=== PATIENT | male | born 1940 | race Caucasian/White ===

== ENCOUNTER 2018-06-15 09:12 | Inpatient (IN) ==
[2018-06-15] MEDS ORDERED: Nitroglycerin 0.4 MG TAB.SUBL SL STA (09:28)
[2018-06-15] MEDS ORDERED: Furosemide 40 MG/4 ML VIAL IVP ONE (09:29)
[2018-06-15] MEDS ORDERED: *HR* LORazepam 2 MG/ML VIAL IVP ONE (09:31)
--- NOTE | 2018-06-15 09:38 | Emergency Department Note ---
Disposition Clinical Impression: Acute respiratory distress Pulmonary edema Qualifiers: Chronicity: acute Qualified Code(s): J81.0 - Acute pulmonary edema Disposition: Admitted As Inpatient Condition: Good General Adult HPI - General Chief complaint: ED Chest Pain Stated complaint: chest pain Time Seen by Provider: 06/15/18 09:14 Source: EMS Limitations: no limitations - History of Present Illness Pain Scale: 4 Past Medical History - Past Medical History Medical history: Reports: hypertension, myocardial infarction, renal disease Psychiatric history: Reports: no psych history - Social History Smoking Status: Former smoker Smokeless Tobacco Status: No Alcohol use: Reports: none Drug use: Reports: none Physical Exam - General Limitations: no limitations General appearance: alert, in distress Course Vital Signs Temperature 98.5 F 06/15/18 09:16 Pulse Rate 118 06/15/18 09:16 Respiratory Rate 35 06/15/18 09:16 Blood Pressure 171/97 06/15/18 09:16 O2 Sat by Pulse Oximetry 95 06/15/18 09:16 Temperature 98.5 F 06/15/18 09:27 Pulse Rate 125 06/15/18 09:27 Respiratory Rate 30 06/15/18 09:27 Blood Pressure 171/97 06/15/18 09:27 O2 Sat by Pulse Oximetry 95 06/15/18 09:27 Oxygen Delivery Oxygen Delivery Nasal Cannula Attestation Statement - Attestation Attestation: I examined this patient and my medical decision-making was reviewed with the Resident Physician. I agree with the documented findings, disposition and treatment plan as described except to the extent set forth below. 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 Varun states that he used to follow with [facility] but not longer does. Varun states that we went to dialysis today and they started to deveop chest pain and was hypoxic to 88% on RA. He is coughing up foamy pinkish productive sputum and there is audible rales on exam concerning for pulmonary edema. Richard has a cardiac history of Mi in the past and currenlty on EKG shows avl ST elevation and global depressions and T wave depressions which I am considering is likley secondary to ischemic demand from the acute pulmonary edema. Varun otherwise appears to be in respiratory distress and we have placed him on bipap, lasix, and nitro. 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 We anatoliy also consult with nephrology for the dialysis therapy in addition to cleanrance for CTA to rule out PE.
--- NOTE | 2018-06-15 09:39 | Emergency Department Note ---
Disposition Clinical Impression: Acute respiratory distress Pulmonary edema Qualifiers: Chronicity: acute Qualified Code(s): J81.0 - Acute pulmonary edema Disposition: Admitted As Inpatient Condition: Fair Referrals: NONE,PCP [Primary Care Provider] - Forms: ED Satisfaction Letter Time of Disposition: 13:24 General Adult HPI - General Chief complaint: ED Chest Pain Stated complaint: chest pain Time Seen by Provider: 06/15/18 09:14 Source: EMS Limitations: no limitations Nursing Notes Reviewed: Yes Vital Signs Reviewed: Yes - History of Present Illness HPI Narrative: Patient is a 77-year-old male with history significant for prior NV and 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 History is somewhat limited secondary to respiratory distress and initial presentation. Presenting from dialysis center for evaluation of sudden onset chest pain that started while patient was getting ready for dialysis states this is central in his chest and is similar to pain he had one year ago felt during his NV, is severe in quality and nonradiating. Patient does endorse cough associated with significant foamy productive sputum and shortness of breath. Patient did not complete his dialysis today. He does have a left upper extremity fistula. 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 Constitutional: Denies: fever Eyes: Denies: vision change ENT ED: Denies: dysphagia Cardiovascular: Reports: chest pain Respiratory: Reports: cough, dyspnea Gastrointestinal: Denies: abdominal pain, nausea, vomiting Musculoskeletal: Denies: back pain, neck pain Integumentary: Denies: rash Neurological: Denies: headache Psychiatric: Reports: anxiety Past Medical History - Past Medical History Source: patient, nursing notes reviewed Medical history: Reports: hypertension, myocardial infarction, renal disease Psychiatric history: Reports: no psych history - Social History Smoking Status: Former smoker Smokeless Tobacco Status: No Alcohol use: Reports: none Drug use: Reports: none Physical Exam - General Limitations: no limitations General appearance: alert, in distress - Head Head exam: atraumatic, normocephalic - Eye Eye exam: Present: EOMI. Absent: scleral icterus, conjunctival injection - ENT ENT exam: mucous membranes moist - Neck Neck exam: Present: trachea midline - Chest Chest inspection: Present: symmetric chest wall rise - Respiratory Respiratory exam: Present: respiratory distress, accessory muscle use - Expanded Respiratory Exam Location: rales: Left, Right - Cardiovascular Cardiovascular exam: Present: tachycardia. Absent: systolic murmur, diastolic murmur - Abdominal Exam Abdominal exam: Present: soft, Non-Tender. Absent: distention, guarding, rebou nd - Extremities Exam Extremities exam: Present: pedal edema (1+ bilateral), other (Left upper extremity fistula with palpable thrill). Absent: calf tenderness - Neurological Exam Neurological exam: Present: alert, oriented X3, CN II-XII intact - Psychiatric Psychiatric exam: Present: anxious - Skin Skin exam: Present: warm, dry. Absent: rash, erythema Course Course Narrative: Patient with prior NV on dialysis presenting for chest pain and shortness of breath. Clinically with respiratory distress. Differential includes evaluation for flash pulmonary edema, PE, and NV. Initial evaluation will include ekg, chest xray, troponin, cbc, bmp, lactate, bnp, UA, blood cultures. Will initiate treatment with Bipap, lasix and sublingual nitro. Will move patient to trauma room. - Reevaluation(s) Reevaluation #1: Patient is seen and re-evaluated. He did require benzo for tolerance of bipap. EKG is suggestive of left bundle branch block. chest xray with findings of right lower opacification. Troponin is 0.68. CTA chest pending. Clinically, respiratory distress if improved with bipap and medications, patient now better able to speak. Have started nitro drip and given aspirin. Spoke with cardiology Dr. Sanchez, notes that is difficult to interpret lbbb without a prior ekg however does recommend repeat ekg for evaluation of potential evolving acs as well as stat echocardiogram. Have spoken with Dr. Mix of nephrology, he will prepare for possible dialysis today. Starting antibiotics with rochephin and azithromycin. INR 1.0, will start acs heparin. Time: 10:31 Reevaluation #2: Patient is seen and re-evaluated at the bedside. Reports that pain in his chest is significantly better and he is feeling much improvement in shortness of breath on Bipap. [employer] is at the bedside who confirms that patient orders have been placed and will have bed to receive dialysis today. Time: 11:02 Reevaluation #3: As seen and reevaluated at the bedside. He reports no acute changes. He continues to feel significant improvement in chest pain shortness of breath since initiation of treatment. Cardiology has come to emergency department to evaluate patient at the bedside who states to continue nitro drip and ACS heparin, obtain stat echocardiogram and they will evaluate for possible left heart catheter pending result of echo. CTA is pending, contact hospitalist when resulted. Time: 12:10 Additional Reevaluation(s): Patient is seen and reevaluated at the bedside. Echotexture is finishing echocardiogram. She reports no evidence of pericardial tamponade, has not yet calculated EF however reports that this appears within normal limits. Final echo report is pending cardiology read. CTA is without identification of pulmonary embolism, does reveal moderate pleural effusions and perihilar edema. Abscess case with admitting hospitalist Dr. Damico who accepts patient for admission. Clinically patient is significantly improved he is tolerating BiPAP well ports near resolution of his symptoms. Vital Signs Temperature 98.5 F 06/15/18 09:16 Pulse Rate 118 06/15/18 09:16 Respiratory Rate 35 06/15/18 09:16 Blood Pressure 171/97 06/15/18 09:16 O2 Sat by Pulse Oximetry 95 06/15/18 09:16 Temperature 98.5 F 06/15/18 09:27 Pulse Rate 82 06/15/18 12:15 Respiratory Rate 30 06/15/18 10:11 Blood Pressure 142/60 06/15/18 12:15 O2 Sat by Pulse Oximetry 98 06/15/18 11:54 Oxygen Delivery Oxygen Delivery Bipap Medical Decision Making - Medical Records Medical records reviewed: Yes I reviewed the patient's medical records. - Lab Data Lab results reviewed: Yes I reviewed the patient's lab results. Result diagrams: 06/15/18 09:37 06/15/18 09:37 Lab Results 06/15/18 06/15/18 06/15/18 Range/Units 09:37 09:37 09:37 WBC 18.3 H (4.3-11.1) K/mcL RBC 3.53 L (4.19-5.50) M/mcL Hgb 11.7 L (12.9-16.9) g/dL Hct 35.5 L (37.5-50.1) % MCV 100.6 H (83.0-100.0) fL MCH 33.1 (28.0-33.3) pg MCHC 33.0 (31.6-35.5) g/dL RDW 14.4 (11.5-14.5) % Plt Count 392 (140-400) K/mcL MPV 10.1 (9.4-12.4) fL Immature Gran % 0.5 (0-4) % Seg Neutrophils % 67.9 % Lymphocytes % 23.6 % Monocytes % 6.5 % Eosinophils % 1.1 % Basophils % 0.4 % Neutrophils # 12.4 H (1.6-8.9) K/mcL Lymphocytes # 4.3 (0.6-4.6) K/mcL Monocytes # 1.2 (0.0-1.3) K/mcL Eosinophils # 0.2 (0.0-0.6) K/mcL Basophils # 0.1 (0.0-0.2) K/mcL PT 10.8 (9.4-12.1) Seconds INR 1.0 APTT 32.3 (26.0-36.0) Seconds Heparin Anti-Xa, Unfract (0.30-0.70) IU/mL Sample Site ABG pH (7.32-7.45) pH Units ABG pCO2 (35-45) mmHg ABG pO2 (85-104) mmHg ABG HCO3 (21-27) mEq/L ABG Total CO2 (20-26) mEq/L ABG O2 Saturation (95-98) % ABG Base Excess (-2 to 3) mEq/L Suresh Test O2 Delivery Device Blood Gas Modality Inspired O2 (1-15=lpm [id number]=%) Sodium 142 (136-145) mEq/L Potassium 3.5 (3.5-5.1) mEq/L Chloride 99 (98-107) mEq/L Carbon Dioxide 26 (23-29) mEq/L BUN 55 H (8-23) mg/dL Creatinine 6.95 H (0.70-1.30) mg/dL Est GFR ( Amer) 9 L (> 60) Est GFR (Non-Af Amer) 8 L (> 60) BUN/Creatinine Ratio 8 (6-26) Glucose 128 H (70-105) mg/dL Calculated Osmolality 311 H (280-300) Lactic Acid (0.5-2.2) mmol/L Calcium 10.5 H (8.6-10.3) mg/dL Phosphorus (2.7-4.5) mg/dL Magnesium (1.6-2.6) mg/dL Total Bilirubin (0.3-1.0) mg/dL Direct Bilirubin (0.0-0.2) mg/dL Indirect Bilirubin (0.0-1.2) mg/dL AST (13-39) Units/L ALT (7-52) Units/L Alkaline Phosphatase (34-104) Units/L Troponin I 0.68 H* (< 0.04) ng/mL B-Natriuretic Peptide (Less than 100) pg/mL Serum Total Protein (6.4-8.9) g/dL Albumin (3.5-5.7) g/dL Globulin (2.4-3.5) g/dL Albumin/Globulin Ratio (1.1-2.2) Lipase (11-82) Units/L Urine Color (Yellow) Urine Clarity (Clear) Urine pH (5.0-8.0) pH Units Ur Specific [place] (1.010-1.025) Urine Protein (Neg-Trace) mg/dL Urine Glucose (UA) (Normal) mg/dL Urine Ketones (Negative) mg/dL Urine Blood (Negative) Urine Nitrite (Negative) Urine Bilirubin (Negative) Urine Urobilinogen (Normal) mg/dL Ur Leukocyte Esterase (Negative) Urine Microscopic RBC (0-3) per hpf Urine Microscopic WBC (0-3) per hpf Ur Squamous Epith Cells (None-Few) per lpf Urine Bacteria (None-Few) per hpf Hyaline Casts (None-Few) per lpf Ur Culture Indicated? (NO) Hep Bs Antigen (Nonreactive) Hep Bs Antibody (10.00 - ) mIU/mL 06/15/18 06/15/18 06/15/18 Range/Units 09:37 09:37 09:37 WBC (4.3-11.1) K/mcL RBC (4.19-5.50) M/mcL Hgb (12.9-16.9) g/dL Hct (37.5-50.1) % MCV (83.0-100.0) fL MCH (28.0-33.3) pg MCHC (31.6-35.5) g/dL RDW (11.5-14.5) % Plt Count (140-400) K/mcL MPV (9.4-12.4) fL Immature Gran % (0-4) % Seg Neutrophils % % Lymphocytes % % Monocytes % % Eosinophils % % Basophils % % Neutrophils # (1.6-8.9) K/mcL Lymphocytes # (0.6-4.6) K/mcL Monocytes # (0.0-1.3) K/mcL Eosinophils # (0.0-0.6) K/mcL Basophils # (0.0-0.2) K/mcL PT (9.4-12.1) Seconds INR APTT (26.0-36.0) Seconds Heparin Anti-Xa, Unfract (0.30-0.70) IU/mL Sample Site ABG pH (7.32-7.45) pH Units ABG pCO2 (35-45) mmHg ABG pO2 (85-104) mmHg ABG HCO3 (21-27) mEq/L ABG Total CO2 (20-26) mEq/L ABG O2 Saturation (95-98) % ABG Base Excess (-2 to 3) mEq/L Suresh Test O2 Delivery Device Blood Gas Modality Inspired O2 (1-15=lpm [id number]=%) Sodium (136-145) mEq/L Potassium (3.5-5.1) mEq/L Chloride (98-107) mEq/L Carbon Dioxide (23-29) mEq/L BUN (8-23) mg/dL Creatinine (0.70-1.30) mg/dL Est GFR ( Amer) (> 60) Est GFR (Non-Af Amer) (> 60) BUN/Creatinine Ratio (6-26) Glucose (70-105) mg/dL Calculated Osmolality (280-300) Lactic Acid 1.9 (0.5-2.2) mmol/L Calcium (8.6-10.3) mg/dL Phosphorus 3.9 (2.7-4.5) mg/dL Magnesium 2.4 (1.6-2.6) mg/dL Total Bilirubin 0.5 (0.3-1.0) mg/dL Direct Bilirubin 0.2 (0.0-0.2) mg/dL Indirect Bilirubin 0.3 (0.0-1.2) mg/dL AST 28 (13-39) Units/L ALT 28 (7-52) Units/L Alkaline Phosphatase 103 (34-104) Units/L Troponin I (< 0.04) ng/mL B-Natriuretic Peptide 517 H (Less than 100) pg/mL Serum Total Protein 9.0 H (6.4-8.9) g/dL Albumin 4.9 (3.5-5.7) g/dL Globulin 4.1 H (2.4-3.5) g/dL Albumin/Globulin Ratio 1.2 (1.1-2.2) Lipase 41 (11-82) Units/L Urine Color (Yellow) Urine Clarity (Clear) Urine pH (5.0-8.0) pH Units Ur Specific [place] (1.010-1.025) Urine Protein (Neg-Trace) mg/dL Urine Glucose (UA) (Normal) mg/dL Urine Ketones (Negative) mg/dL Urine Blood (Negative) Urine Nitrite (Negative) Urine Bilirubin (Negative) Urine Urobilinogen (Normal) mg/dL Ur Leukocyte Esterase (Negative) Urine Microscopic RBC (0-3) per hpf Urine Microscopic WBC (0-3) per hpf Ur Squamous Epith Cells (None-Few) per lpf Urine Bacteria (None-Few) per hpf Hyaline Casts (None-Few) per lpf Ur Culture Indicated? (NO) Hep Bs Antigen (Nonreactive) Hep Bs Antibody (10.00 - ) mIU/mL 06/15/18 06/15/18 06/15/18 Range/Units 09:53 11:30 11:53 WBC (4.3-11.1) K/mcL RBC (4.19-5.50) M/mcL Hgb (12.9-16.9) g/dL Hct (37.5-50.1) % MCV (83.0-100.0) fL MCH (28.0-33.3) pg MCHC (31.6-35.5) g/dL RDW (11.5-14.5) % Plt Count (140-400) K/mcL MPV (9.4-12.4) fL Immature Gran % (0-4) % Seg Neutrophils % % Lymphocytes % % Monocytes % % Eosinophils % % Basophils % % Neutrophils # (1.6-8.9) K/mcL Lymphocytes # (0.6-4.6) K/mcL Monocytes # (0.0-1.3) K/mcL Eosinophils # (0.0-0.6) K/mcL Basophils # (0.0-0.2) K/mcL PT (9.4-12.1) Seconds INR APTT (26.0-36.0) Seconds Heparin Anti-Xa, Unfract 0.00 L (0.30-0.70) IU/mL Sample Site R Radial ABG pH 7.34 (7.32-7.45) pH Units ABG pCO2 50 H (35-45) mmHg ABG pO2 85 (85-104) mmHg ABG HCO3 27 (21-27) mEq/L ABG Total CO2 29 H (20-26) mEq/L ABG O2 Saturation 96 (95-98) % ABG Base Excess 1 (-2 to 3) mEq/L Suresh Test Positive O2 Delivery Device BiPAP Blood Gas Modality BIVENT Inspired O2 50.0 (1-15=lpm [id number]=%) Sodium (136-145) mEq/L Potassium (3.5-5.1) mEq/L Chloride (98-107) mEq/L Carbon Dioxide (23-29) mEq/L BUN (8-23) mg/dL Creatinine (0.70-1.30) mg/dL Est GFR ( Amer) (> 60) Est GFR (Non-Af Amer) (> 60) BUN/Creatinine Ratio (6-26) Glucose (70-105) mg/dL Calculated Osmolality (280-300) Lactic Acid (0.5-2.2) mmol/L Calcium (8.6-10.3) mg/dL Phosphorus (2.7-4.5) mg/dL Magnesium (1.6-2.6) mg/dL Total Bilirubin (0.3-1.0) mg/dL Direct Bilirubin (0.0-0.2) mg/dL Indirect Bilirubin (0.0-1.2) mg/dL AST (13-39) Units/L ALT (7-52) Units/L Alkaline Phosphatase (34-104) Units/L Troponin I (< 0.04) ng/mL B-Natriuretic Peptide (Less than 100) pg/mL Serum Total Protein (6.4-8.9) g/dL Albumin (3.5-5.7) g/dL Globulin (2.4-3.5) g/dL Albumin/Globulin Ratio (1.1-2.2) Lipase (11-82) Units/L Urine Color Yellow (Yellow) Urine Clarity Clear (Clear) Urine pH 7.5 (5.0-8.0) pH Units Ur Specific [place] 1.019 (1.010-1.025) Urine Protein >=300 H (Neg-Trace) mg/dL Urine Glucose (UA) 100 H (Normal) mg/dL Urine Ketones Negative (Negative) mg/dL Urine Blood Negative (Negative) Urine Nitrite Negative (Negative) Urine Bilirubin Negative (Negative) Urine Urobilinogen Normal (Normal) mg/dL Ur Leukocyte Esterase Negative (Negative) Urine Microscopic RBC 0-3 (0-3) per hpf Urine Microscopic WBC 0-3 (0-3) per hpf Ur Squamous Epith Cells None Seen (None-Few) per lpf Urine Bacteria None Seen (None-Few) per hpf Hyaline Casts None Seen (None-Few) per lpf Ur Culture Indicated? NO (NO) Hep Bs Antigen (Nonreactive) Hep Bs Antibody (10.00 - ) mIU/mL 06/15/18 Range/Units 11:53 WBC (4.3-11.1) K/mcL RBC (4.19-5.50) M/mcL Hgb (12.9-16.9) g/dL Hct (37.5-50.1) % MCV (83.0-100.0) fL MCH (28.0-33.3) pg MCHC (31.6-35.5) g/dL RDW (11.5-14.5) % Plt Count (140-400) K/mcL MPV (9.4-12.4) fL Immature Gran % (0-4) % Seg Neutrophils % % Lymphocytes % % Monocytes % % Eosinophils % % Basophils % % Neutrophils # (1.6-8.9) K/mcL Lymphocytes # (0.6-4.6) K/mcL Monocytes # (0.0-1.3) K/mcL Eosinophils # (0.0-0.6) K/mcL Basophils # (0.0-0.2) K/mcL PT (9.4-12.1) Seconds INR APTT (26.0-36.0) Seconds Heparin Anti-Xa, Unfract (0.30-0.70) IU/mL Sample Site ABG pH (7.32-7.45) pH Units ABG pCO2 (35-45) mmHg ABG pO2 (85-104) mmHg ABG HCO3 (21-27) mEq/L ABG Total CO2 (20-26) mEq/L ABG O2 Saturation (95-98) % ABG Base Excess (-2 to 3) mEq/L Suresh Test O2 Delivery Device Blood Gas Modality Inspired O2 (1-15=lpm [id number]=%) Sodium (136-145) mEq/L Potassium (3.5-5.1) mEq/L Chloride (98-107) mEq/L Carbon Dioxide (23-29) mEq/L BUN (8-23) mg/dL Creatinine (0.70-1.30) mg/dL Est GFR ( Amer) (> 60) Est GFR (Non-Af Amer) (> 60) BUN/Creatinine Ratio (6-26) Glucose (70-105) mg/dL Calculated Osmolality (280-300) Lactic Acid (0.5-2.2) mmol/L Calcium (8.6-10.3) mg/dL Phosphorus (2.7-4.5) mg/dL Magnesium (1.6-2.6) mg/dL Total Bilirubin (0.3-1.0) mg/dL Direct Bilirubin (0.0-0.2) mg/dL Indirect Bilirubin (0.0-1.2) mg/dL AST (13-39) Units/L ALT (7-52) Units/L Alkaline Phosphatase (34-104) Units/L Troponin I (< 0.04) ng/mL B-Natriuretic Peptide (Less than 100) pg/mL Serum Total Protein (6.4-8.9) g/dL Albumin (3.5-5.7) g/dL Globulin (2.4-3.5) g/dL Albumin/Globulin Ratio (1.1-2.2) Lipase (11-82) Units/L Urine Color (Yellow) Urine Clarity (Clear) Urine pH (5.0-8.0) pH Units Ur Specific [place] (1.010-1.025) Urine Protein (Neg-Trace) mg/dL Urine Glucose (UA) (Normal) mg/dL Urine Ketones (Negative) mg/dL Urine Blood (Negative) Urine Nitrite (Negative) Urine Bilirubin (Negative) Urine Urobilinogen (Normal) mg/dL Ur Leukocyte Esterase (Negative) Urine Microscopic RBC (0-3) per hpf Urine Microscopic WBC (0-3) per hpf Ur Squamous Epith Cells (None-Few) per lpf Urine Bacteria (None-Few) per hpf Hyaline Casts (None-Few) per lpf Ur Culture Indicated? (NO) Hep Bs Antigen Nonreactive (Nonreactive) Hep Bs Antibody > 850.00 (10.00 - ) mIU/mL - EKG Data EKG #1 EKG results narrative: HR 118, VA 122, [id number], QTc 574. Wide complex tachycardia. Diffuse depressions notes as well as LBBB. No prior EKG to compare for new vs old LBBB.
[2018-06-15] MEDS ORDERED: Isovue-370 500 ML BOTTLE IVP ONE (09:53)
[2018-06-15 09:55] LABS: Basophils # 0.1 K/mcL (0.0-0.2); Basophils % 0.4 %; Eosinophils # 0.2 K/mcL (0.0-0.6); Eosinophils % 1.1 %; Hematocrit 35.5 % (37.5-50.1); Hemoglobin 11.7 g/dL (12.9-16.9); Immature Granulocytes % 0.5 % (0-4); Lymphocytes # 4.3 K/mcL (0.6-4.6); Lymphocytes % 23.6 %; Mean Corpuscular Hemoglobin 33.1 pg (28.0-33.3); Mean Corpuscular Volume 100.6 fL (83.0-100.0); Mean Platelet Volume 10.1 fL (9.4-12.4); Monocytes # 1.2 K/mcL (0.0-1.3); Monocytes % 6.5 %; Neutrophils # 12.4 K/mcL (1.6-8.9); Platelet Count 392 K/mcL (140-400); Red Blood Count 3.53 M/mcL (4.19-5.50); Red Cell Distribution Width 14.4 % (11.5-14.5); Segmented Neutrophils % 67.9 %
[2018-06-15 09:57] LABS: ABG Base Excess 1 mEq/L (-2 to 3); ABG HCO3 27 mEq/L (21-27); ABG Oxygen Saturation 96 % (95-98); ABG PCO2 50 mmHg (35-45); ABG PH 7.34 pH Units (7.32-7.45); ABG PO2 85 mmHg (85-104); ABG TCO2 29 mEq/L (20-26); Blood Gas Modality BIVENT
[2018-06-15] MEDS ORDERED: cefTRIAXone 1,000 MG in Water for inj. (sterile) 20 ML 10 ML IVP ONE (10:10)
[2018-06-15] MEDS ORDERED: Azithromycin 500 MG in D5% in Water 250 ML IVPB ONE (10:10)
[2018-06-15 10:12] LABS: Albumin 4.9 g/dL (3.5-5.7); Albumin/Globulin Ratio 1.2 (1.1-2.2); Bilirubin,Direct 0.2 mg/dL (0.0-0.2); Bilirubin,Indirect 0.3 mg/dL (0.0-1.2); Bilirubin,Total 0.5 mg/dL (0.3-1.0); Globulin 4.1 g/dL (2.4-3.5); Magnesium 2.4 mg/dL (1.6-2.6); Phosphorous 3.9 mg/dL (2.7-4.5); Prothrombin Time 10.8 Seconds (9.4-12.1)
[2018-06-15 10:15] LABS: Activated Partial Thrombo Time 32.3 Seconds (26.0-36.0)
[2018-06-15] MEDS ORDERED: Aspirin 325 MG TABLET PO ONE (10:26)
[2018-06-15 10:27] LABS: Calcium 10.5 mg/dL (8.6-10.3); Potassium 3.5 mEq/L (3.5-5.1); Troponin I 0.68 ng/mL (< 0.04)
[2018-06-15] MEDS: Nitroglycerin 25 MG/250 ML INFUS..BTL IVC SCH (10:35)
[2018-06-15] MEDS ORDERED: *HR* Heparin 5,000 UNIT/ML VIAL IVP PRN (10:38)
[2018-06-15] MEDS ORDERED: *HR* Heparin 5,000 UNIT/ML VIAL IVP ONE (10:38)
[2018-06-15] MEDS: Heparin 25,000 UNIT/250 ML D5W 25,000 UNIT/250 ML IV.SOLN IVC SCH (11:44)
[2018-06-15 12:22] LABS: Bilirubin,Urine Negative (Negative); Blood,Urine Negative (Negative); Clarity,Urine Clear (Clear); Color,Urine Yellow (Yellow); Glucose,Urine (UA) 100 mg/dL (Normal); Ketones,Urine Negative (Negative); Leukocyte Esterase,Urine Negative (Negative); Nitrite,Urine Negative (Negative); PH,Urine 7.5 pH Units (5.0-8.0); Protein,Urine >=300 mg/dL (Neg-Trace); Specific Gravity,Urine 1.019 (1.010-1.025); Urobilinogen,Urine Normal (Normal)
[2018-06-15 12:26] LABS: Bacteria,Urine None Seen per hpf (None-Few); Hyaline Casts,Urine None Seen per lpf (None-Few); RBC,Urine 0-3 per hpf (0-3); Squamous Epithelial Cell,Urine None Seen per lpf (None-Few); WBC,Urine 0-3 per hpf (0-3)
[2018-06-15 12:48] LABS: Hepatitis B Surface Antibody > 850.00 mIU/mL
[2018-06-15 12:59] LABS: Hepatitis B Surface Antigen Nonreactive (Nonreactive)
[2018-06-15] MEDS ORDERED: Perflutren Lipid Microsphere 1.3 ML in 0.9 % Sodium Chloride 8.7 ML IVP ONE (13:34)
[2018-06-15] MEDS ORDERED: Perflutren Lipid Microsphere 2 ML VIAL ONE (13:43)
--- NOTE | 2018-06-15 14:14 | Internal Med History&Physical ---
Date of Encounter: 06/15/18 Time of Encounter: 14:44 Internal Medicine - H&P: HPI Chief complaint: SOB History of present illness: Patient is a 77-year-old male with history significant for prior IL and ESRD on MWF dialysis who presented with respiratory distress associated with sudden onset of mid - sternal chest pain / with no radiation that is similar to pain he had one year ago during his IL. The patient is also C/O productive cough associated with orthopnea, bilateral leg swelling. CXR and CT shows evidence of fluid overload. EKG shows LBBB. Echo shows LVEF 50-55%. Indeterminate diastolic function.Normal right ventricular size and function.No significant valvular dysfunction. No pulmonary hypertension. His laboratory data revealed mildly elevated trop. The patient was admitted for further evaluation. Past Med Surg Social Fam HX - Past Medical History Medical history: hypertension, myocardial infarction, renal disease Psychiatric history: no psych history - Social History Smoking Status: Former smoker Smokeless Tobacco Status: No Alcohol use: none Drug use: none Internal Medicine - H&P: Meds Allopurinol [Zyloprim 100 MG] 100 mg PO DAILY 06/15/18 [History] Amlodipine Besylate 10 mg PO DAILY 06/15/18 [History] Aspirin [Lo-Dose Aspirin EC] 81 mg PO DAILY 06/15/18 [History] Atorvastatin [Lipitor] 40 mg PO HS 06/15/18 [History] B-Complex with Vitamin C [Vitamin B-Complex with Vit C] 1 cap PO DAILY 06/15/18 [History] Docusate [Colace] 100 mg PO BID PRN 06/15/18 [History] Hydralazine HCl 50 mg PO TID 06/15/18 [History] Loratadine [Claritin] 10 mg PO DAILY 06/15/18 [History] Losartan Potassium 50 mg PO DAILY 06/15/18 [History] Metoprolol Succinate [Toprol Xl] 100 mg PO DAILY 06/15/18 [History] Nitroglycerin [Nitrostat] 0.4 mg SL Q5MIN PRN 06/15/18 [History] Sevelamer [Renvela] 2,400 mg PO TIDWM 06/15/18 [History] Sodium Bicarbonate 650 mg PO TID 06/15/18 [History] cloNIDine HCl [Clonidine HCl] 0.2 mg PO TID 06/15/18 [History] Allergy/AdvReac Type Severity Reaction Status Date / Time No Known Allergies Allergy Verified 06/15/18 10:12 All Systems PM: A 10-system review of systems was performed and is negative for pertinent findings except as documented above in the HPI. - Constitutional Constitutional: fatigue, no chills, no fever(s), no night sweats - EENT Eyes: no change in vision, no discharge, no pain, no photophobia Ears: no ear discharge, no ear pain, no tinnitus Nose, mouth and throat: no dysphagia, no nasal discharge, no neck pain, no sore throat - Cardiovascular Cardiovascular ROS IM: chest pain, dyspnea, dyspnea on exertion, paroxysmal nocturnal dyspnea, no diaphoresis, no lightheadedness, no palpitations, no syncope - Respiratory Respiratory: cough, dyspnea, no wheezing, no excessive phlegm production - Gastrointestinal Gastrointestinal: no abdominal pain, no diarrhea, no hematemesis, no hematochezia, no melena, no nausea, no vomiting - Musculoskeletal Musculoskeletal ROS IM: no numbness, no tingling - Integumentary Integumentary IM: no rash, no unusual bruising - Neurological Neurological ROS: no confusion, no convulsions, no focal weakness, no numbness, no tingling, no tremor(s) - Hematologic/Lymphatic Hematologic/Lymphatic: no easy bruising - Constitutional Vitals: Temp Pulse Resp BP Pulse Ox 98.5 F 83 30 142/59 98 06/15/18 09:27 06/15/18 14:03 06/15/18 10:11 06/15/18 14:03 06/15/18 11:54 Exam: General: In no acute distress. Respiratory exam: CTAB Cardiovascular exam: tachycardia, irregular, +S1, +S2. Possible S3, systolic murmur. GI/Abdominal exam: obese, Non-tender, soft, no peritoneal signs. Extremities exam: trace pedal edema, no calf tenderness Neurological exam: CN II-XII intact, AO X3, no focal deficits. Skin exam: No skin rash - Head Head exam: Present: atraumatic, normocephalic - Eye Eye exam: Present: PERRL, conjuntiva pink, sclera anicteric Pupils: Present: PERRL - Neck Neck exam general surgery: Present: supple, trachea midline. Absent: lymphadenopathy - Respiratory Respiratory exam: Present: CTAB. Absent: accessory muscle use, rales, rhonchi, wheezes - Cardiovascular Cardiovascular exam: Present: RRR, +S1, +S2. Absent: diastolic murmur, gallop, rubs, systolic murmur - GI/Abdominal GI/Abdominal exam: Present: normal bowel sounds, soft, no peritoneal signs. Absent: distended, tenderness - Extremities Exam Extremities exam: Present: warm, radial pulses palpable and symmetrical. Absent: calf tenderness, cyanotic, pedal edema - Neurological Exam Neurological exam: Present: CN II-XII intact, oriented X3, no focal deficits. Absent: pronater drift, facial droop, speech deficit - Skin Skin exam: Present: dry, intact Internal Med - H&P Results - Labs CBC & Chem 7: 06/19/18 01:29 06/19/18 01:29 Labs: Short CBC 06/15/18 Range/Units 09:37 WBC 18.3 H (4.3-11.1) K/mcL Hgb 11.7 L (12.9-16.9) g/dL Hct 35.5 L (37.5-50.1) % Plt Count 392 (140-400) K/mcL Neutrophils # 12.4 H (1.6-8.9) K/mcL BMP 06/15/18 09:37 Sodium 142 Potassium 3.5 Chloride 99 Carbon Dioxide 26 BUN 55 H Creatinine 6.95 H Glucose 128 H Calcium 10.5 H Cardiac Enzymes 06/15/18 Range/Units 09:37 Troponin I 0.68 H* (< 0.04) ng/mL Liver Function 06/15/18 Range/Units 09:37 Total Bilirubin 0.5 (0.3-1.0) mg/dL Direct Bilirubin 0.2 (0.0-0.2) mg/dL AST 28 (13-39) Units/L ALT 28 (7-52) Units/L Alkaline Phosphatase 103 (34-104) Units/L Albumin 4.9 (3.5-5.7) g/dL Urine 06/15/18 Range/Units 11:30 Urine Color Yellow (Yellow) Urine Clarity Clear (Clear) Urine pH 7.5 (5.0-8.0) pH Units Ur Specific [place] 1.019 (1.010-1.025) Urine Protein >=300 H (Neg-Trace) mg/dL Urine Glucose (UA) 100 H (Normal) mg/dL - ABG Interpretation ABG results: 06/15/18 09:53 ABG pH 7.34 ABG pCO2 50 H ABG pO2 85 ABG HCO3 27 ABG Total CO2 29 H ABG O2 Saturation 96 ABG Base Excess 1 - Impressions ITS Impressions Chest X-Ray 06/15/18 09:20 IMPRESSION: 1. Focal opacity in the right base is concerning for infection in the appropriate clinical setting. 2. Mild reticular opacities throughout the lungs may represent chronic lung changes versus mild edema. No prior studies are available for comparison to assess chronicity. D/ / 06/15/2018 09:35:22 Vivian Sunshine MD / celina Interpreting Provider: Vivian Sunshine MD Chest CTA 06/15/18 09:53 IMPRESSION: 1. No evidence of pulmonary embolism 2. CHF with perihilar edema and moderate pleural effusions 3. Calcific pericardial thickening presumably secondary to previous pericarditis or hemopericardium D/ / Hipolito Chahal MD / Hipolito Chahal MD Interpreting Provider: Hipolito Chahal MD - Assessment and Plan (1) Pulmonary edema Current Visit: Yes Status: Ruled-out Assessment and plan: Nephrology was consulted to optimize fluid removal with FLOORHAND. Qualifiers: Chronicity: acute Qualified Code(s): J81.0 - Acute pulmonary edema (2) ESRD (end stage renal disease) on dialysis Current Visit: Yes Status: Acute Assessment and plan: Nephrology was consulted to provide FLOORHAND (3) Acute respiratory failure Current Visit: Yes Status: Acute Assessment and plan: Most likely 2/2 fluid overload, however trop is mildly elevated and cardic component can not be excluded. Both nephrology and cardiology were consulted. Qualifiers: Respiratory failure complication: hypoxia Qualified Code(s): J96.01 - Acute respiratory failure with hypoxia (4) Bundle branch block, left Current Visit: Yes Status: Chronic Assessment and plan: Cardiology was consulted. (5) CAD (coronary artery disease) Current Visit: No Status: Chronic Assessment and plan: We will cont home meds Qualifiers: Coronary Disease-Associated Artery/Lesion type: [place] artery [place] vs. transplanted heart: [place] heart Associated angina: without angina Qualified Code(s): I25.10 - Atherosclerotic heart disease of [place] coronary artery without angina pectoris (6) Elevated troponin Current Visit: Yes Status: Acute Assessment and plan: We will trend cardiac enzymes, patient is chest pain fee now, LBBB. Echo shows LVEF 50-55%. Indeterminate diastolic function. Cardiology was consulted (7) DVT prophylaxis Current Visit: Yes Status: Acute - Time Spent With Patient Total time spent is greater than 50% in coordination of care (as documented) at patient's floor/unit and/or counseling patient:
--- NOTE | 2018-06-15 14:24 | Nephrology Consult Note ---
Date of Encounter: 06/15/18 Time of Encounter: 13:50 Assessment and Plan (1) ESRD (end stage renal disease) on dialysis Current Visit: Yes Status: Acute ESRD with MWF dialysis at [facility] No missed sessions prior to today Volume overload clinically and pulm edema on CT Will plan for HD today Renal diet, daily weights, I/O's, and avoid nephrotoxic agents if able (2) Chest pain Current Visit: Yes Status: Acute per primary and cardiology Echo pending Qualifiers: Chest pain type: unspecified Qualified Code(s): R07.9 - Chest pain, unspecified (3) Acute respiratory distress Current Visit: Yes Status: Acute currently on BiPAP - management per primary (4) Pulmonary edema Current Visit: Yes Status: Acute Qualifiers: Chronicity: acute Qualified Code(s): J81.0 - Acute pulmonary edema History of Present Illness - Reason for Consult Consult date: 06/15/18 end stage renal disease Requesting physician: Lucita Garcia - Chief Complaint Chest Pain - History of Present Illness Mr. Gao is a 77 yo WM with PMH of ESRD on dialysis MWF at [facility], HTN, and CAD s/p stent, admitted to the hospital with chest pain and pulmonary edema. He reports that just prior to his dialysis session this morning he developed severe central non-radiating chest pain. This is similar to the pain he had with his prior NC. He had not started dialysis at the time. He has not missed any dialysis sessions prior. He does report some increased dyspnea for the past few days. He feels his legs are more swollen than normal as well. He denies fevers, nausea, vomiting, or dysuria. CTA without PE, but does show moderate pleural effusions and perihilar edema. Echo results are pending. Past Med Surg Social Fam HX - Past Medical History Medical history: hypertension, myocardial infarction, renal disease Psychiatric history: no psych history - Social History Smoking Status: Former smoker Smokeless Tobacco Status: No Alcohol use: none Drug use: none Medications and Allergies Allopurinol [Zyloprim 100 MG] 100 mg PO DAILY 06/15/18 [History] Amlodipine Besylate 10 mg PO DAILY 06/15/18 [History] Aspirin [Lo-Dose Aspirin EC] 81 mg PO DAILY 06/15/18 [History] Atorvastatin [Lipitor] 40 mg PO HS 06/15/18 [History] B-Complex with Vitamin C [Vitamin B-Complex with Vit C] 1 cap PO DAILY 06/15/18 [History] Docusate [Colace] 100 mg PO BID PRN 06/15/18 [History] Hydralazine HCl 50 mg PO TID 06/15/18 [History] Loratadine [Claritin] 10 mg PO DAILY 06/15/18 [History] Losartan Potassium 50 mg PO DAILY 06/15/18 [History] Metoprolol Succinate [Toprol Xl] 100 mg PO DAILY 06/15/18 [History] Nitroglycerin [Nitrostat] 0.4 mg SL Q5MIN PRN 06/15/18 [History] Sevelamer [Renvela] 2,400 mg PO TIDWM 06/15/18 [History] Sodium Bicarbonate 650 mg PO TID 06/15/18 [History] cloNIDine HCl [Clonidine HCl] 0.2 mg PO TID 06/15/18 [History] Allergy/AdvReac Type Severity Reaction Status Date / Time No Known Allergies Allergy Verified 06/15/18 10:12 Review of Systems All Systems: reviewed and no additional remarkable complaints except as stated Exam - Vital Signs Vital signs: Initial Vital Signs Temp Pulse Resp BP Pulse Ox 98.5 F 118 35 171/97 95 06/15/18 09:16 06/15/18 09:16 06/15/18 09:16 06/15/18 09:16 06/15/18 09:16 Vital Signs - Last 8 Hours Temp Pulse Resp BP Pulse Ox 06/15/18 14:03 83 142/59 06/15/18 13:45 80 139/70 06/15/18 13:30 76 118/65 06/15/18 13:15 76 127/65 06/15/18 13:00 79 132/64 06/15/18 12:45 79 145/62 06/15/18 12:30 87 160/66 06/15/18 12:15 82 142/60 06/15/18 12:00 84 150/61 06/15/18 11:54 98 06/15/18 11:45 87 150/71 06/15/18 11:30 96 156/83 06/15/18 11:15 97 178/86 98 06/15/18 11:00 98 180/92 98 06/15/18 10:11 105 30 180/91 99 06/15/18 10:01 36 95 06/15/18 09:51 113 30 173/89 95 06/15/18 09:27 98.5 F 125 30 171/97 95 06/15/18 09:16 98.5 F 118 35 171/97 95 Intake and Output 06/14/18 06/15/18 06/15/18 23:59 07:59 15:59 Intake Total 25.5 / 25.5 Balance 25.5 / 25.5 Intake: IV Fluids 25.5 / 25.5 Nitroglycerin Premix 25 MG/250 15.5 / 15.5 ML 25 mg In 250 ml @ 5 MCG/MIN 3 mls/hr IVC .[facility] Rx#: [id number] Rocephin 1,000 MG In Water for inj. (sterile) 10 ML @ 600 mls/ hr IVP ONCE ONE Rx#:[id number] Other: Weight 107.501 kg Patient Weight 06/15/18 23:59 Weight 107.501 kg - General Appearance General appearance: well-developed, well-nourished, moderate distress EENT: ATNC, mucous membranes dry Neck: supple Respiratory: rales, course breath sounds Cardiology: edema (pitting edema in bilateral LE), regular rate, regular rhythm - Dialysis Access Dialysis Vascular Access: Arteriovenous Fistula (left upper extremity) thrill: Yes bruit: Yes Gastrointestinal: normoactive bowel sounds, no tenderness Integumentary: cool/clammy Neurologic: no focal deficit, alert and oriented x3 Musculoskeletal: no cyanosis, no clubbing Psychiatric: mood/affect appropriate, cooperative Results - Lab Results 06/15/18 09:37 06/15/18 09:37 Most recent lab results ABG pH 7.34 pH Units (7.32-7.45) 06/15/18 09:53 ABG pCO2 50 mmHg (35-45) H 06/15/18 09:53 ABG pO2 85 mmHg (85-104) 06/15/18 09:53 ABG HCO3 27 mEq/L (21-27) 06/15/18 09:53 ABG O2 Saturation 96 % (95-98) 06/15/18 09:53 Calcium 10.5 mg/dL (8.6-10.3) H 06/15/18 09:37 Phosphorus 3.9 mg/dL (2.7-4.5) 06/15/18 09:37 Magnesium 2.4 mg/dL (1.6-2.6) 06/15/18 09:37 Consult Discharge Plan - Plan Referrals: Alex Gusman MD [Non-Partnered Physician] - (This office is closes at 1200 on Fridays new number is [phone])
[2018-06-15] MEDS ORDERED: 0.9 % Sodium Chloride 250 ML IVC PRN (14:26)
[2018-06-15] MEDS ORDERED: 0.9 % Sodium Chloride 1,000 ML PRIME SCH (14:30)
--- NOTE | 2018-06-15 16:13 | Cardiology Consult Note ---
Date of Encounter: 06/15/18 Time of Encounter: 16:11 Assessment and Plan (1) Acute respiratory failure Current Visit: Yes Status: Acute Secondary to acute pulmonary edema in the setting of ESRD. He is being dialyzed today. Echo shows preserved EF Qualifiers: Respiratory failure complication: hypoxia Qualified Code(s): J96.01 - Acute respiratory failure with hypoxia (2) CAD (coronary artery disease) Current Visit: No Status: Chronic Remote [place] in the past. 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 No wall motion abnormalities on echo. Currently chest pain-free. Troponin 0.68. Please trend to peak. I agree with IV heparin. Continue aspirin, beta gretchen, statin Qualifiers: Coronary Disease-Associated Artery/Lesion type: [place] artery [place] vs. transplanted heart: [place] heart Associated angina: without angina Qualified Code(s): I25.10 - Atherosclerotic heart disease of [place] coronary artery without angina pectoris (3) Bundle branch block, left Current Visit: Yes Status: Chronic Unclear if LBBB is new. We will attempt to obtain records from PCPs office. (4) ESRD (end stage renal disease) on dialysis Current Visit: Yes Status: Acute Getting dialysis. Nephrology following Discussion w patient/family: The assessment and plan as outlined above was discussed with the patient and/or family members who expressed understanding and agreement. All questions were answered. Thank you for involving us in the care of your patient. Please call with any questions. History of Present Illness Consult date: 06/15/18 History of present illness: Mr. Gao is a 77 year old pleasant gentleman with history of ESRD on dialysis, CAD s/p remote PCI, HTN, admitted to the hospital with progressive shortness of breath over the past 1 week and chest discomfort which happened today. He has noticed orthopnea, bilateral leg swelling. CXR and CT shows evidence of fluid overload. EKG shows LBBB, no old EKG for comparison. Echo shows LVEF 50-55%. Indeterminate diastolic function.Normal right ventricular size and function.No significant valvular dysfunction. No pulmonary hypertension Past Med Surg Social Fam HX - Past Medical History Medical history: hypertension, myocardial infarction, renal disease Psychiatric history: no psych history - Social History Smoking Status: Former smoker Smokeless Tobacco Status: No Alcohol use: none Drug use: none Medications and Allergies Allopurinol [Zyloprim 100 MG] 100 mg PO DAILY 06/15/18 [History] Amlodipine Besylate 10 mg PO DAILY 06/15/18 [History] Aspirin [Lo-Dose Aspirin EC] 81 mg PO DAILY 06/15/18 [History] Atorvastatin [Lipitor] 40 mg PO HS 06/15/18 [History] B-Complex with Vitamin C [Vitamin B-Complex with Vit C] 1 cap PO DAILY 06/15/18 [History] Docusate [Colace] 100 mg PO BID PRN 06/15/18 [History] Hydralazine HCl 50 mg PO TID 06/15/18 [History] Loratadine [Claritin] 10 mg PO DAILY 06/15/18 [History] Losartan Potassium 50 mg PO DAILY 06/15/18 [History] Metoprolol Succinate [Toprol Xl] 100 mg PO DAILY 06/15/18 [History] Nitroglycerin [Nitrostat] 0.4 mg SL Q5MIN PRN 06/15/18 [History] Sevelamer [Renvela] 2,400 mg PO TIDWM 06/15/18 [History] Sodium Bicarbonate 650 mg PO TID 06/15/18 [History] cloNIDine HCl [Clonidine HCl] 0.2 mg PO TID 06/15/18 [History] Allergy/AdvReac Type Severity Reaction Status Date / Time No Known Allergies Allergy Verified 06/15/18 10:12 All Systems Review: The remainder of the systems were reviewed and are negative - Constitutional Constitutional: no fever(s) - EENT Eyes: no blurred vision Nose, mouth and throat: no bleeding gums - Cardiovascular Cardiovascular: dyspnea at rest, orthopnea, no chest pain at rest, no claudication, no irregular heart rhythm, no syncope - Respiratory Respiratory: cough, dyspnea, wheezing - Gastrointestinal Gastrointestinal: no abdominal pain - Genitourinary Genitourinary: no hematuria - Integumentary Integumentary: no unusual bruising - Neurological Neurological: no abnormal speech - Psychiatric Psychiatric: no panic attacks - Hematological/Lymphatic Hematologic/Lymphatic: no easy bleeding Physical Examination Vital Signs, Last 4 Hours Pulse Resp BP Pulse Ox 06/15/18 14:26 30 98 06/15/18 14:03 83 142/59 06/15/18 13:45 80 139/70 06/15/18 13:30 76 118/65 06/15/18 13:15 76 127/65 06/15/18 13:00 79 132/64 06/15/18 12:45 79 145/62 06/15/18 12:30 87 160/66 06/15/18 12:15 82 142/60 General: Conversant, Other (On BiPAP) Neck: Other (JVD+) Cardiac: Reg Rate and Rhythm, Normal S1 and S2, No Murmur Lungs: Other (Diminished breath sounds bilaterally with scattered inspiratory wheezes) Neuro: Alert and responsive Abdomen: Soft Musculoskeletal: No Chest Wall Tenderness Extremities: Other (3+ bilateral pedal edema is) Results 06/15/18 09:37 06/15/18 09:37 Lab Results 06/15/18 06/15/18 06/15/18 09:37 09:37 09:37 WBC 18.3 H Hgb 11.7 L Hct 35.5 L Plt Count 392 INR 1.0 APTT 32.3 Sodium 142 Potassium 3.5 Chloride 99 Carbon Dioxide 26 BUN 55 H Creatinine 6.95 H Glucose 128 H Calcium 10.5 H Magnesium Total Bilirubin AST ALT Alkaline Phosphatase Troponin I 0.68 H* B-Natriuretic Peptide Lipase 06/15/18 06/15/18 09:37 09:37 WBC Hgb Hct Plt Count INR APTT Sodium Potassium Chloride Carbon Dioxide BUN Creatinine Glucose Calcium Magnesium 2.4 Total Bilirubin 0.5 AST 28 ALT 28 Alkaline Phosphatase 103 Troponin I B-Natriuretic Peptide 517 H Lipase 41 Consult Discharge Plan - Plan Referrals: Alex Gusman MD [Non-Partnered Physician] - (This office is closes at 1200 on Fridays new number is [phone])
[2018-06-15] MEDS ORDERED: Acetaminophen 325 MG TABLET PO PRN ×2 (17:45)
[2018-06-15] MEDS ORDERED: Naloxone 0.4 MG/ML INJ IVP PRN ×2 (17:45)
[2018-06-15] MEDS ORDERED: Mag Hydrox/Al Hydrox/Simeth 30 ML UDC PO PRN (17:45)
[2018-06-15 19:03] LABS: Chol/HDL Ratio 2.1 (0-4.9)
[2018-06-15] MEDS ORDERED: Albuterol 2.5 MG/3 ML NEBULIZER IH PRN (20:21)
[2018-06-15] MEDS: *HR* Morphine 2 MG/ML SYRINGE IVP PRN (20:28)
--- NOTE | 2018-06-15 20:32 | Event Note ---
Date of Encounter: 06/15/18 Time of Encounter: 20:05 Called to see patient for rising troponin and chest pain. Troponin climbed from 0.68 to 4.65. Repeat EKG shows LBBB (same as before). We have no old EKG's. I called [facility] requesting EKG's and old Cardiac records. I am awaiting receipt. On exam, patient has 2/10 chest pain -- much better than earlier. Lung exam suggests reveals rhonchi, rales, and diffuse wheezing. I ordered STAT CXR which suggests RML infiltrate in my opinion. I am awaiting radiology review. I will continue antibiotics for pneumonia. BP is > 200 systolic. I restarted NTG drip and ordered Nicardipine drip if BP does not improve. ECHO reveals normal/preserved LVEF. I called and discussed with Dr. Finch. Preserved LVEF is reassuring, and he recommends controlling BP and chest pain. If troponins rise significantly and/or chest pain worsens, patient may need urgent intervention. Otherwise, cardiology to follow up tomorrow.
[2018-06-15] MEDS ORDERED: Vancomycin 1 EACH in 0.9 % Sodium Chloride 250 ML IVPB SCH (21:00)
--- NOTE | 2018-06-15 22:09 | Event Note ---
Date of Encounter: 06/15/18 Time of Encounter: 22:07 Patient currently chest pain free after NTG drip, IV Morphine PRN. Will add Nicardipine gtt if BP remains difficult to control. Currently titrating NTG gtt. Awaiting records from [place].
[2018-06-16] MEDS: Ipratropium/Albuterol Neb 3 ML IH SCH ×6 (00:51→20:27)
[2018-06-16] MEDS: Ondansetron 4 MG/2 ML VIAL IVP PRN ×3 (01:14→18:42)
[2018-06-16 01:42] LABS: Hematocrit 29.6 % (37.5-50.1); Hemoglobin 10.4 g/dL (12.9-16.9); Mean Corpuscular HGB Conc 35.1 g/dL (31.6-35.5); Mean Corpuscular Hemoglobin 33.7 pg (28.0-33.3); Mean Corpuscular Volume 95.8 fL (83.0-100.0); Mean Platelet Volume 9.9 fL (9.4-12.4); Platelet Count 297 K/mcL (140-400); Red Blood Count 3.09 M/mcL (4.19-5.50); Red Cell Distribution Width 14.3 % (11.5-14.5)
[2018-06-16 01:58] LABS: Albumin 3.8 g/dL (3.5-5.7); Albumin/Globulin Ratio 1.1 (1.1-2.2); Bilirubin,Total 0.5 mg/dL (0.3-1.0); Calcium 9.3 mg/dL (8.6-10.3); Globulin 3.4 g/dL (2.4-3.5); Magnesium 1.9 mg/dL (1.6-2.6); Phosphorous 3.3 mg/dL (2.7-4.5); Potassium 3.4 mEq/L (3.5-5.1); Total Protein 7.2 g/dL (6.4-8.9)
[2018-06-16 02:00] LABS: INR 1.1; Prothrombin Time 12.6 Seconds (9.4-12.1)
[2018-06-16 02:03] LABS: Activated Partial Thrombo Time 64.3 Seconds (26.0-36.0)
[2018-06-16] MEDS: niCARdipine 40 MG/200 ML MLS IVC SCH ×3 (06:24→23:04)
[2018-06-16] MEDS: *HR* Morphine 2 MG/ML SYRINGE IVP PRN ×4 (07:36→18:30)
--- NOTE | 2018-06-16 07:54 | Cardiology Progress Note ---
Date of Encounter: 06/16/18 Time of Encounter: 07:00 Assessment and Plan (1) Elevated troponin Current Visit: Yes Status: Acute NSTEMI. Troponin peaked at 6.68 and trending down. C/o chest pain like previous MD. Currently pain free. No wall motion abnormalities on echo and EF preserved. Currently chest pain- free on NTG gtt. [facility] recommended once b/p improved. Will reevaluate this afternoon. Continue aspirin, beta gretchen, statin (2) Bundle branch block, left Current Visit: Yes Status: Chronic Unclear if LBBB is new. Awaiting record from outside facility. (3) CAD (coronary artery disease) Current Visit: No Status: Chronic Remote MD in the past with PCI. 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 Qualifiers: Coronary Disease-Associated Artery/Lesion type: [place] artery [place] vs. transplanted heart: [place] heart Associated angina: without angina Qualified Code(s): I25.10 - Atherosclerotic heart disease of [place] coronary artery without angina pectoris (4) Hypertension Current Visit: Yes Status: Acute On cardene gtt wean to keep systolic less than 160. Add carvedilol. Consider CCB. Qualifiers: Hypertension type: essential hypertension Qualified Code(s): I10 - Essential (primary) hypertension Discussion w patient/family: The assessment and plan as outlined above was discussed with the patient and/or family members who expressed understanding and agreement. All questions were answered. Thank you for involving us in the care of your patient. Please call with any questions. Subjective Principal diagnosis: NSTEMI Interval history: Mr. Gao reported chest pain yesterday evening. B/p up to 200 systolic. He is now on NTG and cardene gtt. He is chest pain free. He did develope nausea and vomiting intermittently overnight. B/p improved. Objective Vital Signs, Last 4 Hours Temp Pulse Resp BP Pulse Ox 06/16/18 07:00 110 18 155/75 92 06/16/18 06:55 98.3 F 107 17 164/78 91 06/16/18 06:45 99 18 173/86 93 06/16/18 06:20 96 93 216/81 06/16/18 04:23 16 90 General: Conversant, No Apparent Distress, Other (skin cool and moist) HEENT: Atraumatic, Normocephaly, Mucus Membranes Moist Neck: No JVD, Normal carotid pulses Cardiac: Reg Rate and Rhythm, Normal S1 and S2, No Murmur, Other (sinus tachycardia) Lungs: Normal Breath Sounds, No Wheeze, Rales, Rhonchi Neuro: Alert and responsive, No focal deficits noted Abdomen: Soft, Non-Tender Skin: No rashes noted on visualized skin Musculoskeletal: No Chest Wall Tenderness Extremities: No Clubbing, No Cyanosis, No Edema, Normal Pulses Results 06/16/18 01:25 06/16/18 01:25 Lab Results 06/15/18 06/15/18 06/15/18 09:37 09:37 09:37 WBC 18.3 H Hgb 11.7 L Hct 35.5 L Plt Count 392 INR 1.0 APTT 32.3 Sodium 142 Potassium 3.5 Chloride 99 Carbon Dioxide 26 BUN 55 H Creatinine 6.95 H Glucose 128 H Calcium 10.5 H Magnesium Total Bilirubin AST ALT Alkaline Phosphatase Troponin I 0.68 H* B-Natriuretic Peptide Lipase 06/15/18 06/15/18 06/15/18 09:37 09:37 18:31 WBC Hgb Hct Plt Count INR APTT Sodium Potassium Chloride Carbon Dioxide BUN Creatinine Glucose Calcium Magnesium 2.4 Total Bilirubin 0.5 AST 28 ALT 28 Alkaline Phosphatase 103 Troponin I 4.56 H* B-Natriuretic Peptide 517 H Lipase 41 06/16/18 06/16/18 06/16/18 01:25 01:25 01:25 WBC 13.8 H Hgb 10.4 L Hct 29.6 L Plt Count 297 INR 1.1 APTT 64.3 H D Sodium Potassium Chloride Carbon Dioxide BUN Creatinine Glucose Calcium Magnesium Total Bilirubin AST ALT Alkaline Phosphatase Troponin I 6.68 H* B-Natriuretic Peptide Lipase 06/16/18 06/16/18 01:25 05:24 WBC Hgb Hct Plt Count INR APTT Sodium 139 Potassium 3.4 L Chloride 97 L Carbon Dioxide 30 H BUN 30 H Creatinine 4.79 H Glucose 145 H Calcium 9.3 Magnesium 1.9 Total Bilirubin 0.5 AST 36 ALT 20 Alkaline Phosphatase 75 Troponin I 5.49 H* B-Natriuretic Peptide Lipase - Imaging and Cardiology Echo: report reviewed - EKG Interpretation EKG results cardiology: personally reviewed Consult Discharge Plan - Plan Referrals: Alex Gusman MD [Non-Partnered Physician] - (This office is closes at 1200 on Fridays new number is [phone])
[2018-06-16] MEDS: Nitroglycerin 25 MG/250 ML INFUS..BTL IVC SCH (08:07)
[2018-06-16] MEDS ORDERED: Aminoglycoside Consult 1 EACH MC ONE (08:43)
[2018-06-16] MEDS: Aspirin 81 MG TAB.CHEW PO SCH (09:06)
[2018-06-16] MEDS: cefTRIAXone 2,000 MG in Water for inj. (sterile) 20 ML 20 ML IVP SCH (09:09)
[2018-06-16] MEDS ORDERED: 0.9 % Sodium Chloride 250 ML IVC PRN (09:15)
[2018-06-16] MEDS: Azithromycin 500 MG in D5% in Water 250 ML IVPB SCH (09:17)
[2018-06-16] MEDS: Heparin 25,000 UNIT/250 ML D5W 25,000 UNIT/250 ML IV.SOLN IVC SCH (10:23)
--- NOTE | 2018-06-16 10:24 | Internal Med Progress Note ---
Hospitalist Progress Note - Encounter Date of Encounter: 06/16/18 Time of Encounter: 09:57 - Subjective Interval History: Patient seen and examined at bedside. No acute overnight events. Denies any chest pain or difficulty breathing. Denies any abdominal pain bowel or bladder complaints. - Exam Vitals: Temp Pulse Resp BP Pulse Ox 98.3 F 110 18 161/73 92 06/16/18 06:55 06/16/18 07:00 06/16/18 07:00 06/16/18 08:30 06/16/18 07:00 Exam: General: In no acute distress. Respiratory exam: CTAB. no accessory muscle use, rhonchi, wheezes. mild crackles at base. Cardiovascular exam: tachycardia, +S1, +S2. no murmur, gallop, rubs. GI/Abdominal exam: obese, Non-tender, Non-distended, normal bowel sounds, soft, no peritoneal signs. Extremities exam: trace pedal edema, pulses palpable in b/l lower extremities. no calf tenderness Neurological exam: CN II-XII intact, AO X3, no focal deficits. Skin exam: No skin rash - Assessment and Plan (1) Pulmonary edema Current Visit: Yes Status: Acute (2) ESRD (end stage renal disease) on dialysis Current Visit: Yes Status: Acute (3) Acute respiratory failure Current Visit: Yes Status: Acute (4) Bundle branch block, left Current Visit: Yes Status: Chronic (5) CAD (coronary artery disease) Current Visit: No Status: Chronic (6) DVT prophylaxis Current Visit: Yes Status: Acute (7) Elevated troponin Current Visit: Yes Status: Acute - Summary of Assessment and Plan Summary of Assessment and Plan: NSTEMI, CAD - currently chest pain free. - EKG, LBBB. unclear if new. - Echo shows LVEF 50-55%. Indeterminate diastolic function. NWMA - c/w aspirin, coreg, atorvastatin - Cardiology following. [facility] recommended once BP better. Uncontrolled HTN - started on NTG and nicardipine drip. Now off nicardipine. BP better controlled - started on coreg by cardio. To get dialysis as well. 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 ESRD - Nephrology following for volume management. - c/w home sevelamer and sodium bicarb Acute respiratory failure - from fluid overload with possible pneumonia - nephrology and cardiology were consulted. Pneumonia - On vancomyin, ceftriaxone and azithromycin - stop vancomycin. c/w ceftriaxone azithromycin. Obtain urine antigens, sputum culture and RIP. blood culture NGTD DVT prophylaxis - on hepairn drip - Time Spent with Patient Total time spent is greater than 50% in coordination of care (as documented) at patient's floor/unit and/or counseling patient: Internal Medicine: Result - Labs CBC & Chem 7: 06/16/18 01:25 06/16/18 01:25 Labs: Short CBC 06/15/18 06/16/18 Range/Units 09:37 01:25 WBC 18.3 H 13.8 H (4.3-11.1) K/mcL Hgb 11.7 L 10.4 L (12.9-16.9) g/dL Hct 35.5 L 29.6 L (37.5-50.1) % Plt Count 392 297 (140-400) K/mcL Neutrophils # 12.4 H (1.6-8.9) K/mcL BMP 06/15/18 06/16/18 09:37 01:25 Sodium 142 139 Potassium 3.5 3.4 L Chloride 99 97 L Carbon Dioxide 26 30 H BUN 55 H 30 H Creatinine 6.95 H 4.79 H Glucose 128 H 145 H Calcium 10.5 H 9.3 Cardiac Enzymes 06/15/18 06/15/18 06/16/18 Range/Units 09:37 18:31 01:25 Troponin I 0.68 H* 4.56 H* 6.68 H* (< 0.04) ng/mL 06/16/18 Range/Units 05:24 Troponin I 5.49 H* (< 0.04) ng/mL Liver Function 06/15/18 06/16/18 Range/Units 09:37 01:25 Total Bilirubin 0.5 0.5 (0.3-1.0) mg/dL Direct Bilirubin 0.2 (0.0-0.2) mg/dL AST 28 36 (13-39) Units/L ALT 28 20 (7-52) Units/L Alkaline Phosphatase 103 75 (34-104) Units/L Albumin 4.9 3.8 (3.5-5.7) g/dL Urine 06/15/18 Range/Units 11:30 Urine Color Yellow (Yellow) Urine Clarity Clear (Clear) Urine pH 7.5 (5.0-8.0) pH Units Ur Specific [place] 1.019 (1.010-1.025) Urine Protein >=300 H (Neg-Trace) mg/dL Urine Glucose (UA) 100 H (Normal) mg/dL - ABG Interpretation ABG results: ABG ABG pH 7.34 pH Units (7.32-7.45) 06/15/18 09:53 ABG pCO2 50 mmHg (35-45) H 06/15/18 09:53 ABG pO2 85 mmHg (85-104) 06/15/18 09:53 ABG O2 Saturation 96 % (95-98) 06/15/18 09:53 PT/INR, D-dimer PT 12.6 Seconds (9.4-12.1) H 06/16/18 01:25 - Impressions Impressions Chest X-Ray 06/15/18 09:20 IMPRESSION: 1. Focal opacity in the right base is concerning for infection in the appropriate clinical setting. 2. Mild reticular opacities throughout the lungs may represent chronic lung changes versus mild edema. No prior studies are available for comparison to assess chronicity. D/ / 06/15/2018 09:35:22 Vivian Sunshine MD / celina Interpreting Provider: Vivian Sunshine MD Chest CTA 06/15/18 09:53 IMPRESSION: 1. No evidence of pulmonary embolism 2. CHF with perihilar edema and moderate pleural effusions 3. Calcific pericardial thickening presumably secondary to previous pericarditis or hemopericardium D/ / Hipolito Chahal MD / Hipolito Chahal MD Interpreting Provider: Hipolito Chahal MD Echocardiogram 06/15/18 10:08 Impressions: LVEF 50-55%. Indeterminate diastolic function. Normal right ventricular size and function. Mild aortic stenosis. Mild mitral stenosis. Mild tricuspid regurgitation. No pulmonary hypertension. Left Ventricular Wall Motion: Rest Echo Findings All wall segments showed normal motion. Findings: Study Quality * Technically adequate exam. ECG Findings * Sinus rhythm with BBB. Left Ventricle * LVEF 50-55%. * Normal LV chamber sizes and systolic function. * Concentric left ventricular remodeling. * Indeterminate diastolic function. * Atypical septal motion consistent with bundle branch block. Right Ventricle * Normal right ventricular structure and function. Left Atrium * Normal left atrial size. Right Atrium * Normal right atrial size. Interatrial Septum * Interatrial septum not well evaluated. * No evidence of PFO by color Doppler. Aortic Valve * Trileaflet aortic valve. * Moderately calcified aortic valve leaflets. * Mild aortic stenosis. * Peak and mean gradients are 26 16 mmHg, respectively. * No aortic regurgitation. Mitral Valve * Moderate mitral annular calcification * Trace mitral regurgitation. * Mild mitral stenosis, mean gradient 4-5 mmHg at HR 94 bpm. Tricuspid Valve * Normal tricuspid valve structure. * No tricuspid stenosis. * Mild tricuspid regurgitation. * Estimated RVSP is 30 mmHg. * Estimated RA pressure is 8 mmHg. * No pulmonary hypertension. Pulmonic Valve * Pulmonic valve is not well visualized. * No pulmonic stenosis. * No pulmonic regurgitation. Aorta * Normally sized aortic root. Pericardium * The pericardium appears normal. IVC * The IVC is dilated. * > 50% respiratory change Chest X-Ray 06/15/18 20:00 IMPRESSION: Right greater than left basilar consolidation, compatible with that airspace disease seen on recent CT. Radiographic follow-up to resolution is recommended given the masslike appearance of the right lower lobe consolidation. Small pleural effusions. D/ / Jad Kruger MD / Jad Kruger MD Interpreting Provider: Jad Kruger MD Consult Discharge Plan - Plan Referrals: Alex Gusman MD [Non-Partnered Physician] - (This office is closes at 1200 on Fridays new number is [phone]) (1) Pulmonary edema Qualifiers: Chronicity: acute Qualified Code(s): J81.0 - Acute pulmonary edema (3) Acute respiratory failure Qualifiers: Respiratory failure complication: hypoxia Qualified Code(s): J96.01 - Acute respiratory failure with hypoxia (5) CAD (coronary artery disease) Qualifiers: Coronary Disease-Associated Artery/Lesion type: [place] artery [place] vs. transplanted heart: [place] heart Associated angina: without angina Qualified Code(s): I25.10 - Atherosclerotic heart disease of [place] coronary artery without angina pectoris
--- NOTE | 2018-06-16 12:33 | Nephrology Progress Note ---
Date of Encounter: 06/16/18 Time of Encounter: 12:33 - Assessment and Plan (1) ESRD (end stage renal disease) on dialysis Current Visit: Yes Status: Acute HD MWF and as needed. He was seen on dialysis today. Renal dose medications. Renal diet. (2) Acute respiratory failure Current Visit: Yes Status: Acute Improving Qualifiers: Respiratory failure complication: hypoxia Qualified Code(s): J96.01 - Acute respiratory failure with hypoxia (3) Chest pain Current Visit: Yes Status: Acute Per cardiology. possible NSTEMI. Qualifiers: Chest pain type: unspecified Qualified Code(s): R07.9 - Chest pain, unspecified (4) Hypertension Current Visit: Yes Status: Acute Titrate antihypertensive medications as needed. May be related to angina given that he states his blood pressure is normally better controlled. Qualifiers: Hypertension type: essential hypertension Qualified Code(s): I10 - Essential (primary) hypertension Subjective Principal diagnosis: NSTEMI Interval history: Patient seen. No new complaint. His breathing is better. Objective - Vital Signs Vital signs: Vital Signs Temp Pulse Resp BP Pulse Ox 06/16/18 08:30 161/73 06/16/18 08:00 164/75 06/16/18 07:00 110 18 155/75 92 06/16/18 06:55 98.3 F 107 17 164/78 91 06/16/18 06:45 99 18 173/86 93 06/16/18 06:20 96 93 216/81 06/16/18 04:23 16 90 06/16/18 03:46 98.8 F 99 20 173/83 95 06/16/18 02:00 96 18 141/77 06/16/18 00:20 99.2 F 98 18 145/71 92 06/15/18 20:01 99.0 F 105 19 200/82 92 06/15/18 18:28 97.5 F L 117 20 182/95 88 06/15/18 18:02 97.9 F 20 172/84 06/15/18 17:45 179/88 06/15/18 17:30 177/90 06/15/18 17:15 172/82 06/15/18 17:00 173/85 06/15/18 16:45 172/84 06/15/18 16:30 175/85 06/15/18 16:15 167/82 0405/19 16:00 181/82 06/15/18 15:45 150/62 06/15/18 15:30 149/61 06/15/18 15:15 144/60 06/15/18 15:00 143/73 06/15/18 14:45 98.2 F 20 147/68 06/15/18 14:26 30 98 06/15/18 14:03 83 142/59 06/15/18 13:45 80 139/70 06/15/18 13:30 76 118/65 06/15/18 13:15 76 127/65 06/15/18 13:00 79 132/64 06/15/18 12:45 79 145/62 Intake and Output 06/15/18 06/16/18 06/16/18 23:59 07:59 15:59 Intake Total 666 / 666 1155 / 1155 760 / 760 Output Total 2885 / 2885 240 / 240 Balance -2219 / -2219 915 / 915 760 / 760 Intake: IV Fluids 666 / 666 100 / 100 760 / 760 Heparin 25,000 UNIT/250 ML D5W 106 / 106 250 / 250 25,000 unit In 250 ml @ 9.3 UNIT/KG/HR 9.998 mls/hr IVC . Q24H LEANDRA Rx#:[id number] Nitroglycerin Premix 25 MG/250 60 / 60 100 / 100 340 / 340 ML 25 mg In 250 ml @ 5 MCG/MIN 3 mls/hr IVC .Q24H LEANDRA Rx#: [id number] Cardene Premix 40mg/200ml 40 mg 150 / 150 In 200 ml @ 5 MG/HR 25 mls/hr IVC .Q8H LEANDRA Rx#:[id number] Rocephin 2,000 MG In Water for 20 / 20 inj. (sterile) 20 ML @ 600 mls/ hr IVP Q24H LEANDRA Rx#:[id number] Vancocin 1,750 MG In 0.9 % 500 / 500 Sodium Chloride 500 ML @ 333.3 mls/hr IVPB ONCE ONE Rx#: [id number] Other 1055 / 1055 Output: Urine 285 / 285 240 / 240 Total Dialysis (HD) Output 2600 / 2600 Other: Weight 104.6 kg Hemodialysis Net Fluid Removed 2000 (mL) Patient Weight 04/06/19 23:59 Weight 104.6 kg - General Appearance General appearance: Present: well-developed, well-nourished EENT: Present: ATNC Neck: Present: supple Cardiology: Present: regular rate Integumentary: Present: warm and dry Neurologic: Present: alert and oriented x3 Psychiatric: Present: mood/affect appropriate - Lab 06/16/18 01:25 06/16/18 21:45 Most recent lab results ABG pH 7.34 pH Units (7.32-7.45) 06/15/18 09:53 ABG pCO2 50 mmHg (35-45) H 06/15/18 09:53 ABG pO2 85 mmHg (85-104) 06/15/18 09:53 ABG HCO3 27 mEq/L (21-27) 06/15/18 09:53 ABG O2 Saturation 96 % (95-98) 06/15/18 09:53 Calcium 9.3 mg/dL (8.6-10.3) 06/16/18 01:25 Phosphorus 3.3 mg/dL (2.7-4.5) 06/16/18 01:25 Magnesium 1.9 mg/dL (1.6-2.6) 06/16/18 01:25 Consult Discharge Plan - Plan Referrals: Alex Gusman MD [Non-Partnered Physician] - (This office is closes at 1200 on Fridays new number is [phone])
[2018-06-16] MEDS: hydrALAZINE 25 MG TABLET PO SCH ×2 (13:23→20:14)
[2018-06-16] MEDS: amLODIPine 5 MG TABLET PO SCH (13:24)
[2018-06-16] MEDS ORDERED: 0.9 % Sodium Chloride 1,000 ML ONE (15:27)
--- NOTE | 2018-06-16 21:54 | Event Note ---
Date of Encounter: 06/16/18 Time of Encounter: 21:43 I was called to the patient's room by nurse as the patient has been nauseated, vomiting with increased oxygen requirements. He is short of breath and complaining of chest pain. Upon arrival the patient is seated upright, alert and oriented, diaphoretic, tachycardic to 160s and slightly tachypnic. BP 120s/80s. He is saturating at 86% now up to 5L from 3-4L. Lungs are clear to auscultation. He states he has had intermittent chest pain over the last hour but it is now resolved. He continues to intermittently spit up sputum and dry heave. He states he thinks he "over did it" when getting up to chair and back but that was several hours ago. Patient has been admitted for NSTEMI, pneumonia and has been awaiting stabilization of his blood pressure before proceeding with left heart catheterization per cardiology recommendations this morning. He is currently on nicardipine and nitroglycerin drip as well as twice a day carvedilol and daily amlodipine. Obtained a stat EKG which showed A. fib with RVR with a rate in the 160s otherwise similar to previous EKGs with LBBB. Given the patient's symptoms and increasing need for oxygen requirements did contact on-call diesel engine inspector, Dr. Finch who requests decreasing his nicardipine drip in half and increasing nitroglycerin as the patient tolerates. He also requested stat ABG, chest x-ray, BMP, BNP, troponin, and d-dimer. He states he will be in to see the patient in approximately one hour. Labs sent and pending.
[2018-06-16 22:26] LABS: Potassium 3.4 mEq/L (3.5-5.1)
[2018-06-16 23:41] LABS: ABG Base Excess 9 mEq/L (-2 to 3); ABG HCO3 33 mEq/L (21-27); ABG Oxygen Saturation 94 % (95-98); ABG PCO2 45 mmHg (35-45); ABG PH 7.48 pH Units (7.32-7.45); ABG PO2 66 mmHg (85-104); ABG TCO2 35 mEq/L (20-26)
[2018-06-17] MEDS: Ipratropium/Albuterol Neb 3 ML IH SCH ×6 (00:22→20:36)
[2018-06-17] MEDS: *HR* Metoprolol 5 MG/5 ML VIAL IVP PRN ×3 (04:05→07:42)
[2018-06-17 04:33] LABS: Hematocrit 30.2 % (37.5-50.1); Hemoglobin 10.5 g/dL (12.9-16.9); Mean Corpuscular HGB Conc 34.8 g/dL (31.6-35.5); Mean Corpuscular Hemoglobin 34.1 pg (28.0-33.3); Mean Corpuscular Volume 98.1 fL (83.0-100.0); Mean Platelet Volume 10.3 fL (9.4-12.4); Platelet Count 313 K/mcL (140-400); Red Blood Count 3.08 M/mcL (4.19-5.50); Red Cell Distribution Width 14.4 % (11.5-14.5)
[2018-06-17 04:49] LABS: Calcium 9.8 mg/dL (8.6-10.3); Potassium 3.5 mEq/L (3.5-5.1)
[2018-06-17] MEDS: Nitroglycerin 25 MG/250 ML INFUS..BTL IVC SCH (05:43)
[2018-06-17] MEDS: Heparin 25,000 UNIT/250 ML D5W 25,000 UNIT/250 ML IV.SOLN IVC SCH (05:43)
[2018-06-17] MEDS ORDERED: Amiodarone Premix 360 MG/200 ML BAG IVC ONE (09:35)
--- NOTE | 2018-06-17 09:42 | Cardiology Progress Note ---
Date of Encounter: 06/17/18 Time of Encounter: 09:37 Assessment and Plan (1) Elevated troponin Current Visit: Yes Status: Acute NSTEMI. Troponin peaked at 6.68 and trending down. EKG with LBBB, atrial fibrillation with RVR. No clear that LBBB new. No records to compare. Did not meet STEMI criteria per cooker syrup. C/o chest pain like previous [facility]. Re current chest pain symptoms overnight. Currently pain free on nitroglycerin drip. No wall motion abnormalities on echo and EF preserved. [facility] recommended once b/p, HR, and pulmonary edema improved. On heparin gtt. NTG gtt for chest pain. Continue aspirin, beta gretchen, statin. Plan for [facility] monday. Discussed and reviewed with Dr. Finch. (2) Bundle branch block, left Current Visit: Yes Status: Chronic Unclear if LBBB is new. Awaiting record from outside facility. (3) CAD (coronary artery disease) Current Visit: No Status: Chronic Remote [facility] in the past with PCI. 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 Qualifiers: Coronary Disease-Associated Artery/Lesion type: [place] artery [place] vs. transplanted heart: [place] heart Associated angina: without angina Qualified Code(s): I25.10 - Atherosclerotic heart disease of [place] coronary artery without angina pectoris (4) Hypertension Current Visit: Yes Status: Acute On cardene gtt wean to keep systolic less than 160. Increase carvedilol. Qualifiers: Hypertension type: essential hypertension Qualified Code(s): I10 - Essential (primary) hypertension (5) Atrial fibrillation with RVR Current Visit: Yes Status: Acute New onset atrial fibrillation. Discussed and reviewed with Dr. Finch. We will start amiodarone IV drip. Increase carvedilol. Continue heparin gtt. EKG shows atrial fibrillation with RVR. HR 147. QT/QTC 321/405. (6) Pulmonary edema Current Visit: Yes Status: Acute CXR shows pulmonary edema and PNA. Possible pulmonary edema from [facility] or acute dCHF. EF preserved on echocardiogram. He is ESRD on dialysis. Discussed with Dr. Finch he may require extra fluid removal with his dialysis. Nephrology was asked to evaluate. Qualifiers: Chronicity: acute Qualified Code(s): J81.0 - Acute pulmonary edema Discussion w patient/family: The assessment and plan as outlined above was discussed with the patient and/or family members who expressed understanding and agreement. All questions were a nswered. Thank you for involving us in the care of your patient. Please call with any questions. Subjective Principal diagnosis: NSTEMI Interval history: Mr. Gao currently denies chest pain. States that he did have some chest pain overnight. His nitroglycerin drip was titrated up and he is now chest pain- free. Noted to have atrial fibrillation with RVR this morning. Patient denies history. Objective Vital Signs, Last 4 Hours Pulse Resp BP Pulse Ox 06/17/18 08:25 18 93 06/17/18 07:27 92 06/17/18 06:00 120 18 130/88 93 General: Conversant, No Apparent Distress HEENT: Atraumatic, Normocephaly, Mucus Membranes Moist Neck: No JVD, Normal carotid pulses Cardiac: Other (Irregularly irregular, 2/6 systolic) Lungs: Normal Breath Sounds, No Wheeze, Rales, Rhonchi Neuro: Alert and responsive, No focal deficits noted Abdomen: Soft, Non-Tender Skin: No rashes noted on visualized skin Musculoskeletal: No Chest Wall Tenderness Extremities: No Clubbing, No Cyanosis, No Edema, Normal Pulses Results 06/17/18 03:30 06/17/18 03:30 Lab Results 06/16/18 06/16/18 06/16/18 11:50 21:26 21:45 WBC Hgb Hct Plt Count D-Dimer Sodium 138 Potassium 3.4 L Chloride 94 L Carbon Dioxide 28 BUN 44 H Creatinine 6.57 H Glucose 183 H Calcium 10.0 Troponin I 5.14 H* 3.97 H* B-Natriuretic Peptide 06/16/18 06/16/18 06/17/18 21:45 21:45 03:30 WBC 15.0 H Hgb 10.5 L Hct 30.2 L Plt Count 313 D-Dimer 707 H Sodium Potassium Chloride Carbon Dioxide BUN Creatinine Glucose Calcium Troponin I B-Natriuretic Peptide 494 H 06/17/18 03:30 WBC Hgb Hct Plt Count D-Dimer Sodium 138 Potassium 3.5 Chloride 97 L Carbon Dioxide 29 BUN 47 H Creatinine 7.03 H Glucose 149 H Calcium 9.8 Troponin I B-Natriuretic Peptide - Imaging and Cardiology Echo: report reviewed - EKG Interpretation EKG results cardiology: personally reviewed Consult Discharge Plan - Plan Referrals: Alex Gusman MD [Non-Partnered Physician] - (This office is closes at 1200 on Fridays new number is [phone])
[2018-06-17] MEDS: hydrALAZINE 25 MG TABLET PO SCH ×3 (09:50→21:06)
[2018-06-17] MEDS: amLODIPine 5 MG TABLET PO SCH (09:50)
[2018-06-17] MEDS: *HR* Morphine 2 MG/ML SYRINGE IVP PRN (09:51)
[2018-06-17] MEDS: Aspirin 81 MG TAB.CHEW PO SCH (09:51)
[2018-06-17] MEDS: cefTRIAXone 2,000 MG in Water for inj. (sterile) 20 ML 20 ML IVP SCH (09:52)
[2018-06-17] MEDS: Azithromycin 500 MG in D5% in Water 250 ML IVPB SCH (09:53)
--- NOTE | 2018-06-17 10:37 | Internal Med Progress Note ---
Hospitalist Progress Note - Encounter Date of Encounter: 06/17/18 Time of Encounter: 10:37 - Subjective Interval History: Patient seen and examined this morning. Overnight events noted. Denies any difficulty breathing or chest pain currently. His IV is out and probably not getting Cardene however his blood pressure is stable. - Exam Vitals: Temp Pulse Resp BP Pulse Ox 98.4 F 120 18 130/88 93 06/17/18 04:02 06/17/18 06:00 06/17/18 08:25 06/17/18 06:00 06/17/18 08:25 Exam: General: In no acute distress. Respiratory exam: no accessory muscle use. mild crackles at base. Has b/l rhonchi scattered Cardiovascular exam: tachycardia, irregular, +S1, +S2. Possible S3, systolic murmur. GI/Abdominal exam: obese, Non-tender, Non-distended, normal bowel sounds, soft, no peritoneal signs. Extremities exam: trace pedal edema, pulses palpable in b/l lower extremities. no calf tenderness Neurological exam: CN II-XII intact, AO X3, no focal deficits. Skin exam: No skin rash - Assessment and Plan (1) Pulmonary edema Current Visit: Yes Status: Acute (2) ESRD (end stage renal disease) on dialysis Current Visit: Yes Status: Acute (3) Acute respiratory failure Current Visit: Yes Status: Acute (4) Bundle branch block, left Current Visit: Yes Status: Chronic (5) CAD (coronary artery disease) Current Visit: No Status: Chronic (6) DVT prophylaxis Current Visit: Yes Status: Acute (7) Elevated troponin Current Visit: Yes Status: Acute - Summary of Assessment and Plan Summary of Assessment and Plan: NSTEMI, CAD, Afib, diastolic CHF exacerbation - currently chest pain free. - EKG, LBBB. unclear if new. Developed new afib with RVR. Started on amdiodarone drip today and coreg increased. c/w heparin drip - Echo shows LVEF 50-55%. Indeterminate diastolic function. NWMA - c/w aspirin, atorvastatin - Cardiology following. [facility] plan on monday. Uncontrolled HTN - BP now stable. can stop nicardipine drip. Nitro drip only for chest pain. currently as to titrate off as BP controlled - c/w home amlodipine, hydralazine and coreg. Pulmonary edema - Nephrology was consulted to optimize fluid removal with [employer] WORK[employer]. Had 3600 cc removed yesterday ESRD - Nephrology following for volume management. - c/w home sevelamer Acute respiratory failure - from fluid overload with possible pneumonia - nephrology and cardiology were consulted. Pneumonia - On vancomyin, ceftriaxone and azithromycin - stop vancomycin. c/w ceftriaxone. Stop azithromycin as urine ag negative, f/u sputum culture and RIP. blood culture NGTD DVT prophylaxis - on hepairn drip - Time Spent with Patient Total time spent is greater than 50% in coordination of care (as documented) at patient's floor/unit and/or counseling patient: Internal Medicine: Result - Labs CBC & Chem 7: 06/17/18 03:30 06/17/18 03:30 Labs: Short CBC 06/17/18 Range/Units 03:30 WBC 15.0 H (4.3-11.1) K/mcL Hgb 10.5 L (12.9-16.9) g/dL Hct 30.2 L (37.5-50.1) % Plt Count 313 (140-400) K/mcL BMP 06/16/18 06/17/18 21:45 03:30 Sodium 138 138 Potassium 3.4 L 3.5 Chloride 94 L 97 L Carbon Dioxide 28 29 BUN 44 H 47 H Creatinine 6.57 H 7.03 H Glucose 183 H 149 H Calcium 10.0 9.8 Cardiac Enzymes 06/16/18 06/16/18 Range/Units 11:50 21:26 Troponin I 5.14 H* 3.97 H* (< 0.04) ng/mL - ABG Interpretation ABG results: ABG ABG pH 7.48 pH Units (7.32-7.45) H 06/16/18 23:36 ABG pCO2 45 mmHg (35-45) 06/16/18 23:36 ABG pO2 66 mmHg (85-104) L 06/16/18 23:36 ABG O2 Saturation 94 % (95-98) L 06/16/18 23:36 PT/INR, D-dimer PT 12.6 Seconds (9.4-12.1) H 06/16/18 01:25 D-Dimer 707 ng/mLFEU (0-500) H 06/16/18 21:45 - Impressions Impressions Chest X-Ray 06/16/18 21:29 IMPRESSION: 1. Worsening pneumonia in the right base. 2. Progressive pulmonary edema. D/ / Peterson Landis MD / Peterson Landis MD Interpreting Provider: Peterson Landis MD Consult Discharge Plan - Plan Referrals: Alex Gusman MD [Non-Partnered Physician] - (This office is closes at 1200 on Fridays new number is [phone]) (1) Pulmonary edema Qualifiers: Chronicity: acute Qualified Code(s): J81.0 - Acute pulmonary edema (3) Acute respiratory failure Qualifiers: Respiratory failure complication: hypoxia Qualified Code(s): J96.01 - Acute respiratory failure with hypoxia (5) CAD (coronary artery disease) Qualifiers: Coronary Disease-Associated Artery/Lesion type: [place] artery [place] vs. transplanted heart: [place] heart Associated angina: without angina Qualified Code(s): I25.10 - Atherosclerotic heart disease of [place] coronary artery with out angina pectoris
--- NOTE | 2018-06-17 10:56 | Nephrology Progress Note ---
Date of Encounter: 06/17/18 Time of Encounter: 10:56 - Assessment and Plan (1) ESRD (end stage renal disease) on dialysis Current Visit: Yes Status: Acute HD MWF and as needed. Renal dose medications. Renal diet. (2) Acute respiratory failure Current Visit: Yes Status: Acute Improved with HD followed by UF. May be anginal equivalent. Cardiac management per cardiology - possible cardiac cath. Qualifiers: Respiratory failure complication: hypoxia Qualified Code(s): J96.01 - Acute respiratory failure with hypoxia (3) Chest pain Current Visit: Yes Status: Acute Qualifiers: Chest pain type: unspecified Qualified Code(s): R07.9 - Chest pain, unspecified (4) Hypertension Current Visit: Yes Status: Acute Qualifiers: Hypertension type: essential hypertension Qualified Code(s): I10 - Essential (primary) hypertension Subjective Principal diagnosis: NSTEMI Interval history: Patient seen. No new complaint. His breathing is better. Objective - Vital Signs Vital signs: Vital Signs Temp Pulse Resp BP Pulse Ox 06/17/18 08:25 18 93 06/17/18 07:27 92 06/17/18 06:00 120 18 130/88 93 06/17/18 05:30 135/78 06/17/18 05:00 115/83 06/17/18 04:30 120/80 06/17/18 04:19 129 20 132/78 93 06/17/18 04:02 98.4 F 06/17/18 03:30 143/99 06/17/18 03:00 148/87 06/17/18 02:30 129/75 06/17/18 02:22 112 20 158/82 94 06/17/18 02:00 110 158/82 06/17/18 01:30 134/78 06/17/18 01:00 116 18 138/75 93 06/17/18 00:30 170/97 06/17/18 00:00 146/81 06/16/18 23:30 156/90 06/16/18 23:24 98.8 F 120 18 167/89 93 06/16/18 23:00 167/89 06/16/18 22:30 156/86 06/16/18 22:00 129 18 161/70 91 06/16/18 21:30 143/89 06/16/18 21:00 125/82 06/16/18 20:45 87 06/16/18 20:30 161/74 06/16/18 20:27 16 94 06/16/18 20:21 116 12 167/88 94 06/16/18 20:07 98.8 F 114 18 167/88 93 06/16/18 18:00 184/86 06/16/18 17:08 203/99 06/16/18 16:35 98.2 F 118 18 181/82 92 06/16/18 15:40 16 92 06/16/18 13:00 97.8 F 18 199/93 06/16/18 12:40 166/88 06/16/18 12:25 165/87 06/16/18 12:10 157/80 06/16/18 11:55 161/88 06/16/18 11:40 168/80 06/16/18 11:25 159/73 06/16/18 11:10 172/73 Intake and Output 06/16/18 06/17/18 06/17/18 23:59 07:59 15:59 Intake Total 395 / 395 305 / 305 Output Total 300 / 300 175 / 175 Balance 95 / 95 130 / 130 Intake: IV Fluids 155 / 155 305 / 305 Heparin 25,000 UNIT/250 ML D5W 50 / 50 200 / 200 25,000 unit In 250 ml @ 9.3 UNIT/KG/HR 9.998 mls/hr IVC . Q24H LEANDRA Rx#:[id number] Nitroglycerin Premix 25 MG/250 55 / 55 105 / 105 ML 25 mg In 250 ml @ 5 MCG/MIN 3 mls/hr IVC .Q24H LEANDRA Rx#: [id number] Cardene Premix 40mg/200ml 40 mg 50 / 50 In 200 ml @ 5 MG/HR 25 mls/hr IVC .Q8H LEANDRA Rx#:[id number] Oral 240 / 240 0 / 0 Output: Urine 300 / 300 175 / 175 Other: Meal Dinner Percent of Meal Consumed 100% - General Appearance General appearance: Present: well-developed, well-nourished EENT: Present: ATNC Cardiology: Present: regular rate - Lab 06/17/18 03:30 06/17/18 03:30 Most recent lab results ABG pH 7.48 pH Units (7.32-7.45) H 06/16/18 23:36 ABG pCO2 45 mmHg (35-45) 06/16/18 23:36 ABG pO2 66 mmHg (85-104) L 06/16/18 23:36 ABG HCO3 33 mEq/L (21-27) H 06/16/18 23:36 ABG O2 Saturation 94 % (95-98) L 06/16/18 23:36 Calcium 9.8 mg/dL (8.6-10.3) 06/17/18 03:30 Phosphorus 3.3 mg/dL (2.7-4.5) 06/16/18 01:25 Magnesium 1.9 mg/dL (1.6-2.6) 06/16/18 01:25 Consult Discharge Plan - Plan Referrals: Alex Gusman MD [Non-Partnered Physician] - (This office is closes at 1200 on Fridays new number is [phone])
[2018-06-17] MEDS: Amiodarone Premix 360 MG/200 ML BAG IVC SCH (18:00)
--- NOTE | 2018-06-17 18:31 | Electrocardiograph Report ---
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
[2018-06-18] MEDS: Ipratropium/Albuterol Neb 3 ML IH SCH ×7 (00:08→23:29)
[2018-06-18 00:59] LABS: Hematocrit 29.3 % (37.5-50.1); Hemoglobin 9.5 g/dL (12.9-16.9); Mean Corpuscular HGB Conc 32.4 g/dL (31.6-35.5); Mean Corpuscular Hemoglobin 32.5 pg (28.0-33.3); Mean Corpuscular Volume 100.3 fL (83.0-100.0); Mean Platelet Volume 10.4 fL (9.4-12.4); Platelet Count 303 K/mcL (140-400); Red Blood Count 2.92 M/mcL (4.19-5.50); Red Cell Distribution Width 14.2 % (11.5-14.5)
[2018-06-18 01:08] LABS: Calcium 9.9 mg/dL (8.6-10.3); Potassium 3.5 mEq/L (3.5-5.1)
[2018-06-18] MEDS: *HR* Heparin 5,000 UNIT/ML VIAL IVP PRN ×2 (01:18→19:50)
[2018-06-18] MEDS: Heparin 25,000 UNIT/250 ML D5W 25,000 UNIT/250 ML IV.SOLN IVC SCH (03:22)
[2018-06-18] MEDS: Amiodarone Premix 360 MG/200 ML BAG IVC SCH ×2 (05:38→18:14)
[2018-06-18] MEDS: Ondansetron 4 MG/2 ML VIAL IVP PRN (05:38)
[2018-06-18] MEDS ORDERED: 0.9 % Sodium Chloride 250 ML IVC PRN (07:18)
[2018-06-18] MEDS ORDERED: 0.9 % Sodium Chloride 1,000 ML PRIME SCH (07:30)
[2018-06-18] MEDS: hydrALAZINE 25 MG TABLET PO SCH (08:46)
[2018-06-18] MEDS: Aspirin 81 MG TAB.CHEW PO SCH (08:47)
[2018-06-18] MEDS: amLODIPine 5 MG TABLET PO SCH (08:47)
[2018-06-18] MEDS: Nitroglycerin 25 MG/250 ML INFUS..BTL IVC SCH (08:49)
--- NOTE | 2018-06-18 09:11 | Internal Med Progress Note ---
Hospitalist Progress Note - Encounter Date of Encounter: 06/18/18 Time of Encounter: 09:11 - Subjective Interval History: Patient seen and examined this afternoon after dialysis. Still tachycardic. His blood pressure is slightly lower end. Denies any complaint. - Exam Vitals: Temp Pulse Resp BP Pulse Ox 98.4 F 130 17 157/92 96 06/18/18 07:44 06/18/18 07:44 06/18/18 07:44 06/18/18 07:44 06/18/18 07:44 Exam: General: In no acute distress. Respiratory exam: no accessory muscle use. mild crackles at base. Has b/l rhonchi scattered Cardiovascular exam: tachycardia, irregular, +S1, +S2. Possible S3, systolic murmur. GI/Abdominal exam: obese, Non-tender, Non-distended, normal bowel sounds, soft, no peritoneal signs. Extremities exam: trace pedal edema, no calf tenderness Neurological exam: CN II-XII intact, AO X3, no focal deficits. Skin exam: No skin rash - Assessment and Plan (1) Pulmonary edema Current Visit: Yes Status: Ruled-out (2) ESRD (end stage renal disease) on dialysis Current Visit: Yes Status: Acute (3) Acute respiratory failure Current Visit: Yes Status: Acute (4) Bundle branch block, left Current Visit: Yes Status: Chronic (5) CAD (coronary artery disease) Current Visit: No Status: Chronic (6) DVT prophylaxis Current Visit: Yes Status: Acute (7) Elevated troponin Current Visit: Yes Status: Acute - Summary of Assessment and Plan Summary of Assessment and Plan: NSTEMI, CAD, Afib, diastolic CHF exacerbation - EKG, LBBB. unclear if new. Developed new afib with RVR. Echo shows LVEF 50-55% . Indeterminate diastolic function. NWMA - Started on amdiodarone drip and coreg increased. still tachycardic today - c/w heparin drip, aspirin, atorvastatin - Cardiology following. LHC planned but cancelled as still tachycardic. Plan for cardioversion if still tachycardic on amdiodarone and coreg tomorrow and LHC after. Uncontrolled HTN - BP on low end. nicardipine drip was stopped. Nitro drip was ongoing which was titrated off by cardiology and given a dose of amiodarone. - c/w amiodarone driip and coreg. 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 Had another session of dialysis today ESRD - Nephrology following for volume management. - c/w home sevelamer Acute respiratory failure - from fluid overload with possible pneumonia - nephrology and cardiology were consulted. Pneumonia - On vancomyin, ceftriaxone and azithromycin - vancomycin and azithromycin stopped. c/w ceftriaxone. Stop azithromycin as urine ag negative, f/u RIP, blood culture NGTD DVT prophylaxis - on hepairn drip - Time Spent with Patient Total time spent is greater than 50% in coordination of care (as documented) at patient's floor/unit and/or counseling patient: Internal Medicine: Result - Labs CBC & Chem 7: 06/18/18 00:39 06/18/18 00:39 Labs: Short CBC 06/18/18 Range/Units 00:39 WBC 14.7 H (4.3-11.1) K/mcL Hgb 9.5 L (12.9-16.9) g/dL Hct 29.3 L (37.5-50.1) % Plt Count 303 (140-400) K/mcL BMP 06/18/18 00:39 Sodium 139 Potassium 3.5 Chloride 95 L Carbon Dioxide 29 BUN 62 H Creatinine 8.98 H Glucose 157 H Calcium 9.9 - ABG Interpretation ABG results: ABG ABG pH 7.48 pH Units (7.32-7.45) H 06/16/18 23:36 ABG pCO2 45 mmHg (35-45) 06/16/18 23:36 ABG pO2 66 mmHg (85-104) L 06/16/18 23:36 ABG O2 Saturation 94 % (95-98) L 06/16/18 23:36 PT/INR, D-dimer PT 12.6 Seconds (9.4-12.1) H 06/16/18 01:25 D-Dimer 707 ng/mLFEU (0-500) H 06/16/18 21:45 - Impressions Impressions Chest X-Ray 06/17/18 12:55 IMPRESSION: 1. Improving pulmonary edema. 2. Improving consolidation in the right lower lobe. This could represent edema or pneumonia. Continued follow-up recommended to ensure complete resolution. D/ / 06/17/2018 14:09:38 Aayush Parekh MD / juan Interpreting Provider: Aayush Parekh MD Consult Discharge Plan - Plan Referrals: Karlos Hoyt CNP [Advanced Practice Nurse] - (Per the office they will call the patient at home with follow up appointment) (1) Pulmonary edema Qualifiers: Chronicity: acute Qualified Code(s): J81.0 - Acute pulmonary edema (3) Acute respiratory failure Qualifiers: Respiratory failure complication: hypoxia Qualified Code(s): J96.01 - Acute respiratory failure with hypoxia (5) CAD (coronary artery disease) Qualifiers: Coronary Disease-Associated Artery/Lesion type: [place] artery [place] vs. transplanted heart: [place] heart Associated angina: without angina Qualified Code(s): I25.10 - Atherosclerotic heart disease of [place] coronary artery wit hout angina pectoris
--- NOTE | 2018-06-18 09:26 | Event Note ---
Date of Encounter: 06/18/18 Time of Encounter: 09:24 - Cardiology Event Note Planning for possible LHC later today. He remains tachycardic, atria fibrillation with RVR on amiodarone gtt and carvedilol. We will titrate medications for HR. He denies chest pain.
--- NOTE | 2018-06-18 09:32 | Electrocardiograph Report ---
[address] [place], [place] [address] Test Date: 2018-06-15 Pat Name: Balaji Gao Department: TRAUMA2 Room: 05 Gender: M Director Trial: : 1940 Requested By: Jimmie Lyle Order Number: [id number] Reading MD: August Balbuena Measurements Intervals [place] Rate: 123 P: 238 [place]: 101 QRS: 18 QRSD: 179 T: 113 QT: 399 QTc: 571 Interpretive Statements Sinus or ectopic atrial tachycardia Left bundle branch block Electronically Signed On 06-18-2018 9:30:52 EDT by August Balbuena
--- NOTE | 2018-06-18 10:04 | Cardiology Progress Note ---
Date of Encounter: 06/18/18 Time of Encounter: 10:01 Assessment and Plan (1) Elevated troponin Current Visit: Yes Status: Acute NSTEMI. Troponin peaked at 6.68 and trending down. EKG with LBBB, atrial fibrillation with RVR. No clear that LBBB new. No records to compare. Did not meet STEMI criteria per aeronautics commission director. C/o chest pain like previous MD. Re current chest pain symptoms overnight. Currently pain free on nitroglycerin drip. No wall motion abnormalities on echo and EF preserved. LHC recommended once b/p, HR, and pulmonary edema improved. On heparin gtt. NTG gtt for hypertension/CP. Continue without titration. Continue aspirin, beta gretchen, statin. HR remains elevated today. Planning for ubaldo with nephrology. Will re-evaluate tomorrow for possible LHC. (2) Bundle branch block, left Current Visit: Yes Status: Chronic Unclear if LBBB is new. Awaiting record from outside facility. (3) CAD (coronary artery disease) Current Visit: No Status: Chronic Remote MD in the past with PCI. We will need records from PCP, or former aeronautics commission director. Qualifiers: Coronary Disease-Associated Artery/Lesion type: [place] artery [place] vs. transplanted heart: [place] heart Associated angina: without angina Qualified Code(s): I25.10 - Atherosclerotic heart disease of [place] coronary artery wi thout angina pectoris (4) Hypertension Current Visit: Yes Status: Acute Off cardene gtt. Continues to be on NTG gtt. B/p 160/111. Carvedilol increased. Qualifiers: Hypertension type: essential hypertension Qualified Code(s): I10 - Essential (primary) hypertension (5) Atrial fibrillation with RVR Current Visit: Yes Status: Acute New onset atrial fibrillation. Discussed and reviewed with Dr. Finch. Continue amiodarone IV drip. Increase carvedilol. Continue heparin gtt. EKG shows atrial fibrillation with RVR. HR 147. QT/QTC 321/405. (6) Pulmonary edema Current Visit: Yes Status: Ruled-out CXR shows pulmonary edema and PNA. Re-peat CXR shows improvment. Possible pulmonary edema from MD or acute dCHF. EF preserved on echocardiogram. He is ESRD on dialysis. Fluid removal per dialysis/ ubaldo. Qualifiers: Chronicity: acute Qualified Code(s): J81.0 - Acute pulmonary edema Discussion w patient/family: The assessment and plan as outlined above was discussed with the patient and/or family members who expressed understanding and agreement. All questions were answered. Thank you for involving us in the care of your patient. Please call with any questions. Subjective Principal diagnosis: NSTEMI Interval history: Mr. Gao currently denies chest pain. No chest pain overnight. Remains atrial fbrillation with RVR. Objective Vital Signs, Last 4 Hours Temp Pulse Resp BP Pulse Ox 06/18/18 07:44 98.4 F 130 17 157/92 96 General: Conversant, No Apparent Distress HEENT: Atraumatic, Normocephaly, Mucus Membranes Moist Neck: No JVD, Normal carotid pulses Cardiac: Other (Irregular) Lungs: Normal Breath Sounds, No Wheeze, Rales, Rhonchi Neuro: Alert and responsive, No focal deficits noted Abdomen: Soft, Non-Tender Skin: No rashes noted on visualized skin Musculoskeletal: No Chest Wall Tenderness Extremities: No Clubbing, No Cyanosis, No Edema, Normal Pulses Results 06/18/18 00:39 06/18/18 00:39 Lab Results 06/18/18 06/18/18 00:39 00:39 WBC 14.7 H Hgb 9.5 L Hct 29.3 L Plt Count 303 Sodium 139 Potassium 3.5 Chloride 95 L Carbon Dioxide 29 BUN 62 H Creatinine 8.98 H Glucose 157 H Calcium 9.9 - Imaging and Cardiology Echo: report reviewed - EKG Interpretation EKG results cardiology: personally reviewed Consult Discharge Plan - Plan Referrals: Alex Gusman MD [Non-Partnered Physician] - (This office is closes at 1200 on Fridays new number is [phone])
--- NOTE | 2018-06-18 10:10 | Electrocardiograph Report ---
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
--- NOTE | 2018-06-18 11:47 | Nephrology Progress Note ---
Date of Encounter: 06/18/18 Time of Encounter: 11:47 - Assessment and Plan (1) ESRD (end stage renal disease) on dialysis Current Visit: Yes Status: Acute HD MWF and as needed. Renal dose medications. Renal diet. Patient seen on dialysis today. (2) Acute respiratory failure Current Visit: Yes Status: Acute Improved with HD followed by UF. May be anginal equivalent. Cardiac management per cardiology -cardiac cath planned for today. Qualifiers: Respiratory failure complication: hypoxia Qualified Code(s): J96.01 - Acute respiratory failure with hypoxia (3) Chest pain Current Visit: Yes Status: Acute Qualifiers: Chest pain type: unspecified Qualified Code(s): R07.9 - Chest pain, unspecified (4) Hypertension Current Visit: Yes Status: Acute Titrate antihypertensive medications as needed. May be related to angina given that he states his blood pressure is normally better controlled. Qualifiers: Hypertension type: essential hypertension Qualified Code(s): I10 - Essential (primary) hypertension Subjective Principal diagnosis: NSTEMI Interval history: Patient seen. No new complaint. His breathing is better. He was seen on dialysis. Objective - Vital Signs Vital signs: Vital Signs Temp Pulse Resp BP Pulse Ox 06/18/18 07:44 98.4 F 130 17 157/92 96 06/18/18 06:00 131 136/97 06/18/18 05:00 132 124/41 06/18/18 04:00 127 132/49 06/18/18 03:28 98.6 F 125 22 125/62 92 06/18/18 02:00 128 113/61 06/18/18 01:00 127 142/64 06/18/18 00:00 128 116/55 06/17/18 23:44 98.3 F 127 18 115/39 91 06/17/18 22:00 129 119/59 06/17/18 21:00 128 125/63 06/17/18 20:36 20 92 06/17/18 20:00 128 120/65 06/17/18 18:54 98.6 F 128 18 130/68 90 06/17/18 16:08 16 91 06/17/18 16:05 98.5 F 123 18 134/62 93 06/17/18 15:00 125/65 06/17/18 14:00 130/59 06/17/18 13:00 105/49 04/07/19 12:00 120/59 Intake and Output 06/17/18 06/18/18 06/18/18 23:59 07:59 15:59 Intake Total 170 / 170 600 / 600 50 / 50 Output Total 135 / 135 50 / 50 Balance 35 / 35 550 / 550 50 / 50 Intake: IV Fluids 50 / 50 600 / 600 50 / 50 Amiodarone Drip Premix 360mg/ 200 / 200 200mL 360 mg In 200 ml @ 0.5 MG /MIN 16.667 mls/hr IVC CONT LEANDRA Rx#:[id number] Heparin 25,000 UNIT/250 ML D5W 250 / 250 50 / 50 25,000 unit In 250 ml @ 9.3 UNIT/KG/HR 9.998 mls/hr IVC . Q24H LEANDRA Rx#:[id number] Nitroglycerin Premix 25 MG/250 50 / 50 150 / 150 ML 25 mg In 250 ml @ 5 MCG/MIN 3 mls/hr IVC .Q24H LEANDRA Rx#: [id number] Oral 120 / 120 Output: Urine 135 / 135 50 / 50 Other: Meal Dinner Percent of Meal Consumed 60% - General Appearance General appearance: Present: well-developed, well-nourished EENT: Present: ATNC Neck: Present: supple Additional Comments: tachycardia Integumentary: Present: warm and dry Neurologic: Present: alert and oriented x3 Musculoskeletal: Present: no cyanosis Psychiatric: Present: mood/affect appropriate - Lab 06/18/18 00:39 06/18/18 00:39 Most recent lab results ABG pH 7.48 pH Units (7.32-7.45) H 06/16/18 23:36 ABG pCO2 45 mmHg (35-45) 06/16/18 23:36 ABG pO2 66 mmHg (85-104) L 06/16/18 23:36 ABG HCO3 33 mEq/L (21-27) H 06/16/18 23:36 ABG O2 Saturation 94 % (95-98) L 06/16/18 23:36 Calcium 9.9 mg/dL (8.6-10.3) 06/18/18 00:39 Phosphorus 3.3 mg/dL (2.7-4.5) 06/16/18 01:25 Magnesium 1.9 mg/dL (1.6-2.6) 06/16/18 01:25 Consult Discharge Plan - Plan Referrals: Karlos Hoyt, ANDROID FRAMEWORK DEVELOPER [Advanced Practice Nurse] - (Per the office they will call the patient at home with follow up appointment)
[2018-06-18] MEDS ORDERED: Amiodarone Premix 150 MG/100 ML BAG IVPB ONE ×2 (13:55→14:01)
[2018-06-18] MEDS: cefTRIAXone 2,000 MG in Water for inj. (sterile) 20 ML 20 ML IVP SCH (14:15)
[2018-06-18] MEDS ORDERED: 0.9 % Sodium Chloride 1,000 ML ONE (15:04)
--- NOTE | 2018-06-18 16:16 | Electrocardiograph Report ---
[address] [address] Test Date: 2018-06-16 Pat Name: Balaji Gao Department: 110 Room: [facility] Gender: M Global Professional: : 1940 Requested By: Vaishnavi Bar Order Number: [id number] Reading MD: August Balbuena Measurements Intervals [place] Rate: 160 P: [place]: 0 QRS: -16 QRSD: 171 T: 120 QT: 313 QTc: 402 Interpretive Statements wide complex tachycardia Electronically Signed On 06-18-2018 16:15:13 EDT by August Balbuena
--- NOTE | 2018-06-18 16:17 | Electrocardiograph Report ---
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
[2018-06-18] MEDS: Artificial Tears SOLN 15 ML BOTTLE BOTH EYES SCH (21:41)
[2018-06-19 01:42] LABS: Hematocrit 30.3 % (37.5-50.1); Hemoglobin 10.1 g/dL (12.9-16.9); Mean Corpuscular HGB Conc 33.3 g/dL (31.6-35.5); Mean Corpuscular Hemoglobin 33.2 pg (28.0-33.3); Mean Corpuscular Volume 99.7 fL (83.0-100.0); Mean Platelet Volume 10.3 fL (9.4-12.4); Platelet Count 331 K/mcL (140-400); Red Blood Count 3.04 M/mcL (4.19-5.50); Red Cell Distribution Width 14.2 % (11.5-14.5)
[2018-06-19 02:00] LABS: Calcium 9.9 mg/dL (8.6-10.3); Potassium 3.7 mEq/L (3.5-5.1)
[2018-06-19] MEDS: Heparin 25,000 UNIT/250 ML D5W 25,000 UNIT/250 ML IV.SOLN IVC SCH ×2 (02:12→19:47)
[2018-06-19] MEDS: *HR* Heparin 5,000 UNIT/ML VIAL IVP PRN ×2 (02:14→16:37)
[2018-06-19] MEDS: Ipratropium/Albuterol Neb 3 ML IH SCH ×6 (04:52→23:18)
[2018-06-19] MEDS: Amiodarone Premix 360 MG/200 ML BAG IVC SCH ×2 (06:43→19:49)
[2018-06-19] MEDS: Aspirin 81 MG TAB.CHEW PO SCH (07:58)
[2018-06-19] MEDS: Artificial Tears SOLN 15 ML BOTTLE BOTH EYES SCH ×4 (08:05→19:49)
--- NOTE | 2018-06-19 09:44 | Internal Med Progress Note ---
Hospitalist Progress Note - Encounter Date of Encounter: 06/19/18 Time of Encounter: 09:44 - Subjective Interval History: Patient seen and examined this morning at bedside. No acute overnight events. Denies any chest pain or difficulty breathing. Still tachycardic overnight. Denies new complaints. He is NPO - Exam Vitals: Temp Pulse Resp BP Pulse Ox 98.7 F 124 20 124/81 93 06/19/18 07:50 06/19/18 07:50 06/19/18 07:50 06/19/18 07:50 06/19/18 07:50 Exam: General: In no acute distress. Respiratory exam: CTAB Cardiovascular exam: tachycardia, irregular, +S1, +S2. Possible S3, systolic murmur. GI/Abdominal exam: obese, Non-tender, soft, no peritoneal signs. Extremities exam: trace pedal edema, no calf tenderness Neurological exam: CN II-XII intact, AO X3, no focal deficits. Skin exam: No skin rash - Assessment and Plan (1) Pulmonary edema Current Visit: Yes Status: Ruled-out (2) ESRD (end stage renal disease) on dialysis Current Visit: Yes Status: Acute (3) Acute respiratory failure Current Visit: Yes Status: Acute (4) Bundle branch block, left Current Visit: Yes Status: Chronic (5) CAD (coronary artery disease) Current Visit: No Status: Chronic (6) DVT prophylaxis Current Visit: Yes Status: Acute (7) Elevated troponin Current Visit: Yes Status: Acute - Summary of Assessment and Plan Summary of Assessment and Plan: NSTEMI, CAD, Afib, diastolic CHF exacerbation - EKG, LBBB. unclear if new. Developed new afib with RVR. Echo shows LVEF 50- 55%. Indeterminate diastolic function. NWMA - Started on amdiodarone drip and coreg. still tachycardic today - c/w heparin drip , aspirin, atorvastatin - Cardiology following. Plan for cardioversion today and C tomorrow. Uncontrolled HTN - initially high and dropped after afib and antihypertensive - BP now stable with occasioinal low reading. On coreg and amiodarone - stop amlodipine, hydralazine Pulmonary edema - Nephrology was consulted to optimize fluid removal s/p dialysis with -4 L balance till now. ESRD - Nephrology following for volume management. - c/w home sevelamer Acute respiratory failure - from fluid overload with possible pneumonia - nephrolodgy an cardiology were consulted. Pneumonia - finished antibiotic course. f/u RIP, blood culture NGTD DVT prophylaxis - on hepairn drip - Time Spent with Patient Total time spent is greater than 50% in coordination of care (as documented) at patient's floor/unit and/or counseling patient: Internal Medicine: Result - Labs CBC & Chem 7: 06/19/18 01:29 06/19/18 01:29 Labs: Short CBC 06/19/18 Range/Units 01:29 WBC 15.6 H (4.3-11.1) K/mcL Hgb 10.1 L (12.9-16.9) g/dL Hct 30.3 L (37.5-50.1) % Plt Count 331 (140-400) K/mcL BMP 06/19/18 01:29 Sodium 136 Potassium 3.7 Chloride 92 L Carbon Dioxide 32 H BUN 45 H Creatinine 6.53 H Glucose 152 H Calcium 9.9 - ABG Interpretation ABG results: ABG ABG pH 7.48 pH Units (7.32-7.45) H 06/16/18 23:36 ABG pCO2 45 mmHg (35-45) 06/16/18 23:36 ABG pO2 66 mmHg (85-104) L 06/16/18 23:36 ABG O2 Saturation 94 % (95-98) L 06/16/18 23:36 PT/INR, D-dimer PT 12.6 Seconds (9.4-12.1) H 06/16/18 01:25 D-Dimer 707 ng/mLFEU (0-500) H 06/16/18 21:45 - Impressions Impressions Chest X-Ray 06/17/18 12:55 IMPRESSION: 1. Improving pulmonary edema. 2. Improving consolidation in the right lower lobe. This could represent edema or pneumonia. Continued follow-up recommended to ensure complete resolution. D/ / 06/17/2018 14:09:38 Aayush Parekh MD / bcarter Interpreting Provider: Aayush Parekh MD Consult Discharge Plan - Plan Additional Instructions: please fax over info for this patient to Dr. Rivrea [phone]. Referrals: Karlos Hoyt, [employer]AVA SOFTWARE [Advanced Practice Nurse] - (Per the office they will call the patient at home with follow up appointment) Aldo Rivera DO [Primary Care Provider] - 06/29/18 10:00 am (Please make sure you take your picture ID, Insurance cards, and all medications in the bottles to your appointment) (1) Pulmonary edema Qualifiers: Chronicity: acute Qualified Code(s): J81.0 - Acute pulmonary edema (3) Acute respiratory failure Qualifiers: Respiratory failure complication: hypoxia Qualified Code(s): J96.01 - Acute respiratory failure with hypoxia (5) CAD (coronary artery disease) Qualifiers: Coronary Disease-Associated Artery/Lesion type: [place] artery [place] vs. transplanted heart: [place] heart Associated angina: without angina Qualified Code(s): I25.10 - Atherosclerotic heart disease of [place] coronary artery without angina pectoris
--- NOTE | 2018-06-19 09:59 | Event Note ---
Date of Encounter: 06/19/18 Time of Encounter: 09:57 - Cardiology Event Note Mr. Gao remains in atrial fibrillation with RVR. Planning for PATRIC with DCCV today. Discussed with cardiology team. We will defer LHC until tomorrow so he does not have tyler procedures with sedation in one day.
[2018-06-19] MEDS: cefTRIAXone 2,000 MG in Water for inj. (sterile) 20 ML 20 ML IVP SCH (10:00)
[2018-06-19] MEDS ORDERED: Naloxone 0.4 MG/ML INJ ONE (12:04)
[2018-06-19] MEDS ORDERED: *HR* FentaNYL (PF) 250 MCG/5 ML VIAL ONE (12:04)
[2018-06-19] MEDS ORDERED: *HR* Midazolam HCl 5 MG/5 ML VIAL IVP ONE (12:04)
[2018-06-19] MEDS ORDERED: 0.9 % Sodium Chloride 1,000 ML ONE (12:05)
--- NOTE | 2018-06-19 15:55 | Nephrology Progress Note ---
Date of Encounter: 06/19/18 Time of Encounter: 15:55 - Assessment and Plan (1) ESRD (end stage renal disease) on dialysis Current Visit: Yes Status: Acute HD MWF. Renal vitamins. Renal dose medications. Renal diet. Additional dialysis and ultrafiltration as needed. (2) Acute respiratory failure Current Visit: Yes Status: Acute Improved with HD followed by UF. May be anginal equivalent. Cardiac management per cardiology -cardiac cath planned once HR is stable. . Qualifiers: Respiratory failure complication: hypoxia Qualified Code(s): J96.01 - Acute respiratory failure with hypoxia (3) Chest pain Current Visit: Yes Status: Acute Qualifiers: Chest pain type: unspecified Qualified Code(s): R07.9 - Chest pain, unspecified (4) Hypertension Current Visit: Yes Status: Acute Qualifiers: Hypertension type: essential hypertension Qualified Code(s): I10 - Essential (primary) hypertension Subjective Principal diagnosis: NSTEMI Interval history: Patient seen. No new complaint. His breathing is better. . Objective - Vital Signs Vital signs: Vital Signs Temp Pulse Resp BP Pulse Ox 06/19/18 15:55 18 95 06/19/18 11:57 98.3 F 110 18 131/57 95 06/19/18 11:16 18 94 06/19/18 11:00 113 112/66 95 06/19/18 10:00 113 112/76 95 06/19/18 09:00 134 132/90 98 06/19/18 08:00 134 148/100 92 06/19/18 07:50 98.7 F 124 20 124/81 93 06/19/18 07:40 18 93 06/19/18 07:00 130 124/81 94 06/19/18 06:00 121 100/63 06/19/18 05:00 124 100/32 06/19/18 04:52 18 91 06/19/18 04:00 98.1 F 121 19 102/64 92 06/19/18 02:00 119 104/35 06/19/18 01:00 123 106/36 06/19/18 00:00 130 107/58 06/18/18 23:00 98.5 F 130 18 97/64 92 06/18/18 22:00 130 103/49 06/18/18 21:00 132 100/63 06/18/18 20:05 16 92 06/18/18 20:00 128 100/63 06/18/18 19:49 98.7 F 127 18 116/47 94 Intake and Output 06/18/18 06/19/18 06/19/18 23:59 07:59 15:59 Intake Total 650 / 650 310 / 310 135 / 135 Output Total 0 / 0 120 / 120 Balance 650 / 650 190 / 190 135 / 135 Intake: IV Fluids 290 / 290 310 / 310 135 / 135 Amiodarone Drip Premix 360mg/ 200 / 200 200 / 200 200mL 360 mg In 200 ml @ 0.5 MG /MIN 16.667 mls/hr IVC CONT LEANDRA Rx#:[id number] Heparin 25,000 UNIT/250 ML D5W 90 / 90 110 / 110 135 / 135 25,000 unit In 250 ml @ 9.3 UNIT/KG/HR 9.998 mls/hr IVC . Q24H LEANDRA Rx#:[id number] Oral 360 / 360 Output: Urine 0 / 0 120 / 120 Other: Meal Dinner Percent of Meal Consumed 80% Weight 98.7 kg Patient Weight 06/19/18 23:59 Weight 98.7 kg - General Appearance General appearance: Present: well-developed, well-nourished EENT: Present: ATNC Neck: Present: supple Cardiology: Present: no edema, regular rate Neurologic: Present: alert and oriented x3 - Lab 06/19/18 01:29 06/19/18 01:29 Most recent lab results ABG pH 7.48 pH Units (7.32-7.45) H 06/16/18 23:36 ABG pCO2 45 mmHg (35-45) 06/16/18 23:36 ABG pO2 66 mmHg (85-104) L 06/16/18 23:36 ABG HCO3 33 mEq/L (21-27) H 06/16/18 23:36 ABG O2 Saturation 94 % (95-98) L 06/16/18 23:36 Calcium 9.9 mg/dL (8.6-10.3) 06/19/18 01:29 Phosphorus 3.3 mg/dL (2.7-4.5) 06/16/18 01:25 Magnesium 1.9 mg/dL (1.6-2.6) 06/16/18 01:25 Consult Discharge Plan - Plan Additional Instructions: please fax over info for this patient to Dr. Rivera [phone]. Referrals: Karlos Hoyt, LUISANA [Advanced Practice Nurse] - (Per the office they will call the patient at home with follow up appointment) Aldo Rivera, [Primary Care Provider] - 06/29/18 10:00 am (Please make sure you take your picture ID, Insurance cards, and all medications in the bottles to your appointment)
--- NOTE | 2018-06-19 15:57 | Electrocardiograph Report ---
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
[2018-06-19 16:10] LABS: Adenovirus Not Detected (Not Detect); Bordetella Pertussis Not Detected (Not Detect); Chlamydophila pneumoniae Not Detected (Not Detect); Coronavirus 229E Not Detected (Not Detect); Coronavirus HKU1 Not Detected (Not Detect); Coronavirus NL63 Not Detected (Not Detect); Coronavirus OC43 Not Detected (Not Detect); Human Metapneumovirus Not Detected (Not Detect); Human Rhinovirus/Enterovirus Not Detected (Not Detect); Influenza A Subtype 2009 H1 Not Detected (Not Detect); Influenza A Untypeable Not Detected (Not Detect); Influenza B Not Detected (Not Detect); Mycoplasma pneumoniae Not Detected (Not Detect); Parainfluenza Virus 1 Not Detected (Not Detect); Parainfluenza Virus 2 Not Detected (Not Detect); Parainfluenza Virus 3 Not Detected (Not Detect); Parainfluenza Virus 4 Not Detected (Not Detect); Respiratory Syncytial Virus Not Detected (Not Detect)
--- NOTE | 2018-06-19 17:18 | Electrocardiograph Report ---
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
--- NOTE | 2018-06-19 17:21 | Electrocardiograph Report ---
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
[2018-06-20] MEDS: Ipratropium/Albuterol Neb 3 ML IH SCH ×2 (03:32→07:42)
[2018-06-20 06:18] LABS: Hematocrit 29.2 % (37.5-50.1); Hemoglobin 9.9 g/dL (12.9-16.9); Mean Corpuscular HGB Conc 33.9 g/dL (31.6-35.5); Mean Corpuscular Hemoglobin 33.1 pg (28.0-33.3); Mean Corpuscular Volume 97.7 fL (83.0-100.0); Mean Platelet Volume 10.3 fL (9.4-12.4); Platelet Count 322 K/mcL (140-400); Red Blood Count 2.99 M/mcL (4.19-5.50); Red Cell Distribution Width 14.4 % (11.5-14.5)
[2018-06-20 07:06] LABS: Calcium 9.8 mg/dL (8.6-10.3); Potassium 3.6 mEq/L (3.5-5.1)
[2018-06-20] MEDS: Artificial Tears SOLN 15 ML BOTTLE BOTH EYES SCH ×4 (08:04→21:34)
[2018-06-20] MEDS: Aspirin 81 MG TAB.CHEW PO SCH (08:05)
[2018-06-20] MEDS: Amiodarone Premix 360 MG/200 ML BAG IVC SCH (08:05)
[2018-06-20] MEDS ORDERED: 0.9 % Sodium Chloride 250 ML IVC PRN (08:52)
[2018-06-20] MEDS ORDERED: 0.9 % Sodium Chloride 1,000 ML PRIME SCH (09:00)
--- NOTE | 2018-06-20 09:08 | Pre-Sedation Evaluation ---
Pre-sedation evaluation - Pre-sedation checklist Date of procedure: 06/19/18 Procedure: [facility] Recent Vitals: Last Vital Signs Temp 98.4 F 06/20/18 07:36 Pulse 98 06/20/18 07:38 Resp 22 06/20/18 07:38 BP 154/56 06/20/18 07:38 Pulse Ox 94 06/20/18 07:38 H&P (including ROS) documented in medical record: Yes Previous reaction to sedatives/anesthetics: No Dietary Status: NPO after Midnight Dentition: No loose teeth or bridges, dentures removed ASA Classification *see protocol: CLASS II-Mild systemic disease Plan of Care: Pt appropriate candidate for procedure/moderate/conscious sedation, Risks/benefits of procedure/sedation discussed w/ patient/family Cardiac Registry (Cardio Only) - Functional Capacity Functional Capacity: >=4 METS with symptoms - Clincal Frailty Scale Clinical Frailty Scale: Managing Well
[2018-06-20] MEDS ORDERED: Ipratropium/Albuterol Neb 3 ML IH PRN (11:35)
[2018-06-20] MEDS ORDERED: ISOVUE-370 200 ML INFUS..BTL ONE ×2 (13:20→15:15)
[2018-06-20] MEDS ORDERED: Nitroglycerin 1,000 MCG/10 ML VIAL IV ONE (13:20)
[2018-06-20] MEDS ORDERED: *HR* Heparin 10,000 UNIT/10 ML VIAL ONE (13:20)
[2018-06-20] MEDS ORDERED: Heparin 1,000 UNITS/500 mL 500 ML ONE (13:20)
[2018-06-20] MEDS ORDERED: 0.9 % Sodium Chloride 1,000 ML ONE ×2 (13:20)
[2018-06-20] MEDS: Heparin 25,000 UNIT/250 ML D5W 25,000 UNIT/250 ML IV.SOLN IVC SCH ×2 (13:45→18:30)
[2018-06-20] MEDS ORDERED: *HR* Midazolam HCl 2 MG/2 ML VIAL ONE ×2 (14:23→14:42)
[2018-06-20] MEDS ORDERED: Verapamil 5 MG/2 ML VIAL ONE (14:24)
[2018-06-20] MEDS ORDERED: *HR* FentaNYL (PF) 100 MCG/2 ML VIAL ONE (14:24)
[2018-06-20] MEDS ORDERED: Tirofiban 12.5 MG/250ML 12.5 MG/250 ML BAG ONE (14:58)
[2018-06-20] MEDS ORDERED: *HR* Heparin 5,000 UNIT/ML VIAL ONE (15:21)
--- NOTE | 2018-06-20 15:31 | Nephrology Progress Note ---
Date of Encounter: 06/20/18 Time of Encounter: 15:31 - Assessment and Plan (1) ESRD (end stage renal disease) on dialysis Current Visit: Yes Status: Acute HD MWF. Renal vitamins. Renal dose medications. Renal diet. Additional dialysis and ultrafiltration as needed. Patient seen on dialysis. (2) Acute respiratory failure Current Visit: Yes Status: Acute Qualifiers: Respiratory failure complication: hypoxia Qualified Code(s): J96.01 - Acute respiratory failure with hypoxia (3) Chest pain Current Visit: Yes Status: Acute Qualifiers: Chest pain type: unspecified Qualified Code(s): R07.9 - Chest pain, unspecified (4) Hypertension Current Visit: Yes Status: Acute Qualifiers: Hypertension type: essential hypertension Qualified Code(s): I10 - Essential (primary) hypertension Subjective Principal diagnosis: NSTEMI Interval history: Patient seen. No new complaint. His breathing is better. . Objective - Vital Signs Vital signs: Vital Signs Temp Pulse Resp BP Pulse Ox 06/20/18 12:39 98.5 F 99 20 140/48 95 06/20/18 12:27 97.5 F L 18 117/47 06/20/18 12:10 114/37 06/20/18 12:05 126/30 06/20/18 11:50 118/39 06/20/18 11:35 128/46 06/20/18 11:20 130/66 06/20/18 11:05 104/54 06/20/18 10:50 114/56 06/20/18 10:35 124/49 06/20/18 10:20 149/82 06/20/18 10:05 142/47 06/20/18 09:50 147/35 06/20/18 09:35 173/48 06/20/18 09:20 97.8 F 20 177/50 06/20/18 07:42 18 94 06/20/18 07:38 98 22 154/56 94 06/20/18 07:36 98.4 F 99 20 158/65 94 06/20/18 04:00 90 123/40 06/20/18 03:32 16 94 06/20/18 03:00 98.3 F 96 19 125/32 90 06/20/18 02:00 91 130/43 06/20/18 01:00 93 149/58 06/20/18 00:19 97.5 F L 90 18 131/39 95 06/20/18 00:00 90 131/39 06/19/18 23:18 16 93 06/19/18 23:00 87 124/61 06/19/18 22:00 90 111/46 06/19/18 21:00 89 127/46 06/19/18 20:00 98.2 F 89 18 129/33 96 06/19/18 19:50 18 97 06/19/18 19:00 85 156/43 06/19/18 18:00 92 149/71 06/19/18 17:00 89 97/64 06/19/18 16:26 97.7 F 89 16 142/88 99 06/19/18 16:00 95 142/54 06/19/18 15:55 18 95 Intake and Output 06/19/18 06/20/18 06/20/18 23:59 07:59 15:59 Intake Total 623.0 / 623.0 303 / 303 729 / 729 Output Total 140 / 140 2885 / 2885 Balance 623.0 / 623.0 163 / 163 -2156 / -2156 Intake: IV Fluids 383.0 / 383.0 303 / 303 79 / 79 Amiodarone Drip Premix 360mg/ 200 / 200 200 / 200 200mL 360 mg In 200 ml @ 0.5 MG /MIN 16.667 mls/hr IVC CONT LEANDRA Rx#:[id number] Heparin 25,000 UNIT/250 ML D5W 183.0 / 183.0 103 / 103 79 / 79 25,000 unit In 250 ml @ 9.3 UNIT/KG/HR 9.998 mls/hr IVC . Q24H LEANDRA Rx#:[id number] Oral 240 / 240 50 / 50 Intake, Rinseback and Flushes 600 / 600 Output: Urine 140 / 140 Total Dialysis (HD) Output 2885 / 2885 Other: Meal NPO Percent of Meal Consumed 0% Weight 97.5 kg Hemodialysis Net Fluid Removed 2285 (mL) Patient Weight 06/20/18 23:59 Weight 97.5 kg - General Appearance General appearance: Present: well-developed, well-nourished EENT: Present: ATNC Cardiology: Present: regular rate Neurologic: Present: alert and oriented x3 - Lab 06/20/18 05:58 06/20/18 05:58 Most recent lab results ABG pH 7.48 pH Units (7.32-7.45) H 06/16/18 23:36 ABG pCO2 45 mmHg (35-45) 06/16/18 23:36 ABG pO2 66 mmHg (85-104) L 06/16/18 23:36 ABG HCO3 33 mEq/L (21-27) H 06/16/18 23:36 ABG O2 Saturation 94 % (95-98) L 06/16/18 23:36 Calcium 9.8 mg/dL (8.6-10.3) 06/20/18 05:58 Phosphorus 3.3 mg/dL (2.7-4.5) 06/16/18 01:25 Magnesium 1.9 mg/dL (1.6-2.6) 06/16/18 01:25 Consult Discharge Plan - Plan Additional Instructions: please fax over info for this patient to Dr. Rivera [phone]. Referrals: Karlos Hoyt, [employer] [Advanced Practice Nurse] - (Per the office they will call the patient at home with follow up appointment) Aldo Rivera, [Primary Care Provider] - 06/29/18 10:00 am (Please make sure you take your picture ID, Insurance cards, and all medications in the bottles to your appointment)
--- NOTE | 2018-06-20 15:51 | Invasive Diagnostic Lab Proc ---
Name: Balaji Gao Date of Study: 06/20/2018 Date: 1940 Ht: 70.9in Medical Record#: [id number] Age: 77 Wt: 213.85lb Gender: Male BSA: 2.17 Order #: [id number] BMI: 29.94 Physicians Procedure Physician: Robin Reza MD, [facility] Referring MD: Referring MD: Staff Name Position Time In Deysi Hampton RT (R) Scrub 02:21 PM Alesia Paez RT Monitor 02:21 PM Jean Pierre Chacon RN Electric Organ Assembler And Checker 02:21 PM Betsy Thakkar RN Electric Organ Assembler And Checker 02:21 PM Catrachita Marques RN Monitor 02:23 PM Indications Indication Non-Stemi Procedures Performed Procedure L HRT ARTERY/VENTRICLE ANGIO PRQ CARD KERLINE STENT W/ANGIO 1 VSL Pre-Procedure Checklist Informed consent is complete signed and on chart. H&P is on chart. ID band is on and ID verified with patient. Patient NPO for procedure The procedure was described for the patient and questions were answered. Blood Pressure: 154/56 ECG is on chart. Plan of Care Patient will tolerate the procedure without complications. Adequate level of comfort will be maintained. Hemodynamics will remain stable Patient will recover from procedure without complications. Respiratory function will be maintained. Cardiac rhythm will remain stable. Patient temperature will be maintained. Patient and/or family have verbalized understanding of the procedure. Patient Education Chief Complaint/Reason for Test: Cardiac Cath Developmental Category: Adult (18-64 years) Developmentally Appropriate for Age: Yes Learning Barriers: None Education Needs: Procedure Education Method: Verbal Information Taught: Cardiac Cath Educational Evaluation: Able to repeat information Intravenous Access Time IV Size Location DC'd Fluid/Drip Rate Units RN 10:30 AM 20g 1 1/4" Patent On Arrival Rt Arm 10:31 AM 20g 1 1/4" Patent On Arrival Rt Antecubital Allergies No Known Allergies Vital Signs Time BP (mmHg) HR (bpm) O2 Sat. RR (bpm) LOC 10:31 AM 154 / 56 76 98 % 22 5 = Fully awake and oriented or at pre-proc level 02:24 PM / % 5 = Fully awake and oriented or at pre-proc level 02:24 PM / % 4 = Oriented but drowsy 02:40 PM / % 4 = Oriented but drowsy 03:01 PM / % 4 = Oriented but drowsy 03:01 PM / % 4 = Oriented but drowsy 02:31 PM 161 / 52 97 97 % 25 02:36 PM 170 / 44 96 99 % 19 02:41 PM 145 / 42 99 97 % 19 02:46 PM 114 / 59 98 92 % 24 02:51 PM 118 / 46 94 94 % 9 02:56 PM 124 / 29 89 94 % 12 03:01 PM 128 / 44 92 92 % 12 03:06 PM 138 / 46 92 97 % 18 03:11 PM 145 / 56 89 97 % 16 03:16 PM 152 / 53 90 97 % 17 03:21 PM 145 / 42 93 98 % 19 03:26 PM 155 / 56 90 98 % 17 03:33 PM 171 / 71 95 98 % 23 Procedural Medications Time Medication Dose Units Method Given By 02:24 PM Oxygen 2 L/min nasal cannula Jean Pierre Chacon RN 02:32 PM Versed 2 mg Intravenous Jean Pierre Chacon RN 02:32 PM Fentanyl 50 mcg Intravenous Jean Pierre Chacon RN 02:42 PM Lidocaine 2% 0.5 ml Subcutaneous Robin Reza MD, FACC 02:43 PM Heparin 2000 units Nitroglycerin 200 mcg Verapamil 2.5 mg Intraarterial Robin Reza MD, FACC 03:00 PM Heparin 2500 units Intravenous Jean Pierre Chacon RN 03:04 PM Aggrastat Bolus: 50 ml Intravenous Jean Pierre Chacon RN 03:04 PM Aggrastat 12.5mg/250ml 9 ml/hr Intravenous Jean Pierre Chacon RN 03:21 PM Heparin 3000 units Intravenous Jean Pierre Chacon RN 03:34 PM Plavix 600 mg Orally Jean Pierre Chacon RN ASA Classification: CLASS II- Mild systemic disease (i.e. well-controlled diabetes, hypertension, asthma, cigarette smoking) Radha Score Preprocedure Postprocedure Activity 2- Moves 4 extremities sustained head lift Activity 2- Moves 4 extremities sustained head lift Circulation 2- SBP +/= 20 points of pre-anesthetic level Circulation 2- SBP +/= 20 points of pre-anesthetic level Consciousness 2- Awake and alert oriented x 3 Consciousness 2- Awake and alert oriented x 3 O2 Saturation 2- Able to maintain O2 satruation of 92% on room air O2 Saturation 2- Able to maintain O2 satruation of 92% on room air Respiratory 2- Able to deep breathe and cough well Respiratory 2- Able to deep breathe and cough well Total Score 10 Total Score 10 Contrast Agent: Isovue Diagnostic Contrast: 167 ml Total Contrast: 167 ml Fluoro Dose: 12 mGy Activated Clotting Time Time Seconds to Clot 02:59 PM 185 03:21 PM 181 Procedure Log Time Note Enter By 02:19 PM CathStat 02:21 PM Pt arrived to irrigation laborer 2 at 14:21 scoates 02:21 PM Deysi Hampton RT (R) Position: Scrub Time in: 14:21 scoates 02:21 PM Alesia Paez RT Position: Monitor Time in: 14: scoates 02:21 PM Jean Pierre Chacon RN Position: Electric Organ Assembler And Checker Time in: 14: scoates 02:21 PM Betsy Thakkar RN Position: Electric Organ Assembler And Checker Time in: 14:21 scoates 02:21 PM Patient charges- Angio tray pack, Navilyst 3mm J, Pulse Oximetry and ACIST tubing and transducer scoates 02:21 PM IV Supplies used: J loop Angio Cath. scoates 02:21 PM Case Delayed No scoates 02:23 PM Catrachita Marques RN Position: Monitor Time in: :23 mmers 02:24 PM Physician arrived 14:24 mmers 02:24 PM Meet and greet completed mmers 02:24 PM Sign in performed according to hospital policy. Informed consent was obtained. mmers 02:24 PM Procedure start 14:24 oummers 02:24 PM Time: 14:24 Oxygen on at 2 L/min per nasal cannula by Jean Pierre Chacon RN [facility] 02:24 PM Time: 14:24 Patient comfortable and pain free: Yes mm:24 PM Time: 14:24LOC: 5 = Fully awake and oriented or at pre-proc level tsoummers 02:24 PM Clinical Presentation: Non-STEMI tsmmers 02:24 PM ASA Class CLASS II- Mild systemic disease (i.e. well-controlled diabetes, hypertension, asthma, cigarette smoking) tsmmers 02:29 PM Vitals capture started with the following parameters, Patient=Adult, Interval=5 min, Initial Baxekmjh=058 mmHg, Deflation Rate=5 mmHg, Cuff placed on Right Arm 02:30 PM Recorded ECG: YN=066 Condition=Condition 1 02:31 PM Vitals capture started with the following parameters, Patient=Adult, Interval=5 min, Initial Sljgtmkn=700 mmHg, Deflation Rate=5 mmHg, Cuff placed on Right Arm 02:31 PM HR=97 bpm, OZQL=539/52 mmhg, SpO2=97.0 %, Resp=25 B/min 02:32 PM Time: 14:32 Versed 2 mg Intravenous Given by Jean Pierre Chacon RN tsnaida 02:32 PM Time: 14:32 Fentanyl 50 mcg Intravenous Given by Jean Pierre Chacon RN tsnaeemmmshelly 02:32 PM Pressure channel 1 zeroed. 02:33 PM Recorded ECG: HR=98 Condition=Condition 1 02:34 PM Pressure channel 1 zeroed. 02:36 PM HR=96 bpm, GJKM=865/44 mmhg, SpO2=99.0 %, Resp=19 B/min 02:40 PM Time: 14:24LOC: 4 = Oriented but drowsy tsoummers 02:40 PM Time: 14:24 Patient comfortable and pain free: Yes tsoummers 02:41 PM HR=99 bpm, INLX=671/42 mmhg, SpO2=97.0 %, Resp=19 B/min 02:42 PM Time out was performed according to hospital policy. Conscious sedation and anesthesia was achieved (see medication log with in this report above) tsoummers 02:42 PM Time: 14:42 0.5 ml Lidocaine 2% to right radial Subcutaneous Given by Robin Reza MD, [facility] tsoummers 02:43 PM Access obtained by percutaneous puncture. 6Fr 10cm Terumo Glidesheath sheath placed in right Radial artery. [id number] tsoummers 02:43 PM Time: 14:43 Patient given 2,000 units Heparin, 200 mcg Nitroglycerin, and 2.5 mg Verapamil Intraarterial by Robin Reza MD, [facility]. This is given to reduce risk of vessel spasm and thrombosis. tsoummers 02:44 PM 0.035 260cm Navilyst 3mmJ wire [id number] tsoummers 02:44 PM 5Fr TIG catheter inserted over the wire [facility] tsoummers 02:45 PM wire removed tsoummers 02:45 PM RCA angiography performed in multiple views. tsoummers 02:45 PM Recorded Pressure: Ao, HR=95, Condition=Condition 1 (Aorta) Ao 65/49/57 02:46 PM HR=98 bpm, DVGW=861/59 mmhg, SpO2=92.0 %, Resp=24 B/min 02:47 PM Catheter removed tsoumm 02:48 PM 5Fr FL3.5 catheter inserted over the wire [id number] tsoummers 02:48 PM LCA angiography performed in multiple views. tsoummers 02:49 PM Recorded Pressure: Ao, HR=96, Condition=Condition 1 (Aorta) Ao 77/51/63 02:51 PM HR=94 bpm, YUOI=674/46 mmhg, SpO2=94.0 %, Resp=9 B/min 02:52 PM Catheter removed tsoumm 02:52 PM 5Fr Pigtail catheter inserted over the wire [facility] tsoummers 02:52 PM Catheter crossed the aortic valve and was selectively placed in the left ventricle. Pressures recorded on pullback for left heart catheterization. tsoummers 02:53 PM Lesion found in Mid LAD. Pre Stenosis: 95 Pre ARMIN Flow: 3: Complete and Brisk Flow/Perfusion tsoummers 02:53 PM Lesion found in Mid Circumflex. Pre Stenosis: 50 Pre ARMIN Flow: tsoummers 02:53 PM Mid/Distal Left Anterior Descending Coronary Artery and diagonal branches with 95% stenosis. If graft is supplying this area, 0 % stenosis tsoummers 02:53 PM Circumflex, Obtuse Marginal, Left Posterior Descending, and Left Posterolateral Coronary Arteries with 50 % stenosis. If graft is supplying this area, 0 % stenosis tsoummers 02:53 PM Coronary Dominance: Left tsoummers 02:53 PM Pressure channel 1 zero failed. 02:53 PM Pressure channel 1 zeroed. 02:54 PM Recorded Pressure: LV, Ao, HR=94, Condition=Condition 1 (Left Ventricle) LV 128/8/23, (Aorta) Ao 113/56/80 02:55 PM Time: 14:40 Patient comfortable and pain free: Yes tsoummers 02:55 PM Time: 14:40LOC: 4 = Oriented but drowsy tsoummers 02:56 PM Bolus angiogram of left Ventricle complete: 10 ml/sec for a total of 30 mls tsoummers 02:56 PM Catheter removed tsoummers 02:56 PM Inflation device was opened. tsoummers 02:56 PM HR=89 bpm, RWJH=030/29 mmhg, SpO2=94.0 %, Resp=12 B/min 02:56 PM Lesion found in Distal LAD. Pre Stenosis: 90 Pre ARMIN Flow: 3: Complete and Brisk Flow/Perfusion tsoummers 02:57 PM 6Fr CLS 3.0 Runway guide catheter was used to cannulate the PCI vessel successfully. reused? No tsoummers 02:58 PM .[address] [place] 190cm guide wire across target lesion- successful. reused? No tsoummers 02:59 PM At 14:59 the ACT was 185 seconds. tsoummers 03:00 PM Time: 15:00 Heparin 2500 units Intravenous Given by Jean Pierre Chacon RN tsnaeemmmshelly 03:01 PM 2.5 mm x 8 mm Emerge Monorail balloon across target lesion- successful. reused? No tsoummers 03:01 PM HR=92 bpm, CWTN=110/44 mmhg, SpO2=92.0 %, Resp=12 B/min 03:01 PM Time: 15:01 Patient comfortable and pain free: Yes tsoummshelly 03:01 PM Time: 15:01LOC: 4 = Oriented but drowsy tsoummshelly 03:02 PM Balloon inflated @ 10 joanna for 24 seconds tsoummers 03:02 PM Balloon catheter removed intact. tsoumm 03:04 PM 2.5mm x 12mm Synergy drug-eluting stent across target lesion- successful Lot #[id number] tsoummshelly 03:04 PM Time: 15:04 Aggrastat Bolus: 50 ml Intravenous Given by Jean Pierre Chacon RN [employer] pump tsnaida 03:04 PM Time: 15:04 Aggrastat 12.5mg/250ml 9 ml/hr Intravenous Given by Jean Pierre Chacon RN [employer] pump tsoummshelly 03:05 PM Stent deployed @ 14 joanna for 25 seconds tsoummers 03:06 PM Stent delivery system removed intact. tsoummers 03:06 PM HR=92 bpm, SAKJ=090/46 mmhg, SpO2=97.0 %, Resp=18 B/min 03:07 PM 2.75 mm x 8mm NC Trek Rx balloon across target lesion- successful. reused? No tsoummshelly 03:08 PM Balloon inflated @ 2 joanna for 1 seconds tsoummers 03:11 PM Balloon inflated @ 6 joanna for 2 seconds tsoummers 03:11 PM HR=89 bpm, YUIB=223/56 mmhg, SpO2=97.0 %, Resp=16 B/min 03:14 PM Balloon catheter removed intact. mm 03:14 PM .014 [employer] 182cm guide wire across target lesion- successful. reused? No tsoummers 03:16 PM HR=90 bpm, HWTG=726/53 mmhg, SpO2=97.0 %, Resp=17 B/min 03:16 PM Time: 15:01LOC: 4 = Oriented but drowsy tsoumm 03:17 PM Time: 15:01 Patient comfortable and pain free: Yes tsoumm 03:17 PM 2.75 mm x 8mm NC Emerge balloon across target lesion- successful. reused? No mm 03:19 PM Balloon inflated @ 3 joanna for 2 seconds tsmm 03:21 PM At 15:21 the ACT was 181 seconds. tsmm 03:21 PM Time: 15:21 Heparin 3000 units Intravenous Given by Jean Pierre Chacon RN mm 03:21 PM HR=93 bpm, WGIX=464/42 mmhg, SpO2=98.0 %, Resp=19 B/min 03:22 PM Balloon inflated @ 20 joanna for 30 seconds tsoumm 03:23 PM Balloon inflated @ 24 joanna for 22 seconds tsmm 03:24 PM Balloon catheter removed intact. mm 03:25 PM 3.0 mm x 8mm NC Trek Rx balloon across target lesion- successful. reused? No mm 03:26 PM HR=90 bpm, GFYI=806/56 mmhg, SpO2=98.0 %, Resp=17 B/min 03:27 PM Balloon inflated @ 20 joanna for 22 seconds tsoumm 03:28 PM Balloon inflated @ 22 joanna for 18 seconds tsoummers 03:30 PM Guide wires removed intact. tsoummers 03:30 PM Balloon catheter removed intact. tsmm 03:30 PM Guide catheter [facility]. [facility] 03[facility]31 PM Procedure completed at 15:31 06/20/2018 [facility] 03:31 PM Did you address ARMIN flow and Dominance? Yes [facility] 03:31 PM Isovue 370 - 200ml,1 Bottle(s) used. [facility] 03:32 PM Sign out completed: Radiation Dose 499.81 mGy, 12.1 Gy/cm2 Fluoro Time: 13.4 Isovue 370 - 200ml contrast 167 ml given by Robin Reza MD, [facility]. Complications: None. The patient was discharged out of the catheter builder in stable condition. Sedation minutes 60. Cardiac Rehab Consult needed: Yes. Confirmed administered medications: Yes tsoummers 03:32 PM Arterial sheath pulled, Vasc Band closure device used and was Successful S/N. tsoummers 03:32 PM 12 ml air in Vasc Band. tsoummers 03:33 PM HR=95 bpm, BPSB=376/71 mmhg, SpO2=98.0 %, Resp=23 B/min 03:34 PM Time: 15:34 Plavix 600 mg Orally Given by Jean Pierre Chacon RN tsoummers 03:34 PM Estimated Blood Loss: minimal tsoummers 03:34 PM Post Blood Pressure 171/71 tsoummers 03:34 PM 15:34 Post Pulses Rt Radial 1+ tsoummers 03:34 PM Information taught Cardiac Cath, PCI, and Vasc Band tsoummers 03:34 PM Education needs Procedure, Plan of Care, and Responsibilities of Patient in Care tsoummers 03:35 PM Learning barriers :None tsoummers 03:35 PM Education Methods Verbal tsoummers 03:35 PM Education evaluation Able to repeat information tsoummers 03:35 PM Site status No bleeding/hematoma - Rt Wrist as reported by Deysi Hampton RT (R) at 15:35 tsoummers 03:35 PM Plavix, Effient or Brilinta given Yes tsoummers 03:35 PM Delay to floor No tsoummers 03:35 PM Family placed in consult room. tsoummers 03:35 PM Complications: None tsoummers 03:38 PM Report given to Felipa HARRINGTON Pt taken to 2N Room #5. 15:37 tsoummers 03:39 PM Patient out of room: 15:39 tsoummers Complications Complication None Hemodynamics Pressures Site Systolic/A Wave Diastolic/V Wave Mean AO 65 49 57 AO 77 51 63 LV 128 8 23 AO 113 56 80 Post Procedure Information Blood Pressure: 171/71 mmHg Post procedural instructions were given Closure Device Time Device Success/Fail 06/20/2018 3:33:00 PM Mechanical Compression Successful Site Checks Time Location Status Staff Sheath In? Note 03:35 PM Rt Wrist No bleeding/hematoma Deysi Hampton RT (R) Pulses Time Site Pre-Procedure Post-Procedure Note 06/20/2018 10:31:00 AM Bilateral radial 2+ 06/20/2018 10:31:00 AM Bilateral DP 2+ 3:34:00 PM Rt Radial 1+ Updated by Catrachita Marques RN on 06/20/2018 3:41:07 PM electronically signed on 06/20/2018 3:42:00 PM with status of Final
--- NOTE | 2018-06-20 15:58 | Invasive Diagnostic Lab Proc ---
Name: Balaji Gao Date of Study: 06/20/2018 Date: 1940 Ht: 70.9in Medical Record#: [id number] Age: 77 Wt: 213.85lb Gender: Male BSA: 2.17 Order #: [id number] BMI: 29.94 Physicians Procedure Physician: Robin Reza MD, [facility] Referring MD: Referring MD: Staff Name Position Time In Deysi Hampton RT (R) Scrub 02:21 PM Alesia Paez RT Monitor 02:21 PM Jean Pierre Chacon RN Egg Gatherer 02:21 PM Betsy Thakkar RN Egg Gatherer 02:21 PM Catrachita Marques RN Monitor 02:23 PM Vivian Stewart RN Nurse 03:44 PM Indications Indication Non-Stemi Procedures Performed Procedure L HRT ARTERY/VENTRICLE ANGIO PRQ CARD KERLINE STENT W/ANGIO 1 VSL Pre-Procedure Checklist Informed consent is complete signed and on chart. H&P is on chart. ID band is on and ID verified with patient. Patient NPO for procedure The procedure was described for the patient and questions were answered. Blood Pressure: 154/56 ECG is on chart. Plan of Care Patient will tolerate the procedure without complications. Adequate level of comfort will be maintained. Hemodynamics will remain stable Patient will recover from procedure without complications. Respiratory function will be maintained. Cardiac rhythm will remain stable. Patient temperature will be maintained. Patient and/or family have verbalized understanding of the procedure. Patient Education Chief Complaint/Reason for Test: Cardiac Cath Developmental Category: Adult (18-64 years) Developmentally Appropriate for Age: Yes Learning Barriers: None Education Needs: Procedure Education Method: Verbal Information Taught: Cardiac Cath Educational Evaluation: Able to repeat information Intravenous Access Time IV Size Location DC'd Fluid/Drip Rate Units RN 10:30 AM 20g 1 1/4" Patent On Arrival Rt Arm 10:31 AM 20g 1 1/4" Patent On Arrival Rt Antecubital Allergies No Known Allergies Vital Signs Time BP (mmHg) HR (bpm) O2 Sat. RR (bpm) LOC 10:31 AM 154 / 56 76 98 % 22 5 = Fully awake and oriented or at pre-proc level 02:24 PM / % 5 = Fully awake and oriented or at pre-proc level 02:24 PM / % 4 = Oriented but drowsy 02:40 PM / % 4 = Oriented but drowsy 03:01 PM / % 4 = Oriented but drowsy 03:01 PM / % 4 = Oriented but drowsy 02:31 PM 161 / 52 97 97 % 25 02:36 PM 170 / 44 96 99 % 19 02:41 PM 145 / 42 99 97 % 19 02:46 PM 114 / 59 98 92 % 24 02:51 PM 118 / 46 94 94 % 9 02:56 PM 124 / 29 89 94 % 12 03:01 PM 128 / 44 92 92 % 12 03:06 PM 138 / 46 92 97 % 18 03:11 PM 145 / 56 89 97 % 16 03:16 PM 152 / 53 90 97 % 17 03:21 PM 145 / 42 93 98 % 19 03:26 PM 155 / 56 90 98 % 17 03:33 PM 171 / 71 95 98 % 23 Procedural Medications Time Medication Dose Units Method Given By 02:24 PM Oxygen 2 L/min nasal cannula Jean Pierre Chacon RN 02:32 PM Versed 2 mg Intravenous Jean Pierre Chacon RN 02:32 PM Fentanyl 50 mcg Intravenous Jean Pierre Chacon RN 02:42 PM Lidocaine 2% 0.5 ml Subcutaneous Robin Reaz MD, FACC 02:43 PM Heparin 2000 units Nitroglycerin 200 mcg Verapamil 2.5 mg Intraarterial Robin Reza MD, FACC 03:00 PM Heparin 2500 units Intravenous Jean Pierre Chacon RN 03:04 PM Aggrastat Bolus: 50 ml Intravenous Jean Pierre Chacon RN 03:04 PM Aggrastat 12.5mg/250ml 9 ml/hr Intravenous Jean Pierre Chacon RN 03:21 PM Heparin 3000 units Intravenous Jean Pierre Chacon RN 03:34 PM Plavix 600 mg Orally Jean Pierre Chacon RN 03:01 PM Versed 1 mg Intravenous Jean Pierre Chacon RN ASA Classification: CLASS II- Mild systemic disease (i.e. well-controlled diabetes, hypertension, asthma, cigarette smoking) Radha Score Preprocedure Postprocedure Activity 2- Moves 4 extremities sustained head lift Activity 2- Moves 4 extremities sustained head lift Circulation 2- SBP +/= 20 points of pre-anesthetic level Circulation 2- SBP +/= 20 points of pre-anesthetic level Consciousness 2- Awake and alert oriented x 3 Consciousness 2- Awake and alert oriented x 3 O2 Saturation 2- Able to maintain O2 satruation of 92% on room air O2 Saturation 2- Able to maintain O2 satruation of 92% on room air Respiratory 2- Able to deep breathe and cough well Respiratory 2- Able to deep breathe and cough well Total Score 10 Total Score 10 Contrast Agent: Isovue Diagnostic Contrast: 167 ml Total Contrast: 167 ml Fluoro Dose: 12 mGy Activated Clotting Time Time Seconds to Clot 02:59 PM 185 03:21 PM 181 Procedure Log Time Note Enter By 02:19 PM CathStat 02:21 PM Pt arrived to laborer landscape 2 at 14:21 scoates 02:21 PM Deysi Hampton RT (R) Position: Scrub Time in: 14:21 scoates 02:21 PM Alesia Paez RT Position: Monitor Time in: 14: scoates 02:21 PM Jean Pierre Chacon RN Position: Egg Gatherer Time in: 14: scoates 02:21 PM Betsy Thakkar RN Position: Egg Gatherer Time in: 14:21 scoates 02:21 PM Patient charges- Angio tray pack, Navilyst 3mm J, Pulse Oximetry and ACIST tubing and transducer scoates 02:21 PM IV Supplies used: J loop Angio Cath. scoates 02:21 PM Case Delayed No scoates 02:23 PM Catrachita Marques RN Position: Monitor Time in: 14:23 tsoummers 02:24 PM Vivian Stewart RN Position: Nurse Time in: 14:24 oummers 02:24 PM Physician arrived 14:24 oumm 02:24 PM Jay and kathrine completed mm 02:24 PM Sign in performed according to hospital policy. Informed consent was obtained. mm 02:24 PM Procedure start 14:24 oumm: PM Time: 14:24 Oxygen on at 2 L/min per nasal cannula by Jean Pierre Chacon RN oumm 02:24 PM Time: 14:24 Patient comfortable and pain free: Yes mm:24 PM Time: 14:24LOC: 5 = Fully awake and oriented or at pre-proc level oumm 02:24 PM Clinical Presentation: Non-STEMI mm 02:24 PM ASA Class CLASS II- Mild systemic disease (i.e. well-controlled diabetes, hypertension, asthma, cigarette smoking) [facility] 02:29 PM Vitals capture started with the following parameters, Patient=Adult, Interval=5 min, Initial Ecqeztbq=771 mmHg, Deflation Rate=5 mmHg, Cuff placed on Right Arm 02:30 PM Recorded ECG: VO=905 Condition=Condition 1 02:31 PM Vitals capture started with the following parameters, Patient=Adult, Interval=5 min, Initial Gbxknjkw=265 mmHg, Deflation Rate=5 mmHg, Cuff placed on Right Arm 02:31 PM HR=97 bpm, WIWD=955/52 mmhg, SpO2=97.0 %, Resp=25 B/min 02:32 PM Time: 14:32 Versed 2 mg Intravenous Given by eJan Pierre Chacon RN 02:32 PM Time: 14:32 Fentanyl 50 mcg Intravenous Given by Jean Pierre Chacon RN 02:32 PM Pressure channel 1 zeroed. 02:33 PM Recorded ECG: HR=98 Condition=Condition 1 02:34 PM Pressure channel 1 zeroed. 02:36 PM HR=96 bpm, JXBE=076/44 mmhg, SpO2=99.0 %, Resp=19 B/min 02:40 PM Time: 14:24LOC: 4 = Oriented but drowsy tsoummers 02:40 PM Time: 14:24 Patient comfortable and pain free: Yes tsoummers 02:41 PM HR=99 bpm, ORIM=141/42 mmhg, SpO2=97.0 %, Resp=19 B/min 02:42 PM Time out was performed according to hospital policy. Conscious sedation and anesthesia was achieved (see medication log with in this report above) tsoummers 02:42 PM Time: 14:42 0.5 ml Lidocaine 2% to right radial Subcutaneous Given by Robin Reza MD, [facility] tsoummers 02:43 PM Access obtained by percutaneous puncture. 6Fr 10cm Terumo Glidesheath sheath placed in right Radial artery. [id number] oummers 02:43 PM Time: 14:43 Patient given 2,000 units Heparin, 200 mcg Nitroglycerin, and 2.5 mg Verapamil Intraarterial by Robin Reza MD, [facility]. This is given to reduce risk of vessel spasm and thrombosis. tsoummers 02:44 PM 0.035 260cm Navilyst 3mmJ wire [id number] oummers 02:44 PM 5Fr TIG catheter inserted over the wire [facility] oumm 02:45 PM wire removed tsoummers 02:45 PM RCA angiography performed in multiple views. tsoummers 02:45 PM Recorded Pressure: Ao, HR=95, Condition=Condition 1 (Aorta) Ao 65/49/57 02:46 PM HR=98 bpm, DDRS=761/59 mmhg, SpO2=92.0 %, Resp=24 B/min 02:47 PM Catheter removed tsoummers 02:48 PM 5Fr FL3.5 catheter inserted over the wire [id number] tsoummers 02:48 PM LCA angiography performed in multiple views. tsoummers 02:49 PM Recorded Pressure: Ao, HR=96, Condition=Condition 1 (Aorta) Ao 77/51/63 02:51 PM HR=94 bpm, ISVU=227/46 mmhg, SpO2=94.0 %, Resp=9 B/min 02:52 PM Catheter removed tsoummers 02:52 PM 5Fr Pigtail catheter inserted over the wire [facility] tsoummers 02:52 PM Catheter crossed the aortic valve and was selectively placed in the left ventricle. Pressures recorded on pullback for left heart catheterization. tsoummers 02:53 PM Lesion found in Mid LAD. Pre Stenosis: 95 Pre ARMIN Flow: 3: Complete and Brisk Flow/Perfusion tsoummers 02:53 PM Lesion found in Mid Circumflex. Pre Stenosis: 50 Pre ARMIN Flow: tsoummers 02:53 PM Mid/Distal Left Anterior Descending Coronary Artery and diagonal branches with 95% stenosis. If graft is supplying this area, 0 % stenosis tsoummers 02:53 PM Circumflex, Obtuse Marginal, Left Posterior Descending, and Left Posterolateral Coronary Arteries with 50 % stenosis. If graft is supplying this area, 0 % stenosis tsoummers 02:53 PM Coronary Dominance: Left tsoummers 02:53 PM Pressure channel 1 zero failed. 02:53 PM Pressure channel 1 zeroed. 02:54 PM Recorded Pressure: LV, Ao, HR=94, Condition=Condition 1 (Left Ventricle) LV 128/8/23, (Aorta) Ao 113/56/80 02:55 PM Time: 14:40 Patient comfortable and pain free: Yes tsoummers 02:55 PM Time: 14:40LOC: 4 = Oriented but drowsy tsoummers 02:56 PM Bolus angiogram of left Ventricle complete: 10 ml/sec for a total of 30 mls tsoummers 02:56 PM Catheter removed tsoumm 02:56 PM Inflation device was opened. tsmmers 02:56 PM HR=89 bpm, TJOI=153/29 mmhg, SpO2=94.0 %, Resp=12 B/min 02:56 PM Lesion found in Distal LAD. Pre Stenosis: 90 Pre ARMIN Flow: 3: Complete and Brisk Flow/Perfusion tsoummers 02:57 PM 6Fr CLS 3.0 Runway guide catheter was used to cannulate the PCI vessel successfully. reused? No tsoummers 02:58 PM .014 Holt 190cm guide wire across target lesion- successful. reused? No tsoummers 02:59 PM At 14:59 the ACT was 185 seconds. tsoummshelly 03:00 PM Time: 15:00 Heparin 2500 units Intravenous Given by Jean Pierre Chacon RN 03:01 PM 2.5 mm x 8 mm Emerge Monorail balloon across target lesion- successful. reused? No tsoummshelly 03:01 PM HR=92 bpm, HTVX=974/44 mmhg, SpO2=92.0 %, Resp=12 B/min 03:01 PM Time: 15:01 Versed 1 mg Intravenous Given by Jean Pierre Chacon RN 03:01 PM Time: 15:01 Patient comfortable and pain free: Yes tsoummshelly 03:01 PM Time: 15:01LOC: 4 = Oriented but drowsy tsoummshelly 03:02 PM Balloon inflated @ 10 joanna for 24 seconds tsoummshelly 03:02 PM Balloon catheter removed intact. tsoummshelly 03:04 PM 2.5mm x 12mm Synergy drug-eluting stent across target lesion- successful Lot #[id number] tsoummshelly 03:04 PM Time: 15:04 Aggrastat Bolus: 50 ml Intravenous Given by Jean Pierre Chacon RN Schultz pump tsnaida 03:04 PM Time: 15:04 Aggrastat 12.5mg/250ml 9 ml/hr Intravenous Given by Jean Pierre Chacon RN Schultz pump tsnaida 03:05 PM Stent deployed @ 14 joanna for 25 seconds tsoummshelly 03:06 PM Stent delivery system removed intact. tsnaeemmmshelly 03:06 PM HR=92 bpm, GISM=889/46 mmhg, SpO2=97.0 %, Resp=18 B/min 03:07 PM 2.75 mm x 8mm NC Trek Rx balloon across target lesion- successful. reused? No tsoummers 03:08 PM Balloon inflated @ 2 joanna for 1 seconds tsoummers 03:11 PM Balloon inflated @ 6 joanna for 2 seconds tsoummers 03:11 PM HR=89 bpm, IEDE=481/56 mmhg, SpO2=97.0 %, Resp=16 B/min 03:14 PM Balloon catheter removed intact. tsoummers 03:14 PM .014 PT Graphix 182cm guide wire across target lesion- successful. reused? No tsoummers 03:16 PM HR=90 bpm, QATK=895/53 mmhg, SpO2=97.0 %, Resp=17 B/min 03:16 PM Time: 15:01LOC: 4 = Oriented but drowsy tsoummers 03:17 PM Time: 15:01 Patient comfortable and pain free: Yes tsoummers 03:17 PM 2.75 mm x 8mm NC Emerge balloon across target lesion- successful. reused? No tsoummers 03:19 PM Balloon inflated @ 3 joanna for 2 seconds tsoummers 03:21 PM At 15:21 the ACT was 181 seconds. tsoummers 03:21 PM Time: 15:21 Heparin 3000 units Intravenous Given by Jean Pierre Chacon RN [facility] 03:21 PM HR=93 bpm, JFDO=534/42 mmhg, SpO2=98.0 %, Resp=19 B/min 03:22 PM Balloon inflated @ 20 joanna for 30 seconds tsoummers 03:23 PM Balloon inflated @ 24 joanna for 22 seconds tsoummers 03:24 PM Balloon catheter removed intact. tsoummers 03:25 PM 3.0 mm x 8mm NC Trek Rx balloon across target lesion- successful. reused? No tsoummers 03:26 PM HR=90 bpm, SNZJ=693/56 mmhg, SpO2=98.0 %, Resp=17 B/min 03:27 PM Balloon inflated @ 20 joanna for 22 seconds tsoummers 03:28 PM Balloon inflated @ 22 joanna for 18 seconds tsoummers 03:30 PM Guide wires removed intact. tsoummers 03:30 PM Balloon catheter removed intact. tsoummers 03:30 PM Guide catheter removed intact. tsoummers 03:31 PM Procedure completed at 15:31 06/20/2018 tsoumm 03:31 PM Did you address ARMIN flow and Dominance? Yes tsoummers 03:31 PM Isovue 370 - 200ml,1 Bottle(s) used. tsoumm 03:32 PM Sign out completed: Radiation Dose 499.81 mGy, 12.1 Gy/cm2 Fluoro Time: 13.4 Isovue 370 - 200ml contrast 167 ml given by Robin Reza MD, [facility]. Complications: None. The patient was discharged out of the director of cardiac cath lab in stable condition. Sedation minutes 60. Cardiac Rehab Consult needed: Yes. Confirmed administered medications: Yes oumm 03:32 PM Arterial sheath pulled, Vasc Band closure device used and was Successful S/N. tsoumm 03:32 PM 12 ml air in Vasc Band. tsoumm 03:33 PM HR=95 bpm, MMRZ=751/71 mmhg, SpO2=98.0 %, Resp=23 B/min 03:34 PM Time: 15:34 Plavix 600 mg Orally Given by Jean Pierre Chacon RN tsoumm 03:34 PM Estimated Blood Loss: minimal tsoummers 03:34 PM Post Blood Pressure 171/71 tsoummers 03:34 PM 15:34 Post Pulses Rt Radial 1+ tsoummers 03:34 PM Information taught Cardiac Cath, PCI, and Vasc Band tsoumm 03:34 PM Education needs Procedure, Plan of Care, and Responsibilities of Patient in Care tsoummers 03:35 PM Learning barriers :None tsoummers 03:35 PM Education Methods Verbal tsoummers 03:35 PM Education evaluation Able to repeat information tsoummers 03:35 PM Site status No bleeding/hematoma - Rt Wrist as reported by Deysi Hampton RT (R) at 15:35 tsoummers 03:35 PM Plavix, Effient or Brilinta given Yes tsoummers 03:35 PM Delay to floor No tsoummers 03:35 PM Family placed in consult room. tsoummers 03:35 PM Complications: None tsoummers 03:38 PM Report given to Felipa HARRINGTON Pt taken to 2N Room #5. 15:37 tsoummers 03:39 PM Patient out of room: 15:39 tsoummers Complications Complication None Hemodynamics Pressures Site Systolic/A Wave Diastolic/V Wave Mean AO 65 49 57 AO 77 51 63 LV 128 8 23 AO 113 56 80 Post Procedure Information Blood Pressure: 171/71 mmHg Post procedural instructions were given Closure Device Time Device Success/Fail 06/20/2018 3:33:00 PM Mechanical Compression Successful Site Checks Time Location Status Staff Sheath In? Note 03:35 PM Rt Wrist No bleeding/hematoma Deysi Hampton RT (R) Pulses Time Site Pre-Procedure Post-Procedure Note 06/20/2018 10:31:00 AM Bilateral radial 2+ 06/20/2018 10:31:00 AM Bilateral DP 2+ 3:34:00 PM Rt Radial 1+ Updated by Catrachita Marques RN on 06/20/2018 3:45:04 PM electronically signed on 06/20/2018 3:45:38 PM with status of Final
[2018-06-20] MEDS: *HR* Amiodarone 200 MG TABLET PO SCH ×2 (16:21→21:33)
--- NOTE | 2018-06-20 17:29 | Internal Med Progress Note ---
Hospitalist Progress Note - Encounter Date of Encounter: 06/20/18 Time of Encounter: 17:27 - Subjective Interval History: Lying comfortably on bed. Denies chest pain. Review the lab and vitals. Denies fever chills nausea vomiting headache dizziness shortness of breath abdominal pain urinary or bowel complaint. - Exam Vitals: Temp Pulse Resp BP Pulse Ox 98.5 F 93 16 135/46 93 06/20/18 12:39 06/20/18 16:55 06/20/18 16:55 06/20/18 16:55 06/20/18 16:55 Exam: General: In no acute distress. Respiratory exam: CTAB Cardiovascular exam: Mild tachycardia., +S1, +S2. systolic murmur. GI/Abdominal exam: obese, Non-tender, soft, no peritoneal signs. Extremities exam: no pedal edema, no calf tenderness Neurological exam: CN II-XII intact, AO X3, no focal deficits. Skin exam: No skin rash - Assessment and Plan (1) Elevated troponin Current Visit: Yes Status: Acute Assessment and Plan: NST SD. EKG with left bundle branch block. New A. fib with RVR. Echocardiogram We will trend cardiac enzymes, patient is chest pain fee now, LBBB. Echo Echo shows LVEF 50-55%. Indeterminate diastolic function. - Started on amdiodarone drip and coreg. A started on heparin drip, aspirin, atorvastatin. Patient got cardioverted on Avapro 2018 Patient got C with 1 stent placement at LAD and for balloon angioplasty on june 20 2018 Plan for discharge possibly tomorrow once cleared from inflatable buildings laminator (2) Pulmonary edema Current Visit: Yes Status: Ruled-out Assessment and Plan: Nephrology was consulted to optimize fluid . Is status post dialysis with -4 L balance . (3) ESRD (end stage renal disease) on dialysis Current Visit: Yes Status: Acute Assessment and Plan: Nephrology on board. Continue home medicine (4) Acute respiratory failure Current Visit: Yes Status: Acute Assessment and Plan: Most likely 2/2 fluid overload with possible pneumonia. Improved. Both neph rology and cardiology on board. (5) Bundle branch block, left Current Visit: Yes Status: Chronic Assessment and Plan: Cardiology was consulted. (6) CAD (coronary artery disease) Current Visit: No Status: Chronic (7) DVT prophylaxis Current Visit: Yes Status: Acute Assessment and Plan: Heparin - Time Spent with Patient Total time spent is greater than 50% in coordination of care (as documented) at patient's floor/unit and/or counseling patient: 25 - 35 minutes Internal Medicine: Result - Labs CBC & Chem 7: 06/20/18 05:58 06/20/18 05:58 Labs: Short CBC 06/20/18 Range/Units 05:58 WBC 12.4 H (4.3-11.1) K/mcL Hgb 9.9 L (12.9-16.9) g/dL Hct 29.2 L (37.5-50.1) % Plt Count 322 (140-400) K/mcL BMP 06/20/18 05:58 Sodium 138 Potassium 3.6 Chloride 89 L Carbon Dioxide 29 BUN 70 H Creatinine 9.04 H Glucose 111 H Calcium 9.8 - ABG Interpretation ABG results: ABG ABG pH 7.48 pH Units (7.32-7.45) H 06/16/18 23:36 ABG pCO2 45 mmHg (35-45) 06/16/18 23:36 ABG pO2 66 mmHg (85-104) L 06/16/18 23:36 ABG O2 Saturation 94 % (95-98) L 06/16/18 23:36 PT/INR, D-dimer PT 12.6 Seconds (9.4-12.1) H 06/16/18 01:25 D-Dimer 707 ng/mLFEU (0-500) H 06/16/18 21:45 Consult Discharge Plan - Plan Additional Instructions: please fax over info for this patient to Dr. Rivera [phone]. Referrals: Karlos Hoyt, DANCE ENTERTAINER [Advanced Practice Nurse] - (Per the office they will call the patient at home with follow up appointment) Aldo Rivera DO [Primary Care Provider] - 06/29/18 10:00 am (Please make sure you take your picture ID, Insurance cards, and all medications in the bottles to your appointment) (2) Pulmonary edema Qualifiers: Chronicity: acute Qualified Code(s): J81.0 - Acute pulmonary edema (4) Acute respiratory failure Qualifiers: Respiratory failure complication: hypoxia Qualified Code(s): J96.01 - Acute respiratory failure with hypoxia (6) CAD (coronary artery disease) Qualifiers: Coronary Disease-Associated Artery/Lesion type: [place] artery [place] vs. transplanted heart: [place] heart Associated angina: without angina Qualified Code(s): I25.10 - Atherosclerotic heart disease of [place] coronary artery without angina pectoris
[2018-06-20] MEDS ORDERED: *HR* Amiodarone 200 MG TABLET PO SCH (21:00)
[2018-06-21 02:17] LABS: Calcium 9.5 mg/dL (8.6-10.3); Potassium 3.9 mEq/L (3.5-5.1)
[2018-06-21 02:20] LABS: Hemoglobin 9.7 g/dL (12.9-16.9); Mean Corpuscular HGB Conc 33.4 g/dL (31.6-35.5); Mean Corpuscular Hemoglobin 33.8 pg (28.0-33.3); Mean Platelet Volume 10.4 fL (9.4-12.4); Platelet Count 344 K/mcL (140-400); Red Blood Count 2.87 M/mcL (4.19-5.50); Red Cell Distribution Width 14.6 % (11.5-14.5)
[2018-06-21] MEDS: Aspirin 81 MG TAB.CHEW PO SCH (08:11)
[2018-06-21] MEDS: *HR* Morphine 2 MG/ML SYRINGE IVP PRN ×2 (08:12→16:26)
[2018-06-21] MEDS: *HR* Amiodarone 200 MG TABLET PO SCH ×2 (08:12→19:46)
[2018-06-21] MEDS: Artificial Tears SOLN 15 ML BOTTLE BOTH EYES SCH ×4 (08:13→19:45)
[2018-06-21] MEDS: Heparin 25,000 UNIT/250 ML D5W 25,000 UNIT/250 ML IV.SOLN IVC SCH (08:46)
--- NOTE | 2018-06-21 09:06 | Electrocardiograph Report ---
[place] [id number] Test Date: 2018-06-20 Pat Name: Balaji Gao Department: 110 Room: 05 Gender: M Contour Sander: : 1940 Requested By: Robin Reza Order Number: [id number] Reading MD: Toby Sanchez Measurements Intervals [place] Run Rate: 93 P: 42 NC: 189 QRS: -24 QRSD: 177 T: 125 QT: 486 QTc: 536 Interpretive Statements SINUS RHYTHM LEFT BUNDLE BRANCH BLOCK Electronically Signed On 06-21-2018 9:04:59 EDT by Toby Sanchez
--- NOTE | 2018-06-21 10:45 | Cardiology Progress Note ---
Date of Encounter: 06/21/18 Time of Encounter: 10:40 Assessment and Plan (1) NSTEMI (non-ST elevated myocardial infarction) Current Visit: Yes Status: Acute Per Cardiology: Peak troponin 6.68. Status post left heart catheterization with PTCA/dribbling stent to mid LAD 95% lesion. Patient has remaining distal/apical LAD 90% lesion and mid circumflex 50% lesion. Chest pain-free. On aspirin, statin, beta gretchen, Plavix. (2) Atrial fibrillation with RVR Current Visit: Yes Status: Acute Per Cardiology: New onset atrial fibrillation. Status post cardioversion with conversion to sinus rhythm. Remains sinus rhythm on telemetry. Now on beta gretchen and by mouth amiodarone 200 mg by mouth twice a day-- recommend continue regimen for 2 weeks and then decrease to 200 mg by mouth daily. Regarding long-term anticoagulation, will be on triple therapy-- patient aware of increased bleeding risk.. Continue Plavix and aspirin and can consider discontinuation of aspirin in outpatient setting. Patient with end-stage renal disease, recommend initiation of Coumadin-- will start with pharmacy to dose. Underwent recent DC cardioversion, recommend continue heparin drip until INR therapeutic at 2.0-3.0. Follow INR and H&H. Denies any current active bleeding or blood loss. Discussed and reviewed with Dr. Finch, cardiology signing off, reconsult as needed, follow-up arranged. (3) ESRD (end stage renal disease) on dialysis Current Visit: Yes Status: Acute Per Cardiology: Nephrology following. Reports pending dialysis tomorrow. Discussion w patient/family: The assessment and plan as outlined above was discussed with the patient and/or family members who expressed understanding and agreement. All questions were answered. Thank you for involving us in the care of your patient. Please call with any questions. Subjective Principal diagnosis: NSTEMI Interval history: Patient denies any chest pain, shortness of breath, palpitations. Denies any active bleeding or blood loss. Denies any concerns from his right wrist site. Reports pending dialysis tomorrow. Objective Vital Signs, Last 4 Hours Temp Pulse Resp BP Pulse Ox 06/21/18 07:19 97.8 F 102 18 169/93 97 General: Conversant, No Apparent Distress HEENT: Atraumatic, Normocephaly, Mucus Membranes Moist Neck: No JVD, Normal carotid pulses Cardiac: Reg Rate and Rhythm, Normal S1 and S2, No Murmur Lungs: Normal Breath Sounds, No Wheeze, Rales, Rhonchi Neuro: Alert and responsive, No focal deficits noted Abdomen: Soft, Non-Tender Skin: No rashes noted on visualized skin, Other (Right wrist site dry and intact, no hematoma, no bleeding, right radial pulse 2+ palpable) Musculoskeletal: No Chest Wall Tenderness Extremities: No Clubbing, No Cyanosis, No Edema, Normal Pulses Results 06/21/18 01:48 06/21/18 01:48 Lab Results Laboratory Tests 06/15/18 06/15/18 06/15/18 09:37 09:37 18:31 Hgb 11.7 L Hct 35.5 L Creatinine Est GFR (Non-Af Amer) AST ALT Troponin I 0.68 H* 4.56 H* B-Natriuretic Peptide 06/16/18 06/16/18 06/16/18 01:25 01:25 05:24 Hgb Hct Creatinine Est GFR (Non-Af Amer) AST 36 ALT 20 Troponin I 6.68 H* 5.49 H* B-Natriuretic Peptide 06/16/18 06/16/18 06/16/18 11:50 21:26 21:45 Hgb Hct Creatinine Est GFR (Non-Af Amer) AST ALT Troponin I 5.14 H* 3.97 H* B-Natriuretic Peptide 494 H 06/21/18 06/21/18 01:48 01:48 Hgb 9.7 L Hct 29.0 L Creatinine 7.26 H Est GFR (Non-Af Amer) 7 L AST ALT Troponin I B-Natriuretic Peptide ITS Impressions Chest X-Ray 06/15/18 09:20 IMPRESSION: 1. Focal opacity in the right base is concerning for infection in the appropriate clinical setting. 2. Mild reticular opacities throughout the lungs may represent chronic lung changes versus mild edema. No prior studies are available for comparison to assess chronicity. D/ / 06/15/2018 09:35:22 Vivian Sunshine MD / celina Interpreting Provider: Vivian Sunshine MD Chest CTA 06/15/18 09:53 IMPRESSION: 1. No evidence of pulmonary embolism 2. CHF with perihilar edema and moderate pleural effusions 3. Calcific pericardial thickening presumably secondary to previous pericarditis or hemopericardium D/ / Hipolito Chahal MD / Hipolito Chahal MD Interpreting Provider: Hipolito Chahal MD Echocardiogram 06/15/18 10:08 Impressions: LVEF 50-55%. Indeterminate diastolic function. Normal right ventricular size and function. Mild aortic stenosis. Mild mitral stenosis. Mild tricuspid regurgitation. No pulmonary hypertension. Left Ventricular Wall Motion: Rest Echo Findings All wall segments showed normal motion. Findings: Study Quality * Technically adequate exam. ECG Findings * Sinus rhythm with BBB. Left Ventricle * LVEF 50-55%. * Normal LV chamber sizes and systolic function. * Concentric left ventricular remodeling. * Indeterminate diastolic function. * Atypical septal motion consistent with bundle branch block. Right Ventricle * Normal right ventricular structure and function. Left Atrium * Normal left atrial size. Right Atrium * Normal right atrial size. Interatrial Septum * Interatrial septum not well evaluated. * No evidence of PFO by color Doppler. Aortic Valve * Trileaflet aortic valve. * Moderately calcified aortic valve leaflets. * Mild aortic stenosis. * Peak and mean gradients are 26 16 mmHg, respectively. * No aortic regurgitation. Mitral Valve * Moderate mitral annular calcification * Trace mitral regurgitation. * Mild mitral stenosis, mean gradient 4-5 mmHg at HR 94 bpm. Tricuspid Valve * Normal tricuspid valve structure. * No tricuspid stenosis. * Mild tricuspid regurgitation. * Estimated RVSP is 30 mmHg. * Estimated RA pressure is 8 mmHg. * No pulmonary hypertension. Pulmonic Valve * Pulmonic valve is not well visualized. * No pulmonic stenosis. * No pulmonic regurgitation. Aorta * Normally sized aortic root. Pericardium * The pericardium appears normal. IVC * The IVC is dilated. * > 50% respiratory change Chest X-Ray 06/15/18 20:00 IMPRESSION: Right greater than left basilar consolidation, compatible with that airspace disease seen on recent CT. Radiographic follow-up to resolution is recommended given the masslike appearance of the right lower lobe consolidation. Small pleural effusions. D/ / Jad Kruger MD / Jad Kruger MD Interpreting Provider: Jad Kruger MD Chest X-Ray 06/16/18 21:29 IMPRESSION: 1. Worsening pneumonia in the right base. 2. Progressive pulmonary edema. D/ / Peterson Landis MD / Peterson Landis MD Interpreting Provider: Peterson Landis MD Chest X-Ray 06/17/18 12:55 IMPRESSION: 1. Improving pulmonary edema. 2. Improving consolidation in the right lower lobe. This could represent edema or pneumonia. Continued follow-up recommended to ensure complete resolution. D/ / 06/17/2018 14:09:38 Aayush Parekh MD / juan Interpreting Provider: Aayush Parekh MD Transesophageal w/Cardioversion 06/19/18 09:10 Impressions: Successful DCCV of atrial fibrillation to normal sinus rhythm. No intra-cardiac source of thrombus on PATRIC. Medication Given: Time Medication Dose Units Route 13:15 Versed 2 mg 13:15 Fentanyl 25 mcg 13:20 Versed 1 mg 13:20 Fentanyl 25 mcg 13:25 Versed 2 mg 13:35 Versed 1 13:35 Fentanyl 25 mcg Findings: Left Ventricle * There is no LV thrombus. Left Atrium * No thrombus present. * LA appendage is normal in appearance without thrombus. * The LA appendage flow velocity is mildly reduced. Right Atrium * No thrombus present. Procedure Summary: After explaining the risks, benefits, and alternatives of the procedure to the patient in detail and answering all questions to satisfaction, an informed consent was obtained in writing. The patient was NPO for the six hours prior to the procedure. The patient denied dysphagia, odynophagia, and loose teeth. The patient was monitored with periodic automated blood pressures and continuous pulse oximetry and telemetry. Continuous oxygen was administered by MI. The patient was placed in the full upright position and the posterior oropharynx was anesthetized as above and complete suppression of the gag reflex was obtained. The patient was then placed in the left lateral decubitus position, the neck was flexed, and a bite block was placed in the patient's mouth. IV sedation was administered. Once adequate sedation was achieved, a well-lubricated anteflexed multipoint intraesophageal echocardiographic probe was inserted into the midline posterior oropharynx. Gentle pressure was applied as the patient swallowed and the esophagus was intubated without difficulty. The scope was advanced to the mid esophagus without encountering resistance. Images were obtained from the mid and upper esophagus. The scope was then slowly withdrawn as the patient was continually suctioned. The patient tolerated the procedure well. Following informed consent, the patient was sedated with versed and fentanyl. After adequate sedation was achieved, cardioversion in the AP approach was performed using 250 Joules of biphasic energy. Normal sinus rhythm was restored after one attempt(s). The patient was monitored for the standard 30 minutes post procedure. No focal neurologic deficits post procedure. History: Hypertension Diabetes Hypercholesteremia Family History of CAD History of CAD/PTCA Myocardial Infarction Previous Echo 06/15/18 BP 130 / 70 Updated by Bonita Nieto on 06/19/2018 3:44:23 PM electronically signed on 06/19/2018 3:46:16 PM with status of Final Wall Motion Bray: 1=Normal, 2=Hypokinesis, 3=Akinesis, 4=Dyskinesis, 5=Aneurysmal, 6=Hyperkinetic, X=Not Visualized (Blank)=Missing Active Medications Acetaminophen (Tylenol) 650 mg PO Q6HR PRN PRN Reason: Mild Pain/Fever Stop: 12/15/18 17:46 Al Hydrox/Mg Hydrox/Simethicone (Maalox) 15 ml PO Q6HR PRN PRN Reason: Dyspepsia Stop: 12/15/18 17:46 Last Admin: 06/18/18 19:50 Dose: 15 ml Albuterol Sulfate (Proventil Neb) 2.5 mg IH Q2H PRN; Protocol PRN Reason: Shortness Of Breath/Wheezing Stop: 12/15/18 20:22 Albuterol/Ipratropium (Duoneb) 3 ml IH [id number] PRN PRN Reason: Wheezing Stop: 12/16/18 00:01 Allopurinol (Zyloprim) 100 mg PO DAILY [facility] Stop: 12/17/18 09:01 Last Admin: 06/21/18 08:11 Dose: 100 mg Amiodarone HCl (Cordarone) 200 mg PO BID [facility] Stop: 12/20/18 16:07 Last Admin: 06/21/18 08:12 Dose: 200 mg Artificial Tears (Akwa Tears) 1 drop BOTH EYES QID [facility]; Protocol Stop: 12/18/18 21:01 Last Admin: 06/21/18 08:13 Dose: 1 drop Aspirin (Aspirin) 81 mg PO DAILY [facility] Stop: 12/16/18 09:01 Last Admin: 06/21/18 08:11 Dose: 81 mg Atorvastatin Calcium (Lipitor) 80 mg PO HS [facility] Stop: 12/16/18 21:01 Last Admin: 06/20/18 21:33 Dose: 80 mg Carvedilol (Coreg) 12.5 mg PO BIDWM [facility]; Protocol Stop: 12/18/18 17:01 Last Admin: 06/21/18 08:12 Dose: 12.5 mg Clopidogrel Bisulfate (Plavix) 75 mg PO DAILY [facility] Stop: 12/21/18 09:01 Last Admin: 06/21/18 09:38 Dose: 75 mg Heparin Sodium (Porcine) (Heparin) 4,000 unit IVP Q6HR PRN PRN Reason: SEE COMMENTS Stop: 12/15/18 10:39 Last Admin: 06/15/18 22:57 Dose: 4,000 unit Heparin Sodium (Porcine) (Heparin) 2,000 unit IVP Q6H PRN PRN Reason: SEE COMMENTS Stop: 12/15/18 10:39 Last Admin: 06/19/18 16:37 Dose: 2,000 unit Heparin Sodium/Dextrose (Heparin 25,000 Unit/250 Ml D5w) 25,000 unit in 250 mls @ 9.998 mls/hr IVC .Q24H [facility]; Protocol Stop: 12/15/18 10:46 Last Admin: 06/21/18 08:46 Dose: 16 unit/kg/hr, 17.2 mls/hr Sodium Chloride (0.9 % Sodium Chloride) 250 mls @ 937.5 mls/hr IVC .Q16M PRN PRN Reason: Hypotension Stop: 12/20/18 08:53 Sodium Chloride (0.9 % Sodium Chloride) 1,000 mls @ 0 mls/hr PRIME .Q0M [facility] Stop: 12/20/18 09:01 Morphine Sulfate (Morphine Sulfate) 2 mg IVP Q3H PRN; Protocol PRN Reason: Chest Pain Stop: 12/15/18 20:09 Last Admin: 06/21/18 08:12 Dose: 2 mg Naloxone HCl (Narcan) 0.4 mg IVP Q2M PRN PRN Reason: Opioid Reversal Stop: 12/15/18 17:46 Ondansetron HCl (Zofran) 4 mg IVP Q8HR PRN PRN Reason: Nausea And Vomiting Stop: 12/15/18 17:46 Last Admin: 06/18/18 05:38 Dose: 4 mg Sevelamer HCl (Renvela) 2,400 mg PO TIDWM [facility] Stop: 12/16/18 12:01 Last Admin: 06/21/18 08:12 Dose: 2,400 mg - Imaging and Cardiology Echo: report reviewed Cardiac cath: report reviewed Consult Discharge Plan - Plan Additional Instructions: please fax over info for this patient to Dr. Rivera [phone]. Referrals: Karlos Hoyt, TRANSPORTATION ENGINEER [Advanced Practice Nurse] - (Per the office they will call the patient at home with follow up appointment) Aldo Rivera, [Primary Care Provider] - 06/29/18 10:00 am (Please make sure you take your picture ID, Insurance cards, and all medications in the bottles to your appointment)
--- NOTE | 2018-06-21 16:48 | Internal Med Progress Note ---
Hospitalist Progress Note - Encounter Date of Encounter: 06/21/18 Time of Encounter: 16:45 - Subjective Interval History: Patient lying comfortably on bed watching TV. Denies chest pain shortness of breath fever chills nausea vomiting headache dizziness abdominal pain urinary complaint. Has constipation. Review the lab with trending down white count. Reviewed cardiology consult and note. - Exam Vitals: Temp Pulse Resp BP Pulse Ox 98.0 F 85 18 162/83 95 06/21/18 16:41 06/21/18 16:41 06/21/18 16:41 06/21/18 16:41 06/21/18 16:41 Exam: General: In no acute distress. Respiratory exam: CTAB Cardiovascular exam: Regular rate and rhythm, +S1, +S2. systolic murmur. GI/Abdominal exam: obese, Non-tender, soft, positive bowel sounds, no peritoneal signs. Extremities exam: Trace pedal edema, no calf tenderness Neurological exam: CN II-XII intact, AO X3, no focal deficits. Skin exam: No skin rash - Assessment and Plan (1) Elevated troponin Current Visit: Yes Status: Acute Assessment and Plan: NST NM. EKG with left bundle branch block. New A. fib with RVR. Echocardiogram We will trend cardiac enzymes, patient is chest pain fee now, LBBB. Echo Echo shows LVEF 50-55%. Indeterminate diastolic function. - On admission Started on amdiodarone drip and coreg. A started on heparin drip, aspirin, atorvastatin. Patient got cardioverted on June 19 2018 Patient got C with 1 stent placement at LAD on june 20 2018. Continue aspirin and statin, beta gretchen and Plavix. (2) Pulmonary edema Current Visit: Yes Status: Ruled-out Assessment and Plan: Stable. Continue to volume overload. Nephrology was consulted to optimize fluid . Not volume overloaded at this time. Continue is scheduled hemodialysis Monday. (3) ESRD (end stage renal disease) on dialysis Current Visit: Yes Status: Acute Assessment and Plan: Nephrology on board. (4) Acute respiratory failure Current Visit: Yes Status: Acute Assessment and Plan: Secondary to above volume overloaded, NST NM (5) CAD (coronary artery disease) Current Visit: No Status: Chronic Assessment and Plan: As mentioned above (6) Atrial fibrillation with RVR Current Visit: Yes Status: Acute Assessment and Plan: New onset atrial fibrillation. Status post DC cardioversion and back to normal sinus rhythm. Continue beta gretchen, amiodarone 200 mg by mouth twice a day for 2 weeks then decrease 200 mg daily. Patient require long-term anticoagulation and will be on triple therapy. Patient is aware about increased bleeding risk. Will continue Plavix and aspirin but will consider discontinuation of aspirin in outpatient setting. [employer]'s also recommended initiating Coumadin with pharmacy consultation with the history of underlying ESRD. As patient has recent DC cardioversion therefore recommended continuation of heparin drip until INR therapeutic between 2-3. Daily INR and hemoglobin monitoring. Plan to discharge patient once INR therapeutic with no complication. (7) NSTEMI (non-ST elevated myocardial infarction) Current Visit: Yes Status: Acute Assessment and Plan: As mentioned above (8) DVT prophylaxis Current Visit: Yes Status: Acute Assessment and Plan: Heparin drip. Coumadin started - Time Spent with Patient Total time spent is greater than 50% in coordination of care (as documented) at patient's floor/unit and/or counseling patient: 25 - 35 minutes Internal Medicine: Result - Labs CBC & Chem 7: 06/21/18 01:48 06/21/18 01:48 Labs: Short CBC 06/21/18 Range/Units 01:48 WBC 11.4 H (4.3-11.1) K/mcL Hgb 9.7 L (12.9-16.9) g/dL Hct 29.0 L (37.5-50.1) % Plt Count 344 (140-400) K/mcL BMP 06/21/18 01:48 Sodium 134 L Potassium 3.9 Chloride 93 L Carbon Dioxide 27 BUN 47 H Creatinine 7.26 H Glucose 114 H Calcium 9.5 - ABG Interpretation ABG results: ABG ABG pH 7.48 pH Units (7.32-7.45) H 06/16/18 23:36 ABG pCO2 45 mmHg (35-45) 06/16/18 23:36 ABG pO2 66 mmHg (85-104) L 06/16/18 23:36 ABG O2 Saturation 94 % (95-98) L 06/16/18 23:36 PT/INR, D-dimer PT 12.6 Seconds (9.4-12.1) H 06/16/18 01:25 D-Dimer 707 ng/mLFEU (0-500) H 06/16/18 21:45 Consult Discharge Plan - Plan Additional Instructions: please fax over info for this patient to Dr. Rivera [phone]. Referrals: Karlos Hoyt, TEACHER AIDE CLERICAL [Advanced Practice Nurse] - (Per the office they will call the patient at home with follow up appointment) Aldo Rivera DO [Primary Care Provider] - 06/29/18 10:00 am (Please make sure you take your picture ID, Insurance cards, and all medications in the bottles to your appointment) (2) Pulmonary edema Qualifiers: Chronicity: acute Qualified Code(s): J81.0 - Acute pulmonary edema (4) Acute respiratory failure Qualifiers: Respiratory failure complication: hypoxia Qualified Code(s): J96.01 - Acute respiratory failure with hypoxia (5) CAD (coronary artery disease) Qualifiers: Coronary Disease-Associated Artery/Lesion type: [place] artery [place] vs. transplanted heart: [place] heart Associated angina: without angina Qualified Code(s): I25.10 - Atherosclerotic heart disease of [place] coronary artery without angina pectoris
[2018-06-21 16:57] LABS: INR 1.1; Prothrombin Time 12.8 Seconds (9.4-12.1)
[2018-06-21] MEDS ORDERED: *HR* Warfarin 2.5 MG TABLET PO ONE (18:00)
[2018-06-21] MEDS ORDERED: Warfarin perPT PO PRN (18:00)
--- NOTE | 2018-06-21 20:24 | Nephrology Progress Note ---
Date of Encounter: 06/21/18 Time of Encounter: 20:22 - Assessment and Plan (1) ESRD (end stage renal disease) on dialysis Current Visit: Yes Status: Acute HD MWF. Renal vitamins. Renal dose medications. Renal diet. Additional dialysis and ultrafiltration as needed. (2) Acute respiratory failure Current Visit: Yes Status: Acute Improved with HD followed by UF. May be anginal equivalent. Resolved after PTCA with stent placement. Qualifiers: Respiratory failure complication: hypoxia Qualified Code(s): J96.01 - Acute respiratory failure with hypoxia (3) Chest pain Current Visit: Yes Status: Acute Qualifiers: Chest pain type: unspecified Qualified Code(s): R07.9 - Chest pain, unspecified (4) Hypertension Current Visit: Yes Status: Acute Titrate antihypertensive medications as needed. Qualifiers: Hypertension type: essential hypertension Qualified Code(s): I10 - Essential (primary) hypertension Subjective Principal diagnosis: NSTEMI Interval history: Patient seen. No new complaint. His feels better. . Objective - Vital Signs Vital signs: Vital Signs Temp Pulse Resp BP Pulse Ox 06/21/18 20:00 98.1 F 94 18 165/85 96 06/21/18 16:41 98.0 F 85 18 162/83 95 06/21/18 11:31 98.5 F 85 18 140/71 94 06/21/18 07:19 97.8 F 102 18 169/93 97 06/21/18 04:10 97.7 F 98 18 158/79 92 06/21/18 00:22 97.6 F 87 17 139/80 93 Intake and Output 06/21/18 06/21/18 06/21/18 07:59 15:59 23:59 Intake Total 103 / 103 1036 / 1036 Output Total 160 / 160 100 / 100 Balance -57 / -57 936 / 936 Intake: IV Fluids 103 / 103 316 / 316 Heparin 25,000 UNIT/250 ML D5W 103 / 103 316 / 316 25,000 unit In 250 ml @ 9.3 UNIT/KG/HR 9.998 mls/hr IVC . Q24H [facility] Rx#:[id number] Oral 720 / 720 Output: Urine 160 / 160 100 / 100 Other: Meal Lunch Percent of Meal Consumed 100% Weight 97.4 kg Patient Weight 06/21/18 23:59 Weight 97.4 kg - General Appearance General appearance: Present: well-developed, well-nourished EENT: Present: ATNC Neck: Present: supple Cardiology: Present: regular rate Neurologic: Present: alert and oriented x3 Psychiatric: Present: mood/affect appropriate - Lab 06/21/18 01:48 06/21/18 01:48 Most recent lab results ABG pH 7.48 pH Units (7.32-7.45) H 06/16/18 23:36 ABG pCO2 45 mmHg (35-45) 06/16/18 23:36 ABG pO2 66 mmHg (85-104) L 06/16/18 23:36 ABG HCO3 33 mEq/L (21-27) H 06/16/18 23:36 ABG O2 Saturation 94 % (95-98) L 06/16/18 23:36 Calcium 9.5 mg/dL (8.6-10.3) 06/21/18 01:48 Phosphorus 3.3 mg/dL (2.7-4.5) 06/16/18 01:25 Magnesium 1.9 mg/dL (1.6-2.6) 06/16/18 01:25 Consult Discharge Plan - Plan Additional Instructions: please fax over info for this patient to Dr. Rivera [phone]. Referrals: Karlos Hoyt, NURSE SUPERVISOR [Advanced Practice Nurse] - (Per the office they will call the patient at home with follow up appointment) Aldo Rivera DO [Primary Care Provider] - 06/29/18 10:00 am (Please make sure you take your picture ID, Insurance cards, and all medications in the bottles to your appointment)
[2018-06-22] MEDS: Heparin 25,000 UNIT/250 ML D5W 25,000 UNIT/250 ML IV.SOLN IVC SCH ×2 (00:39→16:30)
[2018-06-22 01:54] LABS: Hematocrit 27.9 % (37.5-50.1); Hemoglobin 9.4 g/dL (12.9-16.9); Mean Corpuscular HGB Conc 33.7 g/dL (31.6-35.5); Mean Corpuscular Hemoglobin 33.5 pg (28.0-33.3); Mean Corpuscular Volume 99.3 fL (83.0-100.0); Mean Platelet Volume 10.4 fL (9.4-12.4); Platelet Count 346 K/mcL (140-400); Red Blood Count 2.81 M/mcL (4.19-5.50); Red Cell Distribution Width 14.4 % (11.5-14.5)
[2018-06-22 02:04] LABS: INR 1.1; Prothrombin Time 12.2 Seconds (9.4-12.1)
[2018-06-22 02:12] LABS: Calcium 9.7 mg/dL (8.6-10.3)
[2018-06-22] MEDS ORDERED: 0.9 % Sodium Chloride 250 ML IVC PRN (08:15)
[2018-06-22] MEDS: Aspirin 81 MG TAB.CHEW PO SCH (08:55)
[2018-06-22] MEDS: *HR* Amiodarone 200 MG TABLET PO SCH ×2 (08:55→20:20)
[2018-06-22] MEDS: Artificial Tears SOLN 15 ML BOTTLE BOTH EYES SCH ×4 (08:56→20:20)
--- NOTE | 2018-06-22 11:56 | Nephrology Progress Note ---
Date of Encounter: 06/22/18 Time of Encounter: 08:50 - Assessment and Plan (1) ESRD (end stage renal disease) on dialysis Current Visit: Yes Status: Acute HD MWF and due for HD today (Monday). Next HD planned for Monday. I will be available this weekend, if needed. Please feel free to call or page me for any renal questions. Renal vitamins. Renal dose medications. Renal diet. (2) Chest pain Current Visit: Yes Status: Acute Qualifiers: Chest pain type: unspecified Qualified Code(s): R07.9 - Chest pain, unspecified (3) Acute respiratory failure Current Visit: Yes Status: Acute Qualifiers: Respiratory failure complication: hypoxia Qualified Code(s): J96.01 - Acute respiratory failure with hypoxia (4) Hypertension Current Visit: Yes Status: Acute Qualifiers: Hypertension type: essential hypertension Qualified Code(s): I10 - Essential (primary) hypertension Subjective Principal diagnosis: ESRD Interval history: The patient was seen and examined in his room, and later in the dialysis unit. He did not report new major complaints. Objective - Vital Signs Vital signs: Vital Signs Temp Pulse Resp BP Pulse Ox 06/22/18 11:43 97.8 F 97 18 193/84 06/22/18 07:34 98.2 F 99 18 169/83 94 06/22/18 03:45 97.7 F 93 21 166/94 93 06/21/18 22:55 98.2 F 92 18 157/82 96 06/21/18 20:00 98.1 F 94 18 165/85 96 06/21/18 16:41 98.0 F 85 18 162/83 95 Intake and Output 06/21/18 06/22/18 06/22/18 23:59 07:59 15:59 Intake Total 184 / 184 Balance 184 / 184 Intake: IV Fluids 184 / 184 Heparin 25,000 UNIT/250 ML D5W 184 / 184 25,000 unit In 250 ml @ 9.3 UNIT/KG/HR 9.998 mls/hr IVC . Q24H [facility] Rx#:[id number] Other: Stool Size Smear Stool Consistency loose liquid Stool Color Brown # Bowel Movements 1 Weight 97.3 kg Patient Weight 06/22/18 23:59 Weight 97.3 kg - General Appearance General appearance: Present: well-developed, well-nourished EENT: Present: ATNC, PERRL Neck: Present: supple Respiratory: Present: clear Cardiology: Present: no edema, regular rate, normal S1, normal S2 Dialysis Vascular Access: Arteriovenous Fistula (LUE AVF) thrill: Yes bruit: Yes Gastrointestinal: Present: normoactive bowel sounds, no tenderness, no guarding Integumentary: Present: warm and dry Neurologic: Present: no focal deficit, no asterixis Musculoskeletal: Present: no deformities Psychiatric: Present: mood/affect appropriate - Lab 06/22/18 17:17 06/22/18 01:25 Most recent lab results ABG pH 7.48 pH Units (7.32-7.45) H 06/16/18 23:36 ABG pCO2 45 mmHg (35-45) 06/16/18 23:36 ABG pO2 66 mmHg (85-104) L 06/16/18 23:36 ABG HCO3 33 mEq/L (21-27) H 06/16/18 23:36 ABG O2 Saturation 94 % (95-98) L 06/16/18 23:36 Calcium 9.7 mg/dL (8.6-10.3) 06/22/18 01:25 Phosphorus 3.3 mg/dL (2.7-4.5) 06/16/18 01:25 Magnesium 1.9 mg/dL (1.6-2.6) 06/16/18 01:25 Consult Discharge Plan - Plan Additional Instructions: please fax over info for this patient to Dr. Rivera [phone]. Referrals: Karlos Hoyt, LUISANA [Advanced Practice Nurse] - (Per the office they will call the patient at home with follow up appointment) Aldo Rivera, [Primary Care Provider] - 06/29/18 10:00 am (Please make sure you take your picture ID, Insurance cards, and all medications in the bottles to your appointment)
--- NOTE | 2018-06-22 16:19 | Internal Med Progress Note ---
Hospitalist Progress Note - Encounter Date of Encounter: 06/22/18 Time of Encounter: 16:17 - Subjective Interval History: Patient lying comfortably on bed. Son at bedside. Review of the lab with slight elevated white count but denies any fever. Hemoglobin is stable. INR 1.1 Denies fever chills nausea vomiting headache dizziness has been short of breath abdominal pain no active bleeding but patient get easily bruised. Hemodialysis today - Exam Vitals: Temp Pulse Resp BP Pulse Ox 97.8 F 97 18 135/78 94 06/22/18 11:43 06/22/18 11:43 06/22/18 11:43 06/22/18 11:43 06/22/18 07:34 Exam: General: In no acute distress. Respiratory exam: CTAB Cardiovascular exam: Regular rate and rhythm, +S1, +S2. systolic murmur. GI/Abdominal exam: obese, Non-tender, soft, positive bowel sounds, no peritoneal signs. Extremities exam: Trace pedal edema, no calf tenderness Neurological exam: CN II-XII intact, AO X3, no focal deficits. Skin exam: No skin rash. Easily bruised his skin with petechies - Assessment and Plan (1) Atrial fibrillation with RVR Current Visit: Yes Status: Acute Assessment and Plan: New onset atrial fibrillation. Status post DC cardioversion and back to normal sinus rhythm. Continue beta gretchen, amiodarone 200 mg by mouth twice a day for 2 weeks then decrease 200 mg daily. Patient require long-term anticoagulation and will be on triple therapy. Patient is aware about increased bleeding risk. Will continue Plavix and aspirin but will consider discontinuation of aspirin in outpatient setting. Ladle Cleaner's also recommended initiating Coumadin with pharmacy consultation with the history of underlying ESRD. As patient has recent DC cardioversion therefore recommended continuation of heparin drip until INR therapeutic between 2-3. Daily INR and hemoglobin monitoring. Plan to discharge patient once INR therapeutic with no complication. Today INR 1.1. Pharmacy consultation done to adjust the Coumadin dose (2) Elevated troponin Current Visit: Yes Status: Acute Assessment and Plan: NST [place]. EKG with left bundle branch block. New A. fib with RVR. Echocardiogram We will trend cardiac enzymes, patient is chest pain fee now, LBBB. Echo Echo shows LVEF 50-55%. Indeterminate diastolic function. - On admission Started on amdiodarone drip and coreg. A started on heparin drip, aspirin, atorvastatin. Patient got cardioverted on June 19 2018 Patient got C with 1 stent placement at LAD on june 20 2018. Continue asp irin and statin, beta gretchen and Plavix. (3) Pulmonary edema Current Visit: Yes Status: Ruled-out Assessment and Plan: Stable. Secondary to volume overload. Nephrology was consulted to optimize fluid . Not volume overloaded at this time. Continue is scheduled hemodialysis Monday. (4) ESRD (end stage renal disease) on dialysis Current Visit: Yes Status: Acute Assessment and Plan: Nephrology on board. (5) Acute respiratory failure Current Visit: Yes Status: Acute Assessment and Plan: Secondary to above volume overloaded, NST [place] (6) CAD (coronary artery disease) Current Visit: No Status: Chronic Assessment and Plan: As mentioned above (7) NSTEMI (non-ST elevated myocardial infarction) Current Visit: Yes Status: Acute Assessment and Plan: As mentioned above (8) DVT prophylaxis Current Visit: Yes Status: Acute Assessment and Plan: Heparin drip. Coumadin started (9) Leukocytosis Current Visit: Yes Status: Acute Assessment and Plan: Most likely reactive. No fever or any source of infection identified. Will keep on monitoring if any concern will do further workup to rule out underlying infection. Monitor CBC - Time Spent with Patient Total time spent is greater than 50% in coordination of care (as documented) at patient's floor/unit and/or counseling patient: 25 - 35 minutes Plan of Care Discussed with: family Internal Medicine: Result - Labs CBC & Chem 7: 06/22/18 01:25 06/22/18 01:25 Labs: Short CBC 06/22/18 Range/Units 01:25 WBC 13.3 H (4.3-11.1) K/mcL Hgb 9.4 L (12.9-16.9) g/dL Hct 27.9 L (37.5-50.1) % Plt Count 346 (140-400) K/mcL BMP 06/22/18 01:25 Sodium 132 L Potassium 4.0 Chloride 90 L Carbon Dioxide 25 BUN 68 H Creatinine 9.04 H Glucose 131 H Calcium 9.7 - ABG Interpretation ABG results: ABG ABG pH 7.48 pH Units (7.32-7.45) H 06/16/18 23:36 ABG pCO2 45 mmHg (35-45) 06/16/18 23:36 ABG pO2 66 mmHg (85-104) L 06/16/18 23:36 ABG O2 Saturation 94 % (95-98) L 06/16/18 23:36 PT/INR, D-dimer PT 12.2 Seconds (9.4-12.1) H 06/22/18 01:25 D-Dimer 707 ng/mLFEU (0-500) H 06/16/18 21:45 Consult Discharge Plan - Plan Additional Instructions: please fax over info for this patient to Dr. Rivera [phone]. Referrals: Karlos Hoyt, MEDICAL ESTHETICIAN [Advanced Practice Nurse] - (Per the office they will call the patient at home with follow up appointment) Aldo Rivera DO [Primary Care Provider] - 06/29/18 10:00 am (Please make sure you take your picture ID, Insurance cards, and all medications in the bottles to your appointment) (3) Pulmonary edema Qualifiers: Chronicity: acute Qualified Code(s): J81.0 - Acute pulmonary edema (5) Acute respiratory failure Qualifiers: Respiratory failure complication: hypoxia Qualified Code(s): J96.01 - Acute respiratory failure with hypoxia (6) CAD (coronary artery disease) Qualifiers: Coronary Disease-Associated Artery/Lesion type: [place] artery [place] vs. transplanted heart: [place] heart Associated angina: without angina Qualified Code(s): I25.10 - Atherosclerotic heart disease of [place] coronary artery wit hout angina pectoris (9) Leukocytosis Qualifiers: Leukocytosis type: unspecified Qualified Code(s): D72.829 - Elevated white blood cell count, unspecified
[2018-06-22 17:57] LABS: Basophils # 0.1 K/mcL (0.0-0.2); Basophils % 0.5 %; Eosinophils # 0.4 K/mcL (0.0-0.6); Eosinophils % 2.6 %; Hematocrit 29.5 % (37.5-50.1); Lymphocytes # 1.6 K/mcL (0.6-4.6); Lymphocytes % 9.5 %; Mean Corpuscular HGB Conc 33.9 g/dL (31.6-35.5); Mean Corpuscular Hemoglobin 33.2 pg (28.0-33.3); Mean Platelet Volume 10.2 fL (9.4-12.4); Monocytes % 6.3 %; Neutrophils # 13.1 K/mcL (1.6-8.9); Platelet Count 365 K/mcL (140-400); Red Blood Count 3.01 M/mcL (4.19-5.50); Red Cell Distribution Width 14.4 % (11.5-14.5); Segmented Neutrophils % 80.1 %
[2018-06-22] MEDS ORDERED: *HR* Warfarin 5 MG TABLET PO ONE (18:00)
[2018-06-23 04:56] LABS: Hematocrit 29.1 % (37.5-50.1); Hemoglobin 9.8 g/dL (12.9-16.9); Mean Corpuscular HGB Conc 33.7 g/dL (31.6-35.5); Mean Corpuscular Hemoglobin 33.3 pg (28.0-33.3); Mean Platelet Volume 10.3 fL (9.4-12.4); Platelet Count 352 K/mcL (140-400); Red Blood Count 2.94 M/mcL (4.19-5.50); Red Cell Distribution Width 14.6 % (11.5-14.5)
[2018-06-23 05:15] LABS: Calcium 10.3 mg/dL (8.6-10.3); Potassium 4.3 mEq/L (3.5-5.1)
[2018-06-23 05:29] LABS: INR 1.1; Prothrombin Time 12.6 Seconds (9.4-12.1)
[2018-06-23] MEDS: Heparin 25,000 UNIT/250 ML D5W 25,000 UNIT/250 ML IV.SOLN IVC SCH ×2 (08:05→23:09)
[2018-06-23] MEDS: *HR* Amiodarone 200 MG TABLET PO SCH ×2 (08:18→21:19)
[2018-06-23] MEDS: Aspirin 81 MG TAB.CHEW PO SCH (08:18)
[2018-06-23] MEDS: Artificial Tears SOLN 15 ML BOTTLE BOTH EYES SCH ×4 (08:19→21:18)
--- NOTE | 2018-06-23 16:10 | Internal Med Progress Note ---
Hospitalist Progress Note - Encounter Date of Encounter: 06/23/18 Time of Encounter: 16:07 - Subjective Interval History: Patient lying comfortably in bed. Heparin drip in continuation. Review of the lab trending of white count, a stable hemoglobin 9.8. INR 1.1 Patient denies fever chills nausea vomiting headache dizziness chest pain cough abdominal pain urinary complaint diarrhea - Exam Vitals: Temp Pulse Resp BP Pulse Ox 98.2 F 98 18 146/80 97 06/23/18 11:45 06/23/18 11:45 06/23/18 11:45 06/23/18 11:45 06/23/18 11:45 Exam: General: In no acute distress. Respiratory exam: CTAB Cardiovascular exam: Regular rate and rhythm, +S1, +S2. systolic murmur. GI/Abdominal exam: obese, Non-tender, soft, positive bowel sounds, no peritoneal signs. Extremities exam: Trace pedal edema, no calf tenderness Neurological exam: CN II-XII intact, AO X3, no focal deficits. Skin exam: No skin rash. Easily bruised his skin with petechies - Assessment and Plan (1) Leukocytosis Current Visit: Yes Status: Acute Assessment and Plan: Trending up white count but no identified source of infection. Repeat urine analysis and chest x-ray ordered. Patient does not have any fever. If he still continued to trend up or spike in temperature then will order blood culture. Will consider antibiotic if any concern of infection. At this time it is considered Most likely reactive. (2) Atrial fibrillation with RVR Current Visit: Yes Status: Acute Assessment and Plan: New onset atrial fibrillation. Status post DC cardioversion and back to normal sinus rhythm. Continue beta gretchen, amiodarone 200 mg by mouth twice a day for 2 weeks then decrease 200 mg daily. Patient require long-term anticoagulation and will be on triple therapy. Patient is aware about increased bleeding risk. Will continue Plavix and aspirin but will consider discontinuation of aspirin in outpatient setting. Director Family's also recommended initiating Coumadin with pharmacy consultation with the history of underlying ESRD. As patient has recent DC cardioversion therefore recommended continuation of heparin drip until INR therapeutic between 2-3. Daily INR and hemoglobin monitoring. Plan to discharge patient once INR therapeutic with no complication. Today INR 1.1. Pharmacy consultation done to adjust the Coumadin dose (3) Elevated troponin Current Visit: Yes Status: Acute Assessment and Plan: NST [place]. EKG with left bundle branch block. New A. fib with RVR. Echocardiogram We will trend cardiac enzymes, patient is chest pain fee now, LBBB. Echo Echo shows LVEF 50-55%. Indeterminate diastolic function. - On admission Started on amdiodarone drip and coreg. A started on heparin drip, aspirin, atorvastatin. Patient got cardioverted on June 19 2018 Patient got C with 1 stent placement at LAD on june 20 2018. Continue aspirin and statin, beta gretchen and Plavix. Patient is on Toprol blood thinner-explained the risk of bleeding with patient and his son and patient understand (4) Pulmonary edema Current Visit: Yes Status: Ruled-out Assessment and Plan: Stable. Secondary to volume overload. Nephrology on board. Not volume overloaded at this time. Continue is scheduled hemodialysis Monday. (5) ESRD (end stage renal disease) on dialysis Current Visit: Yes Status: Acute Assessment and Plan: Nephrology on board. (6) Acute respiratory failure Current Visit: Yes Status: Acute Assessment and Plan: Secondary to above volume overloaded, NST [place] (7) CAD (coronary artery disease) Current Visit: No Status: Chronic Assessment and Plan: As mentioned above (8) NSTEMI (non-ST elevated myocardial infarction) Current Visit: Yes Status: Acute Assessment and Plan: As mentioned above (9) DVT prophylaxis Current Visit: Yes Status: Acute Assessment and Plan: Heparin drip. Coumadin started - Time Spent with Patient Total time spent is greater than 50% in coordination of care (as documented) at patient's floor/unit and/or counseling patient: 25 - 35 minutes Plan of Care Discussed with: patient Internal Medicine: Result - Labs CBC & Chem 7: 06/23/18 04:30 06/23/18 04:30 Labs: Short CBC 06/22/18 06/23/18 Range/Units 17:17 04:30 WBC 16.4 H 18.9 H (4.3-11.1) K/mcL Hgb 10.0 L 9.8 L (12.9-16.9) g/dL Hct 29.5 L 29.1 L (37.5-50.1) % Plt Count 365 352 (140-400) K/mcL Neutrophils # 13.1 H (1.6-8.9) K/mcL BMP 04/13/19 04:30 Sodium 136 Potassium 4.3 Chloride 94 L Carbon Dioxide 32 H BUN 33 H Creatinine 6.17 H Glucose 113 H Calcium 10.3 - ABG Interpretation ABG results: ABG ABG pH 7.48 pH Units (7.32-7.45) H 06/16/18 23:36 ABG pCO2 45 mmHg (35-45) 06/16/18 23:36 ABG pO2 66 mmHg (85-104) L 06/16/18 23:36 ABG O2 Saturation 94 % (95-98) L 06/16/18 23:36 PT/INR, D-dimer PT 12.6 Seconds (9.4-12.1) H 06/23/18 04:30 D-Dimer 707 ng/mLFEU (0-500) H 06/16/18 21:45 Consult Discharge Plan - Plan Additional Instructions: please fax over info for this patient to Dr. Rivera [phone]. Referrals: Karlos Hoyt, PLANT CYTOLOGIST [Advanced Practice Nurse] - (Per the office they will call the patient at home with follow up appointment) Aldo Rivera, [Primary Care Provider] - 06/29/18 10:00 am (Please make sure you take your picture ID, Insurance cards, and all medications in the bottles to your appointment) (1) Leukocytosis Qualifiers: Leukocytosis type: unspecified Qualified Code(s): D72.829 - Elevated white blood cell count, unspecified (4) Pulmonary edema Qualifiers: Chronicity: acute Qualified Code(s): J81.0 - Acute pulmonary edema (6) Acute respiratory failure Qualifiers: Respiratory failure complication: hypoxia Qualified Code(s): J96.01 - Acute respiratory failure with hypoxia (7) CAD (coronary artery disease) Qualifiers: Coronary Disease-Associated Artery/Lesion type: [place] artery [place] vs. transplanted heart: [place] heart Associated angina: without angina Qualified Code(s): I25.10 - Atherosclerotic heart disease of [place] coronary artery without angina pectoris
[2018-06-23] MEDS ORDERED: *HR* Warfarin 5 MG TABLET PO ONE (18:00)
[2018-06-24 03:47] LABS: Bilirubin,Urine Negative (Negative); Blood,Urine Trace (Negative); Clarity,Urine Clear (Clear); Color,Urine Yellow (Yellow); Glucose,Urine (UA) Normal (Normal); Ketones,Urine Negative (Negative); Leukocyte Esterase,Urine Negative (Negative); Nitrite,Urine Negative (Negative); Protein,Urine >=300 mg/dL (Neg-Trace); Specific Gravity,Urine 1.014 (1.010-1.025); Urobilinogen,Urine Normal (Normal)
[2018-06-24 03:48] LABS: Hyaline Casts,Urine None Seen per lpf (None-Few); Squamous Epithelial Cell,Urine Many per lpf (None-Few)
[2018-06-24 03:58] LABS: Bacteria,Urine Few per hpf (None-Few)
[2018-06-24 05:35] LABS: Heparin anti-factor XA UFH 0.65 IU/mL (0.30-0.70)
[2018-06-24 05:36] LABS: INR 1.1; Prothrombin Time 12.8 Seconds (9.4-12.1)
[2018-06-24 05:49] LABS: Calcium 10.2 mg/dL (8.6-10.3); Potassium 4.2 mEq/L (3.5-5.1)
[2018-06-24] MEDS: *HR* Amiodarone 200 MG TABLET PO SCH ×2 (08:42→21:13)
[2018-06-24] MEDS: Aspirin 81 MG TAB.CHEW PO SCH (08:42)
[2018-06-24] MEDS: Artificial Tears SOLN 15 ML BOTTLE BOTH EYES SCH ×4 (08:43→21:12)
--- NOTE | 2018-06-24 11:39 | Internal Med Progress Note ---
Hospitalist Progress Note - Encounter Date of Encounter: 06/24/18 Time of Encounter: 11:37 - Subjective Interval History: Patient lying comfortably in bed. Heparin drip in continuation. Review the lab INR is still 1.1. CBC report not available. Denies chest pain cough shortness of breath abdominal pain urinary bowel complaint headache dizziness - Exam Vitals: Temp Pulse Resp BP Pulse Ox 97.6 F 96 18 148/64 95 06/24/18 11:21 06/24/18 11:21 06/24/18 11:21 06/24/18 11:21 06/24/18 11:21 Exam: General: In no acute distress. Respiratory exam: CTAB -slightly diminished breath sound bibasilar Cardiovascular exam: Regular rate and rhythm, +S1, +S2. systolic murmur. GI/Abdominal exam: obese, Non-tender, soft, positive bowel sounds, no peritoneal signs. Extremities exam: Trace pedal edema, no calf tenderness Neurological exam: CN II-XII intact, AO X3, no focal deficits. Skin exam: No skin rash. Easily bruised his skin with petechies - Assessment and Plan (1) Leukocytosis Current Visit: Yes Status: Acute Assessment and Plan: Trending up white count but no identified source of infection. Repeat urine analysis and chest x-ray with no acute finding. Chest [id number] pneumonia right lower lung infiltrate and improving pulmonary edema. Patient does not have any fever. CBC report for today is awaited. If he still continued to trend up or spike in temperature then will order blood culture. Will consider antibiotic if any concern of infection. At this time it is considered Most likely reactive. (2) Atrial fibrillation with RVR Current Visit: Yes Status: Acute Assessment and Plan: New onset atrial fibrillation. Status post DC cardioversion and back to normal sinus rhythm. Continue beta gretchen, amiodarone 200 mg by mouth twice a day for 2 weeks then decrease 200 mg daily. Patient require long-term anticoagulation and will be on triple therapy. Patient is aware about increased bleeding risk. Will continue Plavix and aspirin but will consider discontinuation of aspirin in outpatient setting. Blender's also recommended initiating Coumadin with pharmacy consultation with the history of underlying ESRD. As patient has recent DC cardioversion therefore recommended continuation of heparin drip until INR therapeutic between 2-3. Daily INR and hemoglobin monitoring. Plan to discharge patient once INR therapeutic with no complication. Today INR 1.1. Pharmacy consultation done to adjust the Coumadin dose (3) Elevated troponin Current Visit: Yes Status: Acute Assessment and Plan: NST [place]. EKG with left bundle branch block. New A. fib with RVR. Echocardiogram We will trend cardiac enzymes, patient is chest pain fee now, LBBB. Echo Echo shows LVEF 50-55%. Indeterminate diastolic function. - On admission Started on amdiodarone drip and coreg. A started on heparin drip, aspirin, atorvastatin. Patient got cardioverted on June 19 2018 Patient got LHC with 1 stent placement at LAD on june 20 2018. Continue aspirin and statin, beta gretchen and Plavix. Patient is on Toprol blood thinner-explained the risk of bleeding with patient and his son and patient understand (4) Pulmonary edema Current Visit: Yes Status: Ruled-out Assessment and Plan: Stable. Secondary to volume overload. Nephrology on board. Not volume overloaded at this time. Continue is scheduled hemodialysis Monday. (5) ESRD (end stage renal disease) on dialysis Current Visit: Yes Status: Acute Assessment and Plan: Nephrology on board. (6) Acute respiratory failure Current Visit: Yes Status: Acute Assessment and Plan: Secondary to above volume overloaded, NST [place] (7) CAD (coronary artery disease) Current Visit: No Status: Chronic Assessment and Plan: As mentioned above (8) NSTEMI (non-ST elevated myocardial infarction) Current Visit: Yes Status: Acute (9) DVT prophylaxis Current Visit: Yes Status: Acute Assessment and Plan: Heparin drip. Coumadin started (10) Pneumonia Current Visit: Yes Status: Acute Assessment and Plan: Right lower lung. Got treated with Rocephin and Zithromax on admission. Repeat chest x-ray resolving pneumonia. May need continued surveillance to complete resolution if necessary - Time Spent with Patient Total time spent is greater than 50% in coordination of care (as documented) at patient's floor/unit and/or counseling patient: 25 - 35 minutes Plan of Care Discussed with: patient Internal Medicine: Result - Labs CBC & Chem 7: 06/23/18 04:30 06/24/18 04:55 Labs: BMP 06/24/18 04:55 Sodium 137 Potassium 4.2 Chloride 93 L Carbon Dioxide 29 BUN 59 H Creatinine 8.58 H Glucose 114 H Calcium 10.2 Urine 06/24/18 Range/Units 03:32 Urine Color Yellow (Yellow) Urine Clarity Clear (Clear) Urine pH 7.0 (5.0-8.0) pH Units Ur Specific [place] 1.014 (1.010-1.025) Urine Protein >=300 H (Neg-Trace) mg/dL Urine Glucose (UA) Normal (Normal) mg/dL - ABG Interpretation ABG results: ABG ABG pH 7.48 pH Units (7.32-7.45) H 06/16/18 23:36 ABG pCO2 45 mmHg (35-45) 06/16/18 23:36 ABG pO2 66 mmHg (85-104) L 06/16/18 23:36 ABG O2 Saturation 94 % (95-98) L 06/16/18 23:36 PT/INR, D-dimer PT 12.8 Seconds (9.4-12.1) H 06/24/18 04:55 D-Dimer 707 ng/mLFEU (0-500) H 06/16/18 21:45 - Impressions Impressions Chest X-Ray 06/23/18 14:46 IMPRESSION: Interval decreased size and density of the right lower lung infiltrate, compatible with resolving pneumonia. Continued surveillance to complete resolution is necessary. Pulmonary vasculature is normal on the current examination, without radiographic evidence of pulmonary edema. D/ / Owen Polanco MD / Owen Polanco MD Interpreting Provider: Owen Polanco MD Consult Discharge Plan - Plan Additional Instructions: please fax over info for this patient to Dr. Rivera [phone]. Referrals: Karlos oHyt, RESIDENTIAL LEASING AGENT [Advanced Practice Nurse] - (Per the office they will call the patient at home with follow up appointment) Aldo Rivera DO [Primary Care Provider] - 06/29/18 10:00 am (Please make sure you take your picture ID, Insurance cards, and all medications in the bottles to your appointment) (1) Leukocytosis Qualifiers: Leukocytosis type: unspecified Qualified Code(s): D72.829 - Elevated white blood cell count, unspecified (4) Pulmonary edema Qualifiers: Chronicity: acute Qualified Code(s): J81.0 - Acute pulmonary edema (6) Acute respiratory failure Qualifiers: Respiratory failure complication: hypoxia Qualified Code(s): J96.01 - Acute respiratory failure with hypoxia (7) CAD (coronary artery disease) Qualifiers: Coronary Disease-Associated Artery/Lesion type: [place] artery [place] vs. transplanted heart: [place] heart Associated angina: without angina Qualified Code(s): I25.10 - Atherosclerotic heart disease of [place] coronary artery without angina pectoris (10) Pneumonia Qualifiers: Pneumonia type: due to unspecified organism Laterality: right Lung location: lower lobe of lung Qualified Code(s): J18.1 - Lobar pneumonia, unspecified organism
[2018-06-24] MEDS: Heparin 25,000 UNIT/250 ML D5W 25,000 UNIT/250 ML IV.SOLN IVC SCH (12:15)
[2018-06-24] MEDS ORDERED: *HR* Warfarin 5 MG TABLET PO ONE (18:00)
[2018-06-24 21:04] LABS: Hematocrit 31.4 % (37.5-50.1); Hemoglobin 10.4 g/dL (12.9-16.9); Mean Corpuscular HGB Conc 33.1 g/dL (31.6-35.5); Mean Corpuscular Hemoglobin 33.4 pg (28.0-33.3); Mean Platelet Volume 9.9 fL (9.4-12.4); Platelet Count 374 K/mcL (140-400); Red Blood Count 3.11 M/mcL (4.19-5.50); Red Cell Distribution Width 14.5 % (11.5-14.5)
[2018-06-25] MEDS: Heparin 25,000 UNIT/250 ML D5W 25,000 UNIT/250 ML IV.SOLN IVC SCH ×2 (04:08→22:38)
[2018-06-25 05:45] LABS: Basophils # 0.1 K/mcL (0.0-0.2); Basophils % 0.7 %; Eosinophils # 0.6 K/mcL (0.0-0.6); Eosinophils % 4.2 %; Hematocrit 27.2 % (37.5-50.1); Immature Granulocytes % 2.1 % (0-4); Lymphocytes % 22.3 %; Mean Corpuscular HGB Conc 33.1 g/dL (31.6-35.5); Mean Corpuscular Hemoglobin 33.3 pg (28.0-33.3); Mean Corpuscular Volume 100.7 fL (83.0-100.0); Monocytes # 1.3 K/mcL (0.0-1.3); Monocytes % 9.4 %; Neutrophils # 8.3 K/mcL (1.6-8.9); Platelet Count 334 K/mcL (140-400); Red Cell Distribution Width 14.6 % (11.5-14.5); Segmented Neutrophils % 61.3 %
[2018-06-25 05:54] LABS: INR 1.3; Prothrombin Time 14.6 Seconds (9.4-12.1)
[2018-06-25 06:09] LABS: Calcium 10.2 mg/dL (8.6-10.3); Potassium 4.4 mEq/L (3.5-5.1)
[2018-06-25] MEDS ORDERED: 0.9 % Sodium Chloride 250 ML IVC PRN (07:07)
[2018-06-25] MEDS ORDERED: 0.9 % Sodium Chloride 2,000 ML ONE (07:36)
[2018-06-25] MEDS: Artificial Tears SOLN 15 ML BOTTLE BOTH EYES SCH ×4 (07:56→20:23)
[2018-06-25] MEDS: Aspirin 81 MG TAB.CHEW PO SCH (07:56)
--- NOTE | 2018-06-25 09:58 | Nephrology Progress Note ---
Date of Encounter: 06/25/18 Time of Encounter: 08:20 - Assessment and Plan (1) ESRD (end stage renal disease) on dialysis Current Visit: Yes Status: Acute HD MWF and due for HD today (Monday). Next HD planned for Monday. I will be available on Monday and , if needed. Please feel free to call or page me for any renal questions. Renal vitamins. Renal dose medications. Renal diet. (2) Chest pain Current Visit: Yes Status: Acute Qualifiers: Chest pain type: unspecified Qualified Code(s): R07.9 - Chest pain, unspecified (3) Acute respiratory failure Current Visit: Yes Status: Acute Qualifiers: Respiratory failure complication: hypoxia Qualified Code(s): J96.01 - Acute respiratory failure with hypoxia (4) Hypertension Current Visit: Yes Status: Acute Qualifiers: Hypertension type: essential hypertension Qualified Code(s): I10 - Essential (primary) hypertension Subjective Principal diagnosis: ESRD Interval history: The patient was seen and examined in his room earlier today while eating breakfast. He did not affirm newonset N/V/D Objective - Vital Signs Vital signs: Vital Signs Temp Pulse Resp BP Pulse Ox 06/25/18 08:00 97.6 F 92 26 166/82 95 06/25/18 07:32 97.6 F 92 26 166/82 95 06/25/18 04:45 98.3 F 91 20 160/80 95 06/24/18 23:48 98.2 F 92 18 142/76 95 06/24/18 20:17 92 06/24/18 20:02 98.1 F 91 16 143/74 95 06/24/18 17:15 98.0 F 81 18 156/69 96 06/24/18 16:41 98.0 F 81 18 156/69 96 06/24/18 12:20 97.6 F 96 18 148/64 95 06/24/18 11:21 97.6 F 96 18 148/64 95 Intake and Output 06/24/18 06/25/18 06/25/18 23:59 07:59 15:59 Intake Total 240 / 240 275 / 275 360 / 360 Output Total 350 / 350 225 / 225 0 / 0 Balance -110 / -110 50 / 50 360 / 360 Intake: IV Fluids 275 / 275 Heparin 25,000 UNIT/250 ML D5W 275 / 275 25,000 unit In 250 ml @ 9.3 UNIT/KG/HR 9.998 mls/hr IVC . Q24H LEANDRA Rx#:[id number] Oral 240 / 240 360 / 360 Output: Urine 350 / 350 225 / 225 0 / 0 Other: Meal Dinner Breakfast Percent of Meal Consumed 100% 100% Stool Size Small Moderate Stool Consistency soft formed formed Stool Color Brown Brown Bright Red Blood # Bowel Movements 1 1 Weight 95.8 kg Patient Weight 06/25/18 23:59 Weight 95.8 kg - General Appearance Exam: General appearance: Present: well-developed, well-nourished, sitting in the bedside chair eating breakfast EENT: Present: ATNC, PERRL Neck: Present: supple Respiratory: Present: clear Cardiology: Present: no edema, regular rate, normal S1, normal S2 Dialysis Vascular Access: Arteriovenous Fistula (LUE AVF) thrill: Yes bruit: Yes Gastrointestinal: Present: normoactive bowel sounds, no tenderness, no guarding Integumentary: Present: warm and dry Neurologic: Present: no focal deficit, no asterixis Musculoskeletal: Present: no deformities Psychiatric: Present: mood/affect appropriate - Lab 06/25/18 05:29 06/25/18 05:29 Most recent lab results ABG pH 7.48 pH Units (7.32-7.45) H 06/16/18 23:36 ABG pCO2 45 mmHg (35-45) 06/16/18 23:36 ABG pO2 66 mmHg (85-104) L 06/16/18 23:36 ABG HCO3 33 mEq/L (21-27) H 06/16/18 23:36 ABG O2 Saturation 94 % (95-98) L 06/16/18 23:36 Calcium 10.2 mg/dL (8.6-10.3) 06/25/18 05:29 Phosphorus 3.3 mg/dL (2.7-4.5) 06/16/18 01:25 Magnesium 1.9 mg/dL (1.6-2.6) 06/16/18 01:25 Consult Discharge Plan - Plan Additional Instructions: please fax over info for this patient to Dr. Rivera [phone]. Referrals: Karlos Hoyt, HOSPITAL UNIT CLERK [Advanced Practice Nurse] - (Per the office they will call the patient at home with follow up appointment) Aldo Rivera, DO [Primary Care Provider] - 06/29/18 10:00 am (Please make sure you take your picture ID, Insurance cards, and all medications in the bottles to your appointment)
[2018-06-25] MEDS: *HR* Amiodarone 200 MG TABLET PO SCH ×2 (13:57→20:22)
--- NOTE | 2018-06-25 16:02 | Internal Med Progress Note ---
Hospitalist Progress Note - Encounter Date of Encounter: 06/25/18 Time of Encounter: 15:58 - Subjective Interval History: Lying comfortably on bed. Hemodialysis is scheduled today. Heparin drip in continuation. Reviewed lab INR 1.3. Denied fever chills nausea vomiting headache dizziness chest pain short of breath urinary bowel complaint abdominal pain. - Exam Vitals: Temp Pulse Resp BP Pulse Ox 98.4 F 103 16 134/50 99 06/25/18 13:51 06/25/18 13:51 06/25/18 13:51 06/25/18 13:51 06/25/18 13:51 Exam: General: In no acute distress. Respiratory exam: CTAB -slightly diminished breath sound bibasilar Cardiovascular exam: Regular rate and rhythm, +S1, +S2. systolic murmur. GI/Abdominal exam: obese, Non-tender, soft, positive bowel sounds, no peritoneal signs. Extremities exam: Trace pedal edema, no calf tenderness Neurological exam: CN II-XII intact, AO X3, no focal deficits. Skin exam: No skin rash. Easily bruised his skin with petechies - Assessment and Plan (1) Leukocytosis Current Visit: Yes Status: Acute Assessment and Plan: Trending down white count, no identified source of infection. Repeat urine analysis and chest x-ray with no acute finding. Chest [id number] pneumonia right lower lung infiltrate and improving pulmonary edema. Patient does not have any fever. (2) Atrial fibrillation with RVR Current Visit: Yes Status: Acute Assessment and Plan: New onset atrial fibrillation. Status post DC cardioversion and back to normal sinus rhythm. Continue beta gretchen, amiodarone 200 mg by mouth twice a day for 2 weeks then decrease 200 mg daily. Patient require long-term anticoagulation and will be on triple therapy. Megan nt is aware about increased bleeding risk. Will continue Plavix and aspirin but will consider discontinuation of aspirin in outpatient setting. Cnc Lathe Machine Operator's also recommended initiating Coumadin with pharmacy consultation with the history of underlying ESRD. As patient has recent DC cardioversion therefore recommended continuation of heparin drip until INR therapeutic between 2-3. Daily INR and hemoglobin monitoring. Plan to discharge patient once INR therapeutic with no complication. Today INR 1.3. Pharmacy consultation done to adjust the Coumadin dose (3) Elevated troponin Current Visit: Yes Status: Acute Assessment and Plan: NST NC. EKG with left bundle branch block. New A. fib with RVR. Echocardiogram We will trend cardiac enzymes, patient is chest pain fee now, LBBB. Echo Echo shows LVEF 50-55%. Indeterminate diastolic function. - On admission Started on amdiodarone drip and coreg. A started on heparin drip, aspirin, atorvastatin. Patient got cardioverted on June 19 2018 Patient got C with 1 stent placement at LAD on june 20 2018. Continue aspirin and statin, beta gretchen and Plavix. Patient is on Toprol blood thinner-explained the risk of bleeding with patient and his son and patient understand (4) Pulmonary edema Current Visit: Yes Status: Ruled-out Assessment and Plan: Stable. Secondary to volume overload. Nephrology on board. Not volume overloaded at this time. Continue is scheduled hemodialysis Monday. (5) ESRD (end stage renal disease) on dialysis Current Visit: Yes Status: Acute Assessment and Plan: Nephrology on board. (6) Acute respiratory failure Current Visit: Yes Status: Acute Assessment and Plan: Secondary to above volume overloaded, NST NC (7) CAD (coronary artery disease) Current Visit: No Status: Chronic Assessment and Plan: As mentioned above (8) NSTEMI (non-ST elevated myocardial infarction) Current Visit: Yes Status: Acute Assessment and Plan: As mentioned above (9) DVT prophylaxis Current Visit: Yes Status: Acute Assessment and Plan: Heparin drip. Coumadin started (10) Pneumonia Current Visit: Yes Status: Acute Assessment and Plan: Right lower lung. Got treated with Rocephin and Zithromax on admission. Repeat chest x-ray resolving pneumonia. May need continued surveillance to complete resolution if necessary - Time Spent with Patient Total time spent is greater than 50% in coordination of care (as documented) at patient's floor/unit and/or counseling patient: 25 - 35 minutes Plan of Care Discussed with: patient Internal Medicine: Result - Labs CBC & Chem 7: 06/25/18 05:29 06/25/18 05:29 Labs: Short CBC 06/24/18 06/25/18 Range/Units 20:09 05:29 WBC 14.4 H 13.5 H (4.3-11.1) K/mcL Hgb 10.4 L 9.0 L (12.9-16.9) g/dL Hct 31.4 L 27.2 L (37.5-50.1) % Plt Count 374 334 (140-400) K/mcL Neutrophils # 8.3 (1.6-8.9) K/mcL BMP 06/25/18 05:29 Sodium 135 L Potassium 4.4 Chloride 94 L Carbon Dioxide 27 BUN 80 H Creatinine 10.19 H Glucose 105 Calcium 10.2 - ABG Interpretation ABG results: ABG ABG pH 7.48 pH Units (7.32-7.45) H 06/16/18 23:36 ABG pCO2 45 mmHg (35-45) 06/16/18 23:36 ABG pO2 66 mmHg (85-104) L 06/16/18 23:36 ABG O2 Saturation 94 % (95-98) L 06/16/18 23:36 PT/INR, D-dimer PT 14.6 Seconds (9.4-12.1) H 06/25/18 05:29 D-Dimer 707 ng/mLFEU (0-500) H 06/16/18 21:45 Consult Discharge Plan - Plan Additional Instructions: please fax over info for this patient to Dr. Rivera [phone]. Referrals: Karlos Hoyt, BAKERY ASSOCIATE [Advanced Practice Nurse] - (Per the office they will call the patient at home with follow up appointment) Aldo Rivera, [Primary Care Provider] - 06/29/18 10:00 am (Please make sure you take your picture ID, Insurance cards, and all medications in the bottles to your appointment) (1) Leukocytosis Qualifiers: Leukocytosis type: unspecified Qualified Code(s): D72.829 - Elevated white blood cell count, unspecified (4) Pulmonary edema Qualifiers: Chronicity: acute Qualified Code(s): J81.0 - Acute pulmonary edema (6) Acute respiratory failure Qualifiers: Respiratory failure complication: hypoxia Qualified Code(s): J96.01 - Acute respiratory failure with hypoxia (7) CAD (coronary artery disease) Qualifiers: Coronary Disease-Associated Artery/Lesion type: [place] artery [place] vs. transplanted heart: [place] heart Associated angina: without angina Qualified Code(s): I25.10 - Atherosclerotic heart disease of [place] coronary artery without angina pectoris (10) Pneumonia Qualifiers: Pneumonia type: due to unspecified organism Laterality: right Lung location: lower lobe of lung Qualified Code(s): J18.1 - Lobar pneumonia, unspecified organism
[2018-06-25] MEDS ORDERED: *HR* Warfarin 7.5 MG TABLET PO ONE (18:00)
[2018-06-26 06:44] LABS: Basophils # 0.1 K/mcL (0.0-0.2); Basophils % 0.9 %; Eosinophils # 0.4 K/mcL (0.0-0.6); Eosinophils % 2.8 %; Hematocrit 29.2 % (37.5-50.1); Hemoglobin 9.7 g/dL (12.9-16.9); Immature Granulocytes % 2.3 % (0-4); Lymphocytes # 3.1 K/mcL (0.6-4.6); Lymphocytes % 22.2 %; Mean Corpuscular HGB Conc 33.2 g/dL (31.6-35.5); Mean Corpuscular Hemoglobin 33.1 pg (28.0-33.3); Mean Corpuscular Volume 99.7 fL (83.0-100.0); Mean Platelet Volume 10.3 fL (9.4-12.4); Monocytes # 1.6 K/mcL (0.0-1.3); Monocytes % 11.3 %; Neutrophils # 8.4 K/mcL (1.6-8.9); Platelet Count 366 K/mcL (140-400); Red Blood Count 2.93 M/mcL (4.19-5.50); Red Cell Distribution Width 14.6 % (11.5-14.5); Segmented Neutrophils % 60.5 %
[2018-06-26 06:53] LABS: INR 1.6; Prothrombin Time 17.9 Seconds (9.4-12.1)
[2018-06-26 07:03] LABS: Calcium 10.6 mg/dL (8.6-10.3); Potassium 4.4 mEq/L (3.5-5.1)
[2018-06-26] MEDS: Aspirin 81 MG TAB.CHEW PO SCH (08:26)
[2018-06-26] MEDS: *HR* Amiodarone 200 MG TABLET PO SCH ×2 (08:26→20:12)
[2018-06-26] MEDS: Artificial Tears SOLN 15 ML BOTTLE BOTH EYES SCH ×4 (08:29→20:12)
--- NOTE | 2018-06-26 09:52 | Electrocardiograph Report ---
[place] [id number] Test Date: 2018-06-25 Pat Name: Balaji Gao Department: 110 Room: 2N05 Gender: M Director Telemetry: : 1940 Requested By: Nisha Pitt Order Number: [id number] Reading MD: Toby Sanchez Measurements Intervals [place] Rate: 98 P: 42 TX: 207 QRS: 33 QRSD: 130 T: 254 QT: 389 QTc: 444 Interpretive Statements SINUS RHYTHM LEFT VENTRICULAR HYPERTROPHY AND ST-T CHANGE Electronically Signed On 06-26-2018 9:50:19 EDT by Toby Sanchez
--- NOTE | 2018-06-26 11:55 | Internal Med Progress Note ---
Hospitalist Progress Note - Encounter Date of Encounter: 06/26/18 Time of Encounter: 11:52 - Subjective Interval History: Patient seen and examined with family/RN present at bedside earlier today. Pt resting in bed and denies any discomfort. Reports of using a walker at home for ambulation. Denies any headache, sob, cough, chest pain, fever, or chills at this time. No overnight events reported. Pt encouraged to get out of bed to chair and increase activity as tolerated. Ten point ROS is negative except as listed above - Exam Vitals: Temp Pulse Resp BP Pulse Ox 98.3 F 95 18 133/78 97 06/26/18 07:18 06/26/18 11:33 06/26/18 11:33 06/26/18 11:33 06/26/18 11:33 Exam: General: No acute distress, AAO x 3, pleasant elderly male HEENT: EOMI, PERRLA, NC/AT, no scleral icterus Respiratory: Clear to auscultate bilaterally, no wheezing, no rales Cardiovascular: Regular, Rate, Rhythm, No murmurs GI: Soft, Non tender, non distended, normal bowel sounds Ext: No edema, no tenderness, positive pulses Neuro: AAO x 3, no focal deficits - Assessment and Plan (1) Atrial fibrillation with RVR Current Visit: Yes Status: Acute Assessment and Plan: New onset Afib s/p cardioversion, current in NSR continue BB, amiodarone for rate control anticoagulation with coumadin, bridging with Heparin gtt pharmacist to dose coumadin goal INR: 2-3 discharge pending therapeutic INR (2) NSTEMI (non-ST elevated myocardial infarction) Current Visit: Yes Status: Acute Assessment and Plan: S/P LHC with PTCA to mid LAD continue ASA, Statin, BB, Plavix chest pain free at this time cardiology input appreciated (3) Pulmonary edema Current Visit: Yes Status: Ruled-out Assessment and Plan: Clinically asymptomatic continue PHOTOGRAPHER AERIAL as per nephrology scheduled for HD on MWF. (4) ESRD (end stage renal disease) on dialysis Current Visit: Yes Status: Acute Assessment and Plan: continue HD as per nephrology nephrology input appreciated (5) Acute respiratory failure Current Visit: Yes Status: Resolved Assessment and Plan: resolved likely secondary to volume overload vs. NSTEMI currently saturating well on room air (6) CAD (coronary artery disease) Current Visit: No Status: Chronic Assessment and Plan: continue asa, plavix, statin, bb (7) DVT prophylaxis Current Visit: Yes Status: Acute Assessment and Plan: On heparin drip (8) Leukocytosis Current Visit: Yes Status: Acute Assessment and Plan: Leukocytosis persist but improved from previous day clinically asymptomatic, afebrile will continue to monitor off abx therapy (9) Pneumonia Current Visit: Yes Status: Resolved Assessment and Plan: finished abx therapy - Time Spent with Patient Total time spent is greater than 50% in coordination of care (as documented) at patient's floor/unit and/or counseling patient: 25 - 35 minutes Plan of Care Discussed with: patient (patient/family/RN/pharmacist) Internal Medicine: Result - Labs CBC & Chem 7: 06/26/18 06:04 06/26/18 06:04 Labs: Short CBC 06/26/18 Range/Units 06:04 WBC 13.9 H (4.3-11.1) K/mcL Hgb 9.7 L (12.9-16.9) g/dL Hct 29.2 L (37.5-50.1) % Plt Count 366 (140-400) K/mcL Neutrophils # 8.4 (1.6-8.9) K/mcL BMP 06/26/18 06:04 Sodium 137 Potassium 4.4 Chloride 93 L Carbon Dioxide 30 H BUN 45 H Creatinine 7.04 H Glucose 112 H Calcium 10.6 H - ABG Interpretation ABG results: ABG ABG pH 7.48 pH Units (7.32-7.45) H 06/16/18 23:36 ABG pCO2 45 mmHg (35-45) 06/16/18 23:36 ABG pO2 66 mmHg (85-104) L 06/16/18 23:36 ABG O2 Saturation 94 % (95-98) L 06/16/18 23:36 PT/INR, D-dimer PT 17.9 Seconds (9.4-12.1) H 06/26/18 06:04 D-Dimer 707 ng/mLFEU (0-500) H 06/16/18 21:45 Consult Discharge Plan - Plan Additional Instructions: please fax over info for this patient to Dr. Rivera [phone]. Referrals: Karlos Hoyt, PUBLIC WORKS INSPECTOR [Advanced Practice Nurse] - (Per the office they will call the patient at home with follow up appointment) Aldo Rivera DO [Primary Care Provider] - 06/29/18 10:00 am (Please make sure you take your picture ID, Insurance cards, and all medications in the bottles to your appointment) (3) Pulmonary edema Qualifiers: Chronicity: acute Qualified Code(s): J81.0 - Acute pulmonary edema (5) Acute respiratory failure Qualifiers: Respiratory failure complication: hypoxia Qualified Code(s): J96.01 - Acute respiratory failure with hypoxia (6) CAD (coronary artery disease) Qualifiers: Coronary Disease-Associated Artery/Lesion type: [place] artery [place] vs. transplanted heart: [place] heart Associated angina: without angina Qualified Code(s): I25.10 - Atherosclerotic heart disease of [place] coronary artery without angina pectoris (8) Leukocytosis Qualifiers: Leukocytosis type: unspecified Qualified Code(s): D72.829 - Elevated white blood cell count, unspecified (9) Pneumonia Qualifiers: Pneumonia type: due to unspecified organism Laterality: right Lung location: lower lobe of lung Qualified Code(s): J18.1 - Lobar pneumonia, unspecified organism
[2018-06-26] MEDS: Heparin 25,000 UNIT/250 ML D5W 25,000 UNIT/250 ML IV.SOLN IVC SCH (16:30)
[2018-06-26] MEDS ORDERED: *HR* Warfarin 7.5 MG TABLET PO ONE (18:00)
[2018-06-27 01:48] LABS: Calcium 10.4 mg/dL (8.6-10.3); Magnesium 2.6 mg/dL (1.6-2.6); Phosphorous 6.3 mg/dL (2.7-4.5); Potassium 4.3 mEq/L (3.5-5.1)
[2018-06-27 01:52] LABS: Basophils # 0.1 K/mcL (0.0-0.2); Basophils % 0.7 %; Eosinophils # 0.3 K/mcL (0.0-0.6); Eosinophils % 2.4 %; Hemoglobin 9.3 g/dL (12.9-16.9); Immature Granulocytes % 1.7 % (0-4); Lymphocytes # 3.1 K/mcL (0.6-4.6); Lymphocytes % 23.8 %; Mean Corpuscular HGB Conc 33.2 g/dL (31.6-35.5); Mean Corpuscular Hemoglobin 33.2 pg (28.0-33.3); Mean Platelet Volume 10.3 fL (9.4-12.4); Monocytes # 1.4 K/mcL (0.0-1.3); Monocytes % 10.8 %; Platelet Count 350 K/mcL (140-400); Red Cell Distribution Width 14.4 % (11.5-14.5); Segmented Neutrophils % 60.6 %
[2018-06-27 01:58] LABS: INR 1.8; Prothrombin Time 19.8 Seconds (9.4-12.1)
--- NOTE | 2018-06-27 07:13 | Nephrology Progress Note ---
Date of Encounter: 06/27/18 Time of Encounter: 11:15 - Assessment and Plan (1) ESRD (end stage renal disease) on dialysis Current Visit: Yes Status: Chronic HD ordered for today (Monday). Plan for next HD on Monday. I will be available tomorrow on , if needed. Please feel free to call or page me if any questions. Thank you. (2) Chest pain Current Visit: Yes Status: Acute Qualifiers: Chest pain type: unspecified Qualified Code(s): R07.9 - Chest pain, unspecified (3) Acute respiratory failure Current Visit: Yes Status: Resolved Qualifiers: Respiratory failure complication: hypoxia Qualified Code(s): J96.01 - Acute respiratory failure with hypoxia (4) Hypertension Current Visit: Yes Status: Acute Qualifiers: Hypertension type: essential hypertension Qualified Code(s): I10 - Essential (primary) hypertension Subjective Principal diagnosis: ESRD Interval history: The patient was seen and examined while on dialysis. He did not affirm cramping with dialysis. Objective - Vital Signs Vital signs: Vital Signs Temp Pulse Resp BP Pulse Ox 06/27/18 04:55 96 06/27/18 03:51 97.9 F 98 18 135/57 95 06/27/18 00:05 98.8 F 98 18 117/52 93 06/27/18 00:00 94 06/26/18 20:10 96 06/26/18 19:16 98.1 F 95 18 108/36 94 06/26/18 16:27 98.2 F 93 18 132/74 94 06/26/18 11:33 95 18 133/78 97 06/26/18 08:20 94 06/26/18 07:18 98.3 F 94 18 122/63 97 Intake and Output 06/26/18 06/26/18 06/27/18 15:59 23:59 07:59 Intake Total 850 / 850 240 / 240 250 / 250 Output Total 150 / 150 125 / 125 100 / 100 Balance 700 / 700 115 / 115 150 / 150 Intake: IV Fluids 250 / 250 Heparin 25,000 UNIT/250 ML D5W 250 / 250 25,000 unit In 250 ml @ 9.3 UNIT/KG/HR 9.998 mls/hr IVC . Q24H LEANDRA Rx#:[id number] Oral 600 / 600 240 / 240 250 / 250 Output: Urine 150 / 150 125 / 125 100 / 100 Other: Meal Lunch Percent of Meal Consumed 100% Stool Size Smear Large Stool Consistency loose formed Stool Color Brown Brown # Bowel Movements 1 1 Weight 93.6 kg Patient Weight 06/27/18 23:59 Weight 93.6 kg - General Appearance Exam: General appearance: Present: well-developed, well-nourished, sitting in the bedside chair eating breakfast EENT: Present: ATNC, PERRL Neck: Present: supple Respiratory: Present: clear Cardiology: Present: no edema, regular rate, normal S1, normal S2 Dialysis Vascular Access: Arteriovenous Fistula (LUE AVF) thrill: Yes bruit: Yes Gastrointestinal: Present: normoactive bowel sounds, no tenderness, no guarding Integumentary: Present: warm and dry Neurologic: Present: no focal deficit, no asterixis Musculoskeletal: Present: no deformities Psychiatric: Present: mood/affect appropriate - Lab 06/27/18 01:15 06/27/18 01:15 Most recent lab results ABG pH 7.48 pH Units (7.32-7.45) H 06/16/18 23:36 ABG pCO2 45 mmHg (35-45) 06/16/18 23:36 ABG pO2 66 mmHg (85-104) L 06/16/18 23:36 ABG HCO3 33 mEq/L (21-27) H 06/16/18 23:36 ABG O2 Saturation 94 % (95-98) L 06/16/18 23:36 Calcium 10.4 mg/dL (8.6-10.3) H 06/27/18 01:15 Phosphorus 6.3 mg/dL (2.7-4.5) H 06/27/18 01:15 Magnesium 2.6 mg/dL (1.6-2.6) 06/27/18 01:15 Consult Discharge Plan - Plan Additional Instructions: please fax over info for this patient to Dr. Rivera [phone]. Referrals: Anticoagulation, Clinic [Other] - 07/03/18 9:00 am (This is located on the hospital grounds across from [facility] in the [facility]. Please take with you to your appointment you bottle of warfin, and list of all medications including over the counter meds. This appointment will take 45 minutes to one hour. ) Karlos Hoyt, FOREST SCIENTIST [Advanced Practice Nurse] - (Per the office they will call the patient at home with follow up appointment) Aldo Rivera, [Primary Care Provider] - 06/29/18 10:00 am (Please make sure you take your picture ID, Insurance cards, and all medications in the bottles to your appointment)
[2018-06-27] MEDS: Aspirin 81 MG TAB.CHEW PO SCH (08:13)
[2018-06-27] MEDS: Artificial Tears SOLN 15 ML BOTTLE BOTH EYES SCH ×3 (08:13→17:38)
[2018-06-27] MEDS: Heparin 25,000 UNIT/250 ML D5W 25,000 UNIT/250 ML IV.SOLN IVC SCH (10:30)
[2018-06-27] MEDS: *HR* Amiodarone 200 MG TABLET PO SCH ×2 (13:52→21:25)
--- NOTE | 2018-06-27 14:03 | Internal Med Progress Note ---
Hospitalist Progress Note - Encounter Date of Encounter: 06/27/18 Time of Encounter: 14:00 - Subjective Interval History: Patient seen and examined earlier today in hemodialysis. Pt resting in bed and denies any pain or discomfort. He reports of ambulating around the nurses station yesterday evening. Denies any headache, sob, chest pain, abd pain, fever, or chills at this time. No overnight events reported. Ten point ROS is negative except as listed above. - Exam Vitals: Temp Pulse Resp BP Pulse Ox 97.6 F 97 18 136/75 95 06/27/18 09:50 06/27/18 08:00 06/27/18 09:50 06/27/18 11:05 06/27/18 08:00 Exam: General: No acute distress, AAO x 3, pleasant elderly male HEENT: EOMI, PERRLA, NC/AT, no scleral icterus Respiratory: Clear to auscultate bilaterally, no wheezing, no rales Cardiovascular: Regular, Rate, Rhythm, No murmurs GI: Soft, Non tender, non distended, normal bowel sounds Ext: No edema, no tenderness, positive pulses Neuro: AAO x 3, no focal deficits - Assessment and Plan (1) Atrial fibrillation with RVR Current Visit: Yes Status: Acute Assessment and Plan: New onset Afib s/p cardioversion, current in NSR continue BB, amiodarone for rate control anticoagulation with coumadin, bridging with Heparin gtt pharmacist to dose coumadin goal INR: 2-3 discharge pending therapeutic INR (2) NSTEMI (non-ST elevated myocardial infarction) Current Visit: Yes Status: Acute Assessment and Plan: S/P LHC with PTCA to mid LAD continue ASA, Statin, BB, Plavix chest pain free at this time cardiology input appreciated (3) Pulmonary edema Current Visit: Yes Status: Resolved Assessment and Plan: Clinically asymptomatic continue RETIREMENT MANAGER as per nephrology scheduled for HD on MWF. (4) ESRD (end stage renal disease) on dialysis Current Visit: Yes Status: Chronic Assessment and Plan: continue HD as per nephrology nephrology input appreciated (5) Acute respiratory failure Current Visit: Yes Status: Resolved Assessment and Plan: resolved likely secondary to volume overload vs. NSTEMI currently saturating well on room air (6) CAD (coronary artery disease) Current Visit: No Status: Chronic Assessment and Plan: continue asa, plavix, statin, bb (7) DVT prophylaxis Current Visit: Yes Status: Acute Assessment and Plan: On heparin drip (8) Leukocytosis Current Visit: Yes Status: Acute Assessment and Plan: Leukocytosis persist but improved from previous day clinically asymptomatic, afebrile will continue to monitor off abx therapy (9) Pneumonia Current Visit: Yes Status: Resolved Assessment and Plan: finished abx therapy - Time Spent with Patient Total time spent is greater than 50% in coordination of care (as documented) at patient's floor/unit and/or counseling patient: Plan of Care Discussed with: patient (patient/RN/case management/pharmacist) Internal Medicine: Result - Labs CBC & Chem 7: 06/27/18 01:15 06/27/18 01:15 Labs: Short CBC 06/27/18 Range/Units 01:15 WBC 13.1 H (4.3-11.1) K/mcL Hgb 9.3 L (12.9-16.9) g/dL Hct 28.0 L (37.5-50.1) % Plt Count 350 (140-400) K/mcL Neutrophils # 8.0 (1.6-8.9) K/mcL BMP 06/27/18 01:15 Sodium 136 Potassium 4.3 Chloride 92 L Carbon Dioxide 30 H BUN 64 H Creatinine 9.07 H Glucose 126 H Calcium 10.4 H - ABG Interpretation ABG results: ABG ABG pH 7.48 pH Units (7.32-7.45) H 06/16/18 23:36 ABG pCO2 45 mmHg (35-45) 06/16/18 23:36 ABG pO2 66 mmHg (85-104) L 06/16/18 23:36 ABG O2 Saturation 94 % (95-98) L 06/16/18 23:36 PT/INR, D-dimer PT 19.8 Seconds (9.4-12.1) H 06/27/18 01:15 D-Dimer 707 ng/mLFEU (0-500) H 06/16/18 21:45 Consult Discharge Plan - Plan Additional Instructions: please fax over info for this patient to Dr. Rivera [phone]. Referrals: Anticoagulation, Clinic [Other] - 07/03/18 9:00 am (This is located on the hospital grounds across from [facility] in the [facility]. Please take with you to your appointment you bottle of warfin, and list of all medications including over the counter meds. This appointment will take 45 minutes to one hour. ) Karlos Hoyt, CLIENT EXECUTIVE [Advanced Practice Nurse] - (Per the office they will call the patient at home with follow up appointment) Aldo Rivera DO [Primary Care Provider] - 06/29/18 10:00 am (Please make sure you take your picture ID, Insurance cards, and all medications in the bottles to your appointment) (3) Pulmonary edema Qualifiers: Chronicity: acute Qualified Code(s): J81.0 - Acute pulmonary edema (5) Acute respiratory failure Qualifiers: Respiratory failure complication: hypoxia Qualified Code(s): J96.01 - Acute respiratory failure with hypoxia (6) CAD (coronary artery disease) Qualifiers: Coronary Disease-Associated Artery/Lesion type: [place] artery [place] vs. transplanted heart: [place] heart Associated angina: without angina Qualified Code(s): I25.10 - Atherosclerotic heart disease of [place] coronary artery without angina pectoris (8) Leukocytosis Qualifiers: Leukocytosis type: unspecified Qualified Code(s): D72.829 - Elevated white blood cell count, unspecified (9) Pneumonia Qualifiers: Pneumonia type: due to unspecified organism Laterality: right Lung location: lower lobe of lung Qualified Code(s): J18.1 - Lobar pneumonia, unspecified organism
[2018-06-27] MEDS ORDERED: *HR* Warfarin 7.5 MG TABLET PO ONE (18:00)
[2018-06-28] MEDS: Artificial Tears SOLN 15 ML BOTTLE BOTH EYES SCH ×5 (02:04→20:55)
[2018-06-28] MEDS: Heparin 25,000 UNIT/250 ML D5W 25,000 UNIT/250 ML IV.SOLN IVC SCH (02:42)
[2018-06-28 05:51] LABS: Basophils # 0.1 K/mcL (0.0-0.2); Basophils % 0.8 %; Eosinophils # 0.3 K/mcL (0.0-0.6); Hematocrit 26.2 % (37.5-50.1); Hemoglobin 8.8 g/dL (12.9-16.9); Immature Granulocytes % 2.2 % (0-4); Lymphocytes # 3.2 K/mcL (0.6-4.6); Lymphocytes % 24.8 %; Mean Corpuscular HGB Conc 33.6 g/dL (31.6-35.5); Mean Corpuscular Hemoglobin 33.7 pg (28.0-33.3); Mean Corpuscular Volume 100.4 fL (83.0-100.0); Mean Platelet Volume 10.3 fL (9.4-12.4); Monocytes # 1.3 K/mcL (0.0-1.3); Monocytes % 9.8 %; Neutrophils # 7.9 K/mcL (1.6-8.9); Platelet Count 324 K/mcL (140-400); Red Blood Count 2.61 M/mcL (4.19-5.50); Red Cell Distribution Width 14.5 % (11.5-14.5); Segmented Neutrophils % 60.4 %
[2018-06-28 06:09] LABS: Calcium 9.7 mg/dL (8.6-10.3); Magnesium 2.2 mg/dL (1.6-2.6); Phosphorous 6.4 mg/dL (2.7-4.5); Potassium 4.4 mEq/L (3.5-5.1)
[2018-06-28 07:50] LABS: Hematocrit 27.1 % (37.5-50.1); Hemoglobin 8.9 g/dL (12.9-16.9)
[2018-06-28] MEDS: *HR* Amiodarone 200 MG TABLET PO SCH ×2 (08:01→20:54)
[2018-06-28] MEDS: Aspirin 81 MG TAB.CHEW PO SCH (08:01)
[2018-06-28 08:07] LABS: INR 2.2; Prothrombin Time 24.5 Seconds (9.4-12.1)
--- NOTE | 2018-06-28 09:56 | Event Note ---
Date of Encounter: 06/28/18 Time of Encounter: 09:50 - Cardiology Event Note Laboratory Tests 06/15/18 06/28/18 06/28/18 09:37 04:49 07:26 Hgb 11.7 L 8.9 L Hct 35.5 L 27.1 L INR Potassium 4.4 Creatinine 6.04 H Magnesium 2.2 06/28/18 07:49 Hgb Hct INR 2.2 Potassium Creatinine Magnesium Notified by primary service this morning of acute GI bleed. Patient reports bright red stool in toilet this morning. Denies any bleeding prior to event denies and any further recurrence at this time. Patient seen during this hospital stay and underwent DC cardioversion with conversion to sinus rhythm 06/19; remains sinus rhythm on amiodarone. On asa and plavix, and coumadin-- was on heparin bridging until INR therapeutic with recent cardioversion and INR now currently 2.2. GI consult pending. Discussed with Dr. Damon, if needed would be okay to hold Coumadin with no heparin bridging if remains SR (is SR now), but if were to have recurrence of afib, would recommend Hep gtt bridging while off Coumadin since recent DCCV. Regarding aspirin and Plavix, underwent recent stenting to mid LAD during this hospital stay as well (06/20), recommend continue aspirin and Plavix uninterrupted. Patient verbalized understanding and agreed with plan. Please re-consult if needed.
--- NOTE | 2018-06-28 10:01 | Internal Med Progress Note ---
Hospitalist Progress Note - Encounter Date of Encounter: 06/28/18 Time of Encounter: 09:59 - Subjective Interval History: Pt seen and examined earlier this morning. Pt reported of having an episode of bright red blood per rectum this morning, states he had blood mixed in with the stool as well. Denies any abd pain, nausea, or vomiting. Ten point ROS is negative except as listed above. Heparin Drip discontinued. Coumadin on hold Cardiology evaluation requested in regards to continuation of Aspirin, Plavix given recent LHC with PCI/KERLINE to mid LAD. - Exam Vitals: Temp Pulse Resp BP Pulse Ox 98.0 F 90 17 134/73 97 06/28/18 06:45 06/28/18 06:45 06/28/18 06:45 06/28/18 06:45 06/28/18 06:45 Exam: General: No acute distress, AAO x 3, pleasant elderly male HEENT: EOMI, PERRLA, NC/AT, no scleral icterus Respiratory: Clear to auscultate bilaterally, no wheezing, no rales Cardiovascular: Regular, Rate, Rhythm, No murmurs GI: Soft, Non tender, non distended, normal bowel sounds Ext: No edema, no tenderness, positive pulses Neuro: AAO x 3, no focal deficits - Assessment and Plan (1) GI bleed Current Visit: Yes Status: Acute Assessment and Plan: New onset of BRBPR this morning discontinued anticoagulation at this time unable to stop ASA and Plavix due to recent LHC with PCI/KERLINE to mid LAD cardiology f/u requested GI evaluation requested will closely monitor H&H NPO until GI evaluation transfuse if symptomatic or Hgb<7 (2) Atrial fibrillation with RVR Current Visit: Yes Status: Acute Assessment and Plan: New onset Afib s/p cardioversion, current in NSR continue BB, amiodarone for rate control INR within therapeutic range however given acute GI bleed, will hold all anticoagulation at this time cardiology f/u requested goal INR: 2-3 (3) NSTEMI (non-ST elevated myocardial infarction) Current Visit: Yes Status: Acute Assessment and Plan: S/P LHC with PTCA to mid LAD on 06/20/18 continue ASA, Statin, BB, Plavix chest pain free at this time cardiology input appreciated (4) Pulmonary edema Current Visit: Yes Status: Resolved Assessment and Plan: Clinically asymptomatic continue ATTACHE as per nephrology scheduled for HD on MWF. (5) ESRD (end stage renal disease) on dialysis Current Visit: Yes Status: Chronic Assessment and Plan: continue HD as per nephrology nephrology input appreciated (6) Acute respiratory failure Current Visit: Yes Status: Resolved Assessment and Plan: resolved likely secondary to volume overload vs. NSTEMI currently saturating well on room air (7) CAD (coronary artery disease) Current Visit: No Status: Chronic Assessment and Plan: continue asa, plavix, statin, bb (8) DVT prophylaxis Current Visit: Yes Status: Acute Assessment and Plan: On heparin drip (9) Leukocytosis Current Visit: Yes Status: Acute Assessment and Plan: Leukocytosis persist but improved from previous day clinically asymptomatic, afebrile will continue to monitor off abx therapy (10) Pneumonia Current Visit: Yes Status: Resolved Assessment and Plan: finished abx therapy - Time Spent with Patient Total time spent is greater than 50% in coordination of care (as documented) at patient's floor/unit and/or counseling patient: 25 - 35 minutes Plan of Care Discussed with: patient (patient/RN/consulting provider/case management) Internal Medicine: Result - Labs CBC & Chem 7: 06/28/18 07:26 06/28/18 04:49 Labs: Short CBC 06/28/18 06/28/18 Range/Units 04:49 07:26 WBC 13.0 H (4.3-11.1) K/mcL Hgb 8.8 L 8.9 L (12.9-16.9) g/dL Hct 26.2 L 27.1 L (37.5-50.1) % Plt Count 324 (140-400) K/mcL Neutrophils # 7.9 (1.6-8.9) K/mcL BMP 06/28/18 04:49 Sodium 134 L Potassium 4.4 Chloride 95 L Carbon Dioxide 26 BUN 40 H Creatinine 6.04 H Glucose 191 H Calcium 9.7 - ABG Interpretation ABG results: ABG ABG pH 7.48 pH Units (7.32-7.45) H 06/16/18 23:36 ABG pCO2 45 mmHg (35-45) 06/16/18 23:36 ABG pO2 66 mmHg (85-104) L 06/16/18 23:36 ABG O2 Saturation 94 % (95-98) L 06/16/18 23:36 PT/INR, D-dimer PT 24.5 Seconds (9.4-12.1) H 06/28/18 07:49 D-Dimer 707 ng/mLFEU (0-500) H 06/16/18 21:45 Consult Discharge Plan - Plan Additional Instructions: please fax over info for this patient to Dr. Rivera [phone]. Referrals: Anticoagulation, Clinic [Other] - 07/03/18 9:00 am (This is located on the hospital grounds across from [facility] in the [facility]. Please take with you to your appointment you bottle of warfin, and list of all medications including over the counter meds. This appointment will take 45 minutes to one hour. ) Karlos Hoyt, ORTHODONTIST SMALL BUSINESS OWNER [Advanced Practice Nurse] - (Per the office they will call the patient at home with follow up appointment) Aldo Rivera DO [Primary Care Provider] - 06/29/18 10:00 am (Please make sure you take your picture ID, Insurance cards, and all medications in the bottles to your appointment) (1) GI bleed Qualifiers: GI bleed type/associated pathology: unspecified gastrointestinal hemorrhage type Qualified Code(s): K92.2 - Gastrointestinal hemorrhage, unspecified (4) Pulmonary edema Qualifiers: Chronicity: acute Qualified Code(s): J81.0 - Acute pulmonary edema (6) Acute respiratory failure Qualifiers: Respiratory failure complication: hypoxia Qualified Code(s): J96.01 - Acute respiratory failure with hypoxia (7) CAD (coronary artery disease) Qualifiers: Coronary Disease-Associated Artery/Lesion type: pauma artery Platinum vs. transplanted heart: pauma heart Associated angina: without angina Qualified Code(s): I25.10 - Atherosclerotic heart disease of pauma coronary artery without angina pectoris (9) Leukocytosis Qualifiers: Leukocytosis type: unspecified Qualified Code(s): D72.829 - Elevated white blood cell count, unspecified (10) Pneumonia Qualifiers: Pneumonia type: due to unspecified organism Laterality: right Lung location: lower lobe of lung Qualified Code(s): J18.1 - Lobar pneumonia, unspecified organism
--- NOTE | 2018-06-28 11:36 | Gastroenterology Consult Note ---
<CarolynnDyllan Mendez - Last Filed: 06/28/18 11:34> Date of Encounter: 06/28/18 Time of Encounter: 10:30 - Assessment and plan (1) GI bleed Current Visit: Yes Status: Acute Assessment and plan: Patient with episode of bright red blood per rectum this morning. Coumadin and heparin stopped. INR this morning 2.2. Hgb 11.7 on admission and this AM Hgb 8.9. Plan for colonoscopy tomorrow morning. Clear liquid diet today, no red or purple. NPO at midnight. If not clear by 6 AM, give 2 tap water enemas. Qualifiers: GI bleed type/associated pathology: unspecified gastrointestinal hemorrhage type Qualified Code(s): K92.2 - Gastrointestinal hemorrhage, unspecified (2) Anemia Current Visit: Yes Status: Acute Assessment and plan: Hgb 11.7 on admission and this AM Hgb 8.9. Continue to monitor CBC and transfuse PRBC as needed. Plan for colonoscopy tomorrow. Qualifiers: Anemia type: unspecified type Qualified Code(s): D64.9 - Anemia, unspecified (3) ESRD (end stage renal disease) on dialysis Current Visit: Yes Status: Chronic Assessment and plan: Management per Nephrology. (4) Atrial fibrillation with RVR Current Visit: Yes Status: Acute Assessment and plan: Management per primary team and Cardiology. (5) NSTEMI (non-ST elevated myocardial infarction) Current Visit: Yes Status: Acute Assessment and plan: Management per Cardiology. - Time Spent With Patient Total time spent is greater than 50% in coordination of care (as documented) at patient's floor/unit and/or counseling patient: GI History of Present Illness - Data of Consult Patient: new to practice Consult date: 06/28/18 Requesting Physician: Kezia Soto MD - Consult Narrative Reason for consult: BRBPR History of present illness: Mr. Gao is a 77 year old male with PMHx of HTN, MT, and ESRD on dialysis MWF presented to the ED with SOB and NSTEMI s/p LHC with PTCA on ASA and Plavix. He developed A. fib with RVR status post cardioversion on Coumadin with bridging with heparin drip. Patient with episode of bright red blood per rectum this morning. Coumadin and heparin stopped. INR this morning 2.2. We were consulted to evaluate rectal bleeding. Hgb 11.7 on admission and this AM Hgb 8.9. Procedures: Colonoscopy years ago per patient report. No records here. NSAIDs: ASA Anticoagulation: Plavix, Coumadin Past Med Surg Social Fam HX - Past Medical History Medical history: hypertension, myocardial infarction, renal disease Psychiatric history: no psych history - Past Surgical History Surgical History: no surgical history - Social History Smoking Status: Former smoker Smokeless Tobacco Status: No Alcohol use: none Drug use: none - Gastrointestinal Gastrointestinal: Present: as per HPI - Constitutional Constitutional: as per HPI - EENT Eyes: as per HPI Ears: Present: as per HPI Nose, mouth and throat: Present: as per HPI - Cardiovascular Cardiovascular ROS: Present: as per HPI - Respiratory Respiratory IM: Present: as per HPI - Genitourinary Genitourinary: Absent: change in color, Urinary frequency - Neurological ROS Neurological GI: Present: as per HPI - Hematologic/Lymphatic Hematologic/Lymphatic pediatric: Present: as per HPI - Musculoskeletal Musculoskeletal ROS GI: Present: as per HPI - Integumentary Integumentary GI: Present: as per HPI - Psychiatric ROS Psychiatric GI: Present: as per HPI - Endocrine Endocrine IM: Present: as per HPI - Constitutional Vitals: Temp Pulse Resp BP Pulse Ox 98.0 F 90 17 134/73 97 06/28/18 06:45 06/28/18 06:45 06/28/18 06:45 06/28/18 06:45 06/28/18 06:45 General appearance: Present: cooperative, A&O X 3, no acute distress, answers questions appropriately - Head Head exam: Present: atraumatic, normocephalic - Eye Eye exam: Present: normal appearance, sclera anicteric - ENT ENT exam: Present: mucous membranes dry - Neck Neck exam general surgery: Present: normal inspection, trachea midline - Respiratory Respiratory exam: Present: CTAB. Absent: rales, rhonchi - Cardiovascular Cardiovascular exam: Present: RRR, +S1, +S2 - GI/Abdominal GI/Abdominal exam: Present: soft, no peritoneal signs. Absent: distended, firm, guarding, tenderness - Rectal Rectal exam: Present: deferred - Extremities Exam Extremities exam: Present: warm - Neurological Exam Neurological exam: Present: no focal deficits - Psychiatric Psychiatric exam: Present: normal affect, normal mood - Skin Skin exam: Present: dry, intact, normal color, warm Results - Labs CBC & Chem 7: 06/28/18 07:26 06/28/18 04:49 Labs: Last Result Calcium 9.7 mg/dL (8.6-10.3) 06/28/18 04:49 Troponin I 3.97 ng/mL (< 0.04) H* 06/16/18 21:26 Triglycerides 90 mg/dL (< 150) 06/15/18 18:31 Entire Visit Hgb 8.9 g/dL (12.9-16.9) L 06/28/18 07:26 Hct 27.1 % (37.5-50.1) L 06/28/18 07:26 PT 24.5 Seconds (9.4-12.1) H 06/28/18 07:49 Total Bilirubin 0.5 mg/dL (0.3-1.0) 06/16/18 01:25 AST 36 Units/L (13-39) 06/16/18 01:25 ALT 20 Units/L (7-52) 06/16/18 01:25 Lipase 41 Units/L (11-82) 06/15/18 09:37 - ABG ABG results: ABG ABG pH 7.48 pH Units (7.32-7.45) H 06/16/18 23:36 ABG pCO2 45 mmHg (35-45) 06/16/18 23:36 ABG pO2 66 mmHg (85-104) L 06/16/18 23:36 ABG O2 Saturation 94 % (95-98) L 06/16/18 23:36 PT/INR, D-dimer PT 24.5 Seconds (9.4-12.1) H 06/28/18 07:49 D-Dimer 707 ng/mLFEU (0-500) H 06/16/18 21:45 Consult Discharge Plan - Plan Additional Instructions: please fax over info for this patient to Dr. Rivera [phone]. Referrals: Anticoagulation, Clinic [Other] - 07/03/18 9:00 am (This is located on the hospital grounds across from [facility] in the [employer] [facility]. Please take with you to your appointment you bottle of warfin, and list of all medications including over the counter meds. This appointment will take 45 minutes to one hour. ) Karlos Hoyt, SPINNING MULE TENDER [Advanced Practice Nurse] - (Per the office they will call the patient at home with follow up appointment) Aldo Rivera DO [Primary Care Provider] - (Please make sure you take your picture ID, Insurance cards, and all medications in the bottles to your appointment) <[email or web address] - Last Filed: 06/28/18 19:28> Date of Encounter: 06/28/18 Time of Encounter: 18:00 - Time Spent With Patient Total time spent is greater than 50% in coordination of care (as documented) at patient's floor/unit and/or counseling patient: GI History of Present Illness - Data of Consult Requesting Physician: Kezia Soto MD - Consult Narrative History of present illness: Mr. Gao is a 77 year old male - Constitutional Vitals: Temp Pulse Resp BP Pulse Ox 98.2 F 88 18 176/76 98 06/28/18 15:15 06/28/18 15:15 06/28/18 15:15 06/28/18 15:15 06/28/18 15:15 Results - Labs CBC & Chem 7: 06/28/18 13:12 06/28/18 04:49 Labs: Last Result Calcium 9.7 mg/dL (8.6-10.3) 06/28/18 04:49 Troponin I 3.97 ng/mL (< 0.04) H* 06/16/18 21:26 Triglycerides 90 mg/dL (< 150) 06/15/18 18:31 Entire Visit Hgb 9.1 g/dL (12.9-16.9) L 06/28/18 13:12 Hct 26.7 % (37.5-50.1) L 06/28/18 13:12 PT 24.5 Seconds (9.4-12.1) H 06/28/18 07:49 Total Bilirubin 0.5 mg/dL (0.3-1.0) 06/16/18 01:25 AST 36 Units/L (13-39) 06/16/18 01:25 ALT 20 Units/L (7-52) 06/16/18 01:25 Lipase 41 Units/L (11-82) 06/15/18 09:37 - ABG ABG results: ABG ABG pH 7.48 pH Units (7.32-7.45) H 06/16/18 23:36 ABG pCO2 45 mmHg (35-45) 06/16/18 23:36 ABG pO2 66 mmHg (85-104) L 06/16/18 23:36 ABG O2 Saturation 94 % (95-98) L 06/16/18 23:36 PT/INR, D-dimer PT 24.5 Seconds (9.4-12.1) H 06/28/18 07:49 D-Dimer 707 ng/mLFEU (0-500) H 06/16/18 21:45 - Attending Attestation I have personally performed a face to face evaluation on this patient. I have reviewed and agree with the care plan. History and Exam by me shows: Patient seen. No more rectal bleeding. On examination alert and awake. Has left upper arm AV fistula. Assessment: Patient with multiple medical medical problem including non-STMI recent the left heart catheter with stenting also atrial fib with the rapid ventricular response and history ESRD on dialysis on multiple antiplatelet and anticoagulant now with rectal bleeding currently H&H is stable. Recommendation: We will do a diagnostic colonoscopy as patient is going to need long-term anticoagulant and also antiplatelet.
[2018-06-28 13:30] LABS: Hematocrit 26.7 % (37.5-50.1); Hemoglobin 9.1 g/dL (12.9-16.9)
[2018-06-28 20:00] LABS: Hematocrit 30.8 % (37.5-50.1); Hemoglobin 10.2 g/dL (12.9-16.9)
[2018-06-29 02:27] LABS: Basophils # 0.1 K/mcL (0.0-0.2); Basophils % 0.8 %; Eosinophils # 0.3 K/mcL (0.0-0.6); Eosinophils % 2.5 %; Hematocrit 26.5 % (37.5-50.1); Hemoglobin 8.7 g/dL (12.9-16.9); Immature Granulocytes % 2.3 % (0-4); Lymphocytes # 2.8 K/mcL (0.6-4.6); Lymphocytes % 23.2 %; Mean Corpuscular HGB Conc 32.8 g/dL (31.6-35.5); Mean Corpuscular Hemoglobin 32.7 pg (28.0-33.3); Mean Corpuscular Volume 99.6 fL (83.0-100.0); Mean Platelet Volume 10.2 fL (9.4-12.4); Monocytes # 1.2 K/mcL (0.0-1.3); Monocytes % 9.9 %; Neutrophils # 7.3 K/mcL (1.6-8.9); Platelet Count 327 K/mcL (140-400); Red Blood Count 2.66 M/mcL (4.19-5.50); Red Cell Distribution Width 14.5 % (11.5-14.5); Segmented Neutrophils % 61.3 %
[2018-06-29 02:43] LABS: INR 2.3; Prothrombin Time 25.9 Seconds (9.4-12.1)
[2018-06-29 02:46] LABS: Calcium 9.7 mg/dL (8.6-10.3); Magnesium 2.2 mg/dL (1.6-2.6); Phosphorous 6.2 mg/dL (2.7-4.5)
[2018-06-29] MEDS ORDERED: Lidocaine -MPF 2% 2 ML VIAL ONE (06:43)
[2018-06-29] MEDS ORDERED: Propofol 500 MG/50 ML INFUS..BTL ONE (06:44)
[2018-06-29] MEDS: Artificial Tears SOLN 15 ML BOTTLE BOTH EYES SCH ×4 (08:00→21:28)
--- NOTE | 2018-06-29 08:02 | Anesthesia Evaluation PreOp ---
Date of Encounter: 06/29/18 Time of Encounter: 07:56 - Past History Planned Operation: Colonoscopy re: BRBPR Cardiac History: [place] (NSTEMI s/p cardiac cath 06/20/2018), Arrhythmia (AFib s/p cardioversion), Cardiac Stent (KERLINE x 2 to mid LAD [06/20/2018] with continued DAPT + at least 1 prior stent placed at [facility]) Pulmonary History: Other (Admitted 06/15/2018 with Acute Resp Failure,Pulmonary Edema and recent ABx Tx for Pneumonia which have resolved this hospitalization) HIDE AND SKIN FLESHING MACHINE OPERATOR History: Denies Any Significant HX Other Medical History: Renal (ESRD), Other (GIB) Anesthesia History: No Prior Anesthetic Complications, Past Anesthesia Alcohol Use: none Drug use: none Medications and Allergies Allopurinol [Zyloprim 100 MG] 100 mg PO DAILY 06/15/18 [History] Amlodipine Besylate 10 mg PO DAILY 06/15/18 [History] Aspirin [Lo-Dose Aspirin EC] 81 mg PO DAILY 06/15/18 [History] Atorvastatin [Lipitor] 40 mg PO HS 06/15/18 [History] B-Complex with Vitamin C [Vitamin B-Complex with Vit C] 1 cap PO DAILY 06/15/18 [History] Docusate [Colace] 100 mg PO BID PRN 06/15/18 [History] Hydralazine HCl 50 mg PO TID 06/15/18 [History] Loratadine [Claritin] 10 mg PO DAILY 06/15/18 [History] Losartan Potassium 50 mg PO DAILY 06/15/18 [History] Metoprolol Succinate [Toprol Xl] 100 mg PO DAILY 06/15/18 [History] Nitroglycerin [Nitrostat] 0.4 mg SL Q5MIN PRN 06/15/18 [History] Sevelamer [Renvela] 2,400 mg PO TIDWM 06/15/18 [History] Sodium Bicarbonate 650 mg PO TID 06/15/18 [History] cloNIDine HCl [Clonidine HCl] 0.2 mg PO TID 06/15/18 [History] Allergy/AdvReac Type Severity Reaction Status Date / Time No Known Allergies Allergy Verified 06/15/18 10:12 - Meds/Allergy Pre-op Review Medications Reviewed: Yes Allergies Reviewed: Yes Beta Blockers on Current Med List: Yes (Carvedilol) If Beta Blockers taken, Date/Time (Last Dose taken): 06/28/2018 @ 1541 Anesthesia Results - Labs 06/29/18 01:31 06/29/18 01:31 Laboratory Results Laboratory Tests 06/29/18 06/29/18 06/29/18 01:31 01:31 01:31 WBC 11.9 H Hgb 8.7 L D Hct 26.5 L Plt Count 327 PT 25.9 H INR 2.3 Est GFR (Non-Af Amer) 7 L Impressions Echocardiogram 06/15/18 10:08 Impressions: LVEF 50-55%. Indeterminate diastolic function. Normal right ventricular size and function. Mild aortic stenosis. Mild mitral stenosis. Mild tricuspid regurgitation. No pulmonary hypertension. Left Ventricular Wall Motion: Rest Echo Findings All wall segments showed normal motion. Anesthesia Exam O2 Sat Weight 94.9 kg O2 Sat by Pulse Oximetry 97 O2 Sat by Pulse Oximetry 100 O2 Sat by Pulse Oximetry 100 O2 Sat by Pulse Oximetry 100 O2 Sat by Pulse Oximetry 100 O2 Sat by Pulse Oximetry 98 O2 Sat by Pulse Oximetry 96 Vital Signs Temp Pulse Resp BP Pulse Ox 98.5 F 118 35 171/97 95 06/15/18 09:16 06/15/18 09:16 06/15/18 09:16 06/15/18 09:16 06/15/18 09:16 Height: 5'11 Weight: 209# BMI = 29 NPO (# of Hours): MNOc - HEENT Pupil (Motor): Pupils equal, EOMI Mallampati: III Teeth: Normal, Edentulous Oral Opening: Greater than 3 - HIDE AND SKIN FLESHING MACHINE OPERATOR LOC: Oriented HIDE AND SKIN FLESHING MACHINE OPERATOR Motor: Normal RUE, Normal LUE, Normal RLE, Normal LLE, Normal Face HIDE AND SKIN FLESHING MACHINE OPERATOR Sensory: Normal: RUE, LUE, RLE, LLE, Face - Cardiac Rhythm: Regular Murmur: None - Pulmonary Breath Sounds: bilateral Clear Respiratory Effort: Symmetrical Anesthesia Assess/Plan ASA Score: 4 Level of consciousness: Cooperative, Oriented, Tranquil Anesthetic Plan: MAC Monitoring Plan: Standard Monitors Recovery Plan: Other Anes Supervising Prov Stmt: Pt seen/evaluated, R&B discussed, questions answered and consent obtained. Maddie Guzman MD
[2018-06-29] MEDS: *HR* Amiodarone 200 MG TABLET PO SCH ×2 (09:58→21:28)
[2018-06-29] MEDS: Aspirin 81 MG TAB.CHEW PO SCH (09:58)
--- NOTE | 2018-06-29 11:02 | Nephrology Progress Note ---
Date of Encounter: 06/29/18 Time of Encounter: 11:02 - Assessment and Plan (1) ESRD (end stage renal disease) on dialysis Current Visit: Yes Status: Chronic HD MWF. Renal vitamins. Renal dose medications. Renal diet. Additional dialysis and ultrafiltration as needed. Patient was seen on dialysis today.. (2) Chest pain Current Visit: Yes Status: Acute Qualifiers: Chest pain type: unspecified Qualified Code(s): R07.9 - Chest pain, unspecified (3) Acute respiratory failure Current Visit: Yes Status: Resolved Qualifiers: Respiratory failure complication: hypoxia Qualified Code(s): J96.01 - Acute respiratory failure with hypoxia (4) Hypertension Current Visit: Yes Status: Acute Qualifiers: Hypertension type: essential hypertension Qualified Code(s): I10 - Essential (primary) hypertension Subjective Principal diagnosis: ESRD Interval history: Patient seen on dialysis. Objective - Vital Signs Vital signs: Vital Signs Temp Pulse Resp BP Pulse Ox 06/29/18 10:40 193/59 06/29/18 10:25 181/56 06/29/18 10:10 184/57 06/29/18 09:55 188/52 06/29/18 09:40 182/54 06/29/18 09:25 182/54 06/29/18 09:10 195/59 06/29/18 08:55 186/41 06/29/18 08:40 97.9 F 20 181/68 06/29/18 07:55 97.9 F 96 17 135/89 97 06/29/18 07:48 98.6 F 96 14 148/68 100 06/29/18 03:53 98.6 F 81 17 150/65 100 06/28/18 23:48 98.4 F 80 17 146/67 100 06/28/18 19:54 97.9 F 84 18 155/71 100 06/28/18 15:15 98.2 F 88 18 176/76 98 06/28/18 11:30 98.2 F 89 17 132/71 96 Intake and Output 06/28/18 06/29/18 06/29/18 23:59 07:59 15:59 Intake Total 600 / 600 600 / 600 Output Total 100 / 100 Balance 500 / 500 600 / 600 Intake: Oral 600 / 600 0 / 0 Intake, Rinseback and Flushes 600 / 600 Output: Urine 100 / 100 Other: Stool Size Moderate Stool Consistency liquid Stool Color Brown Green # Bowel Movements 2 Weight 94.9 kg 94.9 kg Blood Glucose* 131 94 Hemodialysis Net Fluid Removed 2064 (mL) Patient Weight 06/29/18 23:59 Weight 94.9 kg - General Appearance General appearance: Present: well-developed, well-nourished EENT: Present: ATNC Neck: Present: supple Cardiology: Present: regular rate - Lab 06/29/18 01:31 06/29/18 01:31 Most recent lab results ABG pH 7.48 pH Units (7.32-7.45) H 06/16/18 23:36 ABG pCO2 45 mmHg (35-45) 06/16/18 23:36 ABG pO2 66 mmHg (85-104) L 06/16/18 23:36 ABG HCO3 33 mEq/L (21-27) H 06/16/18 23:36 ABG O2 Saturation 94 % (95-98) L 06/16/18 23:36 Calcium 9.7 mg/dL (8.6-10.3) 06/29/18 01:31 Phosphorus 6.2 mg/dL (2.7-4.5) H 06/29/18 01:31 Magnesium 2.2 mg/dL (1.6-2.6) 06/29/18 01:31 Consult Discharge Plan - Plan Additional Instructions: please fax over info for this patient to Dr. Rivera [phone]. Referrals: Anticoagulation, Clinic [Other] - 07/03/18 9:00 am (This is located on the hospital grounds across from [facility] in the [facility]. Please take with you to your appointment you bottle of warfin, and list of all medications including over the counter meds. This appointment will take 45 minutes to one hour. ) Karlos Hoyt, LUISANA [Advanced Practice Nurse] - (Per the office they will call the patient at home with follow up appointment) Aldo Rivera, DO [Primary Care Provider] - (Please make sure you take your picture ID, Insurance cards, and all medications in the bottles to your appointment)
[2018-06-29] MEDS ORDERED: 0.9 % Sodium Chloride 2,000 ML ONE (12:01)
[2018-06-29] MEDS: Psyllium 1 PACKET POWD.PACK PO SCH (13:54)
--- NOTE | 2018-06-29 15:07 | Internal Med Progress Note ---
Hospitalist Progress Note - Encounter Date of Encounter: 06/29/18 Time of Encounter: 15:05 - Subjective Interval History: Pt seen and examined earlier today. Eating lunch and denies any pain. Pt requiring assistance with ambulation and PT recommending ECF. Pt denies any chest pain, sob, abd pain, n/v, fever, or chills. No recurrent bleeding episodes reported. s/p colonoscopy. No acute bleeding reported. Anticoagulation can be restarted as per GI. NO overnight events reported Ten point ROS is negative except as listed above. D/C pending placement. Case management on board for placement - Exam Vitals: Temp Pulse Resp BP Pulse Ox 97.9 F 96 22 180/51 97 06/29/18 12:41 06/29/18 07:55 06/29/18 12:41 06/29/18 12:41 06/29/18 07:55 Exam: General: No acute distress, AAO x 3, pleasant elderly male HEENT: EOMI, PERRLA, NC/AT, no scleral icterus Respiratory: Clear to auscultate bilaterally, no wheezing, no rales Cardiovascular: Regular, Rate, Rhythm, No murmurs GI: Soft, Non tender, non distended, normal bowel sounds Ext: No edema, no tenderness, positive pulses Neuro: AAO x 3, no focal deficits - Assessment and Plan (1) GI bleed Current Visit: Yes Status: Acute Assessment and Plan: s/p colonoscopy, no acute bleeding reported H&H within acceptable range Pt cleared to restart anticoagulation as per GI (2) Atrial fibrillation with RVR Current Visit: Yes Status: Acute Assessment and Plan: New onset Afib s/p cardioversion, current in NSR continue BB, amiodarone for rate control INR within therapeutic range conitnue coumadin pharmacist to dose coumadin goal INR: 2-3 (3) NSTEMI (non-ST elevated myocardial infarction) Current Visit: Yes Status: Acute Assessment and Plan: S/P LHC with PTCA to mid LAD on 06/20/18 continue ASA, Statin, BB, Plavix chest pain free at this time cardiology input appreciated (4) Pulmonary edema Current Visit: Yes Status: Resolved Assessment and Plan: Clinically asymptomatic continue AURIST as per nephrology scheduled for HD on MWF. (5) ESRD (end stage renal disease) on dialysis Current Visit: Yes Status: Chronic Assessment and Plan: continue HD as per nephrology nephrology input appreciated (6) Acute respiratory failure Current Visit: Yes Status: Resolved Assessment and Plan: resolved likely secondary to volume overload vs. NSTEMI currently saturating well on room air (7) CAD (coronary artery disease) Current Visit: No Status: Chronic Assessment and Plan: continue asa, plavix, statin, bb (8) DVT prophylaxis Current Visit: Yes Status: Acute Assessment and Plan: On heparin drip (9) Leukocytosis Current Visit: Yes Status: Acute Assessment and Plan: Leukocytosis persist but improved from previous day clinically asymptomatic, afebrile will continue to monitor off abx therapy (10) Pneumonia Current Visit: Yes Status: Resolved Assessment and Plan: finished abx therapy - Time Spent with Patient Total time spent is greater than 50% in coordination of care (as documented) at patient's floor/unit and/or counseling patient: 25 - 35 minutes Plan of Care Discussed with: patient (patient/RN/case management/pharmacist) Internal Medicine: Result - Labs CBC & Chem 7: 06/29/18 01:31 06/29/18 01:31 Labs: Short CBC 06/28/18 06/29/18 Range/Units 19:44 01:31 WBC 11.9 H (4.3-11.1) K/mcL Hgb 10.2 L 8.7 L D (12.9-16.9) g/dL Hct 30.8 L 26.5 L (37.5-50.1) % Plt Count 327 (140-400) K/mcL Neutrophils # 7.3 (1.6-8.9) K/mcL BMP 06/29/18 01:31 Sodium 130 L Potassium 4.0 Chloride 95 L Carbon Dioxide 24 BUN 53 H Creatinine 7.51 H Glucose 83 Calcium 9.7 - ABG Interpretation ABG results: ABG ABG pH 7.48 pH Units (7.32-7.45) H 06/16/18 23:36 ABG pCO2 45 mmHg (35-45) 06/16/18 23:36 ABG pO2 66 mmHg (85-104) L 06/16/18 23:36 ABG O2 Saturation 94 % (95-98) L 06/16/18 23:36 PT/INR, D-dimer PT 25.9 Seconds (9.4-12.1) H 06/29/18 01:31 D-Dimer 707 ng/mLFEU (0-500) H 06/16/18 21:45 Consult Discharge Plan - Plan Additional Instructions: please fax over info for this patient to Dr. Rivera [phone]. Referrals: Anticoagulation, Clinic [Other] - 07/03/18 9:00 am (This is located on the hospital grounds across from [facility] in the [facility]. Please take with you to your appointment you bottle of warfin, and list of all medications including over the counter meds. This appointment will take 45 minutes to one hour. ) Karlos Hoyt, PROFESSOR/NURSE ANESTHETIST [Advanced Practice Nurse] - (Per the office they will call the patient at home with follow up appointment) Aldo Rivera DO [Primary Care Provider] - (Please make sure you take your picture ID, Insurance cards, and all medications in the bottles to your appointment) (1) GI bleed Qualifiers: GI bleed type/associated pathology: unspecified gastrointestinal hemorrhage type Qualified Code(s): K92.2 - Gastrointestinal hemorrhage, unspecified (4) Pulmonary edema Qualifiers: Chronicity: acute Qualified Code(s): J81.0 - Acute pulmonary edema (6) Acute respiratory failure Qualifiers: Respiratory failure complication: hypoxia Qualified Code(s): J96.01 - Acute respiratory failure with hypoxia (7) CAD (coronary artery disease) Qualifiers: Coronary Disease-Associated Artery/Lesion type: [place] artery [place] vs. transplanted heart: [place] heart Associated angina: without angina Qualified Code(s): I25.10 - Atherosclerotic heart disease of [place] coronary artery without angina pectoris (9) Leukocytosis Qualifiers: Leukocytosis type: unspecified Qualified Code(s): D72.829 - Elevated white blood cell count, unspecified (10) Pneumonia Qualifiers: Pneumonia type: due to unspecified organism Laterality: right Lung location: lower lobe of lung Qualified Code(s): J18.1 - Lobar pneumonia, unspecified organism
[2018-06-29] MEDS ORDERED: *HR* Warfarin 5 MG TABLET PO ONE (18:00)
[2018-06-30 07:52] LABS: Basophils # 0.1 K/mcL (0.0-0.2); Basophils % 0.5 %; Eosinophils # 0.2 K/mcL (0.0-0.6); Eosinophils % 1.6 %; Hemoglobin 9.7 g/dL (12.9-16.9); Immature Granulocytes % 1.1 % (0-4); Lymphocytes # 2.4 K/mcL (0.6-4.6); Lymphocytes % 21.4 %; Mean Corpuscular HGB Conc 33.4 g/dL (31.6-35.5); Mean Corpuscular Hemoglobin 32.9 pg (28.0-33.3); Mean Corpuscular Volume 98.3 fL (83.0-100.0); Mean Platelet Volume 10.1 fL (9.4-12.4); Monocytes # 1.3 K/mcL (0.0-1.3); Monocytes % 11.7 %; Neutrophils # 7.1 K/mcL (1.6-8.9); Platelet Count 319 K/mcL (140-400); Red Blood Count 2.95 M/mcL (4.19-5.50); Red Cell Distribution Width 14.6 % (11.5-14.5); Segmented Neutrophils % 63.7 %
[2018-06-30 07:59] LABS: INR 2.1; Prothrombin Time 23.5 Seconds (9.4-12.1)
[2018-06-30 08:14] LABS: Calcium 10.3 mg/dL (8.6-10.3); Magnesium 2.3 mg/dL (1.6-2.6); Phosphorous 6.1 mg/dL (2.7-4.5); Potassium 4.3 mEq/L (3.5-5.1)
[2018-06-30] MEDS: Aspirin 81 MG TAB.CHEW PO SCH (08:40)
[2018-06-30] MEDS: Artificial Tears SOLN 15 ML BOTTLE BOTH EYES SCH ×4 (08:40→20:31)
[2018-06-30] MEDS: Psyllium 1 PACKET POWD.PACK PO SCH (08:40)
[2018-06-30] MEDS: *HR* Amiodarone 200 MG TABLET PO SCH ×2 (08:40→20:31)
--- NOTE | 2018-06-30 11:34 | Internal Med Progress Note ---
Hospitalist Progress Note - Encounter Date of Encounter: 06/30/18 Time of Encounter: 11:32 - Subjective Interval History: Pt seen and examined at bedside. Resting in bed and denies any pain or discomfort. No recurrent bleeding episodes reported. Pt states he slept well overnight. Ten point ROS is negative except as listed above Discharge pending placement - Exam Vitals: Temp Pulse Resp BP Pulse Ox 98.2 F 103 22 134/66 94 06/30/18 11:17 06/30/18 11:17 06/30/18 11:17 06/30/18 11:17 06/30/18 11:17 Exam: General: No acute distress, AAO x 3, pleasant elderly male HEENT: EOMI, PERRLA, NC/AT, no scleral icterus Respiratory: Clear to auscultate bilaterally, no wheezing, no rales Cardiovascular: Regular, Rate, Rhythm, No murmurs GI: Soft, Non tender, non distended, normal bowel sounds Ext: No edema, no tenderness, positive pulses Neuro: AAO x 3, no focal deficits - Assessment and Plan (1) GI bleed Current Visit: Yes Status: Acute Assessment and Plan: s/p colonoscopy, no acute bleeding reported H&H within acceptable range Pt cleared to restart anticoagulation as per GI (2) Atrial fibrillation with RVR Current Visit: Yes Status: Acute Assessment and Plan: New onset Afib s/p cardioversion, current in NSR continue BB, amiodarone for rate control INR within therapeutic range conitnue coumadin pharmacist to dose coumadin goal INR: 2-3 (3) NSTEMI (non-ST elevated myocardial infarction) Current Visit: Yes Status: Acute Assessment and Plan: S/P LHC with PTCA to mid LAD on 06/20/18 continue ASA, Statin, BB, Plavix chest pain free at this time cardiology input appreciated (4) Pulmonary edema Current Visit: Yes Status: Resolved Assessment and Plan: Clinically asymptomatic 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 (5) ESRD (end stage renal disease) on dialysis Current Visit: Yes Status: Chronic Assessment and Plan: continue HD as per nephrology nephrology input appreciated (6) Acute respiratory failure Current Visit: Yes Status: Resolved Assessment and Plan: resolved likely secondary to volume overload vs. NSTEMI currently saturating well on room air (7) CAD (coronary artery disease) Current Visit: No Status: Chronic Assessment and Plan: continue asa, plavix, statin, bb (8) DVT prophylaxis Current Visit: Yes Status: Acute Assessment and Plan: anticoagulated with coumadin (9) Leukocytosis Current Visit: Yes Status: Acute Assessment and Plan: Leukocytosis persist but improved from previous day clinically asymptomatic, afebrile will continue to monitor off abx therapy (10) Pneumonia Current Visit: Yes Status: Resolved Assessment and Plan: finished abx therapy - Time Spent with Patient Total time spent is greater than 50% in coordination of care (as documented) at patient's floor/unit and/or counseling patient: 25 - 35 minutes Internal Medicine: Result - Labs CBC & Chem 7: 06/30/18 07:18 06/30/18 07:18 Labs: Short CBC 06/30/18 Range/Units 07:18 WBC 11.2 H (4.3-11.1) K/mcL Hgb 9.7 L (12.9-16.9) g/dL Hct 29.0 L (37.5-50.1) % Plt Count 319 (140-400) K/mcL Neutrophils # 7.1 (1.6-8.9) K/mcL BMP 06/30/18 07:18 Sodium 132 L Potassium 4.3 Chloride 95 L Carbon Dioxide 27 BUN 37 H Creatinine 6.43 H Glucose 106 H Calcium 10.3 - ABG Interpretation ABG results: ABG ABG pH 7.48 pH Units (7.32-7.45) H 06/16/18 23:36 ABG pCO2 45 mmHg (35-45) 06/16/18 23:36 ABG pO2 66 mmHg (85-104) L 06/16/18 23:36 ABG O2 Saturation 94 % (95-98) L 06/16/18 23:36 PT/INR, D-dimer PT 23.5 Seconds (9.4-12.1) H 06/30/18 07:18 D-Dimer 707 ng/mLFEU (0-500) H 06/16/18 21:45 Consult Discharge Plan - Plan Additional Instructions: please fax over info for this patient to Dr. Rivera [phone]. Referrals: Anticoagulation, Clinic [Other] - 07/03/18 9:00 am (This is located on the hospital grounds across from [facility] in the [facility]. Please take with you to your appointment you bottle of warfin, and list of all medications including over the counter meds. This appointment will take 45 minutes to one hour. ) Karlos Hoyt EQUIPMENT SPECIALIST [Advanced Practice Nurse] - (Per the office they will call the patient at home with follow up appointment) Aldo Rivera DO [Primary Care Provider] - (Please make sure you take your picture ID, Insurance cards, and all medications in the bottles to your appointment) (1) GI bleed Qualifiers: GI bleed type/associated pathology: unspecified gastrointestinal hemorrhage type Qualified Code(s): K92.2 - Gastrointestinal hemorrhage, unspecified (4) Pulmonary edema Qualifiers: Chronicity: acute Qualified Code(s): J81.0 - Acute pulmonary edema (6) Acute respiratory failure Qualifiers: Respiratory failure complication: hypoxia Qualified Code(s): J96.01 - Acute respiratory failure with hypoxia (7) CAD (coronary artery disease) Qualifiers: Coronary Disease-Associated Artery/Lesion type: [place] artery [place] vs. transplanted heart: [place] heart Associated angina: without angina Qualified Code(s): I25.10 - Atherosclerotic heart disease of [place] coronary artery without angina pectoris (9) Leukocytosis Qualifiers: Leukocytosis type: unspecified Qualified Code(s): D72.829 - Elevated white blood cell count, unspecified (10) Pneumonia Qualifiers: Pneumonia type: due to unspecified organism Laterality: right Lung location: lower lobe of lung Qualified Code(s): J18.1 - Lobar pneumonia, unspecified organism
--- NOTE | 2018-06-30 11:45 | Nephrology Progress Note ---
Date of Encounter: 06/30/18 Time of Encounter: 11:44 - Assessment and Plan (1) ESRD (end stage renal disease) on dialysis Current Visit: Yes Status: Chronic HD MWF. Renal vitamins. Renal dose medications. Renal diet. Additional dialysis and ultrafiltration as needed. (2) Chest pain Current Visit: Yes Status: Acute Per cardiology. possible NSTEMI. Qualifiers: Chest pain type: unspecified Qualified Code(s): R07.9 - Chest pain, unspecified (3) Acute respiratory failure Current Visit: Yes Status: Resolved Qualifiers: Respiratory failure complication: hypoxia Qualified Code(s): J96.01 - Acute respiratory failure with hypoxia (4) Hypertension Current Visit: Yes Status: Acute Titrate antihypertensive medications as needed. Qualifiers: Hypertension type: essential hypertension Qualified Code(s): I10 - Essential (primary) hypertension Subjective Principal diagnosis: ESRD Interval history: Patient seen. No new complaint. Objective - Vital Signs Vital signs: Vital Signs Temp Pulse Resp BP Pulse Ox 06/30/18 11:17 98.2 F 103 22 134/66 94 06/30/18 07:24 98.1 F 100 22 90/46 92 06/30/18 03:49 98.5 F 100 18 146/71 94 06/30/18 00:03 97.5 F L 103 17 121/69 94 06/29/18 19:20 98.5 F 112 18 116/77 98 06/29/18 16:38 98.0 F 97 17 146/65 98 06/29/18 12:41 97.9 F 22 180/51 06/29/18 12:10 186/49 06/29/18 11:55 171/53 Intake and Output 06/29/18 06/30/18 06/30/18 23:59 07:59 15:59 Intake Total 0 / 0 0 / 0 360 / 360 Output Total 0 / 0 0 / 0 Balance 0 / 0 0 / 0 360 / 360 Intake: Oral 0 / 0 0 / 0 360 / 360 Output: Urine 0 / 0 0 / 0 Other: Meal Breakfast Percent of Meal Consumed 100% Stool Size Small Stool Characteristics Normal for Patient Stool Color Brown Yellow # Bowel Movements 1 Blood Glucose* 130 - General Appearance General appearance: Present: well-developed, well-nourished EENT: Present: ATNC Neck: Present: supple Cardiology: Present: regular rate Integumentary: Present: warm and dry Neurologic: Present: alert and oriented x3 Psychiatric: Present: mood/affect appropriate - Lab 06/30/18 07:18 06/30/18 07:18 Most recent lab results ABG pH 7.48 pH Units (7.32-7.45) H 06/16/18 23:36 ABG pCO2 45 mmHg (35-45) 06/16/18 23:36 ABG pO2 66 mmHg (85-104) L 06/16/18 23:36 ABG HCO3 33 mEq/L (21-27) H 06/16/18 23:36 ABG O2 Saturation 94 % (95-98) L 06/16/18 23:36 Calcium 10.3 mg/dL (8.6-10.3) 06/30/18 07:18 Phosphorus 6.1 mg/dL (2.7-4.5) H 06/30/18 07:18 Magnesium 2.3 mg/dL (1.6-2.6) 06/30/18 07:18 Consult Discharge Plan - Plan Additional Instructions: please fax over info for this patient to Dr. Rivera [phone]. Referrals: Anticoagulation, Clinic [Other] - 07/03/18 9:00 am (This is located on the hospital grounds across from [facility] in the [facility]. Please take with you to your appointment you bottle of warfin, and list of all medications including over the counter meds. This appointment will take 45 minutes to one hour. ) Karlos Hoyt, LUISANA [Advanced Practice Nurse] - (Per the office they will call the patient at home with follow up appointment) Aldo Rivera, DO [Primary Care Provider] - (Please make sure you take your picture ID, Insurance cards, and all medications in the bottles to your appointment)
[2018-06-30] MEDS ORDERED: *HR* Warfarin 5 MG TABLET PO ONE (18:00)
[2018-07-01 06:29] LABS: Basophils # 0.1 K/mcL (0.0-0.2); Basophils % 0.8 %; Eosinophils # 0.2 K/mcL (0.0-0.6); Eosinophils % 2.3 %; Hematocrit 27.2 % (37.5-50.1); Hemoglobin 9.2 g/dL (12.9-16.9); Lymphocytes # 2.6 K/mcL (0.6-4.6); Mean Corpuscular HGB Conc 33.8 g/dL (31.6-35.5); Mean Corpuscular Hemoglobin 33.3 pg (28.0-33.3); Mean Corpuscular Volume 98.6 fL (83.0-100.0); Mean Platelet Volume 10.3 fL (9.4-12.4); Monocytes # 1.1 K/mcL (0.0-1.3); Monocytes % 11.2 %; Neutrophils # 6.1 K/mcL (1.6-8.9); Platelet Count 298 K/mcL (140-400); Red Blood Count 2.76 M/mcL (4.19-5.50); Red Cell Distribution Width 14.4 % (11.5-14.5); Segmented Neutrophils % 59.7 %
[2018-07-01 06:37] LABS: INR 1.7; Prothrombin Time 18.8 Seconds (9.4-12.1)
[2018-07-01 06:49] LABS: Calcium 10.2 mg/dL (8.6-10.3); Magnesium 2.5 mg/dL (1.6-2.6); Phosphorous 7.4 mg/dL (2.7-4.5); Potassium 4.4 mEq/L (3.5-5.1)
[2018-07-01] MEDS: *HR* Amiodarone 200 MG TABLET PO SCH ×2 (08:09→20:27)
[2018-07-01] MEDS: Psyllium 1 PACKET POWD.PACK PO SCH (08:09)
[2018-07-01] MEDS: Aspirin 81 MG TAB.CHEW PO SCH (08:10)
[2018-07-01] MEDS: Artificial Tears SOLN 15 ML BOTTLE BOTH EYES SCH ×4 (08:10→20:27)
--- NOTE | 2018-07-01 09:49 | Nephrology Progress Note ---
Date of Encounter: 07/01/18 Time of Encounter: 09:49 - Assessment and Plan (1) ESRD (end stage renal disease) on dialysis Current Visit: Yes Status: Chronic HD MWF. Renal vitamins. Renal dose medications. Renal diet. Additional dialysis and ultrafiltration as needed. (2) Chest pain Current Visit: Yes Status: Acute Qualifiers: Chest pain type: unspecified Qualified Code(s): R07.9 - Chest pain, un specified (3) Acute respiratory failure Current Visit: Yes Status: Resolved Qualifiers: Respiratory failure complication: hypoxia Qualified Code(s): J96.01 - Acute respiratory failure with hypoxia (4) Hypertension Current Visit: Yes Status: Acute Qualifiers: Hypertension type: essential hypertension Qualified Code(s): I10 - Essential (primary) hypertension Subjective Principal diagnosis: ESRD Interval history: Patient seen. He is asleep. Objective - Vital Signs Vital signs: Vital Signs Temp Pulse Resp BP Pulse Ox 07/01/18 07:16 97.9 F 93 17 130/73 95 07/01/18 03:44 98.5 F 96 18 115/70 95 06/30/18 23:29 98 F 96 18 101/54 94 06/30/18 18:45 98.4 F 100 17 116/48 97 06/30/18 16:36 98.4 F 99 16 109/67 94 06/30/18 11:17 98.2 F 103 22 134/66 94 Intake and Output 06/30/18 07/01/18 07/01/18 23:59 07:59 15:59 Intake Total 0 / 0 0 / 0 480 / 480 Output Total 0 / 0 140 / 140 Balance 0 / 0 -140 / -140 480 / 480 Intake: Oral 0 / 0 0 / 0 480 / 480 Output: Urine 0 / 0 140 / 140 Other: Meal Breakfast Percent of Meal Consumed 100% Weight 95.2 kg - General Appearance General appearance: Present: well-developed, well-nourished EENT: Present: ATNC Neck: Present: supple Cardiology: Present: regular rate - Lab 07/01/18 06:01 07/01/18 06:01 Most recent lab results ABG pH 7.48 pH Units (7.32-7.45) H 06/16/18 23:36 ABG pCO2 45 mmHg (35-45) 06/16/18 23:36 ABG pO2 66 mmHg (85-104) L 06/16/18 23:36 ABG HCO3 33 mEq/L (21-27) H 06/16/18 23:36 ABG O2 Saturation 94 % (95-98) L 06/16/18 23:36 Calcium 10.2 mg/dL (8.6-10.3) 07/01/18 06:01 Phosphorus 7.4 mg/dL (2.7-4.5) H 07/01/18 06:01 Magnesium 2.5 mg/dL (1.6-2.6) 07/01/18 06:01 Consult Discharge Plan - Plan Additional Instructions: please fax over info for this patient to Dr. Rivera [phone]. Referrals: Anticoagulation, Clinic [Other] - 07/03/18 9:00 am (This is located on the hospital grounds across from [facility] in the [facility]. Please take with you to your appointment you bottle of warfin, and list of all medications including over the counter meds. This appointment will take 45 minutes to one hour. ) Karlos Hoyt, COMPUTER APPLICATIONS ENGINEER [Advanced Practice Nurse] - (Per the office they will call the patient at home with follow up appointment) Aldo Rivera, DO [Primary Care Provider] - (Please make sure you take your picture ID, Insurance cards, and all medications in the bottles to your appointment)
--- NOTE | 2018-07-01 11:49 | Internal Med Progress Note ---
Hospitalist Progress Note - Encounter Date of Encounter: 07/01/18 Time of Encounter: 11:47 - Subjective Interval History: Pt seen and examined at bedside. Resting in chair and states he feels a lot better today. Pt was reported of ambulating the hallway with a walker and assistance. As per RN, pt did well with ambulation. Denies any chest pain, sob, abd pain, n/v, fever, or chills at this time. Pt is eager to be discharged from the hospital. Discharge pending SNF placement. Pt still wishes to go to SNF. Ten point ROS is negative except as listed above. - Exam Vitals: Temp Pulse Resp BP Pulse Ox 97.9 F 93 17 130/73 95 07/01/18 07:16 07/01/18 07:16 07/01/18 07:16 07/01/18 07:16 07/01/18 07:16 Exam: General: No acute distress, AAO x 3, pleasant elderly male HEENT: EOMI, PERRLA, NC/AT, no scleral icterus Respiratory: Clear to auscultate bilaterally, no wheezing, no rales Cardiovascular: Regular, Rate, Rhythm, No murmurs GI: Soft, Non tender, non distended, normal bowel sounds Ext: No edema, no tenderness, positive pulses Neuro: AAO x 3, no focal deficits - Assessment and Plan (1) GI bleed Current Visit: Yes Status: Acute Assessment and Plan: s/p colonoscopy, no acute bleeding reported H&H within acceptable range Pt cleared to restart anticoagulation as per GI (2) Atrial fibrillation with RVR Current Visit: Yes Status: Acute Assessment and Plan: New onset Afib s/p cardioversion, current in NSR continue BB, amiodarone for rate control INR noted to be subtherapeutic today, I spoke with pharmacist, coumadin dose to be adjusted conitnue coumadin pharmacist to dose coumadin goal INR: 2-3 (3) NSTEMI (non-ST elevated myocardial infarction) Current Visit: Yes Status: Acute Assessment and Plan: S/P LHC with PTCA to mid LAD on 06/20/18 continue ASA, Statin, BB, Plavix chest pain free at this time cardiology input appreciated (4) Pulmonary edema Current Visit: Yes Status: Resolved Assessment and Plan: Clinically asymptomatic 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 (5) ESRD (end stage renal disease) on dialysis Current Visit: Yes Status: Chronic Assessment and Plan: continue HD as per nephrology nephrology input appreciated (6) Acute respiratory failure Current Visit: Yes Status: Resolved Assessment and Plan: resolved likely secondary to volume overload vs. NSTEMI currently saturating well on room air (7) CAD (coronary artery disease) Current Visit: No Status: Chronic Assessment and Plan: continue asa, plavix, statin, bb (8) DVT prophylaxis Current Visit: Yes Status: Acute Assessment and Plan: anticoagulated with coumadin (9) Leukocytosis Current Visit: Yes Status: Resolved Assessment and Plan: resolved (10) Pneumonia Current Visit: Yes Status: Resolved Assessment and Plan: finished abx therapy - Time Spent with Patient Total time spent is greater than 50% in coordination of care (as documented) at patient's floor/unit and/or counseling patient: 25 - 35 minutes Plan of Care Discussed with: patient (patient/RN) Internal Medicine: Result - Labs CBC & Chem 7: 07/01/18 06:01 07/01/18 06:01 Labs: Short CBC 07/01/18 Range/Units 06:01 WBC 10.2 (4.3-11.1) K/mcL Hgb 9.2 L (12.9-16.9) g/dL Hct 27.2 L (37.5-50.1) % Plt Count 298 (140-400) K/mcL Neutrophils # 6.1 (1.6-8.9) K/mcL BMP 07/01/18 06:01 Sodium 137 Potassium 4.4 Chloride 98 Carbon Dioxide 23 BUN 58 H Creatinine 8.75 H Glucose 110 H Calcium 10.2 - ABG Interpretation ABG results: ABG ABG pH 7.48 pH Units (7.32-7.45) H 06/16/18 23:36 ABG pCO2 45 mmHg (35-45) 06/16/18 23:36 ABG pO2 66 mmHg (85-104) L 06/16/18 23:36 ABG O2 Saturation 94 % (95-98) L 06/16/18 23:36 PT/INR, D-dimer PT 18.8 Seconds (9.4-12.1) H 07/01/18 06:01 D-Dimer 707 ng/mLFEU (0-500) H 06/16/18 21:45 Consult Discharge Plan - Plan Additional Instructions: please fax over info for this patient to Dr. Rivera [phone]. Referrals: Anticoagulation, Clinic [Other] - 07/03/18 9:00 am (This is located on the hospital grounds across from [facility] in the [facility]. Please take with you to your appointment you bottle of warfin, and list of all medications including over the counter meds. This appointment will take 45 minutes to one hour. ) Karlos Hoyt, LINING CUTTER [Advanced Practice Nurse] - (Per the office they will call the patient at home with follow up appointment) Aldo Rivera DO [Primary Care Provider] - (Please make sure you take your picture ID, Insurance cards, and all medications in the bottles to your appointment) (1) GI bleed Qualifiers: GI bleed type/associated pathology: unspecified gastrointestinal hemorrhage type Qualified Code(s): K92.2 - Gastrointestinal hemorrhage, unspecified (4) Pulmonary edema Qualifiers: Chronicity: acute Qualified Code(s): J81.0 - Acute pulmonary edema (6) Acute respiratory failure Qualifiers: Respiratory failure complication: hypoxia Qualified Code(s): J96.01 - Acute respiratory failure with hypoxia (7) CAD (coronary artery disease) Qualifiers: Coronary Disease-Associated Artery/Lesion type: [place] artery [place] vs. transplanted heart: crow heart Associated angina: without angina Qualified Code(s): I25.10 - Atherosclerotic heart disease of [place] coronary artery without angina pectoris (9) Leukocytosis Qualifiers: Leukocytosis type: unspecified Qualified Code(s): D72.829 - Elevated white blood cell count, unspecified (10) Pneumonia Qualifiers: Pneumonia type: due to unspecified organism Laterality: right Lung location: lower lobe of lung Qualified Code(s): J18.1 - Lobar pneumonia, unspecified organism
[2018-07-01] MEDS ORDERED: *HR* Warfarin 7.5 MG TABLET PO ONE (18:00)
[2018-07-02 02:19] LABS: Hematocrit 25.2 % (37.5-50.1); Hemoglobin 8.6 g/dL (12.9-16.9); Mean Corpuscular HGB Conc 34.1 g/dL (31.6-35.5); Mean Corpuscular Hemoglobin 33.3 pg (28.0-33.3); Mean Corpuscular Volume 97.7 fL (83.0-100.0); Mean Platelet Volume 10.3 fL (9.4-12.4); Platelet Count 281 K/mcL (140-400); Red Blood Count 2.58 M/mcL (4.19-5.50); Red Cell Distribution Width 14.3 % (11.5-14.5)
[2018-07-02 02:25] LABS: INR 1.9; Prothrombin Time 20.9 Seconds (9.4-12.1)
[2018-07-02 02:36] LABS: Calcium 9.4 mg/dL (8.6-10.3); Magnesium 2.6 mg/dL (1.6-2.6); Phosphorous 7.4 mg/dL (2.7-4.5)
[2018-07-02] MEDS: Aspirin 81 MG TAB.CHEW PO SCH (07:57)
[2018-07-02] MEDS: *HR* Amiodarone 200 MG TABLET PO SCH ×2 (07:57→21:05)
[2018-07-02] MEDS: Psyllium 1 PACKET POWD.PACK PO SCH (07:57)
[2018-07-02] MEDS: Artificial Tears SOLN 15 ML BOTTLE BOTH EYES SCH ×4 (08:03→21:05)
[2018-07-02] MEDS ORDERED: 0.9 % Sodium Chloride 250 ML IVC PRN (08:20)
[2018-07-02] MEDS ORDERED: 0.9 % Sodium Chloride 1,000 ML PRIME SCH (08:30)
[2018-07-02] MEDS ORDERED: 0.9 % Sodium Chloride 2,000 ML ONE (08:37)
--- NOTE | 2018-07-02 11:35 | Physician Discharge Referral ---
ExtendedCare Referral Info Transfer To: SNF Provider in Charge after Transfer: PCP Institutional Level of Care: Skilled - Diagnosis (1) GI bleed Priority: Secondary Status: Acute (2) Atrial fibrillation with RVR Priority: Primary Status: Acute (3) NSTEMI (non-ST elevated myocardial infarction) Priority: Primary Status: Acute (4) Pulmonary edema Priority: Secondary Status: Resolved (5) ESRD (end stage renal disease) on dialysis Priority: Secondary Status: Chronic (6) Acute respiratory failure Priority: Primary Status: Resolved (7) CAD (coronary artery disease) Priority: Secondary Status: Chronic (8) DVT prophylaxis Priority: Secondary Status: Acute (9) Leukocytosis Priority: Secondary Status: Resolved (10) Pneumonia Priority: Secondary Status: Resolved - Transfer Medications Prescriptions: Warfarin [Coumadin] 5 mg PO AD #30 tablet Home Medications: Allopurinol [Zyloprim 100 MG] 100 mg PO DAILY 06/15/18 [History] Aspirin [Lo-Dose Aspirin EC] 81 mg PO DAILY 06/15/18 [History] B-Complex with Vitamin C [Vitamin B-Complex with Vit C] 1 cap PO DAILY 06/15/18 [History] Docusate [Colace] 100 mg PO BID PRN 06/15/18 [History] Loratadine [Claritin] 10 mg PO DAILY 06/15/18 [History] Nitroglycerin [Nitrostat] 0.4 mg SL Q5MIN PRN 06/15/18 [History] Sevelamer [Renvela] 2,400 mg PO TIDWM 06/15/18 [History] Acetaminophen [Tylenol] 650 mg PO Q6HR PRN tablet 07/02/18 [Rx] Albuterol Neb [Proventil Neb] 2.5 mg IH Q2H PRN inhsol 07/02/18 [Rx] Amiodarone [Cordarone] 200 mg PO BID tablet 07/02/18 [Rx] Artificial Tears SOLN [Akwa Tears] 1 drop BOTH EYES QID bottle 07/02/18 [Rx] Atorvastatin [Lipitor] 80 mg PO HS tablet 07/02/18 [Rx] Carvedilol [Coreg] 12.5 mg PO BIDWM tablet 07/02/18 [Rx] Clopidogrel [Plavix] 75 mg PO DAILY tablet 07/02/18 [Rx] Psyllium [Metamucil Fiber Singles Packet] 3 packet PO DAILY powd.pack 07/02/18 [Rx] Warfarin [Coumadin] 5 mg PO AD #30 tablet 07/02/18 [Rx] Allergies/Adverse Reactions: Allergy/AdvReac Type Severity Reaction Status Date / Time No Known Allergies Allergy Verified 06/15/18 10:12 - Respiratory Orders Smoking Cessation: Smoking cessation has been advised. For more information, call the [facility] [employer] Quit Line at 5-373-JKHR-NOW. - Lab Orders Lab Orders: Other (include drug levels w/frequency) (INR weekly) - Rehabiliation Orders Other: Please follow up with your PCP within five days after her discharge from the hospital Please follow up with cardiology within 1 week after your discharge from the hospital Please continue hemodialysis as per your punch press feeder recommendations Coumadin has been added to your home medications, please continue Coumadin as prescribed. (Coumadin 7.5 mg to be taken on Monday, Monday, Monday; Coumadin 5 mg to be taken on Monday, , Monday, Monday). Please follow up with Coumadin clinic as per the scheduled appointment. Your INR will be monitored on a weekly basis. Your INR results will be faxed to your primary care physician, goal INR level is 2-3. please fax over info for this patient to Dr. Rivera [phone]. Your home medications have been changed as follows: -Hydralazine has been discontinued -Clonidine has been discontinued -Metoprolol has been discontinued -Losartan has been discontinued -Amlodipine has been discontinued -Carvedilol has been added -Amiodarone has been added -coumadin has been added Please closely monitor your blood pressure at home. Please seek medical help immediately if you have difficulty breathing or if chest pain occurs. Coumadin increases your risk of bleeding. Please seek medical help immediately if you sustain a fall or have any acute bleeding. CERTIFICATION: I certify that the transfer of the above named patient to an Extended Care Faci lity is necessary for the continuing treatment of the diagnosis listed. The above information is true and accurate reflection of patient's current condition. Confidential - Redisclosure prohibited without a patient's written consent.
--- NOTE | 2018-07-02 11:38 | Discharge Summary ---
- NOTES TO OUTPATIENT PROVIDER Notes to Outpatient Provider: Patient was admitted for NSTEMI, new onset Afib. Underwent LHC with PCI intervention with KERLINE placement to LAD. On Aspirin, Plavix, Coumadin. Noted to be hypotensive, due to which BP meds were adjusted. Please closely monitor INR and BP. adjust medications as necessary. Pt is being discharged to SNF. Coumadin clinic follow up has been scheduled. Orders not resulted at time of discharge: Pending orders 06/16/18 10:19 Culture,Sputum with Gram Stain [RM] Routine 07/03/18 04:00 Basic Metabolic Panel AM 0400 CBC no Diff [Complete Blood Count w/o Diff] [HEME] AM 0400 INR/PT [Prothrombin Time INR] [COAG] AM 04007/04/18 04:00 Basic Metabolic Panel AM 0400 CBC no Diff [Complete Blood Count w/o Diff] [HEME] AM 0400 07/05/18 04:00 Basic Metabolic Panel AM 0400 CBC no Diff [Complete Blood Count w/o Diff] [HEME] AM 04007/06/18 04:00 Basic Metabolic Panel AM 0400 CBC no Diff [Complete Blood Count w/o Diff] [HEME] AM 0400 07/07/18 04:00 Basic Metabolic Panel AM 0400 CBC no Diff [Complete Blood Count w/o Diff] [HEME] AM 0400 07/08/18 04:00 Basic Metabolic Panel AM 0400 CBC no Diff [Complete Blood Count w/o Diff] [HEME] AM 0400 07/09/18 04:00 Basic Metabolic Panel AM 0400 CBC no Diff [Complete Blood Count w/o Diff] [HEME] AM 0400 07/10/18 04:00 Basic Metabolic Panel AM 0400 CBC no Diff [Complete Blood Count w/o Diff] [HEME] AM 0400 07/11/18 04:00 Basic Metabolic Panel AM 0400 CBC no Diff [Complete Blood Count w/o Diff] [HEME] AM 0400 Date of Encounter: 07/02/18 Time of Encounter: 11:35 - Discharge Diagnosis (1) GI bleed Priority: Secondary Status: Resolved Qualifiers: GI bleed type/associated pathology: unspecified gastrointestinal hemorrhage type Qualified Code(s): K92.2 - Gastrointestinal hemorrhage, unspecified (2) Atrial fibrillation with RVR Priority: Primary Status: Acute (3) NSTEMI (non-ST elevated myocardial infarction) Priority: Primary Status: Acute (4) Pulmonary edema Priority: Secondary Status: Resolved Qualifiers: Chronicity: acute Qualified Code(s): J81.0 - Acute pulmonary edema (5) Acute respiratory failure Priority: Primary Status: Resolved Qualifiers: Respiratory failure complication: hypoxia Qualified Code(s): J96.01 - Acute respiratory failure with hypoxia (6) ESRD (end stage renal disease) on dialysis Priority: Secondary Status: Chronic (7) CAD (coronary artery disease) Priority: Secondary Status: Chronic Qualifiers: Coronary Disease-Associated Artery/Lesion type: [place] artery [place] vs. transplanted heart: [place] heart Associated angina: without angina Qualified Code(s): I25.10 - Atherosclerotic heart disease of [place] coronary artery without angina pectoris (8) DVT prophylaxis Priority: Secondary Status: Acute (9) Leukocytosis Priority: Secondary Status: Resolved Qualifiers: Leukocytosis type: unspecified Qualified Code(s): D72.829 - Elevated white blood cell count, unspecified (10) Pneumonia Priority: Secondary Status: Resolved Qualifiers: Pneumonia type: due to unspecified organism Laterality: right Lung location: lower lobe of lung Qualified Code(s): J18.1 - Lobar pneumonia, unspecified organism Hospital course: Mr. Gao is a 77 year old male with past medical history of coronary artery disease, end-stage renal disease on dialysis, hypertension was admitted for evaluation of acute respiratory distress secondary to pulmonary edema. Patient's hospital course was further complicated by acute onset atrial fibrillation and NSTEMI. Patient was followed by cardiology and nephrology. Patient underwent left heart catheterization and was found to have 95% lesion in mid LAD, requiring PCI/drug-eluting stent placement to mid LAD. Patient was further started on aspirin, Plavix, beta gretchen, statin therapy. Patient was also cardioverted to sinus rhythm and was started on amiodarone and Coumadin for anticoagulation. Patient's hospital course was prolonged due to initiation of Coumadin with bridging therapy with heparin drip. Patient was also noted to have imaging findings concerning for pneumonia for which he was treated with IV antibiotics. He finished his antibiotic course during this hospital stay. His hospital course was further complicated by one episode of bright red blood per rectum for which GI evaluation was requested. Given patient being on aspirin, Plavix, Coumadin, GI took the patient for colonoscopy. Colonoscopy was negative for any acute bleeding, and as per GI's clearance, patient was restarted on Coumadin therapy. Patient did not have any further episodes of bleeding throughout the course of the hospitalization. Patient was evaluated by physical therapy and acute rehabilitation was recommended. Patient is currently medically stable for discharge to acute rehabilitation, pending placement. Patient was seen and examined today in hemodialysis, he denied any discomfort or pain at this time. Patient demonstrates understanding of his diagnosis, hospitalization, and agrees with the discharge Plan. Patient Will Be Discharged to Custodial Facility Pending Placement. All Questions Were Answered. Discharge discussed with: patient, nurse, case management - Time Spent with Patient Total time spent providing and/or coordinating discharge services: 40 minutes Time spent: Greater than 30 minutes - Discharge Medications Prescriptions: New Acetaminophen [Tylenol] 650 mg PO Q6HR PRN tablet PRN Reason: Mild Pain/Fever Albuterol Neb [Proventil Neb] 2.5 mg IH Q2H PRN inhsol PRN Reason: Shortness Of Breath/Wheezing Amiodarone [Cordarone] 200 mg PO BID tablet Artificial Tears SOLN [Akwa Tears] 1 drop BOTH EYES QID bottle Atorvastatin [Lipitor] 80 mg PO HS tablet Carvedilol [Coreg] 12.5 mg PO BIDWM tablet Clopidogrel [Plavix] 75 mg PO DAILY tablet Psyllium [Metamucil Fiber Singles Packet] 3 packet PO DAILY powd.pack Warfarin [Coumadin] 5 mg PO AD #30 tablet Continue Docusate [Colace] 100 mg PO BID PRN PRN Reason: Constipation Loratadine [Claritin] 10 mg PO DAILY B-Complex with Vitamin C [Vitamin B-Complex with Vit C] 1 cap PO DAILY Allopurinol [Zyloprim 100 MG] 100 mg PO DAILY Sevelamer [Renvela] 2,400 mg PO TIDWM Nitroglycerin [Nitrostat] 0.4 mg SL Q5MIN PRN PRN Reason: Chest Pain Aspirin [Lo-Dose Aspirin EC] 81 mg PO DAILY Discontinued Sodium Bicarbonate 650 mg PO TID Metoprolol Succinate [Toprol Xl] 100 mg PO DAILY Losartan Potassium 50 mg PO DAILY Amlodipine Besylate 10 mg PO DAILY Hydralazine HCl 50 mg PO TID cloNIDine HCl [Clonidine HCl] 0.2 mg PO TID Atorvastatin [Lipitor] 40 mg PO HS Home Medications: Allopurinol [Zyloprim 100 MG] 100 mg PO DAILY 06/15/18 [History] Aspirin [Lo-Dose Aspirin EC] 81 mg PO DAILY 06/15/18 [History] B-Complex with Vitamin C [Vitamin B-Complex with Vit C] 1 cap PO DAILY 06/15/18 [History] Docusate [Colace] 100 mg PO BID PRN 06/15/18 [History] Loratadine [Claritin] 10 mg PO DAILY 06/15/18 [History] Nitroglycerin [Nitrostat] 0.4 mg SL Q5MIN PRN 06/15/18 [History] Sevelamer [Renvela] 2,400 mg PO TIDWM 06/15/18 [History] Acetaminophen [Tylenol] 650 mg PO Q6HR PRN tablet 07/02/18 [Rx] Albuterol Neb [Proventil Neb] 2.5 mg IH Q2H PRN inhsol 07/02/18 [Rx] Amiodarone [Cordarone] 200 mg PO BID tablet 07/02/18 [Rx] Artificial Tears SOLN [Akwa Tears] 1 drop BOTH EYES QID bottle 07/02/18 [Rx] Atorvastatin [Lipitor] 80 mg PO HS tablet 07/02/18 [Rx] Carvedilol [Coreg] 12.5 mg PO BIDWM tablet 07/02/18 [Rx] Clopidogrel [Plavix] 75 mg PO DAILY tablet 07/02/18 [Rx] Psyllium [Metamucil Fiber Singles Packet] 3 packet PO DAILY powd.pack 07/02/18 [Rx] Warfarin [Coumadin] 5 mg PO AD #30 tablet 07/02/18 [Rx] Allergies/Adverse Reactions: Allergy/AdvReac Type Severity Reaction Status Date / Time No Known Allergies Allergy Verified 06/15/18 10:12 Date of admission: 06/15/18 14:31 Primary care physician: Aldo Rivera DO Consults: 06/15/18 10:32 Consult to Cardiology [CONS] Stat Comment: Consulting Provider: Cardiology Liliana Reason for Consult: acute pulmonary edema, elevated troponin, ischemic EKG changes with LBBB Time Notified: 10:33 Call Completed: Yes Consult to Nephrology [CONS] Stat Consulting Provider: Kidney Liliana/ANDREW/DENZEL/ALLAN Reason for Consult: dialysis patient, pulmonary edema Time Notified: 10:33 Call Completed: Yes 06/15/18 14:30 Consult to Dialysis [CONS] ONCE 06/16/18 09:15 Consult to Dialysis [CONS] ONCE 06/18/18 07:30 Consult to Dialysis [CONS] ONCE 06/20/18 09:00 Consult to Dialysis [CONS] ONCE 06/20/18 15:39 Consult to Cardiac Rehabilitation-Phase1 [CONS] Routine Comment: Reason for Consult: post op PCI Call Completed: Yes 06/22/18 08:15 Consult to Dialysis [CONS] ONCE 06/25/18 07:15 Consult to Dialysis [CONS] QMWF 06/26/18 10:59 Consult to Physical Therapy [CONS] Routine Comment: Evaluate, develop and implement POC Reason for Consult: WEAKNESS DISCHAGE PLANNING Does patient have active BEDREST order?: No Is patient medically & hemodynamically stable?: Yes Patient assessed for mobility or mobilized this visit?: Yes 06/26/18 11:00 Consult to Occupational Therapy [CONS] Routine Comment: Evaluate, develop and implement POC Reason for Consult: WEAKNESS DISCHARGE PLANNING Does patient have active BEDREST order?: No Is patient medically & hemodynamically stable?: Yes Patient assessed for mobility or mobilized this visit?: Yes 06/27/18 07:15 Consult to Dialysis [CONS] QMWF 06/27/18 14:40 Consult to Petroleum Geologist [CONS] Routine Reason for SW Consult: [facility]. wants [facility] if therapy recommends rehab 06/28/18 07:54 Consult to Nurse Navigator [CONS] Routine Comment: pn, hd 06/28/18 08:22 Consult to Gastroenterology [CONS] Routine Consulting Provider: Asad Ford Reason for Consult: lower GI bleed Call Completed: Yes 06/29/18 07:15 Consult to Dialysis [CONS] QMWF 07/02/18 08:30 Consult to Dialysis [CONS] ONCE Discharging clinician: Kezia Soto Anticipated date of discharge: 07/02/18 - Constitutional Vitals: Temp Pulse Resp BP Pulse Ox 97.4 F L 84 16 150/75 93 07/02/18 07:14 07/02/18 07:14 07/02/18 07:14 07/02/18 07:14 07/02/18 07:14 Exam: General: No acute distress, AAO x 3, pleasant elderly male HEENT: EOMI, PERRLA, NC/AT, no scleral icterus Respiratory: Clear to auscultate bilaterally, no wheezing, no rales Cardiovascular: Regular, Rate, Rhythm, No murmurs GI: Soft, Non tender, non distended, normal bowel sounds Ext: No edema, no tenderness, positive pulses Neuro: AAO x 3, no focal deficits - Patient Status Disposition: Transfer SNF Condition: Fair Functional capacity at discharge: uses cane/walker - Discharge Instructions Follow Up With: Anticoagulation, Clinic [Other] - 07/03/18 9:00 am (This is located on the hospital grounds across from [facility] in the [facility]. Please take with you to your appointment you bottle of warfin, and list of all medications including over the counter meds. This appointment will take 45 minutes to one hour. ) Karlos Hoyt, MAGNET VALVE ASSEMBLER [Advanced Practice Nurse] - (Per the office they will call the patient at home with follow up appointment) Aldo Rivera DO [Primary Care Provider] - (Please make sure you take your picture ID, Insurance cards, and all medications in the bottles to your appointment) Additional Instructions: Please follow up with your PCP within five days after her discharge from the hospital Please follow up with cardiology within 1 week after your discharge from the hospital Please continue hemodialysis as per your probate judge recommendations Coumadin has been added to your home medications, please continue Coumadin as prescribed. (Coumadin 7.5 mg to be taken on Monday, Monday, Monday; Coumadin 5 mg to be taken on Monday, , Monday, Monday). Please follow up with Coumadin clinic as per the scheduled appointment. Your INR will be monitored on a weekly basis. Your INR results will be faxed to your primary care physician, goal INR level is 2-3. please fax over info for this patient to Dr. Rivera [phone]. Your home medications have been changed as follows: -Hydralazine has been discontinued -Clonidine has been discontinued -Metoprolol has been discontinued -Losartan has been discontinued -Amlodipine has been discontinued -Carvedilol has been added -Amiodarone has been added -coumadin has been added Please closely monitor your blood pressure at home. Please seek medical help immediately if you have difficulty breathing or if chest pain occurs. Coumadin increases your risk of bleeding. Please seek medical help immediately if you sustain a fall or have any acute bleeding. - Diet and Activity Activity: as per physical therapy Diet: low fat, low cholesterol, low salt diet
--- NOTE | 2018-07-02 12:26 | Nephrology Progress Note ---
Date of Encounter: 07/02/18 Time of Encounter: 12:26 - Assessment and Plan (1) ESRD (end stage renal disease) on dialysis Current Visit: Yes Status: Chronic HD MWF. Renal vitamins. Renal dose medications. Renal diet. Additional dialysis and ultrafiltration as needed. Patient was seen on dialysis today. (2) Chest pain Current Visit: Yes Status: Acute Qualifiers: Chest pain type: unspecified Qualified Code(s): R07.9 - Chest pain, unspecified (3) Acute respiratory failure Current Visit: Yes Status: Resolved Qualifiers: Respiratory failure complication: hypoxia Qualified Code(s): J96.01 - Acute respiratory failure with hypoxia (4) Hypertension Current Visit: Yes Status: Acute Qualifiers: Hypertension type: essential hypertension Qualified Code(s): I10 - Essential (primary) hypertension Subjective Principal diagnosis: ESRD Interval history: Patient seen. He has no new complaint. Objective - Vital Signs Vital signs: Vital Signs Temp Pulse Resp BP Pulse Ox 07/02/18 07:14 97.4 F L 84 16 150/75 93 07/02/18 04:22 98.3 F 87 18 132/71 94 07/01/18 20:31 95 07/01/18 19:11 98.1 F 91 18 128/67 95 07/01/18 15:47 97.6 F 93 18 104/50 96 07/01/18 12:31 97.7 F 97 16 109/70 97 Intake and Output 07/01/18 07/02/18 07/02/18 23:59 07:59 15:59 Intake Total 240 / 240 240 / 240 Output Total 50 / 50 400 / 400 Balance 190 / 190 -160 / -160 Intake: Oral 240 / 240 240 / 240 Output: Urine 50 / 50 400 / 400 Other: Meal Dinner Breakfast Percent of Meal Consumed 95% 100% Stool Size Large Stool Consistency loose soft Stool Color Brown # Voids 1 1 # Bowel Movement Diapers 1 Weight 96.3 kg Blood Glucose* 117 Patient Weight 07/02/18 23:59 Weight 96.3 kg - General Appearance General appearance: Present: well-developed, well-nourished EENT: Present: ATNC Cardiology: Present: no edema, regular rate Integumentary: Present: warm and dry Neurologic: Present: alert and oriented x3 Musculoskeletal: Present: no cyanosis Psychiatric: Present: mood/affect appropriate - Lab 07/02/18 01:53 07/02/18 01:53 Most recent lab results ABG pH 7.48 pH Units (7.32-7.45) H 06/16/18 23:36 ABG pCO2 45 mmHg (35-45) 06/16/18 23:36 ABG pO2 66 mmHg (85-104) L 06/16/18 23:36 ABG HCO3 33 mEq/L (21-27) H 06/16/18 23:36 ABG O2 Saturation 94 % (95-98) L 06/16/18 23:36 Calcium 9.4 mg/dL (8.6-10.3) 07/02/18 01:53 Phosphorus 7.4 mg/dL (2.7-4.5) H 07/02/18 01:53 Magnesium 2.6 mg/dL (1.6-2.6) 07/02/18 01:53 Consult Discharge Plan - Plan Additional Instructions: Please follow up with your PCP within five days after her discharge from the hospital Please follow up with cardiology within 1 week after your discharge from the hospital Please continue hemodialysis as per your distributor sales consultant recommendations Coumadin has been added to your home medications, please continue Coumadin as prescribed. (Coumadin 7.5 mg to be taken on Monday, Monday, Monday; Coumadin 5 mg to be taken on Monday, , Monday, Monday). Please follow up with Coumadin clinic as per the scheduled appointment. Your INR will be monitored on a weekly basis. Your INR results will be faxed to your primary care physician, goal INR level is 2-3. please fax over info for this patient to Dr. Rivera [phone]. Your home medications have been changed as follows: -Hydralazine has been discontinued -Clonidine has been discontinued -Metoprolol has been discontinued -Losartan has been discontinued -Amlodipine has been discontinued -Carvedilol has been added -Amiodarone has been added -coumadin has been added Please closely monitor your blood pressure at home. Please seek medical help immediately if you have difficulty breathing or if chest pain occurs. Coumadin increases your risk of bleeding. Please seek medical help immediately if you sustain a fall or have any acute bleeding. Referrals: Anticoagulation, Clinic [Other] - 07/03/18 9:00 am (This is located on the hospital grounds across from [facility] in the [facility]. Please take with you to your appointment you bottle of warfin, and list of all medications including over the counter meds. This appointment will take 45 minutes to one hour. ) Karlos Hoyt, LUISANA [Advanced Practice Nurse] - (Per the office they will call the patient at home with follow up appointment) Aldo Rivera, [Primary Care Provider] - (Please make sure you take your picture ID, Insurance cards, and all medications in the bottles to your appointment) Prescriptions: Warfarin [Coumadin] 5 mg PO AD #30 tablet
[2018-07-02] MEDS ORDERED: *HR* Warfarin 7.5 MG TABLET PO ONE (18:00)
[2018-07-03 07:09] VITALS: BP 158/81
[2018-07-03] MEDS: *HR* Amiodarone 200 MG TABLET PO SCH (07:38)
[2018-07-03] MEDS: Aspirin 81 MG TAB.CHEW PO SCH (07:38)
[2018-07-03] MEDS: Psyllium 1 PACKET POWD.PACK PO SCH (07:38)
[2018-07-03] MEDS: Artificial Tears SOLN 15 ML BOTTLE BOTH EYES SCH ×2 (07:38→12:07)
[2018-07-03 08:18] LABS: Hematocrit 29.9 % (37.5-50.1); Hemoglobin 9.9 g/dL (12.9-16.9); Mean Corpuscular HGB Conc 33.1 g/dL (31.6-35.5); Mean Corpuscular Volume 99.7 fL (83.0-100.0); Platelet Count 344 K/mcL (140-400); Red Cell Distribution Width 14.2 % (11.5-14.5)
[2018-07-03 08:25] LABS: INR 1.6; Prothrombin Time 18.2 Seconds (9.4-12.1)
[2018-07-03 08:35] LABS: Calcium 10.2 mg/dL (8.6-10.3); Potassium 4.2 mEq/L (3.5-5.1)
--- NOTE | 2018-07-03 10:40 | Internal Med Progress Note ---
Hospitalist Progress Note - Encounter Date of Encounter: 07/03/18 Time of Encounter: 10:38 - Subjective Interval History: Patient seen and examined earlier today. Resting in bed and denies any discomfort. No over night events reported. Pt denies any chest pain, abd pain,n/v, fever, or chills. Pt was discharged to SNF yesterday(07/02/18). Discharge pending placement [facility] [place] ROS is negative except as listed above continue PT while inpatient - Exam Vitals: Temp Pulse Resp BP Pulse Ox 97.7 F 91 18 158/81 95 07/03/18 07:07 07/03/18 07:07 07/03/18 07:07 07/03/18 07:07 07/03/18 07:07 Exam: General: No acute distress, AAO x 3, pleasant elderly male HEENT: EOMI, PERRLA, NC/AT, no scleral icterus Respiratory: Clear to auscultate bilaterally, no wheezing, no rales Cardiovascular: Regular, Rate, Rhythm, No murmurs GI: Soft, Non tender, non distended, normal bowel sounds Ext: No edema, no tenderness, positive pulses Neuro: AAO x 3, no focal deficits - Assessment and Plan (1) GI bleed Current Visit: Yes Status: Resolved Assessment and Plan: s/p colonoscopy, no acute bleeding reported H&H within acceptable range Anticoagulation was restarted after receiving clearance from GI (2) Atrial fibrillation with RVR Current Visit: Yes Status: Acute Assessment and Plan: New onset Afib s/p cardioversion, current in NSR continue BB, amiodarone for rate control INR noted to be subtherapeutic today, I spoke with pharmacist, coumadin dose to be adjusted conitnue coumadin pharmacist to dose coumadin goal INR: 2-3 (3) NSTEMI (non-ST elevated myocardial infarction) Current Visit: Yes Status: Acute Assessment and Plan: S/P LHC with PTCA to mid LAD on 06/20/18 continue ASA, Statin, BB, Plavix chest pain free at this time cardiology input appreciated (4) Pulmonary edema Current Visit: Yes Status: Resolved Assessment and Plan: Clinically asymptomatic 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 (5) Acute respiratory failure Current Visit: Yes Status: Resolved Assessment and Plan: resolved likely secondary to volume overload vs. NSTEMI currently saturating well on room air (6) ESRD (end stage renal disease) on dialysis Current Visit: Yes Status: Chronic Assessment and Plan: continue HD as per nephrology nephrology input appreciated (7) CAD (coronary artery disease) Current Visit: No Status: Chronic Assessment and Plan: continue asa, plavix, statin, bb (8) DVT prophylaxis Current Visit: Yes Status: Acute Assessment and Plan: anticoagulated with coumadin (9) Leukocytosis Current Visit: Yes Status: Resolved Assessment and Plan: resolved (10) Pneumonia Current Visit: Yes Status: Resolved Assessment and Plan: finished abx therapy (11) Hypertension Current Visit: Yes Status: Acute Assessment and Plan: Noted to be hypertensive this morning will repeat BP after administration of morning medications continue to closely monitor BP will adjust antihypertensive medications as necessary DVT Prophylaxis: on coumadin therapy - Time Spent with Patient Total time spent is greater than 50% in coordination of care (as documented) at patient's floor/unit and/or counseling patient: 25 - 35 minutes Internal Medicine: Result - Labs CBC & Chem 7: 07/03/18 07:59 07/03/18 07:59 Labs: Short CBC 07/03/18 Range/Units 07:59 WBC 10.8 (4.3-11.1) K/mcL Hgb 9.9 L (12.9-16.9) g/dL Hct 29.9 L (37.5-50.1) % Plt Count 344 (140-400) K/mcL BMP 07/03/18 07:59 Sodium 138 Potassium 4.2 Chloride 100 Carbon Dioxide 25 BUN 44 H Creatinine 7.28 H Glucose 118 H Calcium 10.2 - ABG Interpretation ABG results: ABG ABG pH 7.48 pH Units (7.32-7.45) H 06/16/18 23:36 ABG pCO2 45 mmHg (35-45) 06/16/18 23:36 ABG pO2 66 mmHg (85-104) L 06/16/18 23:36 ABG O2 Saturation 94 % (95-98) L 06/16/18 23:36 PT/INR, D-dimer PT 18.2 Seconds (9.4-12.1) H 07/03/18 07:59 D-Dimer 707 ng/mLFEU (0-500) H 06/16/18 21:45 Consult Discharge Plan - Plan Additional Instructions: Please follow up with your PCP within five days after her discharge from the hospital Please follow up with cardiology within 1 week after your discharge from the hospital Please continue hemodialysis 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 (Coumadin 7.5 mg to be taken on Monday, Monday, Monday; Coumadin 5 mg to be taken on Monday, , Monday, Monday). Please follow up with Coumadin clinic as per the scheduled appointment. Your INR will be monitored on a weekly basis. Your INR results will be faxed to your primary care physician, goal INR level is 2-3. please fax over info for this patient to Dr. Rivera [phone]. Your home medications have been changed as follows: -Hydralazine has been discontinued -Clonidine has been discontinued -Metoprolol has been discontinued -Losartan has been discontinued -Amlodipine has been discontinued -Carvedilol has been added -Amiodarone has been added -coumadin has been added Please closely monitor your blood pressure at home. Please seek medical help immediately if you have difficulty breathing or if chest pain occurs. Coumadin increases your risk of bleeding. Please seek medical help immediately if you sustain a fall or have any acute bleeding. Referrals: Anticoagulation, Clinic [Other] - 07/03/18 9:00 am (This is located on the hospital grounds across from [facility] in the [facility]. Please take with you to your appointment you bottle of warfin, and list of all medications including over the counter meds. This appointment will take 45 minutes to one hour. ) Karlos Hoyt, LUISANA [Advanced Practice Nurse] - (Per the office they will call the patient at home with follow up appointment) Aldo Rivera DO [Primary Care Provider] - (Please make sure you take your picture ID, Insurance cards, and all medications in the bottles to your appointment) Prescriptions: Warfarin [Coumadin] 5 mg PO AD #30 tablet (1) GI bleed Qualifiers: GI bleed type/associated pathology: unspecified gastrointestinal hemorrhage type Qualified Code(s): K92.2 - Gastrointestinal hemorrhage, unspecified (4) Pulmonary edema Qualifiers: Chronicity: acute Qualified Code(s): J81.0 - Acute pulmonary edema (5) Acute respiratory failure Qualifiers: Respiratory failure complication: hypoxia Qualified Code(s): J96.01 - Acute respiratory failure with hypoxia (7) CAD (coronary artery disease) Qualifiers: Coronary Disease-Associated Artery/Lesion type: [place] artery [place] vs. transplanted heart: [place] heart Associated angina: without angina Qualified Code(s): I25.10 - Atherosclerotic heart disease of [place] coronary artery without angina pectoris (9) Leukocytosis Qualifiers: Leukocytosis type: unspecified Qualified Code(s): D72.829 - Elevated white blood cell count, unspecified (10) Pneumonia Qualifiers: Pneumonia type: due to unspecified organism Laterality: right Lung location: lower lobe of lung Qualified Code(s): J18.1 - Lobar pneumonia, unspecified organism (11) Hypertension Qualifiers: Hypertension type: essential hypertension Qualified Code(s): I10 - Essential (primary) hypertension
[2018-07-03] MEDS ORDERED: *HR* Warfarin 7.5 MG TABLET PO ONE (18:00)
== END 2018-07-03 13:55 | disposition home or self-care (01) | DRG 246 ==
LOC: EMEROOARM 09:12 → SUATTDRO 14:31 → 2NNU 14:31 → 2ANU 06-27 19:16
PROVIDERS: ADMIT Internal Medicine Nephrology; ATTEND Internal Medicine

== ENCOUNTER 2018-10-09 22:20 | Inpatient (IN) ==
[2018-10-10] MEDS ORDERED: Naloxone 0.4 MG/ML INJ IVP PRN (01:50)
[2018-10-10] MEDS ORDERED: Furosemide 40 MG/4 ML VIAL IVP ONE (01:52)
[2018-10-10] MEDS ORDERED: Ipratropium/Albuterol Neb 3 ML IH PRN (01:54)
[2018-10-10] MEDS ORDERED: Nitroglycerin 0.4 MG TAB.SUBL SL PRN (02:35)
--- NOTE | 2018-10-10 02:39 | Internal Med History&Physical ---
Date of Encounter: 10/10/18 Time of Encounter: 02:36 Internal Medicine - H&P: HPI Chief complaint: Lower extremity swelling/shortness of breath History of present illness: Mr. Gao is a 77 year old male with history significant for prior PA, DVT, hypertension, atrial fibrillation, anemia and ESRD on MWF dialysis who initially presented to [facility] with complaints of shortness of breath and worsening lower extremity edema. Patient was subsequently transferred here for further evaluation. While at [place] patient was noted to have a BNP of greater than 19,000 with bilateral pleural effusions on chest x-ray. Patient denies missing any dialysis session or missing any doses of his Lasix. He does report worsening swelling in his legs. Patient denies any fever, chills, nausea, vomiting, chest pain. On my initial assessment patient was afebrile, hemodynam ically stable with mild tachycardia of 103. Saturating 98% on 2 L. Did not appear to be in respiratory distress. Physical exam notable for bilateral lower extremity edema right greater than left with notable warmth and tenderness to palpation of the right calf. Patient DNR/DNI. Past Med Surg Social Fam HX - Past Medical History Medical history: arthritis, atrial fibrillation, cardiomyopathy, COPD, dialysis, hyperlipidemia, hypertension, myocardial infarction, renal disease Psychiatric history: depression - Past Surgical History Surgical History: no surgical history Additional surgical history: Left leg surgery from injury 1999 - Social History Smoking Status: Former smoker Smokeless Tobacco Status: No Alcohol use: none Drug use: none Internal Medicine - H&P: Meds Allopurinol [Zyloprim 100 MG] 100 mg PO DAILY 06/15/18 [History] Aspirin [Lo-Dose Aspirin EC] 81 mg PO DAILY 06/15/18 [History] B-Complex with Vitamin C [Vitamin B-Complex with Vit C] 1 cap PO DAILY 06/15/18 [History] Docusate [Colace] 100 mg PO BID PRN 06/15/18 [History] Loratadine [Claritin] 10 mg PO DAILY 06/15/18 [History] Nitroglycerin [Nitrostat] 0.4 mg SL Q5MIN PRN 06/15/18 [History] Acetaminophen [Tylenol] 650 mg PO Q6HR PRN tablet 07/02/18 [Rx] Artificial Tears SOLN [Akwa Tears] 1 drop BOTH EYES QID bottle 07/02/18 [Rx] Atorvastatin [Lipitor] 80 mg PO HS tablet 07/02/18 [Rx] Clopidogrel [Plavix] 75 mg PO DAILY tablet 07/02/18 [Rx] Albuterol Sulfate [Albuterol Inhaler] 2 puff IH Q4HR PRN #1 [id number] 07/03/18 [Rx] Furosemide [Lasix] 80 mg PO BID 10/10/18 [History] Metoprolol Succinate 25 mg PO QAM 10/10/18 [History] Allergy/AdvReac Type Severity Reaction Status Date / Time No Known Allergies Allergy Verified 06/15/18 10:12 All Systems PM: A 10-system review of systems was performed and is negative for pertinent find ings except as documented above in the HPI. - Constitutional Constitutional: no chills, no fever(s), no night sweats - EENT Eyes: no change in vision, no discharge, no pain, no photophobia Ears: no ear discharge, no ear pain, no tinnitus Nose, mouth and throat: no dysphagia, no nasal discharge, no neck pain, no sore throat - Cardiovascular Cardiovascular ROS IM: no chest pain, no diaphoresis, no dyspnea, no lightheadedness, no palpitations, no syncope - Respiratory Respiratory: no cough, no dyspnea, no wheezing, no excessive phlegm production - Gastrointestinal Gastrointestinal: no abdominal pain, no diarrhea, no hematemesis, no hematochezia, no melena, no nausea, no vomiting - Musculoskeletal Musculoskeletal ROS IM: no numbness, no tingling - Integumentary Integumentary IM: no rash, no unusual bruising - Neurological Neurological ROS: no confusion, no convulsions, no focal weakness, no numbness, no tingling, no tremor(s) - Hematologic/Lymphatic Hematologic/Lymphatic: no easy bruising - Constitutional Vitals: Temp Pulse Resp BP Pulse Ox 97.7 F 103 19 150/71 98 10/10/18 01:30 10/10/18 01:30 10/10/18 01:30 10/10/18 01:30 10/10/18 01:30 Exam: General: Alert and oriented 3 sitting up in bed in no acute distress Skin:Normal color, no rash, no lesions. HEENT:EOM, pupils equal, round and reactive. Cardiovascular:Normal S1 & S2, no rubs, murmurs or gallops. No JVD. Pulse regular. Lungs:Normal breath sounds, no wheezes or crackles. Abdomen:Soft, non-tender, no rigidity. Extremities: 1-2+ bilateral lower extremity edema right calf later in size and left with tenderness to palpation and increased warmth as compared to left. No evidence of erythema. Neurological:Normal cognition and motor skills. Pulses:Carotid and radial pulses normal +2. Rest of the physical exam is non contributory Internal Med - H&P Results - Labs CBC & Chem 7: 10/10/18 04:06 10/10/18 04:06 - Assessment and Plan (1) Dyspnea Current Visit: Yes Status: Acute Assessment and plan: Patient presenting with dyspnea and worsening lower extremity edema in the setting of end-stage renal disease on dialysis. Found to have an elevated BNP of over 19,000 with bilateral pleural effusions on chest x-ray. No reports of chest pain. Initial troponin was negative and EKG showed sinus rhythm with left bundle-branch block which was seen previously in June. Likely secondary to cardiorenal syndrome. Patient does have mild leukocytosis of 13 and and discrepancy in size of his lower extremity edema with right greater than left. Also notable warmth and tenderness to palpation of the right lower extremity. Concern for possible DVT. Less likely cellulitis as there is no evidence of erythema. Currently stable from a respiratory standpoint. Has not required oxygen until shortly after arrival as patient became mildly tachypneic while being transferred from his stretcher onto his bed. -Continue supportive care as needed. -Plan for hemodialysis tomorrow. -Treatment for possible CHF exacerbation -Rule out DVT Qualifiers: Dyspnea type: unspecified Qualified Code(s): R06.00 - Dyspnea, unspecified (2) Congestive heart failure Current Visit: Yes Status: Acute Assessment and plan: Shortness of breath with elevated BNP of over 19,000 in the setting of previous history of PA. Chest x-ray showing bilateral pleural effusions. Concern for possible CHF exacerbation. No reports of chest pain. Initial troponin negative and EKG showing sinus rhythm with LBBB be seen on previous EKG in June. Echo in June showing EF of 50-55% with indeterminate diastolic function. -Strict I's and O's; daily weight -We will give one-time dose of Lasix 80 mg IV push for now and resume PO dose for the morning. Repeat chest x-ray in the morning. -Patient to have dialysis tomorrow. -We will trend troponin; telemetry -Consider obtaining limited echo given recent study. - Qualifiers: Qualified Code(s): I50.9 - Heart failure, unspecified (3) Lower extremity edema Current Visit: Yes Status: Acute Assessment and plan: 1+ lower extremity edema bilaterally with right lower calf greater in size than left with tenderness to palpation of the right lower extremity. This may account for the patient's leukocytosis though low suspicion for cellulitis given the absence of erythema. Suspect likely secondary to mild CHF exacerbation. We will obtain venous duplex to rule out DVT. We will obtain blood cultures. Subcutaneous heparin for now. (4) Hypertension Current Visit: No Status: Acute Assessment and plan: Blood pressure stable. Resume home antihypertensives. Qualifiers: Hypertension type: essential hypertension Qualified Code(s): I10 - Essential (primary) hypertension (5) CAD (coronary artery disease) Current Visit: No Status: Chronic Assessment and plan: History of coronary artery disease. Continue current medical management. Qualifiers: Coronary Disease-Associated Artery/Lesion type: [place] artery [place] vs. transplanted heart: [place] heart Associated angina: without angina Qualified Code(s): I25.10 - Atherosclerotic heart disease of [place] coronary artery without angina pectoris (6) ESRD (end stage renal disease) on dialysis Current Visit: No Status: Chronic Assessment and plan: End-stage renal disease on dialysis Monday, Monday, Monday. -We will plan for dialysis tomorrow. -Consult to nephrology. (7) DVT prophylaxis Current Visit: No Status: Acute Assessment and plan: Subcutaneous heparin - Time Spent With Patient Total time spent is greater than 50% in coordination of care (as documented) at patient's floor/unit and/or counseling patient:
[2018-10-10] MEDS: *HR* Heparin 5,000 UNIT/ML VIAL SQ SCH ×3 (04:11→20:47)
[2018-10-10 04:22] LABS: Basophils % 0.1 %; Eosinophils % 0.1 %; Hematocrit 34.8 % (37.5-50.1); Hemoglobin 11.1 g/dL (12.9-16.9); Immature Granulocytes % 0.4 % (0-4); Lymphocytes # 0.7 K/mcL (0.6-4.6); Lymphocytes % 3.9 %; Mean Corpuscular HGB Conc 31.9 g/dL (31.6-35.5); Mean Corpuscular Hemoglobin 33.2 pg (28.0-33.3); Mean Corpuscular Volume 104.2 fL (83.0-100.0); Mean Platelet Volume 10.1 fL (9.4-12.4); Monocytes # 1.1 K/mcL (0.0-1.3); Monocytes % 6.3 %; Neutrophils # 15.2 K/mcL (1.6-8.9); Platelet Count 282 K/mcL (140-400); Red Blood Count 3.34 M/mcL (4.19-5.50); Red Cell Distribution Width 16.1 % (11.5-14.5); Segmented Neutrophils % 89.2 %
[2018-10-10 04:33] LABS: INR 1.1; Prothrombin Time 12.5 Seconds (9.4-12.1)
[2018-10-10 04:35] LABS: Activated Partial Thrombo Time 32.1 Seconds (26.0-36.0)
[2018-10-10 04:49] LABS: Albumin 3.9 g/dL (3.5-5.7); Albumin/Globulin Ratio 1.2 (1.1-2.2); Bilirubin,Total 0.5 mg/dL (0.3-1.0); Calcium 9.3 mg/dL (8.6-10.3); Globulin 3.3 g/dL (2.4-3.5); Magnesium 2.4 mg/dL (1.6-2.6); Phosphorous 5.2 mg/dL (2.7-4.5); Potassium 3.9 mEq/L (3.5-5.1); Total Protein 7.2 g/dL (6.4-8.9)
[2018-10-10] MEDS: Acetaminophen 325 MG TABLET PO PRN (05:55)
[2018-10-10] MEDS ORDERED: Perflutren Lipid Microsphere 1.3 ML in 0.9 % Sodium Chloride 8.7 ML IVP ONE (09:28)
[2018-10-10] MEDS: Aspirin Enteric Coated 81 MG Tablet PO SCH (10:04)
[2018-10-10] MEDS: Furosemide 40 MG TABLET PO SCH ×2 (10:04→18:32)
[2018-10-10] MEDS: Metoprolol XL (24 HR) Succ 25 MG TAB.ER.24H PO SCH (10:04)
[2018-10-10] MEDS: Vitamin B Complex/Vit C/Vit E 1 EACH TABLET PO SCH (10:04)
[2018-10-10] MEDS: Artificial Tears SOLN 15 ML BOTTLE BOTH EYES SCH ×4 (10:05→20:47)
[2018-10-10] MEDS ORDERED: *HR* Heparin 10,000 UNIT/10 ML VIAL IV PRN (10:51)
[2018-10-10] MEDS ORDERED: 0.9 % Sodium Chloride 250 ML IVC PRN (10:51)
[2018-10-10] MEDS ORDERED: 0.9 % Sodium Chloride 1,000 ML PRIME SCH (11:00)
--- NOTE | 2018-10-10 11:56 | Internal Med Progress Note ---
Hospitalist Progress Note - Encounter Date of Encounter: 10/10/18 Time of Encounter: 11:56 - Exam Vitals: Temp Pulse Resp BP Pulse Ox 97.7 F 81 18 146/81 100 10/10/18 11:34 10/10/18 11:34 10/10/18 11:34 10/10/18 11:34 10/10/18 11:34 - Assessment and Plan (1) ESRD (end stage renal disease) on dialysis Current Visit: No Status: Chronic (2) CAD (coronary artery disease) Current Visit: No Status: Chronic (3) DVT prophylaxis Current Visit: No Status: Acute (4) Hypertension Current Visit: No Status: Acute (5) Dyspnea Current Visit: Yes Status: Acute (6) Lower extremity edema Current Visit: Yes Status: Acute (7) Congestive heart failure Current Visit: Yes Status: Acute - Time Spent with Patient Total time spent is greater than 50% in coordination of care (as documented) at patient's floor/unit and/or counseling patient: Internal Medicine: Result - Labs CBC & Chem 7: 10/10/18 04:06 10/10/18 04:06 Labs: Short CBC 10/10/18 Range/Units 04:06 WBC 17.0 H (4.3-11.1) K/mcL Hgb 11.1 L (12.9-16.9) g/dL Hct 34.8 L (37.5-50.1) % Plt Count 282 (140-400) K/mcL Neutrophils # 15.2 H (1.6-8.9) K/mcL BMP 10/10/18 04:06 Sodium 137 Potassium 3.9 Chloride 99 Carbon Dioxide 25 BUN 52 H Creatinine 6.41 H Glucose 110 H Calcium 9.3 Cardiac Enzymes 10/10/18 Range/Units 04:06 Troponin I 0.06 H* (< 0.04) ng/mL Liver Function 10/10/18 Range/Units 04:06 Total Bilirubin 0.5 (0.3-1.0) mg/dL AST 18 (13-39) Units/L ALT 26 (7-52) Units/L Alkaline Phosphatase 72 (34-104) Units/L Albumin 3.9 (3.5-5.7) g/dL - ABG Interpretation ABG results: PT/INR, D-dimer PT 12.5 Seconds (9.4-12.1) H 10/10/18 04:06 - Impressions Impressions Chest X-Ray 10/10/18 06:00 IMPRESSION: 1. Mild prominence of the pulmonary vasculature bilaterally. 2. Left basilar opacification with a small left pleural effusion. D/ / Wyatt Whitaker MD / Wyatt Whitaker MD Interpreting Provider: Wyatt Whitaker MD Consult Discharge Plan - Plan Referrals: NONE,PCP [Primary Care Provider] - (2) CAD (coronary artery disease) Qualifiers: Coronary Disease-Associated Artery/Lesion type: [place] artery [place] vs. tra nsplanted heart: [place] heart Associated angina: without angina Qualified Code(s): I25.10 - Atherosclerotic heart disease of [place] coronary artery without angina pectoris (4) Hypertension Qualifiers: Hypertension type: essential hypertension Qualified Code(s): I10 - Essential (primary) hypertension (5) Dyspnea Qualifiers: Dyspnea type: unspecified Qualified Code(s): R06.00 - Dyspnea, unspecified (7) Congestive heart failure Qualifiers: Qualified Code(s): I50.9 - Heart failure, unspecified
[2018-10-10 12:19] LABS: Troponin I 0.06 ng/mL (< 0.04)
[2018-10-10 14:10] LABS: LDH,Pleural Fluid 88 Units/L (No Ref Range); Total Protein,Pleural Fluid < 3.0 g/dL
[2018-10-10 14:11] LABS: Lactate Dehydrogenase 184 Units/L (140-271)
--- NOTE | 2018-10-10 16:03 | Nephrology Consult Note ---
<ZairajacquesTrista Karen - Last Filed: 10/10/18 16:01> Date of Encounter: 10/10/18 Time of Encounter: 16:01 Assessment and Plan (1) ESRD (end stage renal disease) on dialysis Status: Chronic Current regimen is MWF at [facility] in [place]. HD completed today. Will plan for additional UF Or HD if needed. Renal diet Renal vitamins Strict I/O Avoid nephrotoxins and renal dose all medications. (2) Anemia Status: Acute Goal Hgb is 10-11. Hgb is 9.5, stable. Qualifiers: Anemia type: unspecified type Qualified Code(s): D64.9 - Anemia, unspecified (3) Dyspnea Status: Acute Continue supplemental oxygen. Continue Lasix for diuresis. Qualifiers: Dyspnea type: unspecified Qualified Code(s): R06.00 - Dyspnea, unspecified (4) Lower extremity edema Status: Acute 1.5 L restriction. History of Present Illness - Reason for Consult Consult date: 10/10/18 end stage renal disease Requesting physician: Dyllan Zee - Chief Complaint bilat lower edema - History of Present Illness Mr. Gustafson is a 77 year old male admitted to the ED for increased edema to the bilateral lower extremities for 3 days. PMH: prior PR, DVT, hypertension, a trial fibrillation, anemia and ESRD on MWF dialysis with Dr. Willams in [place]. Has not missed any HD sessions. Eyes nausea, vomiting or diarrhea. Denies chest pain admits to shortness of breath started with the edema. Complains of left leg warmth and pain. Patient reports he still makes urine daily. Denies hematuria or dysuria. Patient has been on dialysis since April 2016, is unsure of reason for kidney failure but thinks it is related to hypertension. Lives at home alone. Denies EtOH, tobacco, or illicit drug use. No family history of chronic kidney disease or hemodialysis. [place] [facility] were consult it for the management of hemodialysis inpatient. We will continue current regimen of Monday. Will order additional UF if needed for fluid management. Past Med Surg Social Fam HX - Past Medical History Medical history: arthritis, atrial fibrillation, cardiomyopathy, COPD, dialysis, hyperlipidemia, hypertension, myocardial infarction, renal disease Psychiatric history: depression - Past Surgical History Surgical History: no surgical history Additional surgical history: Left leg surgery from injury 1999 - Social History Smoking Status: Former smoker Smokeless Tobacco Status: No Alcohol use: none Drug use: none Medications and Allergies Allopurinol [Zyloprim 100 MG] 100 mg PO DAILY 06/15/18 [History] Loratadine [Claritin] 10 mg PO DAILY 06/15/18 [History] Nitroglycerin [Nitrostat] 0.4 mg SL Q5MIN PRN 06/15/18 [History] Artificial Tears SOLN [Akwa Tears] 1 drop BOTH EYES QID bottle 07/02/18 [Rx] Clopidogrel [Plavix] 75 mg PO DAILY tablet 07/02/18 [Rx] Albuterol Sulfate [Proventil Inhaler] 2 puff IH Q4HR PRN #1 hfa.aer.ad 07/03/18 [Rx] Metoprolol Succinate [Toprol Xl] 37.5 mg PO DAILY 10/10/18 [History] Atorvastatin [Lipitor] 40 mg PO HS 10/11/18 [History] Lisinopril [Zestril] 5 mg PO DAILY 10/11/18 [History] Pantoprazole Sodium [Protonix] 40 mg PO DAILY 10/11/18 [History] Apixaban [Eliquis] 5 mg PO BID #60 tablet 10/16/18 [Rx] Apixaban [Eliquis] 10 mg PO BID #11 tablet 10/16/18 [Rx] Losartan [Cozaar] 12.5 mg PO DAILY #30 tablet 10/16/18 [Rx] Allergy/AdvReac Type Severity Reaction Status Date / Time No Known Allergies Allergy Verified 10/11/18 14:13 Review of Systems All Systems review (narrative): The remainder of the systems are negative Constitutional: no chills, no fatigue, no fever(s) Cardiovascular: dyspnea, dyspnea on exertion, edema, no chest pain Respiratory: no cough Gastrointestinal: no abdominal pain, no diarrhea, no nausea, no vomiting Genitourinary Male: no hematuria Exam - Vital Signs Vital signs: Initial Vital Signs Temp Pulse Resp BP Pulse Ox 97.7 F 103 19 150/71 98 10/10/18 01:30 10/10/18 01:30 10/10/18 01:30 10/10/18 01:30 10/10/18 01:30 Vital Signs - Last 8 Hours Temp Pulse Resp BP Pulse Ox 10/10/18 11:34 97.7 F 81 18 146/81 100 10/10/18 10:07 100 Intake and Output 10/10/18 10/10/18 10/10/18 07:59 15:59 23:59 Intake Total 510 / 510 Balance 510 / 510 Intake: Oral 510 / 510 Other: Meal Breakfast Percent of Meal Consumed 100% Weight 100.6 kg Patient Weight 10/10/18 23:59 Weight 100.6 kg - General Appearance General appearance: well-developed, well-nourished EENT: ATNC, hearing intact, vision intact Neck: supple Respiratory: clear Cardiology: edema (Nonpitting generalized edema noted to bilateral lower extremities.), normal S1, normal S2 - Dialysis Access Dialysis Vascular Access: Arteriovenous Fistula thrill: Yes bruit: Yes Gastrointestinal: normoactive bowel sounds, no tenderness, no guarding Integumentary: no rash, warm and dry Additional Comments: Erythema noted to left lower calf. Pain upon palpation. Neurologic: alert and oriented x3 Musculoskeletal: no deformities, no erythema Psychiatric: mood/affect appropriate, cooperative Results - Lab Results 10/10/18 04:06 10/10/18 04:06 Most recent lab results 10/10/18 04:06 Calcium 9.3 Phosphorus 5.2 H Magnesium 2.4 Consult Discharge Plan - Plan Instructions: Apixaban (By mouth), Heart Failure (DC) Referrals: Charlene Meyers MD [Partnered Physician] - 11/02/18 9:50 am Aldo Rivera DO [Non-Partnered Physician] - 10/23/18 3:50 pm (Please follow up as schedule...) Prescriptions: Losartan [Cozaar] 12.5 mg PO DAILY #30 tablet Apixaban [Eliquis] 5 mg PO BID #60 tablet Apixaban [Eliquis] 10 mg PO BID #11 tablet <Barby Demarco - Last Filed: 10/16/18 21:33> Date of Encounter: 10/10/18 Assessment and Plan (1) ESRD (end stage renal disease) on dialysis Status: Chronic (2) Anemia Status: Acute Qualifiers: Anemia type: unspecified type Qualified Code(s): D64.9 - Anemia, unspecified (3) Dyspnea Status: Acute Qualifiers: Dyspnea type: unspecified Qualified Code(s): R06.00 - Dyspnea, unspecified (4) Lower extremity edema Status: Acute Exam - Vital Signs Vital signs: Initial Vital Signs Temp Pulse Resp BP Pulse Ox 97.7 F 103 19 150/71 98 10/10/18 01:30 10/10/18 01:30 10/10/18 01:30 10/10/18 01:30 10/10/18 01:30 Results - Lab Results 10/16/18 00:36 10/16/18 00:36 - Attending Attestation I examined this patient and my medical decision-making was reviewed with the Resident Physician/[employer]. I agree with the documented findings, disposition and treatment plan as described except to the extent set forth below. In brief; 77 y o male with PMH of HTN, CAD, DVT and ESRD on HD at [facility] with Dr Willams admitted with LE edema for 3 days. Renal consulted for ESRD management. Pt seen and examined on HD. On exam: Gen with NAD, lungs clear bilat, heart S1S2, abd, soft NT/ND, Ext with LE bilat L with erythema and warmth, AVF with thrill and bruit. Neuro; AAOx3. Continue HD with UF as tolerated. Continue diuretics as pt still makes UOP. abx for possible cellulitis per primary team. Lytes stable. Fluid restriction advised. Will reassess in am for UF need.
--- NOTE | 2018-10-10 18:46 | Internal Med Progress Note ---
Hospitalist Progress Note - Encounter Date of Encounter: 10/10/18 Time of Encounter: 18:37 - Subjective Interval History: Diagnostic thoracentesis this morning with transudative fluid. Sent for culture. Patient went to dialysis today. - Exam Vitals: Temp Pulse Resp BP Pulse Ox 97.7 F 81 18 156/79 100 10/10/18 18:18 10/10/18 11:34 10/10/18 18:18 10/10/18 18:18 10/10/18 11:34 Exam: General: Ill-appearing and in no acute distress HEENT: No erythema of posterior pharynx. No exudates. Lymphatics: No mandibular or cervical lymphadenopathy Cardiovascular: RRR. No murmurs. No chest wall tenderness. Lungs: Basilar crackles. Regular chest rise. Abdomen: Non-tender. No rebound or gaurding. Nl bowel sounds. Extremities: 3+ edema. 2+ pulses radial and pedal pulses Skin: No rahses, abrasions, or contusions. Nl cap refill. Psych: Nl attention. A&Ox3 Neuro: stock handler II-XII intact. 5/5 strength. Sensation to light touch and pinprick intact. - Assessment and Plan (1) Congestive heart failure Current Visit: Yes Status: Acute Assessment and Plan: Patient with history of end-stage renal disease and CAD status post recent stents presents with dyspnea on exertion and orthopnea in the setting of stable vitals, evidence of hypervolemia on physical exam, severely elevated BNP, and echocardiogram with EF of 35%. -Although patient is very at risk for systolic heart failure and recent NC, systolic heart failure is a new diagnosis for patient -We will need to involve cardiology to see if repeat ischemic workup is recommended PLAN: - Continue home aspirin, plavix, statin, BB - Initiate Losartan 12.5mg qd - Lasix 80mg IV bid and HD for volume removal - Cardiology consult (2) CAD (coronary artery disease) Current Visit: No Status: Chronic Assessment and Plan: History of coronary artery disease with recent stents placed. -Currently on ASA/PLavix. -New diagnosis of HFrEF (discussed above). -Trops here trending up but only mildly elevated PLAN: - Continue home ASA/PLAVIX/Statin - Cardiology consult - Repeat trop in the morning (3) ESRD (end stage renal disease) on dialysis Current Visit: No Status: Chronic Assessment and Plan: End-stage renal disease on dialysis Monday, Monday, Monday. - Nephrology aware (4) Pleural effusion Current Visit: Yes Status: Acute Assessment and Plan: Bilateral pleural effusions on admission. Left greater than right. Attempted bedside diagnostic and therapeutic centesis, however, patient in a lot of pain and only could get small sample. Looks to be transudative. Given this, unlikely that pulmonary process is infection related and probably all volume related. - Volume removal with HD (5) Leukocytosis Current Visit: Yes Status: Acute Assessment and Plan: See above DVT Prophylaxis: heparin Internal Medicine: Result - Labs CBC & Chem 7: 10/10/18 04:06 10/10/18 04:06 Labs: Short CBC 10/10/18 Range/Units 04:06 WBC 17.0 H (4.3-11.1) K/mcL Hgb 11.1 L (12.9-16.9) g/dL Hct 34.8 L (37.5-50.1) % Plt Count 282 (140-400) K/mcL Neutrophils # 15.2 H (1.6-8.9) K/mcL BMP 10/10/18 04:06 Sodium 137 Potassium 3.9 Chloride 99 Carbon Dioxide 25 BUN 52 H Creatinine 6.41 H Glucose 110 H Calcium 9.3 Cardiac Enzymes 10/10/18 10/10/18 10/10/18 Range/Units 04:06 11:39 17:32 Troponin I 0.06 H* 0.06 H* 0.07 H* (< 0.04) ng/mL Liver Function 10/10/18 Range/Units 04:06 Total Bilirubin 0.5 (0.3-1.0) mg/dL AST 18 (13-39) Units/L ALT 26 (7-52) Units/L Alkaline Phosphatase 72 (34-104) Units/L Albumin 3.9 (3.5-5.7) g/dL - ABG Interpretation ABG results: PT/INR, D-dimer PT 12.5 Seconds (9.4-12.1) H 10/10/18 04:06 - Impressions Impressions Chest X-Ray 10/10/18 06:00 IMPRESSION: 1. Mild prominence of the pulmonary vasculature bilaterally. 2. Left basilar opacification with a small left pleural effusion. D/ / Wyatt Whitaker MD / Wyatt Whitaker MD Interpreting Provider: Wyatt Whitaker MD Echocardiogram Limited Views 10/10/18 07:48 Impressions: LVEF 35%. Mildly dilated left ventricle. Global left ventricular systolic dysfunction. Atypical septal motion consistent with bundle branch block. There is no LV thrombus. LVEF has decreased compared to prior report from 06/2018. Left Ventricular Wall Motion: Rest Echo Findings The apex, apical inferior, mid inferior, basal inferior, apical anterior, mid anterior, basal anterior, apical septal, mid inferior septal, basal inferior septal, apical lateral, mid anterior lateral, basal anterior lateral, mid anterior septal, mid inferior lateral, basal anterior septal and basal inferior lateral pretty were hypokinetic. Findings: Study Quality * Technically adequate exam. ECG Findings * Sinus rhythm with BBB. Left Ventricle * LVEF 35%. * Mildly dilated left ventricle. * Global left ventricular systolic dysfunction. * Atypical septal motion consistent with bundle branch block. * There is no LV thrombus. Chest X-Ray 10/10/18 12:56 IMPRESSION: 1. Persistent left basilar opacification appears to represent left pleural fluid combined with left lower lobe atelectasis or pneumonia 2. No pneumothorax D/ / Dyllan Garcia MD / Dyllan Garcia MD Interpreting Provider: Dyllan Garcia MD Consult Discharge Plan - Plan Referrals: NONE,PCP [Primary Care Provider] - (1) Congestive heart failure Qualifiers: Heart failure type: systolic Heart failure chronicity: acute Qualified Code(s): I50.21 - Acute systolic (congestive) heart failure (2) CAD (coronary artery disease) Qualifiers: Coronary Disease-Associated Artery/Lesion type: cheesh-na artery [place] vs. transplanted heart: cheesh-na heart Associated angina: without angina Qualified Code(s): I25.10 - Atherosclerotic heart disease of cheesh-na coronary artery without angina pectoris
--- NOTE | 2018-10-10 19:07 | Procedure Note ---
Date of procedure: 10/10/18 Pre-op diagnosis: Pleural effusion, Left Post-op diagnosis: same Procedure: Thoracentesis Procedure Note PROCEDURE: Diagnostic and Therapeutic Thoracentesis CONSENT: Obtained SUPERVISOR MACHINING: Jordan Zee MD PROCEDURE PERFORMED: INDICATION: Pleural Effusion A time-out was performed prior to the procedure. A left pleural effusion was visualized with ultrasound and site was marked. Chlorhexadine was used to prep the skin. The patient was then draped in steril fashion. Chlorhexadine was again used to prep the skin. 10ml of 1% Lidocaine was used for local anesthesia. A safecentesis needle was used to access the pleural space and a small amount (10ml) of straw-colored pleural fluid was obtained. Patient unable to tolerate placement of catheter 2/2 pain so therapeutic portion of procedure was aborted. A CXR has been ordered to monitor for pneumothorax and was negative for this. ESTIMATED BLOOD LOSS: <5ml COMPLICATIONS: None Jordan Zee MD Hospital Medicine Was there an funeral home assistant present: No Estimated blood loss (cc): 5 Specimen: sent Pathology: none sent Condition: stable Disposition: floor
[2018-10-10] MEDS ORDERED: Furosemide 40 MG/4 ML VIAL ONE (20:33)
[2018-10-10] MEDS: Furosemide 80 MG in 0.9 % Sodium Chloride 50 ML IVPB SCH (20:40)
[2018-10-11] MEDS: *HR* Heparin 5,000 UNIT/ML VIAL SQ SCH ×3 (06:39→20:42)
[2018-10-11 07:27] LABS: Hematocrit 34.5 % (37.5-50.1); Hemoglobin 10.7 g/dL (12.9-16.9); Mean Corpuscular Hemoglobin 33.1 pg (28.0-33.3); Mean Corpuscular Volume 106.8 fL (83.0-100.0); Mean Platelet Volume 10.7 fL (9.4-12.4); Platelet Count 227 K/mcL (140-400); Red Blood Count 3.23 M/mcL (4.19-5.50); Red Cell Distribution Width 16.1 % (11.5-14.5); White Blood Count 13.2 K/mcL (4.3-11.1)
[2018-10-11 07:59] LABS: Troponin I 0.07 ng/mL (< 0.04)
[2018-10-11 08:24] LABS: Calcium 9.5 mg/dL (8.6-10.3); Magnesium 2.3 mg/dL (1.6-2.6); Potassium 4.4 mEq/L (3.5-5.1)
[2018-10-11] MEDS: Vitamin B Complex/Vit C/Vit E 1 EACH TABLET PO SCH (09:11)
[2018-10-11] MEDS: Aspirin Enteric Coated 81 MG Tablet PO SCH (09:11)
[2018-10-11] MEDS: Metoprolol XL (24 HR) Succ 25 MG TAB.ER.24H PO SCH (09:11)
[2018-10-11] MEDS: Furosemide 80 MG in 0.9 % Sodium Chloride 50 ML IVPB SCH (09:11)
[2018-10-11] MEDS: Artificial Tears SOLN 15 ML BOTTLE BOTH EYES SCH ×4 (09:12→21:10)
[2018-10-11] MEDS ORDERED: *HR* OxyCODONE Immed Rel 5 MG TABLET PO PRN (10:19)
--- NOTE | 2018-10-11 10:57 | Cardiology Consult Note ---
<Gricel Virgen Jasson - Last Filed: 10/11/18 13:15> Date of Encounter: 10/11/18 Time of Encounter: 09:35 Assessment and Plan (1) Cardiorenal syndrome with renal failure Current Visit: Yes Status: Chronic Patient has experienced acute decrease in EF since June w/o currently obvious explanation (from 55% to 35%), which is accompanied by LE edema, pulmonary edema and transudative pulmonary effusion. BNP approximately doubled from June, when he had his [place], and troponin slightly elevated in ED at 0.07. Consistent with acute CHF based on [place] Criteria. Overall clinical picture consistent with type 4 cardiorenal syndrome. - Continue diuresis: given ESRD w/ dialysis, will let nephrology manage diuresis - CT chest ordered for further evaluation of effusion, cardiomegaly - EKG ordered given decline in heart function, history afib - Repeat BNP ordered and resulted: 1167 - Would prefer to catheterize patient, however, current code status does not permit. We discussed whether Mr. Gao would consent to being a full code for during of cath and 24 hours post-procedure and answered his questions. He requested time to think it over. Will need to hold heparin 2 hrs prior to cath should he agree to procedure. - Continue aspirin, atorvastatin, clopidogrel, losartan, metoprolol and PRN nitroglycerin - Recommend evaluating right lower leg for cellulitis given leukocytosis, erythema, edema, pain, warmth and possibly starting antibiotics Discussion w patient/family: The assessment and plan as outlined above was discussed with the patient and/or family members who expressed understanding and agreement. All questions were answered. Thank you for involving us in the care of your patient. Please call with any questions. History of Present Illness Consult date: 10/11/18 History of present illness: Mr. Gao is a 77 year old male who went to [facility] 10/10/18 for worsening leg swelling and SOB. He was transferred to [facility] the same day. His right calf is more swollen than the left, warm, and erythematous and causes patient severe pain with weight-bearing. Troponin 0.07 max, BNP reported as 19,000 which seems improbable (on repeat check ordered today BNP 1167). In June BNP ~500. Echo showed EF 35% (decreased from 55% in June), mild dilation LV and global systolic LV dysfunction, atypical septal wall motion consistent with BBB. Venous doppler found no DVT. CXR reported bilateral pleural effusions with left basilar opacity, pulmonary congestion and cardiomegaly. Diagnostic thoracocentesis consistent with transudative effusion based on Light's criteria and lack of WBCs, bacteria in sample. Unable to do therapeutic thoracocentesis due to patient's pain. Today VS were stable and WNL; patient remains afebrile. He said he was breathing easier post-thoracocentesis. PMH significant for [place] (June 2018), ESRD on dialysis, afib, DVT, COPD, HTN, HLD. Social history significant for former smoker. Past Med Surg Social Fam HX - Past Medical History Medical history: arthritis, atrial fibrillation, cardiomyopathy, COPD, dialysis, hyperlipidemia, hypertension, myocardial infarction, renal disease Psychiatric history: depression - Past Surgical History Surgical History: no surgical history Additional surgical history: Left leg surgery from injury 1999 - Social History Smoking Status: Former smoker Smokeless Tobacco Status: No Alcohol use: none Drug use: none Medications and Allergies Allopurinol [Zyloprim 100 MG] 100 mg PO DAILY 06/15/18 [History] Aspirin [Lo-Dose Aspirin EC] 81 mg PO DAILY 06/15/18 [History] B-Complex with Vitamin C [Vitamin B-Complex with Vit C] 1 cap PO DAILY 06/15/18 [History] Docusate [Colace] 100 mg PO BID PRN 06/15/18 [History] Loratadine [Claritin] 10 mg PO DAILY 06/15/18 [History] Nitroglycerin [Nitrostat] 0.4 mg SL Q5MIN PRN 06/15/18 [History] Acetaminophen [Tylenol] 650 mg PO Q6HR PRN tablet 07/02/18 [Rx] Artificial Tears SOLN [Akwa Tears] 1 drop BOTH EYES QID bottle 07/02/18 [Rx] Clopidogrel [Plavix] 75 mg PO DAILY tablet 07/02/18 [Rx] Albuterol Sulfate [Albuterol Inhaler] 2 puff IH Q4HR PRN #1 hfa.aer.ad 07/03/18 [Rx] Furosemide [Lasix] 80 mg PO BID 10/10/18 [History] Metoprolol Succinate [Toprol Xl] 37.5 mg PO DAILY 10/10/18 [History] Amiodarone HCl 200 mg PO DAILY 10/11/18 [History] Atorvastatin [Lipitor] 40 mg PO HS 10/11/18 [History] Lisinopril [Zestril] 5 mg PO DAILY 10/11/18 [History] Midodrine HCl 10 mg PO MOWEFR 10/11/18 [History] Pantoprazole Sodium [Protonix] 40 mg PO DAILY 10/11/18 [History] Psyllium Husk [Konsyl] 3 packet PO DAILY 10/11/18 [History] Sevelamer [Renvela] 2,400 mg PO TIDWM 10/11/18 [History] Warfarin Sodium 5 mg PO MOWEFR 10/11/18 [History] Warfarin Sodium 7.5 mg PO SUTUTHSA 10/11/18 [History] cloNIDine HCl [Clonidine HCl] 0.2 mg PO TID 10/11/18 [History] Allergy/AdvReac Type Severity Reaction Status Date / Time No Known Allergies Allergy Verified 10/11/18 14:13 All Systems Review: The remainder of the systems were reviewed and are negative unless otherwise stated. - Constitutional Constitutional: fatigue - Cardiovascular Cardiovascular: dyspnea at rest, dyspnea on exertion - Integumentary Integumentary: erythema (Right lower leg from ankle to upper calf, edema, pain) Physical Examination Vital Signs, Last 4 Hours Temp Pulse Resp BP Pulse Ox 10/11/18 09:05 94 10/11/18 08:19 98.0 F 82 17 115/66 100 General: Conversant, No Apparent Distress HEENT: Atraumatic, Normocephaly, Mucus Membranes Moist Neck: No JVD, Normal carotid pulses Cardiac: Reg Rate and Rhythm, Normal S1 and S2, No Murmur Lungs: Other (Decreased BS bilaterally, worse in lower left lung. Dullness to percussion LLL.) Neuro: Alert and responsive, No focal deficits noted Abdomen: Soft, Non-Tender Skin: Other (Pinpoint bruising, scabbing along both distal lower extremities) Musculoskeletal: No Chest Wall Tenderness Extremities: No Clubbing, Other (+4 non pitting edema RLE w/ erythema, pain to palpation, warmth, white opaque exudate. Unable to palpate pulse 2/2 edema on rt. +2 edema left LE w/o erythema, pain or warmth.) Results 10/11/18 06:19 10/11/18 06:19 Lab Results 10/10/18 10/10/18 10/11/18 11:39 17:32 06:19 WBC 13.2 H Hgb 10.7 L Hct 34.5 L Plt Count 227 Sodium Potassium Chloride Carbon Dioxide BUN Creatinine Glucose Calcium Magnesium Troponin I 0.06 H* 0.07 H* 10/11/18 06:19 WBC Hgb Hct Plt Count Sodium 138 Potassium 4.4 Chloride 96 L Carbon Dioxide 21 L BUN 38 H Creatinine 5.10 H Glucose 89 Calcium 9.5 Magnesium 2.3 Troponin I 0.07 H* BNP 1167 - Imaging and Cardiology Chest Xray: report reviewed, image reviewed Echo: report reviewed Other Results: Venous Doppler reviewed Consult Discharge Plan - Plan Referrals: NONE,PCP [Primary Care Provider] - <Toby Sanchez A - Last Filed: 10/12/18 08:49> Date of Encounter: 10/12/18 - Attending Attestation I have personally performed a face to face evaluation on this patient. I have reviewed and agree with the documented findings and care plan as documented by the resident. History and Exam by me shows: 77-year-old pleasant gentleman with history of CAD, atrial fibrillation that is post successful cardioversion in June 2018, hypertension, ESRD on dialysis presented with shortness of breath at rest, with orthopnea and bilateral leg swelling worse on the right. Cardiac catheterization in June 2018 showed 95% mid LAD stenosis status post KERLINE. 90% stenosis in the distal/apical LAD, 50% stenosis in the mid circumflex, normal right coronary artery AAOX3 in NAD at the bedside Hemodynamically stable; cyanotic fingernails Cardiopulmonary exam revealed S1, S2, no murmur; stony dull percussion LLZ Bilateral pitting pedal edema with erythematous and warm right leg. Rhythm reviewed - sinus rhythm, no acute ST T changes Echo showed EF of 35%, no significant valvular heart disease Impression/plan: 1. Cardiomyopathy, possibly ischemic 2. Acute on chronic CHF exacerbation NYHA class IV 3. Cardiorenal syndrome 4. Pleural effusion 5. Atrial fibrillation 6. Right LE cellulitis In light of ejection fraction of 35% which is a drop from 50% in June, and procedure coronary artery stenoses, patient would benefit from cardiac catheterization during this hospitalization. CODE STATUS would need to be suspended for the procedure. Patient would like to think about it. Continue aspirin, Plavix, beta gretchen, JAMES inhibitor. Continue amiodarone and warfarin for atrial fibrillation. Continue dialysis and diuretic management per nephrology Obtain CT chest to rule out malignancy Thanks for the consult, please call with questions. Toby Sanchez MD [facility] Assessment and Plan Discussion w patient/family: The assessment and plan as outlined above was discussed with the patient and/or family members who expressed understanding and agreement. All questions were answered. Thank you for involving us in the care of your patient. Please call with any questions. History of Present Illness History of present illness: Mr. Gao is a 77 year old male All Systems Review: The remainder of the systems were reviewed and are negative Physical Examination Vital Signs, Last 4 Hours Temp Pulse Resp BP Pulse Ox 10/12/18 08:00 97.9 F 85 19 134/75 98 10/12/18 04:50 98.1 F 80 18 118/72 96 Results 10/12/18 02:31 10/12/18 02:31 Lab Results 10/11/18 10/12/18 10/12/18 06:19 02:31 02:31 WBC 11.7 H Hgb 11.2 L Hct 35.4 L Plt Count 271 Sodium 135 L Potassium 4.6 Chloride 98 Carbon Dioxide 26 BUN 68 H Creatinine 6.85 H Glucose 126 H Calcium 9.7 B-Natriuretic Peptide 1167 H
--- NOTE | 2018-10-11 11:46 | Internal Med Progress Note ---
Hospitalist Progress Note - Encounter Date of Encounter: 10/11/18 Time of Encounter: 11:35 - Subjective Interval History: Still feeling short of breath and has pain in lower extremities from swelling. Discuss patient with nephrology. Plans for ultrafiltration to remove more fluid. - Exam Vitals: Temp Pulse Resp BP Pulse Ox 98.0 F 82 17 115/66 94 10/11/18 08:19 10/11/18 08:19 10/11/18 08:19 10/11/18 08:19 10/11/18 09:05 Exam: General: Ill-appearing and in no acute distress HEENT: No erythema of posterior pharynx. No exudates. Lymphatics: No mandibular or cervical lymphadenopathy Cardiovascular: RRR. No murmurs. No chest wall tenderness. Lungs: Basilar crackles. Regular chest rise. Abdomen: Non-tender. No rebound or gaurding. Nl bowel sounds. Extremities: 3+ edema. 2+ pulses radial and pedal pulses Skin: No rahses, abrasions, or contusions. Nl cap refill. Psych: Nl attention. A&Ox3 Neuro: manager activities II-XII intact. 5/5 strength. Sensation to light touch and pinprick intact. - Assessment and Plan (1) Congestive heart failure Current Visit: Yes Status: Acute Assessment and Plan: Patient with history of end-stage renal disease and CAD status post recent stents presents with dyspnea on exertion and orthopnea in the setting of stable vitals, evidence of hypervolemia on physical exam, severely elevated BNP, and echocardiogram with EF of 35%. -Although patient is very at risk for systolic heart failure and recent CA, systolic heart failure is a new diagnosis for patient -Cardiology consulted, appreciate recommendations PLAN: - Continue home aspirin, plavix, statin, BB - Losartan 12.5mg qd - Lasix 80mg IV bid and HD for volume removal - Cardiology consult (2) CAD (coronary artery disease) Current Visit: No Status: Chronic Assessment and Plan: History of coronary artery disease with recent stents placed. -Currently on ASA/PLavix. -New diagnosis of HFrEF (discussed above). -Trops here trending up but only mildly elevated PLAN: - Continue home ASA/PLAVIX/Statin - Cardiology consult (3) ESRD (end stage renal disease) on dialysis Current Visit: No Status: Chronic Assessment and Plan: End-stage renal disease on dialysis Monday, Monday, Monday. Discussed case with nephrology and will initiate ultrafiltration to pull more fluid. - Nephrology aware (4) Pleural effusion Current Visit: Yes Status: Acute Assessment and Plan: Bilateral pleural effusions on admission. Left greater than right. Attempted bedside diagnostic and therapeutic thoracentesis, however, patient in a lot of pain and only could get small sample. Looks to be transudative. Given this, unlikely that pulmonary process is infection related and probably all volume related. - Volume removal with HD (5) Leukocytosis Current Visit: Yes Status: Acute Assessment and Plan: See above DVT Prophylaxis: heparin - Time Spent with Patient Total time spent is greater than 50% in coordination of care (as documented) at patient's floor/unit and/or counseling patient: Internal Medicine: Result - Labs CBC & Chem 7: 10/11/18 06:19 10/11/18 06:19 Labs: Short CBC 10/11/18 Range/Units 06:19 WBC 13.2 H (4.3-11.1) K/mcL Hgb 10.7 L (12.9-16.9) g/dL Hct 34.5 L (37.5-50.1) % Plt Count 227 (140-400) K/mcL BMP 10/11/18 06:19 Sodium 138 Potassium 4.4 Chloride 96 L Carbon Dioxide 21 L BUN 38 H Creatinine 5.10 H Glucose 89 Calcium 9.5 Cardiac Enzymes 10/10/18 10/10/18 10/11/18 Range/Units 11:39 17:32 06:19 Troponin I 0.06 H* 0.07 H* 0.07 H* (< 0.04) ng/mL - ABG Interpretation ABG results: PT/INR, D-dimer PT 12.5 Seconds (9.4-12.1) H 10/10/18 04:06 - Impressions Impressions Echocardiogram Limited Views 10/10/18 07:48 Impressions: LVEF 35%. Mildly dilated left ventricle. Global left ventricular systolic dysfunction. Atypical septal motion consistent with bundle branch block. There is no LV thrombus. LVEF has decreased compared to prior report from 06/2018. Left Ventricular Wall Motion: Rest Echo Findings The apex, apical inferior, mid inferior, basal inferior, apical anterior, mid anterior, basal anterior, apical septal, mid inferior septal, basal inferior septal, apical lateral, mid anterior lateral, basal anterior lateral, mid anterior septal, mid inferior lateral, basal anterior septal and basal inferior lateral pretty were hypokinetic. Findings: Study Quality * Technically adequate exam. ECG Findings * Sinus rhythm with BBB. Left Ventricle * LVEF 35%. * Mildly dilated left ventricle. * Global left ventricular systolic dysfunction. * Atypical septal motion consistent with bundle branch block. * There is no LV thrombus. Chest X-Ray 10/10/18 12:56 IMPRESSION: 1. Persistent left basilar opacification appears to represent left pleural fluid combined with left lower lobe atelectasis or pneumonia 2. No pneumothorax D/ / Dyllan Garcia MD / Dyllan Garcia MD Interpreting Provider: Dyllan Garcia MD Consult Discharge Plan - Plan Referrals: NONE,PCP [Primary Care Provider] - (1) Congestive heart failure Qualifiers: Heart failure type: systolic Heart failure chronicity: acute Qualified Code(s): I50.21 - Acute systolic (congestive) heart failure (2) CAD (coronary artery disease) Qualifiers: Coronary Disease-Associated Artery/Lesion type: [place] artery [place] vs. transplanted heart: [place] heart Associated angina: without angina Qualified Code(s): I25.10 - Atherosclerotic heart disease of [place] coronary artery without angina pectoris
[2018-10-11] MEDS ORDERED: 0.9 % Sodium Chloride 1,000 ML ONE (13:22)
[2018-10-11] MEDS ORDERED: 0.9 % Sodium Chloride 250 ML IVC PRN (13:26)
[2018-10-11] MEDS ORDERED: 0.9 % Sodium Chloride 1,000 ML PRIME SCH (13:30)
--- NOTE | 2018-10-11 14:04 | Nephrology Progress Note ---
<Trista Gleason - Last Filed: 10/11/18 14:02> Date of Encounter: 10/11/18 Time of Encounter: 14:02 - Assessment and Plan (1) ESRD (end stage renal disease) on dialysis Status: Chronic Current regimen is MWF at [facility] in [place]. HD yesterday. UF ordered for today. Will plan for additional UF Or HD if needed. Renal diet Renal vitamins Strict I/O Avoid nephrotoxins and renal dose all medications. (2) Anemia Status: Acute Goal Hgb is 10-11. Hgb is ,10.7 stable. Qualifiers: Anemia type: unspecified type Qualified Code(s): D64.9 - Anemia, unspecified (3) Dyspnea Status: Acute Continue supplemental oxygen. Continue Lasix for diuresis. Qualifiers: Dyspnea type: unspecified Qualified Code(s): R06.00 - Dyspnea, unspecified (4) Lower extremity edema Status: Acute 1.5 L restriction. Subjective Principal diagnosis: fluid overload Interval history: Pt seen and examined, admits to legs feeling "full". Denies chest pain or shortness of breath, is now on Room air. Denies nauseas, vomiting, diarrhea. Objective - Vital Signs Vital signs: Vital Signs Temp Pulse Resp BP Pulse Ox 10/11/18 12:09 97.5 F L 92 16 124/75 97 10/11/18 09:05 94 10/11/18 08:19 98.0 F 82 17 115/66 100 10/11/18 04:25 98.0 F 79 17 132/79 99 10/10/18 23:37 98.4 F 84 18 118/72 100 10/10/18 19:12 98.3 F 85 16 106/61 95 10/10/18 18:18 97.7 F 18 156/79 10/10/18 18:00 155/77 10/10/18 17:45 150/92 10/10/18 17:30 153/59 10/10/18 17:15 138/61 10/10/18 17:00 124/59 10/10/18 16:45 134/82 10/10/18 16:30 128/59 10/10/18 16:15 153/72 10/10/18 16:00 143/71 10/10/18 15:45 155/78 10/10/18 15:30 144/81 10/10/18 15:15 153/69 10/10/18 15:00 153/74 10/10/18 14:45 153/74 10/10/18 14:30 97.6 F 18 164/62 Intake and Output 10/10/18 10/11/18 10/11/18 23:59 07:59 15:59 Intake Total 58 / 1168 Output Total 3700 / 3700 Balance -3642 / -2532 Intake: IV Fluids 58 / 58 Lasix 80 MG In 0.9 % Sodium 58 / 58 Chloride 50 ML @ 100 mls/hr IVPB BIDDIURETIC LEANDRA Rx#: [id number] Oral Output: Urine 100 / 100 Total Dialysis (HD) Output 3600 / 3600 Other: # Urine Diapers 1 Hemodialysis Net Fluid Removed 3000 (mL) - General Appearance General appearance: Present: well-developed, well-nourished EENT: Present: ATNC, hearing intact, vision intact Neck: Present: supple Respiratory: Present: clear Cardiology: Present: edema (Non pitting generalized edema noted to bilat lower extremities.), normal S1, normal S2 Dialysis Vascular Access: Arteriovenous Fistula thrill: Yes bruit: Yes Gastrointestinal: Present: normoactive bowel sounds, no tenderness, no guarding Integumentary: Present: no rash, warm and dry Neurologic: Present: alert and oriented x3 Musculoskeletal: Present: no deformities, no erythema Psychiatric: Present: mood/affect appropriate, cooperative - Lab 10/11/18 06:19 10/11/18 06:19 Most recent lab results 10/11/18 06:19 Calcium 9.5 Magnesium 2.3 Consult Discharge Plan - Plan Instructions: Apixaban (By mouth), Heart Failure (DC) Referrals: Charlene Meyers MD [Partnered Physician] - 11/02/18 9:50 am Aldo Rivera DO [Non-Partnered Physician] - 10/23/18 3:50 pm (Please follow up as schedule...) Prescriptions: Losartan [Cozaar] 12.5 mg PO DAILY #30 tablet Apixaban [Eliquis] 5 mg PO BID #60 tablet Apixaban [Eliquis] 10 mg PO BID #11 tablet <Barby Demarco - Last Filed: 10/28/18 22:40> Date of Encounter: 10/11/18 - Assessment and Plan (1) ESRD (end stage renal disease) on dialysis Status: Chronic (2) Anemia Status: Acute Qualifiers: Anemia type: unspecified type Qualified Code(s): D64.9 - Anemia, uns pecified (3) Dyspnea Status: Acute Qualifiers: Dyspnea type: unspecified Qualified Code(s): R06.00 - Dyspnea, unspecified (4) Lower extremity edema Status: Acute Objective - Lab 10/16/18 00:36 10/16/18 00:36 - Attending Attestation I examined this patient and my medical decision-making was reviewed with the Resident Physician/HUB LEAD. I agree with the documented findings, disposition and treatment plan as described except to the extent set forth below. Pt seen and examined complaining of persistent LE edema. Hospitalist requesting extra UF for SOB concerns though pt denies. On exam: Gen NAD, Lungs good areation with sl. decreased BS bilat, Heart S1S2, Abd soft NT/ND, Ext with LE bilat L with erythema and warmth, AVF with thrill and bruit. Neuro; AAOx3. s/p HD with UF yesterday, will arrange UF today. Next HD tomorrow as well. Continue diuretics as pt still makes UOP. abx for possible cellulitis per primary team. Lytes stable. Continue fluid restriction.
[2018-10-11] MEDS: Furosemide 40 MG/4 ML VIAL IVP SCH (17:02)
[2018-10-12 03:02] LABS: Hematocrit 35.4 % (37.5-50.1); Hemoglobin 11.2 g/dL (12.9-16.9); Mean Corpuscular HGB Conc 31.6 g/dL (31.6-35.5); Mean Corpuscular Hemoglobin 32.9 pg (28.0-33.3); Mean Corpuscular Volume 104.1 fL (83.0-100.0); Mean Platelet Volume 10.4 fL (9.4-12.4); Platelet Count 271 K/mcL (140-400); White Blood Count 11.7 K/mcL (4.3-11.1)
[2018-10-12 03:17] LABS: Calcium 9.7 mg/dL (8.6-10.3); Potassium 4.6 mEq/L (3.5-5.1)
[2018-10-12] MEDS: *HR* Heparin 5,000 UNIT/ML VIAL SQ SCH ×2 (05:20→13:36)
[2018-10-12] MEDS: Furosemide 40 MG/4 ML VIAL IVP SCH ×2 (08:37→16:59)
[2018-10-12] MEDS: Aspirin Enteric Coated 81 MG Tablet PO SCH (08:38)
[2018-10-12] MEDS: Artificial Tears SOLN 15 ML BOTTLE BOTH EYES SCH ×4 (08:38→21:00)
[2018-10-12] MEDS: Metoprolol XL (24 HR) Succ 25 MG TAB.ER.24H PO SCH (08:39)
[2018-10-12] MEDS ORDERED: 0.9 % Sodium Chloride 250 ML IVC PRN (08:48)
[2018-10-12] MEDS ORDERED: *HR* Heparin 10,000 UNIT/10 ML VIAL IV PRN (08:48)
[2018-10-12] MEDS ORDERED: levoFLOXacin 750 MG/150 ML 750 MG/150 ML BAG IVPB ONE (08:52)
[2018-10-12] MEDS ORDERED: levoFLOXacin 500 MG/100 ML 500 MG/100 ML BAG IVPB SCH (09:00)
[2018-10-12] MEDS: Vitamin B Complex/Vit C/Vit E 1 EACH TABLET PO SCH (09:05)
--- NOTE | 2018-10-12 10:23 | Internal Med Progress Note ---
Hospitalist Progress Note - Encounter Date of Encounter: 10/12/18 Time of Encounter: 10:20 - Subjective Interval History: Patient agreed to a left heart catheterization today. Son wants to discuss this with cardiology and they are discussing this now. Removed a lot of fluid yesterday with ultrafiltration and going back to dialysis today for more fluid removal. - Exam Vitals: Temp Pulse Resp BP Pulse Ox 97.8 F 85 17 145/4 98 10/12/18 09:30 10/12/18 08:00 10/12/18 09:30 10/12/18 09:30 10/12/18 08:00 Exam: General: Ill-appearing and in no acute distress HEENT: No erythema of posterior pharynx. No exudates. Lymphatics: No mandibular or cervical lymphadenopathy Cardiovascular: RRR. No murmurs. No chest wall tenderness. Lungs: Basilar crackles. Regular chest rise. Abdomen: Non-tender. No rebound or gaurding. Nl bowel sounds. Extremities: 3+ edema. 2+ pulses radial and pedal pulses Skin: Chronic venous stasis dermatitis bilaterally Psych: Nl attention. A&Ox3 Neuro: insole reinforcer II-XII intact. 5/5 strength. Sensation to light touch and pinprick intact. - Assessment and Plan (1) Congestive heart failure Current Visit: Yes Status: Acute Assessment and Plan: Patient with history of end-stage renal disease and CAD status post recent stents presents with dyspnea on exertion and orthopnea in the setting of stable vitals, evidence of hypervolemia on physical exam, severely elevated BNP, and echocardiogram with EF of 35%. -Although patient is very at risk for systolic heart failure and recent [place], systolic heart failure is a new diagnosis for patient -Cardiology consulted - may do left heart catheterization today PLAN: - Continue home aspirin, plavix, statin, BB - Losartan 12.5mg qd - Lasix 80mg IV bid and HD for volume removal - Cardiology following (2) CAD (coronary artery disease) Current Visit: No Status: Chronic Assessment and Plan: History of coronary artery disease with recent stents placed. -Currently on ASA/PLavix. -New diagnosis of HFrEF (discussed above). -Possible left heart catheterization today PLAN: - Continue home ASA/PLAVIX/Statin - Cardiology following (3) ESRD (end stage renal disease) on dialysis Current Visit: No Status: Chronic Assessment and Plan: End-stage renal disease on dialysis Monday, Monday, Monday. Discussed case with nephrology and will initiate ultrafiltration to pull more fluid. - Nephrology aware (4) Community acquired pneumonia Current Visit: Yes Status: Acute Assessment and Plan: CT of chest done yesterday with evidence of bibasilar consolidations. No cough, no fever, and downtrending leukocytosis without intervention. Diagnostic thoracentesis with transudative process - fluid unlikely to be parapneumonic in origin. Also with chronic venous stasis dermatitis from gross hypervolemia. Low suspicion that patient has acute infectious process, however, reasonable to do 5 days of Levaquin given the combination of these findings. - Levaquin x5 days (5) Pleural effusion Current Visit: Yes Status: Acute Assessment and Plan: Bilateral pleural effusions on admission. Left greater than right. Attempted bedside diagnostic and therapeutic thoracentesis, however, patient in a lot of pain and only could get small sample. Looks to be transudative. Given this, unlikely that pulmonary process is infection related and probably all volume related. - Volume removal with HD DVT Prophylaxis: heparin Internal Medicine: Result - Labs CBC & Chem 7: 10/12/18 02:31 10/12/18 02:31 Labs: Short CBC 10/12/18 Range/Units 02:31 WBC 11.7 H (4.3-11.1) K/mcL Hgb 11.2 L (12.9-16.9) g/dL Hct 35.4 L (37.5-50.1) % Plt Count 271 (140-400) K/mcL BMP 10/12/18 02:31 Sodium 135 L Potassium 4.6 Chloride 98 Carbon Dioxide 26 BUN 68 H Creatinine 6.85 H Glucose 126 H Calcium 9.7 - ABG Interpretation ABG results: PT/INR, D-dimer PT 12.5 Seconds (9.4-12.1) H 10/10/18 04:06 - Impressions Impressions Chest CT 10/11/18 13:13 IMPRESSION: 1. Bilateral pleural effusion with bibasilar consolidation. 2. Pulmonary findings suggestive of congestive heart failure. 3. Calcific densities involving the pericardium the result restrictive pericarditis. 4. Mild cardiomegaly. 5. Main pulmonary artery enlargement can be seen with pulmonary hypertension but is nonspecific. 6. Calcific atherosclerosis aorta and coronary arteries. D/ / Mathew Loya / Mathew Loya Interpreting Provider: Mathew Loya Consult Discharge Plan - Plan Referrals: NONE,PCP [Primary Care Provider] - (1) Congestive heart failure Qualifiers: Heart failure type: systolic Heart failure chronicity: acute Qualified Code(s): I50.21 - Acute systolic (congestive) heart failure (2) CAD (coronary artery disease) Qualifiers: Coronary Disease-Associated Artery/Lesion type: [place] artery [place] vs. transplanted heart: [place] heart Associated angina: without angina Qualified Code(s): I25.10 - Atherosclerotic heart disease of [place] coronary artery wi thout angina pectoris
--- NOTE | 2018-10-12 10:38 | Nephrology Progress Note ---
Date of Encounter: 10/12/18 Time of Encounter: 10:36 - Assessment and Plan (1) ESRD (end stage renal disease) on dialysis Current Visit: No Status: Chronic Current regimen is MWF at [facility] in [place]. Removed 4.5 liters with UF yesterday. HD in progress for today. Will plan for additional UF Or HD if needed. Renal diet Renal vitamins Strict I/O Avoid nephrotoxins and renal dose all medications. (2) Dyspnea Current Visit: Yes Status: Acute Continue supplemental oxygen. Continue Lasix for diuresis. Qualifiers: Dyspnea type: unspecified Qualified Code(s): R06.00 - Dyspnea, unspecified (3) Lower extremity edema Current Visit: Yes Status: Acute 1.5 L restriction. (4) Anemia Current Visit: No Status: Acute Goal Hgb is 10-11. Hgb is 11.2 stable. Qualifiers: Anemia type: unspecified type Qualified Code(s): D64.9 - Anemia, unspecified Subjective Principal diagnosis: fluid overload Interval history: Pt seen and examined during HD tolerating well. Denies nausea, vomiting, diarrhea. Denies chest pain or shortness of breath. Objective - Vital Signs Vital signs: Vital Signs Temp Pulse Resp BP Pulse Ox 10/12/18 09:30 97.8 F 17 145/4 10/12/18 08:00 97.9 F 85 19 134/75 98 10/12/18 04:50 98.1 F 80 18 118/72 96 10/12/18 00:39 98.3 F 83 18 121/70 97 10/11/18 20:49 97 10/11/18 19:26 97.9 F 85 17 113/57 97 10/11/18 16:59 97.5 F L 91 20 116/69 96 10/11/18 16:22 97.5 F L 17 145/60 10/11/18 16:00 128/69 10/11/18 15:55 128/58 10/11/18 15:40 121/55 10/11/18 15:25 128/57 10/11/18 15:10 130/78 10/11/18 14:55 134/62 10/11/18 14:40 138/61 10/11/18 14:25 144/58 10/11/18 14:10 98.7 F 15 136/64 10/11/18 12:09 97.5 F L 92 16 124/75 97 Intake and Output 10/11/18 10/12/18 10/12/18 23:59 07:59 15:59 Intake Total 360 / 890 500 / 500 Output Total 5041 / 5041 Balance -4681 / -4151 500 / 500 Intake: Oral 360 / 390 0 / 0 Intake, Rinseback and Flushes 500 / 500 Output: Urine 0 / 0 Total Dialysis (HD) Output 5041 / 5041 Other: Meal Dinner Percent of Meal Consumed 100% Weight 93.5 kg Hemodialysis Net Fluid Removed 4541 0 (mL) Patient Weight 10/12/18 23:59 Weight 93.5 kg - General Appearance General appearance: Present: well-developed, well-nourished EENT: Present: ATNC, hearing intact, vision intact Neck: Present: supple Respiratory: Present: clear Cardiology: Present: no edema, normal S1, normal S2 Dialysis Vascular Access: Arteriovenous Fistula thrill: Yes bruit: Yes Gastrointestinal: Present: normoactive bowel sounds, no tenderness, no guarding Integumentary: Present: no rash, warm and dry Neurologic: Present: alert and oriented x3 Musculoskeletal: Present: no deformities, no erythema Psychiatric: Present: mood/affect appropriate, cooperative - Lab 10/12/18 02:31 10/12/18 02:31 Most recent lab results 10/12/18 02:31 Calcium 9.7 Consult Discharge Plan - Plan Referrals: NONE,PCP [Primary Care Provider] -
--- NOTE | 2018-10-12 12:59 | Event Note ---
<Gricel Virgen T - Last Filed: 10/12/18 12:56> Date of Encounter: 10/12/18 Time of Encounter: 09:50 I spoke with Mr. Gao this morning prior to his dialysis and he stated he wanted to have the heart catheterization and was therefore willing to have his code status changed to Full Code for the duration of the procedure plus [address] Balbuena and I also spoke with his son, who after speaking to his father concurred that the patient wanted to undergo the catheterization. <August Balbuena M - Last Filed: 10/12/18 14:29> Date of Encounter: 10/12/18 Extensive discussion with patient and son earlier today. Results of TTE reviewed. Known history of CAD, prior PCI on two occasions earlier this year ([place], [facility]). EF reduced further, now 35%. R/B/A to a LHC discussed. Patient and son voiced understanding and wish to proceed. All questions answered. All questions answered.
[2018-10-12] MEDS ORDERED: Metoprolol XL (24 HR) Succ 25 MG TAB.ER.24H PO ONE (13:00)
[2018-10-12] MEDS: *HR* Metoprolol 5 MG/5 ML VIAL IVP ONE ×2 (14:27→16:05)
--- NOTE | 2018-10-12 14:34 | Event Note ---
Date of Encounter: 10/12/18 Time of Encounter: 14:32 Patient was noted to be tachycardic during dialysis. ECG obtained after returning to his room, which demonstrates atrial fibrillation, left bundle branch block, RVR. Reportedly, Lopressor IV has been ordered. Given elevated CHADS-VASc score, will start heparin drip. If remains tachycardic, will continue to adjust and titrate medical therapy accordingly.
[2018-10-12] MEDS ORDERED: Heparin 25,000 UNIT/250 ML D5W 25,000 UNIT/250 ML IV.SOLN IVC SCH (14:45)
--- NOTE | 2018-10-12 14:59 | Pre-Sedation Evaluation ---
Pre-sedation evaluation - Pre-sedation checklist Date of procedure: 10/10/18 Procedure: [facility] Recent Vitals: Last Vital Signs Temp 97.7 F 10/12/18 13:59 Pulse 130 10/12/18 13:59 Resp 18 10/12/18 13:59 BP 93/53 10/12/18 13:59 Pulse Ox 94 10/12/18 13:59 H&P (including ROS) documented in medical record: Yes Previous reaction to sedatives/anesthetics: No Dietary Status: NPO after Midnight Airway Assessment: Patient can open mouth completely, TMJ function normal, Micrognathia (under-bite, receding chin) absent, Neck with adequate range of mot ion Dentition: No loose teeth or bridges, dentures removed Possible difficult airway: No ASA Classification *see protocol: CLASS II-Mild systemic disease Plan of Care: Pt appropriate candidate for procedure/moderate/conscious sedation, Risks/benefits of procedure/sedation discussed w/ patient/family Cardiac Registry (Cardio Only) - Functional Capacity Functional Capacity: >=4 METS with symptoms - Clincal Frailty Scale Clinical Frailty Scale: Vulnerable
[2018-10-12] MEDS ORDERED: Heparin 1,000 UNITS/500 mL 500 ML ONE (15:09)
[2018-10-12] MEDS ORDERED: ISOVUE-370 200 ML INFUS..BTL ONE (15:09)
[2018-10-12] MEDS ORDERED: Nitroglycerin 1,000 MCG/10 ML VIAL IV ONE (15:09)
[2018-10-12] MEDS ORDERED: 0.9 % Sodium Chloride 1,000 ML ONE (15:09)
[2018-10-12] MEDS ORDERED: *HR* Heparin 10,000 UNIT/10 ML VIAL ONE (15:09)
[2018-10-12] MEDS ORDERED: *HR* FentaNYL (PF) 100 MCG/2 ML VIAL ONE (15:58)
[2018-10-12] MEDS ORDERED: *HR* Midazolam HCl 2 MG/2 ML VIAL ONE (15:58)
--- NOTE | 2018-10-12 16:42 | Invasive Diagnostic Lab Proc ---
Name: Balaji Gao Date of Study: 10/12/2018 Date: 1940 Ht: 72.0in Medical Record#: [id number] Age: 77 Wt: 205.03lb Gender: Male BSA: 2.15 Order #: [id number] BMI: 27.77 Physicians Procedure Physician: Charlene Meyers MD, [facility] Referring MD: Referring MD: Staff Name Position Time In Jean Pierre Chacon RN Jewelry Coater 03:57 PM Chavez Shen RN Monitor 03:57 PM Charlene Ferguson RT (R) Scrub 03:57 PM Procedures Performed Procedure L HRT ARTERY/VENTRICLE ANGIO Pre-Procedure Checklist Informed consent is complete signed and on chart. H&P is on chart. ID band is on and ID verified with patient. Patient NPO for procedure The procedure was described for the patient and questions were answered. Blood Pressure: 107/63 ECG is on chart. Plan of Care Patient will tolerate the procedure without complications. Adequate level of comfort will be maintained. Hemodynamics will remain stable Patient will recover from procedure without complications. Respiratory function will be maintained. Cardiac rhythm will remain stable. Patient temperature will be maintained. Patient and/or family have verbalized understanding of the procedure. Patient Education Intravenous Access Time IV Size Location DC'd Fluid/Drip Rate Units RN 20g 1 03/16" Patent On Arrival Rt Antecubital 0.9NaCl 25 ml/hr Allergies No Known Allergies Vital Signs Time BP (mmHg) HR (bpm) O2 Sat. RR (bpm) LOC 04:02 PM / % 5 = Fully awake and oriented or at pre-proc level 03:56 PM 107 / 65 93 98 % 23 04:01 PM 99 / 62 90 99 % 21 04:06 PM 97 / 59 89 98 % 16 04:11 PM 77 / 52 86 100 % 20 04:16 PM 90 / 60 89 100 % 22 04:21 PM 96 / 62 93 100 % 25 Procedural Medications Time Medication Dose Units Method Given By 03:58 PM Oxygen 2 L/min nasal cannula Jean Pierre Chacon RN 03:59 PM Versed 1 mg Intravenous Jean Pierre Chacon RN 04:07 PM Lidocaine 2% 18 ml Subcutaneous Charlene Meyers MD, [facility] ASA Classification: CLASS II- Mild systemic disease (i.e. well-controlled diabetes, hypertension, asthma, cigarette smoking) Radha Score Preprocedure Postprocedure Activity 2- Moves 4 extremities sustained head lift Activity 2- Moves 4 extremities sustained head lift Circulation 2- SBP +/= 20 points of pre-anesthetic level Circulation 2- SBP +/= 20 points of pre-anesthetic level Consciousness 2- Awake and alert oriented x 3 Consciousness 2- Awake and alert oriented x 3 O2 Saturation 2- Able to maintain O2 satruation of 92% on room air O2 Saturation 2- Able to maintain O2 satruation of 92% on room air Respiratory 2- Able to deep breathe and cough well Respiratory 2- Able to deep breathe and cough well Total Score 10 Total Score 10 Contrast Agent: Isovue Diagnostic Contrast: 61 ml Total Contrast: 61 ml Fluoro Dose: 23 mGy Procedure Log Time Note Enter By 03:55 PM Vitals capture started with the following parameters, Patient=Adult, Interval=5 min, Initial Aaftfpea=971 mmHg, Deflation Rate=3 mmHg, Cuff placed on Right Arm 03:55 PM Recorded ECG: HR=97 Condition=Condition 1 03:56 PM HR=93 bpm, YGJY=574/65 mmhg, SpO2=98.0 %, Resp=23 B/min 03:56 PM CathStat 03:56 PM Pt arrived to lab aid 2 at 15:56 cedwards 03:56 PM Patient charges- Angio tray pack, Navilyst 3mm J, Pulse Oximetry and ACIST tubing and transducer cedwards 03:56 PM IV Supplies used: J loop Angio Cath. cedwards 03:56 PM Physician arrived 15:56 cedwards 03:56 PM ASA Class CLASS II- Mild systemic disease (i.e. well-controlled diabetes, hypertension, asthma, cigarette smoking) cedwards 03:56 PM Brandon completed cedwards 03:56 PM Sign in performed according to hospital policy. Informed consent was obtained. cedwards 03:57 PM Hair removed from procedure site in procedure lab using clippers. Bilateral groin prepped with Chloraprep by Jean Pierre Chacon RN, then patient was draped. Skin intact. cedwards 03:57 PM Jean Pierre Chacon RN Position: Jewelry Coater Time in: 15:57 cedwards 03:57 PM Chavez Shen RN Position: Monitor Time in: 15:57 cedwards 03:57 PM Charlene Ferguson RT (R) Position: Scrub Time in: 15:57 cedwards 03:58 PM Time: 15:58 Oxygen on at 2 L/min per nasal cannula by Jean Pierre Chacon RN ced 03:58 PM Procedure start 15:58 ced 03:59 PM Time: 15:59 Versed 1 mg Intravenous Given by Jean Pierre Chacon RN cedwards 04:01 PM HR=90 bpm, NIBP=99/62 mmhg, SpO2=99.0 %, Resp=21 B/min, Comment=NSR 04:02 PM Time: 16:02LOC: 5 = Fully awake and oriented or at pre-proc level ced 04:02 PM Time: 16:02 Patient comfortable and pain free: Yes cedwards 04:03 PM Clinical Presentation: Unstable angina cedwards 04:06 PM Time out was performed according to hospital policy. Conscious sedation and anesthesia was achieved (see medication log with in this report above) cedwards 04:06 PM HR=89 bpm, NIBP=97/59 mmhg, SpO2=98.0 %, Resp=16 B/min, Comment=NSR 04:07 PM Time: 16:07 18 ml Lidocaine 2% to right groin Subcutaneous Given by Charlene Meyers MD, [facility] cedwards 04:08 PM Access obtained by percutaneous puncture. 5Fr 10cm [place] sheath placed in right Femoral artery. [id number] cedwards 04:08 PM 0.035 145cm Navilyst 3mmJ wire [id number] cedwards 04:09 PM 5Fr FL 4 catheter inserted over the wire [facility] cedwards 04:09 PM LCA angiography performed in multiple views. cedwards 04:09 PM Pressure channel 1 zeroed. 04:10 PM Pressure channel 1 zeroed. 04:10 PM Recorded Pressure: Ao, HR=88, Condition=Condition 1 (Aorta) Ao 105/29/60 04:11 PM HR=86 bpm, NIBP=77/52 mmhg, MnK7=508.0 %, Resp=20 B/min, Comment=NSR 04:11 PM Catheter removed cedwards 04:12 PM 5Fr FR 4 catheter inserted over the wire [facility] cedwards 04:12 PM RCA angiography performed in multiple views. cedwards 04:13 PM Catheter removed ced 04:13 PM 5Fr Pigtail catheter inserted over the wire [facility] cedwards 04:14 PM Recorded Pressure: LV, HR=84, Condition=Condition 1 (Left Ventricle) LV 100/22/95 04:15 PM Recorded Pressure: LV, Ao, HR=85, Condition=Condition 1 (Left Ventricle) LV 72/20/61, (Aorta) Ao 66/42/53 04:15 PM Catheter crossed the aortic valve and was selectively placed in the left ventricle. Pressures recorded on pullback for left heart catheterization. cedwards 04:16 PM Bolus angiogram of left Ventricle complete: 8 ml/sec for a total of 24 mls cedwards 04:16 PM Catheter removed cedwards 04:16 PM HR=89 bpm, NIBP=90/60 mmhg, AsV0=844.0 %, Resp=22 B/min, Comment=NSR 04:16 PM Femoral Angio performed. cedwards 04:17 PM Procedure completed at 16:17 10/12/2018 cedwards 04:17 PM Coronary Dominance: left cedwards 04:17 PM Did you address ARMIN flow and Dominance? YesCoronary Dominance: left cedwards 04:18 PM Sign out completed: Radiation Dose 148.82 mGy, 23 Gy/cm2 Fluoro Time: 1.3 Isovue 370 - 200ml contrast 61 ml given by Charlene Meyers MD, [facility]. Complications: None. The patient was discharged out of the center medical and lab director in stable condition. Sedation minutes 18. Cardiac Rehab Consult needed: No. Confirmed administered medications: Yes cedwards 04:18 PM Isovue 370 - 200ml,1 Bottle(s) used. cedwards 04:19 PM Arterial sheath pulled, Mynx closure device used and was Successful [id number] S/N. cedwards 04:19 PM Estimated Blood Loss: minimal cedwards 04:19 PM Post ECG NSR cedwards 04:19 PM Post Blood Pressure 90/60 cedwards 04:19 PM Information taught Cardiac Cath and Mynx cedwards 04:19 PM Education needs Procedure, Plan of Care, and Disease Process cedwards 04:19 PM Learning barriers :None cedwards 04:19 PM Education Methods Verbal cedwards 04:19 PM Education evaluation Able to repeat information cedwards 04:20 PM Site status No bleeding/ No Hematoma - Rt Groin as reported by Charlene Ferguson RT (R) at 16:20 cedwards 04:20 PM Plavix, Effient or Brilinta given No cedwards 04:21 PM HR=93 bpm, NIBP=96/62 mmhg, KnK4=824.0 %, Resp=25 B/min 04:24 PM Complications: None cedwards 04:24 PM Lesion found in Proximal RCA. Pre Stenosis: 30 Pre ARMIN Flow: cedwards 04:25 PM Lesion found in Distal LMCA. Pre Stenosis: 30 Pre ARMIN Flow: cedwards 04:25 PM Lesion found in Proximal LAD. Pre Stenosis: 40 Pre ARMIN Flow: cedwards 04:25 PM Lesion found in Mid LAD. Pre Stenosis: 15 Pre ARMIN Flow: cedwards 04:26 PM Lesion found in Distal LAD. Pre Stenosis: 90 Pre ARMIN Flow: cedwards 04:26 PM Lesion found in Proximal Circumflex. Pre Stenosis: 30 Pre ARMIN Flow: cedwards 04:26 PM Vitals capture stopped. 04:26 PM Lesion found in Mid Circumflex. Pre Stenosis: 40 Pre ARMIN Flow: cedwards 04:26 PM Lesion found in Distal Circumflex. Pre Stenosis: 30 Pre ARMIN Flow: cedwards 04:34 PM Report given to Humble [place] Pt taken to 2A Room #34. 16:34 cedwards Complications Complication None None Hemodynamics Pressures Site Systolic/A Wave Diastolic/V Wave Mean AO 105 29 60 LV 100 22 95 LV 72 20 61 AO 66 42 53 Post Procedure Information Blood Pressure: 90/60 mmHg Rhythm: NSR Post procedural instructions were given Closure Device Time Device Success/Fail 10/12/2018 4:31:00 PM MynxGrip Successful Site Checks Time Location Status Staff Sheath In? Note 04:20 PM Rt Groin No bleeding/ No Hematoma Charlene Ferguson RT (R) No Pulses Time Site Pre-Procedure Post-Procedure Note Bilateral DP & PT 1+ 1+ Updated by Chavez Shen RN on 10/12/2018 4:36:51 PM electronically signed on 10/12/2018 4:37:59 PM with status of Final
[2018-10-12 18:29] LABS: Hematocrit 34.8 % (37.5-50.1); Hemoglobin 11.1 g/dL (12.9-16.9); Mean Corpuscular HGB Conc 31.9 g/dL (31.6-35.5); Mean Corpuscular Hemoglobin 32.6 pg (28.0-33.3); Mean Corpuscular Volume 102.4 fL (83.0-100.0); Platelet Count 293 K/mcL (140-400); Red Cell Distribution Width 15.9 % (11.5-14.5)
[2018-10-12 18:41] LABS: INR 1.2; Prothrombin Time 13.6 Seconds (9.4-12.1)
[2018-10-12 18:44] LABS: Heparin anti-factor XA UFH 0.02 IU/mL (0.30-0.70)
[2018-10-12] MEDS: Albumin 25% 25gram/100mL 25 GM/100 ML IV.SOLN IVC SCH ×2 (19:05→20:59)
[2018-10-13 08:02] LABS: Hematocrit 33.8 % (37.5-50.1); Hemoglobin 10.7 g/dL (12.9-16.9); Mean Corpuscular HGB Conc 31.7 g/dL (31.6-35.5); Mean Corpuscular Hemoglobin 33.3 pg (28.0-33.3); Mean Corpuscular Volume 105.3 fL (83.0-100.0); Mean Platelet Volume 9.7 fL (9.4-12.4); Platelet Count 281 K/mcL (140-400); Red Blood Count 3.21 M/mcL (4.19-5.50); Red Cell Distribution Width 16.1 % (11.5-14.5); White Blood Count 8.1 K/mcL (4.3-11.1)
[2018-10-13 08:24] LABS: Calcium 10.1 mg/dL (8.6-10.3); Potassium 4.4 mEq/L (3.5-5.1)
[2018-10-13] MEDS: Artificial Tears SOLN 15 ML BOTTLE BOTH EYES SCH ×4 (08:37→22:49)
[2018-10-13] MEDS: Aspirin Enteric Coated 81 MG Tablet PO SCH (08:38)
[2018-10-13] MEDS: Vitamin B Complex/Vit C/Vit E 1 EACH TABLET PO SCH (08:38)
[2018-10-13] MEDS: Furosemide 40 MG/4 ML VIAL IVP SCH ×2 (08:38→17:28)
[2018-10-13] MEDS: Metoprolol XL (24 HR) Succ 25 MG TAB.ER.24H PO SCH (08:39)
[2018-10-13] MEDS ORDERED: levoFLOXacin 500 MG/100 ML 500 MG/100 ML BAG IVPB SCH (09:00)
[2018-10-13] MEDS: cefTRIAXone 2,000 MG in Water for inj. (sterile) 20 ML IVP SCH (10:19)
--- NOTE | 2018-10-13 11:31 | Internal Med Progress Note ---
Hospitalist Progress Note - Encounter Date of Encounter: 10/13/18 Time of Encounter: 11:27 - Subjective Interval History: Patient feeling well this morning. LHC yesterday without pathology that needed to be intervened on. Still with persistent pain in LEs. - Exam Vitals: Temp Pulse Resp BP Pulse Ox 97.6 F 86 18 108/71 96 10/13/18 11:21 10/13/18 11:21 10/13/18 11:21 10/13/18 11:21 10/13/18 11:21 Exam: General: Ill-appearing and in no acute distress HEENT: No erythema of posterior pharynx. No exudates. Lymphatics: No mandibular or cervical lymphadenopathy Cardiovascular: RRR. No murmurs. No chest wall tenderness. Lungs: Basilar crackles. Regular chest rise. Abdomen: Non-tender. No rebound or gaurding. Nl bowel sounds. Extremities: 3+ edema. 2+ pulses radial and pedal pulses Skin: Chronic venous stasis dermatitis bilaterally Psych: Nl attention. A&Ox3 Neuro: chief green officer II-XII intact. 5/5 strength. Sensation to light touch and pinprick intact. - Assessment and Plan (1) Congestive heart failure Current Visit: Yes Status: Acute Assessment and Plan: Patient with history of end-stage renal disease and CAD status post recent stents presents with dyspnea on exertion and orthopnea in the setting of stable vitals, evidence of hypervolemia on physical exam, severely elevated BNP, and echocardiogram with EF of 35%. -Although patient is very at risk for systolic heart failure and recent [facility], systolic heart failure is a new diagnosis for patient -Cardiology consulted. LHC without pathology that needed to be intervened on. Recommend medical management PLAN: - Continue home aspirin, plavix, statin, BB - Losartan 12.5mg qd - Lasix 80mg IV bid and HD for volume removal - Paient will likely go for UF today with nephrology - Cardiology following (2) CAD (coronary artery disease) Current Visit: No Status: Chronic Assessment and Plan: History of coronary artery disease with recent stents placed. -Currently on ASA/PLavix. -New diagnosis of HFrEF (discussed above). -LHC yest without pathology that needed to be intervened on PLAN: - Continue home ASA/PLAVIX/Statin - Cardiology following (3) ESRD (end stage renal disease) on dialysis Current Visit: No Status: Chronic Assessment and Plan: End-stage renal disease on dialysis Monday, Monday, Monday. Discussed case with nephrology and will initiate ultrafiltration to pull more fluid. - Nephrology aware (4) Community acquired pneumonia Current Visit: Yes Status: Acute Assessment and Plan: CT of chest done yesterday with evidence of bibasilar consolidations. No cough, no fever, and downtrending leukocytosis without intervention. Diagnostic thoracentesis with transudative process - fluid unlikely to be parapneumonic in origin. Also with chronic venous stasis dermatitis from gross hypervolemia. Low suspicion that patient has acute infectious process, however, reasonable to do 5 days of Levaquin given the combination of these findings. - Ceftriaxone x5 days (5) Pleural effusion Current Visit: Yes Status: Acute Assessment and Plan: Bilateral pleural effusions on admission. Left greater than right. Attempted bedside diagnostic and therapeutic thoracentesis, however, patient in a lot of pain and only could get small sample. Looks to be transudative. Given this, unlikely that pulmonary process is infection related and probably all volume related. - Volume removal with HD DVT Prophylaxis: heparin Internal Medicine: Result - Labs CBC & Chem 7: 10/13/18 07:47 10/13/18 07:47 Labs: Short CBC 10/12/18 10/13/18 Range/Units 18:16 07:47 WBC 8.0 8.1 (4.3-11.1) K/mcL Hgb 11.1 L 10.7 L (12.9-16.9) g/dL Hct 34.8 L 33.8 L (37.5-50.1) % Plt Count 293 281 (140-400) K/mcL BMP 10/13/18 07:47 Sodium 136 Potassium 4.4 Chloride 97 L Carbon Dioxide 26 BUN 46 H Creatinine 5.39 H Glucose 142 H Calcium 10.1 - ABG Interpretation ABG results: PT/INR, D-dimer PT 13.6 Seconds (9.4-12.1) H 10/12/18 18:16 Consult Discharge Plan - Plan Referrals: NONE,PCP [Primary Care Provider] - (1) Congestive heart failure Qualifiers: Heart failure type: systolic Heart failure chronicity: acute Qualified Code(s): I50.21 - Acute systolic (congestive) heart failure (2) CAD (coronary artery disease) Qualifiers: Coronary Disease-Associated Artery/Lesion type: [place] artery [place] vs. transplanted heart: [place] heart Associated angina: without angina Qualified Code(s): I25.10 - Atherosclerotic heart disease of [place] coronary artery withou t angina pectoris
--- NOTE | 2018-10-13 11:36 | Cardiology Progress Note ---
Date of Encounter: 10/13/18 Time of Encounter: 11:00 Assessment and Plan (1) Congestive heart failure Current Visit: Yes Status: Acute Per Cardiology: EF 35%, was 50-55%. On Lasix 80mg IV BID. On HD-- received yesterday. Net I&O - 8623. On BB. Consider addition of ACEI/ARB-- has ESRD on dialysis. Clinically appears improving. Qualifiers: Heart failure type: systolic Heart failure chronicity: acute Qualified Code(s): I50.21 - Acute systolic (congestive) heart failure (2) Atrial fibrillation with RVR Current Visit: No Status: Chronic Per Cardiology: Noted to have brief episode of PAF yesterday during dialysis. Upon review of medical records was noted to have atrial fib ablation June 2018. Telemetry reviewed with average heart rate passed 12 hours 95, currently sinus rhythm in 80s to 90s. On beta gretchen. Titrate as needed. Regarding long-term anticoagulation, previous medical records reviewed and patient was on triple therapy of aspirin, Plavix, Coumadin in June 2018 and developed acute lower GI bleed. GI evaluation completed and medications resumed. Will discontinue aspirin at this time and continue with Plavix to assist with minimizing risk of bleeding. We will resume home Coumadin with target INR 2.0-3.0. Patient denies any current active bleeding or blood loss. H&H currently stable. Continue to monitor closely. (3) CAD (coronary artery disease) Current Visit: No Status: Chronic Per Cardiology: s/p LHC: Lesion Findings/Interventions * Left Main Coronary Artery There is a 30% stenosis in the Distal LMCA. * Left Anterior Descending There is a 40% stenosis in the Proximal LAD. Heavily calcified There is a 15% instent restenosis in the Mid LAD. There is a 90% stenosis in the Distal/apical LAD. * Circumflex There is a 30% stenosis in the Proximal Circumflex. There is a 40% stenosis in the Mid Circumflex. There is a 30% stenosis in the Distal Circumflex. * Right Coronary Artery There is a 30% stenosis in the Proximal RCA. On Plavix, statin, BB. Will stop asa now. CP free. Postprocedure education provided. All questions answered. Cardiology signoff, all questions answered, follow-up arranged. Discussed with Dr. Balbuena. Qualifiers: Coronary Disease-Associated Artery/Lesion type: [place] artery [place] vs. transplanted heart: [place] heart Associated angina: without angina Qualified Code(s): I25.10 - Atherosclerotic heart disease of [place] coronary artery without angina pectoris (4) ESRD (end stage renal disease) on dialysis Current Visit: No Status: Chronic Per Cardiology: On HD. Discussion w patient/family: The assessment and plan as outlined above was discussed with the patient and/or family members who expressed understanding and agreement. All questions were answered. Thank you for involving us in the care of your patient. Please call with any questions. Subjective Principal diagnosis: fluid overload Interval history: Denies any chest pain, shortness of breath, palpitations. Reports some mild right groin tenderness. Reports overall improvement to bilateral leg pain. Denies any awareness of any active bleeding or blood loss. Reports one fall in the past year-- tripped. Objective Vital Signs, Last 4 Hours Temp Pulse Resp BP Pulse Ox 10/13/18 11:21 97.6 F 86 18 108/71 96 10/13/18 07:55 97.5 F L 89 24 103/66 94 General: Conversant, No Apparent Distress HEENT: Atraumatic, Normocephaly, Mucus Membranes Moist Neck: No JVD, Normal carotid pulses Cardiac: Reg Rate and Rhythm, Normal S1 and S2, No Murmur Lungs: Normal Breath Sounds, No Wheeze, Rales, Rhonchi Neuro: Alert and responsive, No focal deficits noted Abdomen: Soft, Non-Tender Skin: No rashes noted on visualized skin Musculoskeletal: No Chest Wall Tenderness Extremities: No Clubbing, No Cyanosis, Normal Pulses, Other (dusky, +1-2 nonpitting bilateral LE edema) Results 10/13/18 07:47 10/13/18 07:47 Lab Results Laboratory Tests 10/10/18 10/10/18 10/10/18 04:06 11:39 17:32 Hgb Hct INR Creatinine Est GFR (Non-Af Amer) Troponin I 0.06 H* 0.06 H* 0.07 H* B-Natriuretic Peptide 10/11/18 10/11/18 10/12/18 06:19 06:19 18:16 Hgb Hct INR 1.2 Creatinine Est GFR (Non-Af Amer) Troponin I 0.07 H* B-Natriuretic Peptide 1167 H 10/13/18 10/13/18 07:47 07:47 Hgb 10.7 L Hct 33.8 L INR Creatinine 5.39 H Est GFR (Non-Af Amer) 10 L Troponin I B-Natriuretic Peptide ITS Impressions Chest X-Ray 10/10/18 06:00 IMPRESSION: 1. Mild prominence of the pulmonary vasculature bilaterally. 2. Left basilar opacification with a small left pleural effusion. D/ / Wyatt Whitaker MD / Wyatt Whitaker MD Interpreting Provider: Wyatt Whitaker MD Echocardiogram Limited Views 10/10/18 07:48 Impressions: LVEF 35%. Mildly dilated left ventricle. Global left ventricular systolic dysfunction. Atypical septal motion consistent with bundle branch block. There is no LV thrombus. LVEF has decreased compared to prior report from 06/2018. Left Ventricular Wall Motion: Rest Echo Findings The apex, apical inferior, mid inferior, basal inferior, apical anterior, mid anterior, basal anterior, apical septal, mid inferior septal, basal inferior septal, apical lateral, mid anterior lateral, basal anterior lateral, mid anterior septal, mid inferior lateral, basal anterior septal and basal inferior lateral pretty were hypokinetic. Findings: Study Quality * Technically adequate exam. ECG Findings * Sinus rhythm with BBB. Left Ventricle * LVEF 35%. * Mildly dilated left ventricle. * Global left ventricular systolic dysfunction. * Atypical septal motion consistent with bundle branch block. * There is no LV thrombus. Chest X-Ray 10/10/18 12:56 IMPRESSION: 1. Persistent left basilar opacification appears to represent left pleural fluid combined with left lower lobe atelectasis or pneumonia 2. No pneumothorax D/ / Dyllan Garcia MD / Dyllan Garcia MD Interpreting Provider: Dyllan Garcia MD Chest CT 10/11/18 13:13 IMPRESSION: 1. Bilateral pleural effusion with bibasilar consolidation. 2. Pulmonary findings suggestive of congestive heart failure. 3. Calcific densities involving the pericardium the result restrictive pericarditis. 4. Mild cardiomegaly. 5. Main pulmonary artery enlargement can be seen with pulmonary hypertension but is nonspecific. 6. Calcific atherosclerosis aorta and coronary arteries. D/ / Mathew Loya / Mathew Loya Interpreting Provider: Mathew Loya Intake & Output 10/10/18 10/11/18 10/12/18 10/13/18 23:59 23:59 23:59 23:59 Intake Total 1168 / 1168 890 / 890 600 / 600 480 / 480 Output Total 3700 / 3700 5041 / 5041 3020 / 3020 Balance -2532 / -2532 -4151 / -4151 -2420 / -2420 480 / 480 Weight 100.6 kg 93.5 kg Active Medications Acetaminophen (Tylenol) 650 mg PO Q6HR PRN PRN Reason: Mild Pain/Fever Stop: 04/11/19 02:36 Last Admin: 10/10/18 05:55 Dose: 650 mg Documented by: Albuterol/Ipratropium (Duoneb) 3 ml IH [id number] PRN PRN Reason: Shortness Of Breath Stop: 04/11/19 04:01 Allopurinol (Zyloprim) 100 mg PO DAILY LEANDRA Stop: 04/12/19 09:01 Last Admin: 10/13/18 08:38 Dose: 100 mg Documented by: Artificial Tears ([place]wa Tears) 1 drop BOTH EYES QID LEANDRA; Protocol Stop: 04/11/19 09:01 Last Admin: 10/13/18 08:37 Dose: 1 drop Documented by: Atorvastatin Calcium (Lipitor) 80 mg PO HS LEANDRA Stop: 04/11/19 21:01 Last Admin: 10/12/18 21:00 Dose: 80 mg Documented by: Clopidogrel Bisulfate (Plavix) 75 mg PO DAILY LEANDRA Stop: 04/11/19 09:01 Last Admin: 10/13/18 08:38 Dose: 75 mg Documented by: Docusate Sodium (Colace) 100 mg PO BID PRN; Protocol PRN Reason: Constipation Stop: 04/11/19 02:36 Furosemide (Lasix) 80 mg IVP BIDDIURETIC LEANDRA Stop: 04/12/19 17:01 Last Admin: 10/13/18 08:38 Dose: 80 mg Documented by: Sodium Chloride (0.9 % Sodium Chloride) 1,000 mls @ 0 mls/hr PRIME .Q0M LEANDRA Stop: 04/12/19 13:31 Sodium Chloride (0.9 % Sodium Chloride) 250 mls @ 937.5 mls/hr IVC .Q16M PRN PRN Reason: Hypotension Stop: 04/13/19 08:49 Ceftriaxone Sodium 2,000 mg/ (Sterile Water) 20 mls @ 600 mls/hr IVP Q24H LEANDRA Stop: 04/14/19 10:01 Last Admin: 10/13/18 10:19 Dose: 600 mls/hr Documented by: Metoprolol Succinate (Toprol Xl) 25 mg PO QAM LEANDRA Stop: 04/11/19 09:01 Last Admin: 10/13/18 08:39 Dose: 25 mg Documented by: Naloxone HCl (Narcan) 0.4 mg IVP Q2MPRN PRN PRN Reason: SEE COMMENTS Stop: 04/11/19 01:51 Nitroglycerin (Nitroglycerin) 0.4 mg SL Q5MIN PRN PRN Reason: Chest Pain Stop: 04/11/19 02:36 Oxycodone HCl (Roxicodone) 5 mg PO Q4HR PRN; Protocol PRN Reason: Severe Pain Stop: 04/12/19 10:20 Vitamin B Complex/Vit C/Vit E (Stresstab) 1 each PO DAILY [facility] Stop: 04/11/19 09:01 Last Admin: 10/13/18 08:38 Dose: 1 each Documented by: Warfarin Sodium (Coumadin Perpt) 1 each PO DAILY@1800 PRN; Protocol PRN Reason: SEE COMMENTS Stop: 04/14/19 18:01 - Imaging and Cardiology Echo: report reviewed Cardiac cath: report reviewed Consult Discharge Plan - Plan Referrals: NONE,PCP [Primary Care Provider] -
[2018-10-13] MEDS ORDERED: Metoprolol XL (24 HR) Succ 25 MG TAB.ER.24H PO ONE (13:00)
--- NOTE | 2018-10-13 13:07 | Nephrology Progress Note ---
Date of Encounter: 10/13/18 Time of Encounter: 13:07 - Assessment and Plan (1) ESRD (end stage renal disease) on dialysis Current Visit: No Status: Chronic Current regimen is MWF at [facility] in [place]. Renal diet Renal vitamins Strict I/O Avoid nephrotoxins and renal dose all medications. Patient has had several sessions of HD/UF with significant decrease in his leg edema. He is on room air with good oxygen saturation. No acute need for dialysis or UF. Ok for discharge from a renal stand point. Spoke with Dr. Tafoya regarding the case. (2) Anemia Current Visit: No Status: Acute Qualifiers: Anemia type: unspecified type Qualified Code(s): D64.9 - Anemia, unspecified (3) Dyspnea Current Visit: Yes Status: Acute Qualifiers: Dyspnea type: unspecified Qualified Code(s): R06.00 - Dyspnea, unspecified (4) Lower extremity edema Current Visit: Yes Status: Acute Subjective Principal diagnosis: fluid overload Interval history: Patient seen and evaluated. He has no new complaint. He feels better. ROS is stable. Objective - Vital Signs Vital signs: Vital Signs Temp Pulse Resp BP Pulse Ox 10/13/18 11:21 97.6 F 86 18 108/71 96 10/13/18 07:55 97.5 F L 89 24 103/66 94 10/13/18 04:36 97.6 F 94 16 104/54 93 10/13/18 01:05 98.0 F 95 18 135/77 96 10/12/18 21:08 107/65 92 10/12/18 18:30 76 18 77/40 92 10/12/18 18:00 87 17 89/53 94 10/12/18 17:45 90 17 88/52 94 10/12/18 17:30 90 17 92/56 93 10/12/18 17:15 100 18 93/59 95 10/12/18 17:00 98 17 113/71 97 10/12/18 16:45 94 17 95/57 96 10/12/18 13:59 97.7 F 130 18 93/53 94 10/12/18 13:45 97.4 F L 16 104/61 10/12/18 13:20 120/72 10/12/18 13:15 123/56 Intake and Output 10/12/18 10/13/18 10/13/18 23:59 07:59 15:59 Intake Total 100 / 600 480 / 480 Output Total 50 / 50 Balance 100 / -2420 430 / 430 Intake: IV Fluids 100 / 100 Flexbumin 25 gm In 100 ml @ 60 100 / 100 mls/hr IVC .Q1H40M [facility] Rx#: [id number] Oral 480 / 480 Output: Urine 50 / 50 Other: Meal Breakfast Percent of Meal Consumed 100% - General Appearance General appearance: Present: well-developed, well-nourished EENT: Present: ATNC Neck: Present: supple Cardiology: Present: edema, regular rate Dialysis Vascular Access: Arteriovenous Fistula Integumentary: Present: warm and dry Neurologic: Present: alert and oriented x3 Musculoskeletal: Present: no cyanosis Psychiatric: Present: mood/affect appropriate - Lab 10/13/18 07:47 10/13/18 07:47 Most recent lab results 10/13/18 07:47 Calcium 10.1 Consult Discharge Plan - Plan Referrals: NONE,PCP [Primary Care Provider] -
[2018-10-13] MEDS ORDERED: Warfarin perPT PO PRN (18:00)
[2018-10-13] MEDS ORDERED: *HR* Warfarin 7.5 MG TABLET PO ONE (18:00)
[2018-10-14 06:34] LABS: Hematocrit 35.6 % (37.5-50.1); Hemoglobin 11.1 g/dL (12.9-16.9); Mean Corpuscular HGB Conc 31.2 g/dL (31.6-35.5); Mean Corpuscular Volume 102.6 fL (83.0-100.0); Mean Platelet Volume 9.6 fL (9.4-12.4); Platelet Count 298 K/mcL (140-400); Red Blood Count 3.47 M/mcL (4.19-5.50); Red Cell Distribution Width 15.8 % (11.5-14.5); White Blood Count 9.3 K/mcL (4.3-11.1)
[2018-10-14 06:41] LABS: INR 1.2; Prothrombin Time 13.3 Seconds (9.4-12.1)
[2018-10-14 06:54] LABS: Calcium 10.4 mg/dL (8.6-10.3); Potassium 4.9 mEq/L (3.5-5.1)
--- NOTE | 2018-10-14 10:04 | Nephrology Progress Note ---
Date of Encounter: 10/14/18 Time of Encounter: 10:03 - Assessment and Plan (1) ESRD (end stage renal disease) on dialysis Current Visit: No Status: Chronic Current regimen is MWF at [facility] in [place]. Renal diet Renal vitamins Strict I/O Avoid nephrotoxins and renal dose all medications. Patient has had several sessions of HD/UF with significant decrease in his leg edema. He is on room air with good oxygen saturation. No acute need for dialysis or UF. (2) Anemia Current Visit: No Status: Acute Qualifiers: Anemia type: unspecified type Qualified Code(s): D64.9 - Anemia, unspecifie d (3) Dyspnea Current Visit: Yes Status: Acute Qualifiers: Dyspnea type: unspecified Qualified Code(s): R06.00 - Dyspnea, unspecified (4) Lower extremity edema Current Visit: Yes Status: Acute Subjective Principal diagnosis: fluid overload Interval history: Patient seen. He is asleep. Objective - Vital Signs Vital signs: Vital Signs Temp Pulse Resp BP Pulse Ox 10/14/18 07:34 98.0 F 95 18 113/72 96 10/13/18 15:00 97.8 F 98 17 113/68 97 10/13/18 11:21 97.6 F 86 18 108/71 96 - General Appearance General appearance: Present: well-developed, well-nourished EENT: Present: ATNC Cardiology: Present: regular rate Musculoskeletal: Present: no cyanosis - Lab 10/14/18 06:20 10/14/18 06:20 Most recent lab results 10/14/18 06:20 Calcium 10.4 H Consult Discharge Plan - Plan Referrals: NONE,PCP [Primary Care Provider] -
--- NOTE | 2018-10-14 10:34 | Internal Med Progress Note ---
Hospitalist Progress Note - Encounter Date of Encounter: 10/14/18 Time of Encounter: 10:32 - Subjective Interval History: He not go for UF yesterday because of scheduling mixup. Told patient he can either discharged today and go to regular dialysis tomorrow R continue with one more day of IV antibiotics and discharge after hemodialysis tomorrow. Patient would rather discharged tomorrow. - Exam Vitals: Temp Pulse Resp BP Pulse Ox 98.0 F 95 18 113/72 96 10/14/18 07:34 10/14/18 07:34 10/14/18 07:34 10/14/18 07:34 10/14/18 07:34 Exam: General: Ill-appearing and in no acute distress HEENT: No erythema of posterior pharynx. No exudates. Lymphatics: No mandibular or cervical lymphadenopathy Cardiovascular: RRR. No murmurs. No chest wall tenderness. Lungs: Basilar crackles. Regular chest rise. Abdomen: Non-tender. No rebound or gaurding. Nl bowel sounds. Extremities: 3+ edema. 2+ pulses radial and pedal pulses. R leg more erythematous than left. Skin: Chronic venous stasis dermatitis bilaterally Psych: Nl attention. A&Ox3 Neuro: salt grinder II-XII intact. 5/5 strength. Sensation to light touch and pinprick intact. - Assessment and Plan (1) Congestive heart failure Current Visit: Yes Status: Acute Assessment and Plan: Patient with history of end-stage renal disease and CAD status post recent stents presents with dyspnea on exertion and orthopnea in the setting of stable vitals, evidence of hypervolemia on physical exam, severely elevated BNP, and echocardiogram with EF of 35%. -Although patient is very at risk for systolic heart failure and recent [place], systolic heart failure is a new diagnosis for patient -Cardiology consulted. LHC without pathology that needed to be intervened on. Recommend medical management PLAN: - Continue home aspirin, plavix, statin, BB - Losartan 12.5mg qd - Lasix 80mg IV bid and HD for volume removal - Paient will continue to get more fluid pulled off with dialysis - Cardiology following (2) CAD (coronary artery disease) Current Visit: No Status: Chronic Assessment and Plan: History of coronary artery disease with recent stents placed. -Currently on ASA/PLavix. -New diagnosis of HFrEF (discussed above). -LHC this admission without pathology that needed to be intervened on PLAN: - Continue home ASA/PLAVIX/Statin - Cardiology following (3) ESRD (end stage renal disease) on dialysis Current Visit: No Status: Chronic Assessment and Plan: End-stage renal disease on dialysis Monday, Monday, Monday. HD tomorrow then discharge. - Nephrology aware (4) Community acquired pneumonia Current Visit: Yes Status: Acute Assessment and Plan: CT of chest done yesterday with evidence of bibasilar consolidations. No cough, no fever, and downtrending leukocytosis without intervention. Diagnostic thoracentesis with transudative process - fluid unlikely to be parapneumonic in origin. Also with chronic venous stasis dermatitis from gross hypervolemia but with R>L erythematous changes. US doppler this admission without evidence of DVT. - Ceftriaxone --> doxycycline x5 days (5) Cellulitis of right lower extremity Current Visit: Yes Status: Acute Assessment and Plan: See above (6) Pleural effusion Current Visit: Yes Status: Acute Assessment and Plan: Bilateral pleural effusions on admission. Left greater than right. Attempted bedside diagnostic and therapeutic thoracentesis, however, patient in a lot of pain and only could get small sample. Looks to be transudative. Given this, unlikely that pulmonary process is infection related and probably all volume related. - Volume removal with HD DVT Prophylaxis: heparin Internal Medicine: Result - Labs CBC & Chem 7: 10/14/18 06:20 10/14/18 06:20 Labs: Short CBC 10/14/18 Range/Units 06:20 WBC 9.3 (4.3-11.1) K/mcL Hgb 11.1 L (12.9-16.9) g/dL Hct 35.6 L (37.5-50.1) % Plt Count 298 (140-400) K/mcL BMP 10/14/18 06:20 Sodium 137 Potassium 4.9 Chloride 94 L Carbon Dioxide 25 BUN 66 H Creatinine 7.00 H Glucose 116 H Calcium 10.4 H - ABG Interpretation ABG results: PT/INR, D-dimer PT 13.3 Seconds (9.4-12.1) H 10/14/18 06:20 Consult Discharge Plan - Plan Referrals: NONE,PCP [Primary Care Provider] - (1) Congestive heart failure Qualifiers: Heart failure type: systolic Heart failure chronicity: acute Qualified Code(s): I50.21 - Acute systolic (congestive) heart failure (2) CAD (coronary artery disease) Qualifiers: Coronary Disease-Associated Artery/Lesion type: [place] artery [place] vs. tra nsplanted heart: [place] heart Associated angina: without angina Qualified Code(s): I25.10 - Atherosclerotic heart disease of [place] coronary artery without angina pectoris
[2018-10-14] MEDS: cefTRIAXone 2,000 MG in Water for inj. (sterile) 20 ML IVP SCH (10:37)
[2018-10-14] MEDS: Furosemide 40 MG/4 ML VIAL IVP SCH ×2 (10:37→16:13)
[2018-10-14] MEDS: Metoprolol XL (24 HR) Succ 25 MG TAB.ER.24H PO SCH (10:38)
[2018-10-14] MEDS: Vitamin B Complex/Vit C/Vit E 1 EACH TABLET PO SCH (10:38)
[2018-10-14] MEDS: Artificial Tears SOLN 15 ML BOTTLE BOTH EYES SCH ×4 (10:38→20:15)
[2018-10-14] MEDS: Doxycycline 100 MG CAPSULE PO SCH ×2 (10:40→20:14)
[2018-10-14] MEDS ORDERED: *HR* Warfarin 5 MG TABLET PO ONE (18:00)
[2018-10-15 05:28] LABS: Hematocrit 33.8 % (37.5-50.1); Hemoglobin 10.8 g/dL (12.9-16.9); Mean Corpuscular Hemoglobin 32.5 pg (28.0-33.3); Mean Corpuscular Volume 101.8 fL (83.0-100.0); Platelet Count 317 K/mcL (140-400); Red Blood Count 3.32 M/mcL (4.19-5.50); Red Cell Distribution Width 15.7 % (11.5-14.5); White Blood Count 10.8 K/mcL (4.3-11.1)
[2018-10-15 05:39] LABS: INR 1.2
[2018-10-15 05:49] LABS: Calcium 10.4 mg/dL (8.6-10.3); Potassium 4.7 mEq/L (3.5-5.1)
[2018-10-15] MEDS ORDERED: 0.9 % Sodium Chloride 250 ML IVC PRN (07:48)
[2018-10-15] MEDS ORDERED: 0.9 % Sodium Chloride 1,000 ML PRIME SCH (08:00)
[2018-10-15] MEDS ORDERED: Furosemide 40 MG TABLET PO ONE (09:00)
[2018-10-15] MEDS: Artificial Tears SOLN 15 ML BOTTLE BOTH EYES SCH ×4 (11:47→20:12)
--- NOTE | 2018-10-15 12:21 | Nephrology Progress Note ---
<Trista Gleason - Last Filed: 10/15/18 12:19> Date of Encounter: 10/15/18 Time of Encounter: 12:19 - Assessment and Plan (1) ESRD (end stage renal disease) on dialysis Status: Chronic Current regimen is MWF at [facility] in [place]. Renal diet Renal vitamins Strict I/O Avoid nephrotoxins and renal dose all medications. HD in progress for today. (2) Anemia Status: Acute Goal Hgb is 10-11. Hgb is 10.8 stable. Qualifiers: Anemia type: unspecified type Qualified Code(s): D64.9 - Anemia, unspe cified (3) Dyspnea Status: Acute Continue supplemental oxygen. Continue Lasix for diuresis. Qualifiers: Dyspnea type: unspecified Qualified Code(s): R06.00 - Dyspnea, unspecified (4) Lower extremity edema Status: Acute 1.5 L restriction. Subjective Principal diagnosis: fluid overload Interval history: Pt seen and examined during HD tolerating well. Denies nausea, vomiting, diarrhea. Denies chest pain or shortness of breath. Admits to some pain to his right lower extremity. Objective - Vital Signs Vital signs: Vital Signs Temp Pulse Resp BP Pulse Ox 10/15/18 12:15 131/63 10/15/18 12:00 122/62 10/15/18 11:45 126/68 10/15/18 11:30 130/67 10/15/18 11:15 123/65 10/15/18 11:00 133/79 10/15/18 10:45 125/70 10/15/18 10:30 108/74 10/15/18 10:15 135/73 10/15/18 10:00 150/75 10/15/18 09:45 165/72 10/15/18 09:30 97.8 F 18 152/73 10/15/18 07:34 97.2 F L 101 18 111/67 93 10/15/18 04:29 97.9 F 99 18 136/68 98 10/15/18 00:23 98 F 101 19 144/78 96 10/14/18 19:48 97.6 F 101 18 134/71 97 10/14/18 15:40 98.1 F 97 16 116/75 97 Intake and Output 10/14/18 10/15/18 10/15/18 23:59 07:59 15:59 Intake Total 480 / 480 600 / 600 Balance 480 / 480 600 / 600 Intake: Oral 480 / 480 Intake, Rinseback and Flushes 600 / 600 Other: Meal Dinner Percent of Meal Consumed 95% # Bowel Movements 1 Weight 94.2 kg Hemodialysis Net Fluid Removed 3156 (mL) Patient Weight 10/15/18 23:59 Weight 94.2 kg - General Appearance General appearance: Present: well-developed, well-nourished EENT: Present: ATNC, hearing intact, vision intact Neck: Present: supple Respiratory: Present: clear Cardiology: Present: edema (Generalized non pitting edema noted to bilat lower extremities.), normal S1, normal S2 Dialysis Vascular Access: Arteriovenous Fistula thrill: Yes bruit: Yes Gastrointestinal: Present: normoactive bowel sounds, no tenderness, no guarding Integumentary: Present: no rash, warm and dry Neurologic: Present: alert and oriented x3 Musculoskeletal: Present: no deformities, erythema (Noted to RLE. painful to touch.) Psychiatric: Present: mood/affect appropriate, cooperative - Lab 10/15/18 04:36 10/15/18 04:36 Most recent lab results 10/15/18 04:36 Calcium 10.4 H Consult Discharge Plan - Plan Instructions: Apixaban (By mouth), Heart Failure (DC) Referrals: Charlene Meyers MD [Partnered Physician] - 11/02/18 9:50 am Aldo Rivera DO [Non-Partnered Physician] - 10/23/18 3:50 pm (Please f ollow up as schedule...) Prescriptions: Losartan [Cozaar] 12.5 mg PO DAILY #30 tablet Apixaban [Eliquis] 5 mg PO BID #60 tablet Apixaban [Eliquis] 10 mg PO BID #11 tablet <Chris Mix - Last Filed: 10/31/18 01:55> Date of Encounter: 10/15/18 - Assessment and Plan (1) ESRD (end stage renal disease) on dialysis Status: Chronic I examined this patient and discussed the medical decision-making with LUISANA Weston. I agree with the documented findings, disposition and treatment plan as described except to the extent set forth below. Patient was seen on dialysis. (2) Anemia Status: Acute Qualifiers: Anemia type: unspecified type Qualified Code(s): D64.9 - Anemia, unspecified (3) Dyspnea Status: Acute Qualifiers: Dyspnea type: unspecified Qualified Code(s): R06.00 - Dyspnea, unspecified (4) Lower extremity edema Status: Acute Objective - Lab 10/16/18 00:36 10/16/18 00:36
--- NOTE | 2018-10-15 12:41 | Electrocardiograph Report ---
[address] [address] Test Date: 2018-10-11 Pat Name: Balaji Gao Department: 112 Room: 2A Gender: M Building Custodian: : 1940 Requested By: [id number] Order Number: [id number] Reading MD: Robin Reza Measurements Intervals [place] Rate: 85 P: 54 TN: 176 QRS: -1 QRSD: 186 T: 173 QT: 441 QTc: 483 Interpretive Statements SINUS RHYTHM LEFT BUNDLE BRANCH BLOCK Electronically Signed On 10-15-2018 12:39:46 EDT by Robin Reza
[2018-10-15] MEDS: Doxycycline 100 MG CAPSULE PO SCH (14:41)
[2018-10-15] MEDS: Vitamin B Complex/Vit C/Vit E 1 EACH TABLET PO SCH (14:41)
[2018-10-15] MEDS: Metoprolol XL (24 HR) Succ 25 MG TAB.ER.24H PO SCH (14:41)
[2018-10-15] MEDS: cefTRIAXone 2,000 MG in Water for inj. (sterile) 20 ML IVP SCH ×2 (14:42→14:46)
--- NOTE | 2018-10-15 16:36 | Internal Med Progress Note ---
Hospitalist Progress Note - Encounter Date of Encounter: 10/15/18 Time of Encounter: 16:36 - Subjective Interval History: Persistent erythema in the right lower extremity despite antibiotics. Leg was imaged on admission for DVT but reading report said study was poor. Repeated today and evidence of acute DVT. Patient has been on warfarin for atrial fibr illation but has been subtherapeutic. Son has had a hard time keeping medications straight and did not know that patient was still suppose to be on warfarin. - Exam Vitals: Temp Pulse Resp BP Pulse Ox 97.6 F 101 18 142/71 93 10/15/18 13:38 10/15/18 07:34 10/15/18 13:38 10/15/18 13:38 10/15/18 07:34 Exam: General: Ill-appearing and in no acute distress HEENT: No erythema of posterior pharynx. No exudates. Lymphatics: No mandibular or cervical lymphadenopathy Cardiovascular: RRR. No murmurs. No chest wall tenderness. Lungs: Basilar crackles. Regular chest rise. Abdomen: Non-tender. No rebound or gaurding. Nl bowel sounds. Extremities: 3+ edema. 2+ pulses radial and pedal pulses. R leg more er ythematous than left. Skin: Chronic venous stasis dermatitis bilaterally Psych: Nl attention. A&Ox3 Neuro: transportation lead II-XII intact. 5/5 strength. Sensation to light touch and pinprick intact. - Assessment and Plan (1) DVT (deep venous thrombosis) Current Visit: Yes Status: Acute Assessment and Plan: Persistent erythema in the right lower extremity despite antibiotics. Leg was imaged on admission for DVT but reading report said study was poor. Repeated today and evidence of acute DVT. Patient has been on warfarin for atrial fibrillation but has been subtherapeutic. Son has had a hard time keeping medications straight and did not know that patient was still suppose to be on warfarin. Apixaban can have more risk than warfarin in a patient on HD, however, given compliance issues would be best fit for patient. - Apixaban 10mg bid loading dose (2) Polypharmacy Current Visit: Yes Status: Acute Assessment and Plan: On having a hard time keeping track of all patient's medication changes. Discussed with pharmacy and will try to simplify regimen as much as possible. (3) Congestive heart failure Current Visit: Yes Status: Acute Assessment and Plan: Patient with history of end-stage renal disease and CAD status post recent stents presents with dyspnea on exertion and orthopnea in the setting of stable vitals, evidence of hypervolemia on physical exam, severely elevated BNP, and echocardiogram with EF of 35%. -Although patient is very at risk for systolic heart failure and recent [place], systolic heart failure is a new diagnosis for patient -Cardiology consulted. LHC without pathology that needed to be intervened on. Recommend medical management PLAN: - Continue home aspirin, plavix, statin, BB - Losartan 12.5mg qd - Volume removal with hemodialysis - Cardiology following (4) CAD (coronary artery disease) Current Visit: No Status: Chronic Assessment and Plan: History of coronary artery disease with recent stents placed. -Currently on ASA/PLavix. -New diagnosis of HFrEF (discussed above). -LHC this admission without pathology that needed to be intervened on PLAN: - Continue home ASA/PLAVIX/Statin - Cardiology following (5) ESRD (end stage renal disease) on dialysis Current Visit: No Status: Chronic Assessment and Plan: End-stage renal disease on dialysis Monday, Monday, Monday. - Nephrology aware (6) Community acquired pneumonia Current Visit: Yes Status: Acute Assessment and Plan: CT of chest done yesterday with evidence of bibasilar consolidations. No cough, no fever, and downtrending leukocytosis without intervention. Diagnostic thoracentesis with transudative process - fluid unlikely to be parapneumonic in origin. Also with chronic venous stasis dermatitis from gross hypervolemia but with R>L erythematous changes. US doppler this admission without evidence of DVT. - Ceftriaxone x5 days (7) Pleural effusion Current Visit: Yes Status: Acute Assessment and Plan: Bilateral pleural effusions on admission. Left greater than right. Attempted bedside diagnostic and therapeutic thoracentesis, however, patient in a lot of pain and only could get small sample. Looks to be transudative. Given this, unlikely that pulmonary process is infection related and probably all volume related. - Volume removal with HD DVT Prophylaxis: Apixaban - Time Spent with Patient Total time spent is greater than 50% in coordination of care (as documented) at patient's floor/unit and/or counseling patient: Internal Medicine: Result - Labs CBC & Chem 7: 10/15/18 04:36 10/15/18 04:36 Labs: Short CBC 10/15/18 Range/Units 04:36 WBC 10.8 (4.3-11.1) K/mcL Hgb 10.8 L (12.9-16.9) g/dL Hct 33.8 L (37.5-50.1) % Plt Count 317 (140-400) K/mcL BMP 10/15/18 04:36 Sodium 135 L Potassium 4.7 Chloride 95 L Carbon Dioxide 22 L BUN 85 H Creatinine 8.58 H Glucose 132 H Calcium 10.4 H - ABG Interpretation ABG results: PT/INR, D-dimer PT 14.0 Seconds (9.4-12.1) H 10/15/18 04:36 Consult Discharge Plan - Plan Referrals: NONE,PCP [Primary Care Provider] - (3) Congestive heart failure Qualifiers: Heart failure type: systolic Heart failure chronicity: acute Qualified Code(s): I50.21 - Acute systolic (congestive) heart failure (4) CAD (coronary artery disease) Qualifiers: Coronary Disease-Associated Artery/Lesion type: [place] artery [place] vs. transplanted heart: [place] heart Associated angina: without angina Qualified Code(s): I25.10 - Atherosclerotic heart disease of [place] coronary artery without angina pectoris
[2018-10-15] MEDS ORDERED: *HR* Warfarin 5 MG TABLET PO ONE (18:00)
[2018-10-15] MEDS: Acetaminophen 325 MG TABLET PO PRN (20:10)
[2018-10-15] MEDS: Apixaban 5 MG TABLET PO SCH (20:11)
[2018-10-16 01:23] LABS: Hematocrit 34.1 % (37.5-50.1); Hemoglobin 10.9 g/dL (12.9-16.9); Mean Corpuscular Hemoglobin 32.4 pg (28.0-33.3); Mean Corpuscular Volume 101.5 fL (83.0-100.0); Mean Platelet Volume 9.8 fL (9.4-12.4); Platelet Count 319 K/mcL (140-400); Red Blood Count 3.36 M/mcL (4.19-5.50); Red Cell Distribution Width 15.7 % (11.5-14.5); White Blood Count 9.1 K/mcL (4.3-11.1)
[2018-10-16 01:30] LABS: INR 2.1; Prothrombin Time 24.3 Seconds (9.4-12.1)
[2018-10-16 01:39] LABS: Potassium 4.2 mEq/L (3.5-5.1)
[2018-10-16 07:22] VITALS: BP 110/63
--- NOTE | 2018-10-16 08:15 | Discharge Summary ---
Date of Encounter: 10/16/18 Time of Encounter: 08:00 - Discharge Diagnosis (1) Congestive heart failure Priority: Primary Status: Acute Qualifiers: Heart failure type: systolic Heart failure chronicity: acute Qualified Code(s): I50.21 - Acute systolic (congestive) heart failure (2) DVT (deep venous thrombosis) Priority: Secondary Status: Acute Qualifiers: DVT location: lower extremity Affected thrombotic vein of extremity: unspecified vein of extremity Chronicity: acute Laterality: right Qualified Code(s): I82.401 - Acute embolism and thrombosis of unspecified deep veins of right lower extremity (3) Polypharmacy Priority: Secondary Status: Acute (4) CAD (coronary artery disease) Priority: Secondary Status: Chronic Qualifiers: Coronary Disease-Associated Artery/Lesion type: [place] artery [place] vs. transplanted heart: [place] heart Associated angina: without angina Qualified Code(s): I25.10 - Atherosclerotic heart disease of [place] coronary artery without angina pectoris (5) ESRD (end stage renal disease) on dialysis Priority: Secondary Status: Chronic (6) Community acquired pneumonia Priority: Secondary Status: Acute Qualifiers: Laterality: right Lung location: lower lobe of lung Qualified Code(s): J18.1 - Lobar pneumonia, unspecified organism (7) Pleural effusion Priority: Secondary Status: Acute Hospital course: Mr. Gao is a 77 year old male with history of end-stage renal disease, afib (suppose to be on warfarin but poor compliance), GIB, CAD status post recent stents presented with hypervolemia and found to have new onsets systolic heart failure with EF of 35%. Underwent cardiac catheterization with no new lesions to intervene on. Cardiology recommended medical management and patient started on Losartan. Patient also found to have an acute right lower extremity DVT. Was supposed to be on warfarin for A. fib but presented subtherapeutic. Son having trouble with managing patient's medications and doctors appointments. Simplified patient's medication regimen and decided to initiate Apixaban to replace warfarin. Resumed Plavix but discontinued ASA given hx of GIB and recent evidence that Apixaban/Plavix is not inferior to tripple therapy. 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 - Time Spent with Patient Total time spent providing and/or coordinating discharge services: - Discharge Medications Prescriptions: New Losartan [Cozaar] 12.5 mg PO DAILY #30 tablet Apixaban [Eliquis] 5 mg PO BID #60 tablet Apixaban [Eliquis] 10 mg PO BID #11 tablet Continued Loratadine [Claritin] 10 mg PO DAILY Allopurinol [Zyloprim 100 MG] 100 mg PO DAILY Nitroglycerin [Nitrostat] 0.4 mg SL Q5MIN PRN PRN Reason: Chest Pain Artificial Tears SOLN [Akwa Tears] 1 drop BOTH EYES QID bottle Clopidogrel [Plavix] 75 mg PO DAILY tablet Albuterol Sulfate [Proventil Inhaler] 2 puff IH Q4HR PRN #1 hfa.aer.ad PRN Reason: Shortness Of Breath/Wheezing Metoprolol Succinate [Toprol Xl] 37.5 mg PO DAILY Atorvastatin [Lipitor] 40 mg PO HS Lisinopril [Zestril] 5 mg PO DAILY Pantoprazole Sodium [Protonix] 40 mg PO DAILY Discontinued Docusate [Colace] 100 mg PO BID PRN PRN Reason: Constipation B-Complex with Vitamin C [Vitamin B-Complex with Vit C] 1 cap PO DAILY Aspirin [Lo-Dose Aspirin EC] 81 mg PO DAILY Acetaminophen [Tylenol] 650 mg PO Q6HR PRN tablet PRN Reason: Mild Pain/Fever Furosemide [Lasix] 80 mg PO BID Amiodarone HCl 200 mg PO DAILY cloNIDine HCl [Clonidine HCl] 0.2 mg PO TID Midodrine HCl 10 mg PO MOWEFR Psyllium Husk [Konsyl] 3 packet PO DAILY Sevelamer [Renvela] 2,400 mg PO TIDWM Warfarin Sodium 7.5 mg PO SUTUTHSA Warfarin Sodium 5 mg PO MOWEFR Home Medications: Allopurinol [Zyloprim 100 MG] 100 mg PO DAILY 06/15/18 [History] Loratadine [Claritin] 10 mg PO DAILY 06/15/18 [History] Nitroglycerin [Nitrostat] 0.4 mg SL Q5MIN PRN 06/15/18 [History] Artificial Tears SOLN [Akwa Tears] 1 drop BOTH EYES QID bottle 07/02/18 [Rx] Clopidogrel [Plavix] 75 mg PO DAILY tablet 07/02/18 [Rx] Albuterol Sulfate [Proventil Inhaler] 2 puff IH Q4HR PRN #1 hfa.aer.ad 07/03/18 [Rx] Metoprolol Succinate [Toprol Xl] 37.5 mg PO DAILY 10/10/18 [History] Atorvastatin [Lipitor] 40 mg PO HS 10/11/18 [History] Lisinopril [Zestril] 5 mg PO DAILY 10/11/18 [History] Pantoprazole Sodium [Protonix] 40 mg PO DAILY 10/11/18 [History] Apixaban [Eliquis] 5 mg PO BID #60 tablet 10/16/18 [Rx] Apixaban [Eliquis] 10 mg PO BID #11 tablet 10/16/18 [Rx] Losartan [Cozaar] 12.5 mg PO DAILY #30 tablet 10/16/18 [Rx] Allergies/Adverse Reactions: Allergy/AdvReac Type Severity Reaction Status Date / Time No Known Allergies Allergy Verified 10/11/18 14:13 Date of admission: 10/12/18 13:59 Primary care physician: PCP NONE Consults: 10/10/18 01:51 Consult to Nephrology [CONS] Routine Consulting Provider: Kidney Liliana/ANDREW/DENZEL/ALLAN Reason for Consult: End-stage renal disease on dialysis Monday, Monday, Monday Call Completed: No 10/10/18 09:04 Consult to Nurse Navigator [CONS] Routine Comment: chf, hd 10/10/18 11:00 Consult to Dialysis [CONS] ONCE 10/10/18 18:25 Consult to Cardiology [CONS] Routine Comment: Consulting Provider: Cardiology Liliana Reason for Consult: Hx of CAD with stents but new HFrEF EF 35% Call Completed: No 10/11/18 13:26 Consult to Dialysis [CONS] Stat 10/12/18 09:00 Consult to Dialysis [CONS] ONCE 10/14/18 15:41 Consult to Physical Therapy [CONS] Routine Comment: Evaluate, develop and implement POC Reason for Consult: Deconditioning Does patient have active BEDREST order?: No Is patient medically & hemodynamically stable?: Yes Patient assessed for mobility or mobilized this visit?: No 10/15/18 08:00 Consult to Dialysis [CONS] ONCE - Constitutional Vitals: Temp Pulse Resp BP Pulse Ox 97.5 F L 90 18 110/63 97 10/16/18 07:21 10/16/18 07:21 10/16/18 07:21 10/16/18 07:21 10/16/18 07:21 Exam: General: Ill-appearing and in no acute distress HEENT: No erythema of posterior pharynx. No exudates. Lymphatics: No mandibular or cervical lymphadenopathy Cardiovascular: RRR. No murmurs. No chest wall tenderness. Lungs: Clear to auscelltation bilaterally. Regular chest rise. Abdomen: Non-tender. No rebound or gaurding. Nl bowel sounds. Extremities: RLE with 2+ edema and deep erythema at site of DVT. 2+ pulses radial and pedal pulses Skin: No rahses, abrasions, or contusions. Nl cap refill. Psych: Nl attention. A&Ox3 Neuro: varitypist II-XII intact. 5/5 strength. Sensation to light touch and pinprick intact. - Patient Status Disposition: Home Health Service Condition: Good Functional capacity at discharge: uses cane/walker Overall status at discharge: patient is progressing back to baseline - Discharge Instructions Follow Up With: NONE,PCP [Primary Care Provider] - - Diet and Activity Activity: as per physical therapy Diet: low salt diet
--- NOTE | 2018-10-16 08:25 | Physician Discharge Referral ---
Home Health/Hosp Referral Info Transfer to: Home Health Attending Provider: Jordan Zee MD Provider in Charge Post Discharge: PCP - Diagnosis (1) Congestive heart failure Priority: Primary Status: Acute (2) DVT (deep venous thrombosis) Priority: Secondary Status: Acute (3) Polypharmacy Priority: Secondary Status: Acute (4) CAD (coronary artery disease) Priority: Secondary Status: Chronic (5) ESRD (end stage renal disease) on dialysis Priority: Secondary Status: Chronic (6) Community acquired pneumonia Priority: Secondary Status: Acute (7) Pleural effusion Priority: Secondary Status: Acute - Respiratory Orders Smoking Cessation: Smoking cessation has been advised. For more information, call the [place] Tobacco Quit Line at 3-862-RSSW-NOW. - Diet/Nutrition Diet/Nutrition Orders: Renal - Activity Activity Orders: Up ad ambrocio, Ambulate, Walker - Services Needed Following services are medically necessary services: Nursing, Physical Therapy - Transfer Medications Prescriptions: Losartan [Cozaar] 12.5 mg PO DAILY #30 tablet Apixaban [Eliquis] 5 mg PO BID #60 tablet Apixaban [Eliquis] 10 mg PO BID #11 tablet Home Medications: Allopurinol [Zyloprim 100 MG] 100 mg PO DAILY 06/15/18 [History] Loratadine [Claritin] 10 mg PO DAILY 06/15/18 [History] Nitroglycerin [Nitrostat] 0.4 mg SL Q5MIN PRN 06/15/18 [History] Artificial Tears SOLN [Akwa Tears] 1 drop BOTH EYES QID bottle 07/02/18 [Rx] Clopidogrel [Plavix] 75 mg PO DAILY tablet 07/02/18 [Rx] Albuterol Sulfate [Proventil Inhaler] 2 puff IH Q4HR PRN #1 hfa.aer.ad 07/03/18 [Rx] Metoprolol Succinate [Toprol Xl] 37.5 mg PO DAILY 10/10/18 [History] Atorvastatin [Lipitor] 40 mg PO HS 10/11/18 [History] Lisinopril [Zestril] 5 mg PO DAILY 10/11/18 [History] Pantoprazole Sodium [Protonix] 40 mg PO DAILY 10/11/18 [History] Apixaban [Eliquis] 5 mg PO BID #60 tablet 10/16/18 [Rx] Apixaban [Eliquis] 10 mg PO BID #11 tablet 10/16/18 [Rx] Losartan [Cozaar] 12.5 mg PO DAILY #30 tablet 10/16/18 [Rx] Allergies/Adverse Reactions: Allergy/AdvReac Type Severity Reaction Status Date / Time No Known Allergies Allergy Verified 10/11/18 14:13 Certification: Further, I certify that my clinical findings support that this patient is homebound (i.e. absences from home require considerable and taxing effort and are for medical reasons or jain services or infrequently or short duration when for other reasons) because: Patient has limited mobility and would benefit from physical therapy and nurse to aid with helping patient manage his medicatio ns. Homebound Reason: Patient requires assistance of a person or device to safely leave home Attestation: My signature below is to certify that this patient is under my care and that I, or nurse practitioner, or a physician's fitter's assistant working with me, has a [id number] encounter with this patient. Jordan Zee MD
[2018-10-16] MEDS: Artificial Tears SOLN 15 ML BOTTLE BOTH EYES SCH (08:46)
[2018-10-16] MEDS: Metoprolol XL (24 HR) Succ 25 MG TAB.ER.24H PO SCH (08:46)
[2018-10-16] MEDS: Vitamin B Complex/Vit C/Vit E 1 EACH TABLET PO SCH (08:46)
[2018-10-16] MEDS: Apixaban 5 MG TABLET PO SCH (08:46)
[2018-10-22] MEDS ORDERED: Apixaban 5 MG TABLET PO SCH (09:00)
== END 2018-10-16 10:41 | disposition home health service (06) | DRG 286 ==
LOC: 2ANU → SUATTDRO 10-10 00:56
PROVIDERS: ADMIT Internal Medicine; ATTEND Internal Medicine

== ENCOUNTER 2019-04-10 16:50 | Observation (INO) ==
[2019-04-10] MEDS ORDERED: Naloxone 0.4 MG/ML INJ IVP PRN (20:50)
[2019-04-11] MEDS ORDERED: Nitroglycerin 0.4 MG TAB.SUBL SL PRN (03:02)
[2019-04-11 05:06] LABS: Basophils % 0.4 %; Eosinophils # 0.1 K/mcL (0.0-0.6); Hematocrit 30.3 % (37.5-50.1); Hemoglobin 9.6 g/dL (12.9-16.9); Immature Granulocytes % 0.4 % (0-4); Lymphocytes # 0.9 K/mcL (0.6-4.6); Lymphocytes % 8.8 %; Mean Corpuscular HGB Conc 31.7 g/dL (31.6-35.5); Mean Corpuscular Hemoglobin 33.3 pg (28.0-33.3); Mean Corpuscular Volume 105.2 fL (83.0-100.0); Mean Platelet Volume 10.6 fL (9.4-12.4); Monocytes # 0.8 K/mcL (0.0-1.3); Monocytes % 7.5 %; Neutrophils # 8.3 K/mcL (1.6-8.9); Platelet Count 229 K/mcL (140-400); Red Blood Count 2.88 M/mcL (4.19-5.50); Segmented Neutrophils % 81.9 %; White Blood Count 10.2 K/mcL (4.3-11.1)
[2019-04-11 05:15] LABS: Calcium 9.7 mg/dL (8.6-10.3)
[2019-04-11] MEDS ORDERED: Piperacillin/Tazobactam 3.375 GM in 0.9 % Sodium Chloride Mini Bag 100 ML IVPB SCH (08:00)
[2019-04-11] MEDS: Loratadine 10 MG TABLET PO SCH (08:17)
[2019-04-11] MEDS: Furosemide 40 MG TABLET PO SCH ×2 (08:17→17:00)
[2019-04-11] MEDS: Metoprolol XL (24 HR) Succ 25 MG TAB.ER.24H PO SCH (08:18)
[2019-04-11] MEDS ORDERED: Furosemide 40 MG TABLET PO SCH ×2 (09:00)
[2019-04-11] MEDS ORDERED: Apixaban 5 MG TABLET PO SCH ×2 (09:00→21:00)
[2019-04-11] MEDS: Artificial Tears SOLN 15 ML BOTTLE BOTH EYES PRN (11:30)
[2019-04-11] MEDS ORDERED: Azithromycin 500 MG in 0.9 % Sodium Chloride 250 ML IVPB SCH (16:00)
[2019-04-11] MEDS: cefTRIAXone 2,000 MG in 0.9 % Sodium Chloride Mini Bag 100 ML IVPB SCH (17:02)
[2019-04-11] MEDS: Apixaban 5 MG TABLET PO SCH (21:21)
[2019-04-11] MEDS ORDERED: Acetaminophen IV 1,000 MG/100 ML INFUS..BTL IVPB ONE (22:07)
[2019-04-12 02:23] LABS: Calcium 9.6 mg/dL (8.6-10.3); Potassium 4.8 mEq/L (3.5-5.1)
[2019-04-12 02:33] LABS: Basophils % 0.4 %; Eosinophils # 0.2 K/mcL (0.0-0.6); Eosinophils % 2.3 %; Hematocrit 30.6 % (37.5-50.1); Hemoglobin 9.7 g/dL (12.9-16.9); Immature Granulocytes % 0.4 % (0-4); Lymphocytes # 1.4 K/mcL (0.6-4.6); Lymphocytes % 14.6 %; Mean Corpuscular HGB Conc 31.7 g/dL (31.6-35.5); Mean Corpuscular Hemoglobin 33.2 pg (28.0-33.3); Mean Corpuscular Volume 104.8 fL (83.0-100.0); Mean Platelet Volume 10.5 fL (9.4-12.4); Monocytes # 0.8 K/mcL (0.0-1.3); Monocytes % 8.1 %; Neutrophils # 6.9 K/mcL (1.6-8.9); Platelet Count 242 K/mcL (140-400); Red Blood Count 2.92 M/mcL (4.19-5.50); Segmented Neutrophils % 74.2 %; White Blood Count 9.3 K/mcL (4.3-11.1)
[2019-04-12] MEDS ORDERED: 0.9 % Sodium Chloride 250 ML IVC PRN (07:17)
[2019-04-12] MEDS ORDERED: 0.9 % Sodium Chloride 1,000 ML PRIME SCH (07:30)
[2019-04-12] MEDS ORDERED: Sucralfate 1 GM TABLET PO SCH (08:00)
[2019-04-12] MEDS: Azithromycin 250 MG TABLET PO SCH (10:11)
[2019-04-12] MEDS: Apixaban 5 MG TABLET PO SCH ×2 (10:11→22:01)
[2019-04-12] MEDS: Furosemide 40 MG TABLET PO SCH ×2 (10:12→16:30)
[2019-04-12] MEDS: Loratadine 10 MG TABLET PO SCH (10:12)
[2019-04-12] MEDS: Aspirin Enteric Coated 81 MG Tablet PO SCH (10:13)
[2019-04-12] MEDS: Sucralfate 1 GM TABLET PO SCH ×3 (10:13→16:29)
[2019-04-12] MEDS: Artificial Tears SOLN 15 ML BOTTLE BOTH EYES PRN (10:16)
[2019-04-12] MEDS: Metoprolol XL (24 HR) Succ 25 MG TAB.ER.24H PO SCH (10:32)
[2019-04-12] MEDS: cefTRIAXone 2,000 MG in 0.9 % Sodium Chloride Mini Bag 100 ML IVPB SCH (12:36)
[2019-04-12] MEDS: *HR* HYDROcodone/Acet 5/325 mg TABLET PO PRN (15:28)
[2019-04-12] MEDS ORDERED: Morphine Sulfate 2 MG/ML SYRINGE IVP PRN (15:42)
[2019-04-13 05:11] LABS: Basophils % 0.7 %; Eosinophils # 0.2 K/mcL (0.0-0.6); Eosinophils % 2.8 %; Hematocrit 30.1 % (37.5-50.1); Hemoglobin 9.9 g/dL (12.9-16.9); Immature Granulocytes % 0.5 % (0-4); Lymphocytes # 1.1 K/mcL (0.6-4.6); Lymphocytes % 18.3 %; Mean Corpuscular HGB Conc 32.9 g/dL (31.6-35.5); Mean Corpuscular Hemoglobin 33.2 pg (28.0-33.3); Mean Platelet Volume 10.2 fL (9.4-12.4); Monocytes # 0.5 K/mcL (0.0-1.3); Platelet Count 271 K/mcL (140-400); Red Blood Count 2.98 M/mcL (4.19-5.50); Red Cell Distribution Width 13.9 % (11.5-14.5); Segmented Neutrophils % 69.7 %; White Blood Count 5.7 K/mcL (4.3-11.1)
[2019-04-13 05:23] LABS: Calcium 9.2 mg/dL (8.6-10.3); Potassium 4.6 mEq/L (3.5-5.1)
[2019-04-13] MEDS: Metoprolol XL (24 HR) Succ 25 MG TAB.ER.24H PO SCH (08:30)
[2019-04-13] MEDS: Azithromycin 250 MG TABLET PO SCH (08:31)
[2019-04-13] MEDS: Loratadine 10 MG TABLET PO SCH (08:32)
[2019-04-13] MEDS: Apixaban 5 MG TABLET PO SCH ×2 (08:32→20:56)
[2019-04-13] MEDS: Furosemide 40 MG TABLET PO SCH ×2 (08:33→16:48)
[2019-04-13] MEDS: Sucralfate 1 GM TABLET PO SCH ×3 (08:33→16:48)
[2019-04-13] MEDS: Aspirin Enteric Coated 81 MG Tablet PO SCH (08:35)
[2019-04-13] MEDS: cefTRIAXone 2,000 MG in 0.9 % Sodium Chloride Mini Bag 100 ML IVPB SCH (08:35)
[2019-04-13] MEDS: *HR* HYDROcodone/Acet 5/325 mg TABLET PO PRN ×2 (08:38→16:48)
[2019-04-13] MEDS: Artificial Tears SOLN 15 ML BOTTLE BOTH EYES PRN (16:49)
[2019-04-13] MEDS ORDERED: Melatonin 3 MG TABLET PO ONE (21:00)
[2019-04-14 05:00] LABS: Basophils # 0.1 K/mcL (0.0-0.2); Basophils % 0.8 %; Eosinophils # 0.2 K/mcL (0.0-0.6); Eosinophils % 2.6 %; Hematocrit 30.7 % (37.5-50.1); Hemoglobin 9.9 g/dL (12.9-16.9); Immature Granulocytes % 0.5 % (0-4); Lymphocytes # 0.9 K/mcL (0.6-4.6); Lymphocytes % 14.7 %; Mean Corpuscular HGB Conc 32.2 g/dL (31.6-35.5); Mean Corpuscular Hemoglobin 33.4 pg (28.0-33.3); Mean Corpuscular Volume 103.7 fL (83.0-100.0); Mean Platelet Volume 10.1 fL (9.4-12.4); Monocytes # 0.5 K/mcL (0.0-1.3); Monocytes % 7.8 %; Neutrophils # 4.6 K/mcL (1.6-8.9); Platelet Count 276 K/mcL (140-400); Red Blood Count 2.96 M/mcL (4.19-5.50); Segmented Neutrophils % 73.6 %; White Blood Count 6.3 K/mcL (4.3-11.1)
[2019-04-14 05:16] LABS: Calcium 9.5 mg/dL (8.6-10.3); Potassium 4.8 mEq/L (3.5-5.1)
[2019-04-14] MEDS: *HR* HYDROcodone/Acet 5/325 mg TABLET PO PRN ×2 (07:50→14:21)
[2019-04-14] MEDS: Aspirin Enteric Coated 81 MG Tablet PO SCH (07:52)
[2019-04-14] MEDS: Loratadine 10 MG TABLET PO SCH (07:52)
[2019-04-14] MEDS: Metoprolol XL (24 HR) Succ 25 MG TAB.ER.24H PO SCH (07:52)
[2019-04-14] MEDS: Azithromycin 250 MG TABLET PO SCH (07:52)
[2019-04-14] MEDS: Sucralfate 1 GM TABLET PO SCH ×3 (07:52→15:51)
[2019-04-14] MEDS: Furosemide 40 MG TABLET PO SCH ×2 (07:52→15:51)
[2019-04-14] MEDS: Apixaban 5 MG TABLET PO SCH ×2 (07:53→20:57)
[2019-04-14] MEDS: cefTRIAXone 2,000 MG in 0.9 % Sodium Chloride Mini Bag 100 ML IVPB SCH (07:53)
[2019-04-15] MEDS: *HR* HYDROcodone/Acet 5/325 mg TABLET PO PRN ×2 (02:01→15:21)
[2019-04-15 04:44] LABS: Basophils # 0.1 K/mcL (0.0-0.2); Eosinophils # 0.2 K/mcL (0.0-0.6); Eosinophils % 2.5 %; Hematocrit 32.3 % (37.5-50.1); Hemoglobin 10.4 g/dL (12.9-16.9); Immature Granulocytes % 0.8 % (0-4); Lymphocytes # 1.3 K/mcL (0.6-4.6); Lymphocytes % 17.8 %; Mean Corpuscular HGB Conc 32.2 g/dL (31.6-35.5); Mean Corpuscular Hemoglobin 33.5 pg (28.0-33.3); Mean Corpuscular Volume 104.2 fL (83.0-100.0); Mean Platelet Volume 10.1 fL (9.4-12.4); Monocytes # 0.6 K/mcL (0.0-1.3); Monocytes % 7.9 %; Neutrophils # 4.9 K/mcL (1.6-8.9); Platelet Count 281 K/mcL (140-400); Red Cell Distribution Width 13.9 % (11.5-14.5); White Blood Count 7.1 K/mcL (4.3-11.1)
[2019-04-15 05:06] LABS: Calcium 9.6 mg/dL (8.6-10.3); Potassium 5.9 mEq/L (3.5-5.1)
[2019-04-15] MEDS ORDERED: *HR* Heparin 10,000 UNIT/10 ML VIAL IV PRN (08:04)
[2019-04-15] MEDS ORDERED: 0.9 % Sodium Chloride 250 ML IVC PRN (08:04)
[2019-04-15] MEDS ORDERED: *HR* OxyCODONE Immed Rel 5 MG TABLET PO PRN (10:57)
[2019-04-15] MEDS: cefTRIAXone 2,000 MG in 0.9 % Sodium Chloride Mini Bag 100 ML IVPB SCH (11:44)
[2019-04-15] MEDS: Sucralfate 1 GM TABLET PO SCH ×3 (13:26→16:54)
[2019-04-15] MEDS: Azithromycin 250 MG TABLET PO SCH (14:13)
[2019-04-15] MEDS: Furosemide 40 MG TABLET PO SCH ×2 (14:13→16:54)
[2019-04-15] MEDS: Apixaban 5 MG TABLET PO SCH ×2 (14:14→20:36)
[2019-04-15] MEDS: Loratadine 10 MG TABLET PO SCH (14:14)
[2019-04-15] MEDS: Metoprolol XL (24 HR) Succ 25 MG TAB.ER.24H PO SCH (14:15)
[2019-04-15] MEDS: Aspirin Enteric Coated 81 MG Tablet PO SCH (14:15)
[2019-04-15] MEDS: Artificial Tears SOLN 15 ML BOTTLE BOTH EYES PRN (15:22)
[2019-04-16 05:08] LABS: Basophils # 0.1 K/mcL (0.0-0.2); Basophils % 0.9 %; Eosinophils # 0.1 K/mcL (0.0-0.6); Eosinophils % 1.7 %; Hematocrit 31.1 % (37.5-50.1); Hemoglobin 10.2 g/dL (12.9-16.9); Immature Granulocytes % 1.5 % (0-4); Lymphocytes # 0.8 K/mcL (0.6-4.6); Lymphocytes % 10.5 %; Mean Corpuscular HGB Conc 32.8 g/dL (31.6-35.5); Mean Corpuscular Hemoglobin 33.3 pg (28.0-33.3); Mean Corpuscular Volume 101.6 fL (83.0-100.0); Mean Platelet Volume 10.1 fL (9.4-12.4); Monocytes # 0.6 K/mcL (0.0-1.3); Monocytes % 7.6 %; Neutrophils # 5.8 K/mcL (1.6-8.9); Platelet Count 309 K/mcL (140-400); Red Blood Count 3.06 M/mcL (4.19-5.50); Red Cell Distribution Width 14.1 % (11.5-14.5); Segmented Neutrophils % 77.8 %; White Blood Count 7.5 K/mcL (4.3-11.1)
[2019-04-16 05:31] LABS: Calcium 9.5 mg/dL (8.6-10.3); Potassium 4.4 mEq/L (3.5-5.1)
[2019-04-16] MEDS: Aspirin Enteric Coated 81 MG Tablet PO SCH (09:34)
[2019-04-16] MEDS: Apixaban 5 MG TABLET PO SCH ×2 (09:34→21:48)
[2019-04-16] MEDS: Loratadine 10 MG TABLET PO SCH (09:34)
[2019-04-16] MEDS: *HR* HYDROcodone/Acet 5/325 mg TABLET PO PRN ×2 (09:34→17:35)
[2019-04-16] MEDS: cefTRIAXone 2,000 MG in 0.9 % Sodium Chloride Mini Bag 100 ML IVPB SCH (09:35)
[2019-04-16] MEDS: Metoprolol XL (24 HR) Succ 25 MG TAB.ER.24H PO SCH (09:35)
[2019-04-16] MEDS: Sucralfate 1 GM TABLET PO SCH ×3 (09:35→17:35)
[2019-04-16] MEDS: Furosemide 40 MG TABLET PO SCH ×2 (09:35→17:35)
[2019-04-17 04:34] LABS: Basophils # 0.1 K/mcL (0.0-0.2); Basophils % 0.9 %; Eosinophils # 0.2 K/mcL (0.0-0.6); Eosinophils % 2.3 %; Hematocrit 28.5 % (37.5-50.1); Hemoglobin 9.4 g/dL (12.9-16.9); Immature Granulocytes % 1.4 % (0-4); Lymphocytes # 1.4 K/mcL (0.6-4.6); Lymphocytes % 17.7 %; Mean Corpuscular Hemoglobin 33.7 pg (28.0-33.3); Mean Corpuscular Volume 102.2 fL (83.0-100.0); Monocytes # 0.6 K/mcL (0.0-1.3); Monocytes % 7.8 %; Neutrophils # 5.4 K/mcL (1.6-8.9); Platelet Count 307 K/mcL (140-400); Red Blood Count 2.79 M/mcL (4.19-5.50); Red Cell Distribution Width 14.1 % (11.5-14.5); Segmented Neutrophils % 69.9 %; White Blood Count 7.7 K/mcL (4.3-11.1)
[2019-04-17 04:51] LABS: Calcium 9.1 mg/dL (8.6-10.3); Potassium 4.9 mEq/L (3.5-5.1)
[2019-04-17] MEDS: Metoprolol XL (24 HR) Succ 25 MG TAB.ER.24H PO SCH (07:49)
[2019-04-17] MEDS: *HR* HYDROcodone/Acet 5/325 mg TABLET PO PRN ×3 (07:50→20:36)
[2019-04-17] MEDS: Apixaban 5 MG TABLET PO SCH ×2 (07:50→20:35)
[2019-04-17] MEDS: Sucralfate 1 GM TABLET PO SCH ×3 (07:50→16:43)
[2019-04-17] MEDS: Aspirin Enteric Coated 81 MG Tablet PO SCH (07:50)
[2019-04-17] MEDS: Loratadine 10 MG TABLET PO SCH (07:50)
[2019-04-17] MEDS: Furosemide 40 MG TABLET PO SCH ×2 (07:51→16:44)
[2019-04-17] MEDS: cefTRIAXone 2,000 MG in 0.9 % Sodium Chloride Mini Bag 100 ML IVPB SCH (07:52)
[2019-04-17] MEDS ORDERED: *HR* Heparin 10,000 UNIT/10 ML VIAL IV PRN ×2 (08:48)
[2019-04-17] MEDS ORDERED: 0.9 % Sodium Chloride 250 ML IVC PRN (08:48)
[2019-04-17] MEDS ORDERED: 0.9 % Sodium Chloride 1,000 ML PRIME SCH (09:00)
[2019-04-18] MEDS: cefTRIAXone 2,000 MG in 0.9 % Sodium Chloride Mini Bag 100 ML IVPB SCH (07:52)
[2019-04-18] MEDS: Sucralfate 1 GM TABLET PO SCH ×3 (07:53→17:13)
[2019-04-18] MEDS: Furosemide 40 MG TABLET PO SCH ×2 (07:53→17:13)
[2019-04-18] MEDS: Apixaban 5 MG TABLET PO SCH ×2 (07:53→21:26)
[2019-04-18] MEDS: Metoprolol XL (24 HR) Succ 25 MG TAB.ER.24H PO SCH (07:54)
[2019-04-18] MEDS: *HR* HYDROcodone/Acet 5/325 mg TABLET PO PRN ×2 (07:54→17:14)
[2019-04-18] MEDS: Loratadine 10 MG TABLET PO SCH (07:54)
[2019-04-18 10:38] LABS: Basophils # 0.1 K/mcL (0.0-0.2); Eosinophils # 0.1 K/mcL (0.0-0.6); Eosinophils % 1.3 %; Hematocrit 31.1 % (37.5-50.1); Hemoglobin 10.5 g/dL (12.9-16.9); Immature Granulocytes % 1.4 % (0-4); Mean Corpuscular HGB Conc 33.8 g/dL (31.6-35.5); Mean Corpuscular Hemoglobin 33.8 pg (28.0-33.3); Mean Platelet Volume 9.5 fL (9.4-12.4); Monocytes # 0.5 K/mcL (0.0-1.3); Monocytes % 5.7 %; Neutrophils # 6.3 K/mcL (1.6-8.9); Platelet Count 374 K/mcL (140-400); Red Blood Count 3.11 M/mcL (4.19-5.50); Red Cell Distribution Width 14.7 % (11.5-14.5); Segmented Neutrophils % 78.6 %; White Blood Count 7.9 K/mcL (4.3-11.1)
[2019-04-18 11:24] LABS: Calcium 9.4 mg/dL (8.6-10.3); Potassium 4.5 mEq/L (3.5-5.1)
[2019-04-19] MEDS: *HR* HYDROcodone/Acet 5/325 mg TABLET PO PRN ×3 (03:41→23:10)
[2019-04-19 05:38] LABS: Basophils # 0.1 K/mcL (0.0-0.2); Eosinophils # 0.1 K/mcL (0.0-0.6); Eosinophils % 1.2 %; Hematocrit 32.1 % (37.5-50.1); Hemoglobin 10.5 g/dL (12.9-16.9); Immature Granulocytes % 1.4 % (0-4); Lymphocytes # 1.4 K/mcL (0.6-4.6); Lymphocytes % 16.6 %; Mean Corpuscular HGB Conc 32.7 g/dL (31.6-35.5); Mean Corpuscular Hemoglobin 33.1 pg (28.0-33.3); Mean Corpuscular Volume 101.3 fL (83.0-100.0); Mean Platelet Volume 9.7 fL (9.4-12.4); Monocytes # 0.6 K/mcL (0.0-1.3); Monocytes % 6.9 %; Neutrophils # 5.9 K/mcL (1.6-8.9); Platelet Count 372 K/mcL (140-400); Red Blood Count 3.17 M/mcL (4.19-5.50); Red Cell Distribution Width 14.4 % (11.5-14.5); Segmented Neutrophils % 72.9 %; White Blood Count 8.1 K/mcL (4.3-11.1)
[2019-04-19 06:13] LABS: Calcium 9.8 mg/dL (8.6-10.3); Potassium 4.6 mEq/L (3.5-5.1)
[2019-04-19] MEDS ORDERED: *HR* Heparin 10,000 UNIT/10 ML VIAL IV PRN (08:28)
[2019-04-19] MEDS ORDERED: 0.9 % Sodium Chloride 250 ML IVC PRN (08:28)
[2019-04-19] MEDS: Sucralfate 1 GM TABLET PO SCH ×3 (14:07→17:07)
[2019-04-19] MEDS: Metoprolol XL (24 HR) Succ 25 MG TAB.ER.24H PO SCH (15:08)
[2019-04-19] MEDS: Loratadine 10 MG TABLET PO SCH (15:09)
[2019-04-19] MEDS: cephALEXin 500 MG CAPSULE PO SCH ×2 (15:09→23:10)
[2019-04-19] MEDS: Furosemide 40 MG TABLET PO SCH ×2 (15:09→17:08)
[2019-04-19] MEDS: Apixaban 5 MG TABLET PO SCH ×2 (15:10→23:10)
[2019-04-19] MEDS: Artificial Tears SOLN 15 ML BOTTLE BOTH EYES PRN (15:17)
[2019-04-20 04:51] LABS: Basophils # 0.1 K/mcL (0.0-0.2); Basophils % 0.8 %; Eosinophils # 0.1 K/mcL (0.0-0.6); Eosinophils % 1.4 %; Hematocrit 29.2 % (37.5-50.1); Hemoglobin 9.5 g/dL (12.9-16.9); Immature Granulocytes % 1.1 % (0-4); Lymphocytes % 13.4 %; Mean Corpuscular HGB Conc 32.5 g/dL (31.6-35.5); Mean Corpuscular Hemoglobin 33.6 pg (28.0-33.3); Mean Corpuscular Volume 103.2 fL (83.0-100.0); Mean Platelet Volume 9.6 fL (9.4-12.4); Monocytes # 0.7 K/mcL (0.0-1.3); Monocytes % 9.2 %; Neutrophils # 5.2 K/mcL (1.6-8.9); Platelet Count 350 K/mcL (140-400); Red Blood Count 2.83 M/mcL (4.19-5.50); Red Cell Distribution Width 14.7 % (11.5-14.5); Segmented Neutrophils % 74.1 %; White Blood Count 7.1 K/mcL (4.3-11.1)
[2019-04-20 05:10] LABS: Calcium 9.3 mg/dL (8.6-10.3); Potassium 4.6 mEq/L (3.5-5.1)
[2019-04-20] MEDS: Apixaban 5 MG TABLET PO SCH ×2 (08:20→22:23)
[2019-04-20] MEDS: Furosemide 40 MG TABLET PO SCH ×2 (08:20→17:27)
[2019-04-20] MEDS: Sucralfate 1 GM TABLET PO SCH ×3 (08:21→17:29)
[2019-04-20] MEDS: cephALEXin 500 MG CAPSULE PO SCH ×2 (08:26→22:13)
[2019-04-20] MEDS: Loratadine 10 MG TABLET PO SCH (08:27)
[2019-04-20] MEDS: Metoprolol XL (24 HR) Succ 25 MG TAB.ER.24H PO SCH (08:28)
[2019-04-20] MEDS: *HR* HYDROcodone/Acet 5/325 mg TABLET PO PRN ×2 (08:31→22:13)
[2019-04-20] MEDS: metOLazone 5 MG TABLET PO SCH (17:53)
[2019-04-21 06:46] LABS: Basophils # 0.1 K/mcL (0.0-0.2); Basophils % 0.7 %; Eosinophils # 0.1 K/mcL (0.0-0.6); Eosinophils % 1.8 %; Hematocrit 29.1 % (37.5-50.1); Hemoglobin 9.7 g/dL (12.9-16.9); Immature Granulocytes % 1.2 % (0-4); Lymphocytes # 1.1 K/mcL (0.6-4.6); Mean Corpuscular HGB Conc 33.3 g/dL (31.6-35.5); Mean Corpuscular Hemoglobin 33.1 pg (28.0-33.3); Mean Corpuscular Volume 99.3 fL (83.0-100.0); Mean Platelet Volume 9.7 fL (9.4-12.4); Monocytes # 0.6 K/mcL (0.0-1.3); Neutrophils # 5.4 K/mcL (1.6-8.9); Platelet Count 360 K/mcL (140-400); Red Blood Count 2.93 M/mcL (4.19-5.50); Red Cell Distribution Width 14.7 % (11.5-14.5); Segmented Neutrophils % 73.3 %; White Blood Count 7.4 K/mcL (4.3-11.1)
[2019-04-21 07:05] LABS: Calcium 9.3 mg/dL (8.6-10.3); Potassium 4.6 mEq/L (3.5-5.1)
[2019-04-21] MEDS ORDERED: Furosemide 40 MG/4 ML VIAL IVP ONE (08:30)
[2019-04-21] MEDS: Loratadine 10 MG TABLET PO SCH (09:35)
[2019-04-21] MEDS: Sucralfate 1 GM TABLET PO SCH ×3 (09:35→16:04)
[2019-04-21] MEDS: cephALEXin 500 MG CAPSULE PO SCH ×2 (09:36→22:12)
[2019-04-21] MEDS: Metoprolol XL (24 HR) Succ 25 MG TAB.ER.24H PO SCH (09:36)
[2019-04-21] MEDS: metOLazone 5 MG TABLET PO SCH (09:37)
[2019-04-21] MEDS: Apixaban 5 MG TABLET PO SCH ×2 (09:38→22:12)
[2019-04-21] MEDS: Furosemide 40 MG TABLET PO SCH ×2 (09:39→16:04)
[2019-04-21] MEDS: *HR* HYDROcodone/Acet 5/325 mg TABLET PO PRN ×2 (09:47→18:28)
[2019-04-22 06:17] LABS: Basophils # 0.1 K/mcL (0.0-0.2); Basophils % 0.6 %; Eosinophils # 0.1 K/mcL (0.0-0.6); Eosinophils % 1.5 %; Hematocrit 31.9 % (37.5-50.1); Hemoglobin 10.4 g/dL (12.9-16.9); Immature Granulocytes % 1.1 % (0-4); Lymphocytes # 1.6 K/mcL (0.6-4.6); Lymphocytes % 17.5 %; Mean Corpuscular HGB Conc 32.6 g/dL (31.6-35.5); Mean Corpuscular Hemoglobin 33.5 pg (28.0-33.3); Mean Corpuscular Volume 102.9 fL (83.0-100.0); Mean Platelet Volume 9.8 fL (9.4-12.4); Monocytes # 0.6 K/mcL (0.0-1.3); Monocytes % 6.3 %; Neutrophils # 6.8 K/mcL (1.6-8.9); Platelet Count 406 K/mcL (140-400); Red Cell Distribution Width 14.6 % (11.5-14.5); White Blood Count 9.3 K/mcL (4.3-11.1)
[2019-04-22 06:27] LABS: Calcium 9.7 mg/dL (8.6-10.3); Potassium 5.1 mEq/L (3.5-5.1)
[2019-04-22] MEDS ORDERED: 0.9 % Sodium Chloride 250 ML IVC PRN (08:14)
[2019-04-22] MEDS: Loratadine 10 MG TABLET PO SCH (08:30)
[2019-04-22] MEDS: Sucralfate 1 GM TABLET PO SCH ×3 (08:30→17:58)
[2019-04-22] MEDS: cephALEXin 500 MG CAPSULE PO SCH ×2 (08:30→20:24)
[2019-04-22] MEDS: Apixaban 5 MG TABLET PO SCH ×2 (08:30→20:24)
[2019-04-22] MEDS: Metoprolol XL (24 HR) Succ 25 MG TAB.ER.24H PO SCH (08:32)
[2019-04-22] MEDS: Furosemide 40 MG TABLET PO SCH ×2 (08:46→18:41)
[2019-04-22] MEDS: metOLazone 5 MG TABLET PO SCH (17:58)
[2019-04-23 05:22] LABS: Hematocrit 29.3 % (37.5-50.1); Hemoglobin 9.8 g/dL (12.9-16.9); Mean Corpuscular HGB Conc 33.4 g/dL (31.6-35.5); Mean Corpuscular Hemoglobin 33.1 pg (28.0-33.3); Mean Platelet Volume 9.5 fL (9.4-12.4); Platelet Count 391 K/mcL (140-400); Red Blood Count 2.96 M/mcL (4.19-5.50); Red Cell Distribution Width 14.6 % (11.5-14.5); White Blood Count 7.3 K/mcL (4.3-11.1)
[2019-04-23 05:38] LABS: Calcium 9.5 mg/dL (8.6-10.3); Potassium 4.1 mEq/L (3.5-5.1)
[2019-04-23] MEDS: Sucralfate 1 GM TABLET PO SCH ×2 (07:51→12:25)
[2019-04-23] MEDS: Apixaban 5 MG TABLET PO SCH (07:52)
[2019-04-23] MEDS: cephALEXin 500 MG CAPSULE PO SCH (07:53)
[2019-04-23] MEDS: Loratadine 10 MG TABLET PO SCH (07:53)
[2019-04-23] MEDS: Metoprolol XL (24 HR) Succ 25 MG TAB.ER.24H PO SCH (07:53)
[2019-04-23] MEDS: Furosemide 40 MG TABLET PO SCH (07:53)
[2019-04-23] MEDS: metOLazone 5 MG TABLET PO SCH (07:53)
[2019-04-23] MEDS: *HR* HYDROcodone/Acet 5/325 mg TABLET PO PRN (09:46)
[2019-04-23 10:40] VITALS: BP 96/63
== END 2019-04-23 14:33 ==
LOC: 2ANU → SUATTDRO 18:47
PROVIDERS: ADMIT Internal Medicine; ATTEND Internal Medicine

== ENCOUNTER 2019-05-03 17:59 | Observation (INO) ==
[2019-05-03] MEDS ORDERED: Naloxone 0.4 MG/ML INJ IVP PRN (22:51)
[2019-05-04] MEDS ORDERED: Furosemide 40 MG/4 ML VIAL IVP ONE (01:30)
[2019-05-04] MEDS: Doxycycline 100 MG in 0.9 % Sodium Chloride Mini Bag 100 ML IVPB SCH ×2 (02:16→16:51)
[2019-05-04 02:49] LABS: Basophils # 0.1 K/mcL (0.0-0.2); Eosinophils # 0.1 K/mcL (0.0-0.6); Eosinophils % 1.5 %; Hematocrit 31.9 % (37.5-50.1); Hemoglobin 9.9 g/dL (12.9-16.9); Immature Granulocytes % 0.3 % (0-4); Lymphocytes # 0.8 K/mcL (0.6-4.6); Lymphocytes % 13.8 %; Mean Corpuscular Hemoglobin 32.5 pg (28.0-33.3); Mean Corpuscular Volume 104.6 fL (83.0-100.0); Mean Platelet Volume 10.1 fL (9.4-12.4); Monocytes # 0.6 K/mcL (0.0-1.3); Monocytes % 10.4 %; Neutrophils # 4.3 K/mcL (1.6-8.9); Platelet Count 284 K/mcL (140-400); Red Blood Count 3.05 M/mcL (4.19-5.50); Red Cell Distribution Width 14.3 % (11.5-14.5); White Blood Count 5.9 K/mcL (4.3-11.1)
[2019-05-04 03:02] LABS: Calcium 9.8 mg/dL (8.6-10.3); Potassium 3.5 mEq/L (3.5-5.1)
[2019-05-04 03:22] LABS: Troponin I 0.06 ng/mL (< 0.04)
[2019-05-04] MEDS ORDERED: Nitroglycerin 0.4 MG TAB.SUBL SL PRN (11:16)
[2019-05-04] MEDS ORDERED: Artificial Tears SOLN 15 ML BOTTLE BOTH EYES PRN (11:16)
[2019-05-04] MEDS: Metoprolol XL (24 HR) Succ 25 MG TAB.ER.24H PO SCH (14:15)
[2019-05-04] MEDS: Furosemide 40 MG TABLET PO SCH (14:16)
[2019-05-04] MEDS: Apixaban 5 MG TABLET PO SCH ×2 (14:16→22:27)
[2019-05-04] MEDS: Loratadine 10 MG TABLET PO SCH (14:17)
[2019-05-04] MEDS: metOLazone 5 MG TABLET PO SCH (14:17)
[2019-05-04] MEDS: Sucralfate 1 GM TABLET PO SCH ×2 (14:17→16:52)
[2019-05-05] MEDS: Doxycycline 100 MG in 0.9 % Sodium Chloride Mini Bag 100 ML IVPB SCH (02:23)
[2019-05-05] MEDS: metOLazone 5 MG TABLET PO SCH (08:08)
[2019-05-05] MEDS: Apixaban 5 MG TABLET PO SCH ×2 (08:08→21:34)
[2019-05-05] MEDS: Sucralfate 1 GM TABLET PO SCH ×3 (08:08→17:10)
[2019-05-05] MEDS: Furosemide 40 MG TABLET PO SCH (08:08)
[2019-05-05] MEDS: Metoprolol XL (24 HR) Succ 25 MG TAB.ER.24H PO SCH (08:08)
[2019-05-05] MEDS: Loratadine 10 MG TABLET PO SCH (08:08)
[2019-05-06] MEDS: Sucralfate 1 GM TABLET PO SCH ×3 (07:54→18:26)
[2019-05-06] MEDS: Apixaban 5 MG TABLET PO SCH ×2 (07:54→20:25)
[2019-05-06] MEDS: Loratadine 10 MG TABLET PO SCH (07:54)
[2019-05-06] MEDS: Metoprolol XL (24 HR) Succ 25 MG TAB.ER.24H PO SCH (07:55)
[2019-05-06 08:07] LABS: Hematocrit 33.2 % (37.5-50.1); Hemoglobin 10.3 g/dL (12.9-16.9); Mean Corpuscular Hemoglobin 32.2 pg (28.0-33.3); Mean Corpuscular Volume 103.8 fL (83.0-100.0); Mean Platelet Volume 10.1 fL (9.4-12.4); Platelet Count 281 K/mcL (140-400); Red Cell Distribution Width 14.4 % (11.5-14.5); White Blood Count 5.9 K/mcL (4.3-11.1)
[2019-05-06 08:32] LABS: Calcium 9.6 mg/dL (8.6-10.3)
[2019-05-06] MEDS ORDERED: *HR* Heparin 10,000 UNIT/10 ML VIAL IV PRN (13:06)
[2019-05-06] MEDS ORDERED: 0.9 % Sodium Chloride 250 ML IVC PRN (13:06)
[2019-05-06] MEDS ORDERED: 0.9 % Sodium Chloride 1,000 ML ONE (13:13)
[2019-05-06] MEDS ORDERED: 0.9 % Sodium Chloride 1,000 ML PRIME SCH (13:15)
[2019-05-06] MEDS: Furosemide 40 MG TABLET PO SCH (18:27)
[2019-05-06] MEDS: metOLazone 5 MG TABLET PO SCH (18:28)
[2019-05-07] MEDS: metOLazone 5 MG TABLET PO SCH (09:18)
[2019-05-07] MEDS: Loratadine 10 MG TABLET PO SCH (09:18)
[2019-05-07] MEDS: Apixaban 5 MG TABLET PO SCH ×2 (09:18→23:12)
[2019-05-07] MEDS: Sucralfate 1 GM TABLET PO SCH ×3 (09:18→17:29)
[2019-05-07] MEDS: Furosemide 40 MG TABLET PO SCH (09:18)
[2019-05-07] MEDS: Metoprolol XL (24 HR) Succ 25 MG TAB.ER.24H PO SCH (12:11)
[2019-05-08] MEDS: Sucralfate 1 GM TABLET PO SCH ×3 (08:19→18:32)
[2019-05-08] MEDS: Apixaban 5 MG TABLET PO SCH (08:19)
[2019-05-08] MEDS: Loratadine 10 MG TABLET PO SCH (08:19)
[2019-05-08] MEDS: Metoprolol XL (24 HR) Succ 25 MG TAB.ER.24H PO SCH (08:19)
[2019-05-08 09:53] LABS: Hematocrit 32.3 % (37.5-50.1); Hemoglobin 10.1 g/dL (12.9-16.9); Mean Corpuscular HGB Conc 31.3 g/dL (31.6-35.5); Mean Corpuscular Hemoglobin 31.5 pg (28.0-33.3); Mean Corpuscular Volume 100.6 fL (83.0-100.0); Mean Platelet Volume 9.9 fL (9.4-12.4); Platelet Count 308 K/mcL (140-400); Red Blood Count 3.21 M/mcL (4.19-5.50); Red Cell Distribution Width 14.9 % (11.5-14.5); White Blood Count 5.5 K/mcL (4.3-11.1)
[2019-05-08 10:12] LABS: Calcium 9.8 mg/dL (8.6-10.3)
[2019-05-08] MEDS ORDERED: 0.9 % Sodium Chloride 250 ML IVC PRN (10:59)
[2019-05-08] MEDS ORDERED: *HR* Heparin 10,000 UNIT/10 ML VIAL IV PRN (10:59)
[2019-05-08] MEDS ORDERED: Acetaminophen 325 MG TABLET PO PRN (12:13)
[2019-05-08] MEDS: metOLazone 5 MG TABLET PO SCH (12:18)
[2019-05-08] MEDS: Furosemide 40 MG TABLET PO SCH (12:18)
[2019-05-08 18:35] VITALS: BP 108/69
== END 2019-05-08 19:02 | disposition home or self-care (01) ==
LOC: 2ANU → SUATTDRO 19:52
PROVIDERS: ADMIT Internal Medicine; ATTEND Internal Medicine